=== PATIENT | female | born 1995 | race American Indian/Alaskan Native ===

== ENCOUNTER 2020-09-14 09:48 | Outpatient (REF) | payer OTHER, SELFPAY ==
[2020-09-15 08:59] LABS: BV Int Neg Control Negative (Negative); BV Int Pos Control Positive (Positive)
[2020-09-15 10:27] LABS: C. trachomatis RNA TMA NOT DETECTED (NOT DETECTED); N. gonorrhoeae RNA TMA NOT DETECTED (NOT DETECTED)
== END 2020-09-14 09:49 | disposition home or self-care (01) ==
LOC: HO.LAB 09:48
PROVIDERS: PCP Internal Medicine; Visit Provider Advanced Practice Midwife
DX: Z01.419 Encounter for gynecological examination (general) (routine) without abnormal findings (principal); N92.6 Irregular menstruation, unspecified; F41.8 Other specified anxiety disorders; Z11.3 Encounter for screening for infections with a predominantly sexual mode of transmission
CPT/HCPCS: 36415; 81003; 81025; 87480; 87491; 87510; 87591; 87660; 88142

== ENCOUNTER 2020-10-10 14:10 | Outpatient (REF) | payer OTHER, SELFPAY | END 2020-10-10 14:11 | disposition home or self-care (01) | LOC: HO.LNP 14:10 | PROVIDERS: Visit Provider Hospitalist | DX: Z20.822 Contact with and (suspected) exposure to COVID-19 (principal); B34.9 Viral infection, unspecified | CPT/HCPCS: U0003; U0005 ==

== ENCOUNTER 2020-10-20 07:10 | Emergency (ER) | payer OTHER, SELFPAY ==
[2020-10-20 07:17] VITALS: BP 104/56; BP 123/74; PULSE 80; PULSE 86; RESP 16; TEMP 36.8; O2SAT 98; BMI 31.8
--- NOTE | 2020-10-20 07:21 | ED.SEIZURE ---
HPI - Seizure General Chief Complaint: Seizure Stated Complaint: SEIZURE Time Seen by Provider: 10/20/20 07:16 Source: patient and EMS Mode of arrival: EMS Limitations: no limitations (patient cannot remember the events but called her boyfriend ) History of Present Illness HPI Narrative: 24 yo female with hx of epilepsy was on dilantin but was weaned off several years ago and is not on any AEDs - she has been having focal seizures at home this month called the Neurologist has appointment but at the end of the month, this AM prior to arrival she was in bed and her boyfriend noted 30 seconds of GTC activity, patient was postictal on waking up, no injuries noted MD complaint: seizure Onset (ago): minute(s) (just TPA) Description of Episode: loss of consciousness, tonic-clonic movement and post-event confusion Duration of episode: 30 -: second(s) Witnessed: Yes - by Bystander Trauma: No Seizure History: Yes Place: Home Possible Precipitating Event: none Associated symptoms: other (c/o some nausea and mild headache) Treatments prior to arrival: none Related Data Home Medications Medication Instructions Recorded Confirmed ferrous sulfate 325 mg (65 mg 325 mg PO DAILY 09/14/20 10/10/20 iron) tablet Previous Rx's Medication Instructions Recorded medroxyprogesterone 10 mg tablet 10 mg PO DAILY #10 tab 09/14/20 ondansetron HCl 8 mg tablet 8 mg PO Q8H PRN #14 tab 10/10/20 levetiracetam [Keppra] 500 mg PO BID #30 tab 10/20/20 Allergies Allergy/AdvReac Type Severity Reaction Status Date / Time phenytoin [From DILANTIN] Allergy Mild RASH Verified 10/10/20 13:18 Review of Systems Review of Systems: Constitutional : No Weight loss, No Fever, No Chills, No Fatigue, No Malaise ENT/Mouth : No sore throat, No Rhinorrhea Eyes: No Eye Pain, No Swelling, No Redness Cardiovascular : No Chest Pain, No SOB, No Dyspnea on Exertion, No Orthopnea, No Edema, No Palpitations Respiratory : No Cough, No Sputum, No Wheezing Gastrointestinal : po Nausea, No Vomiting, No Diarrhea, No Constipation, No abdominal Pain Genitourinary : No Dysuria, No Urinary Frequency, No Hematuria, Musculoskeletal : No joint pain, No Myalgias, No Joint Swelling Skin : No Skin Lesions, No rash Neuro : No Weakness, No Numbness, No Dizziness, pos Headache, pos seizure Psych : No Anxiety/Panic, No Depression Heme/Lymph: No Bruising, No Bleeding,No Lymphadenopathy Endocrine : No Polyuria, No Polydipsia All other systems reviewed and are negative [facility] Past Medical History Medical History (Updated 10/20/20 @ 08:49 by Shannan Marquez DO) Annual physical exam BCP ( control pills) initiation Depression Depression with anxiety Frequent UTI care and examination Seizure disorder Surgical History Hx of section No pertinent past surgical history Family History Family History Father No problems noted. Mother No problems noted. Social History Social History Alcohol intake: never Smoking Status: Never smoker Smoked in Last 30 Days: No Use of substances other than those prescribed or required for medical reasons: Yes Substance Use Type: Marijuana Substance Use Frequency: Weekly Advance Directives: No Advance Directives Information Provided: No Sexual orientation: Straight/Heterosexual Physical Exam Vital Signs: Vital Signs: Last Vital Signs Temp 98.2 F 10/20/20 07:17 Pulse 86 10/20/20 07:17 Resp 16 10/20/20 07:17 BP 104/56 L 10/20/20 07:17 Pulse Ox 98 10/20/20 07:17 Body Mass Index 31.8 Appearance: Alert. Oriented X3. No acute distress. Eyes: Pupils equal, round and reactive to light. ENT: Pharynx normal. no abrasions Neck: Normal inspection. Neck supple. CVS: Normal heart rate and rhythm. Pulses normal. Respiratory: No respiratory distress. Breath sounds normal. Abdomen: Soft and nontender. Skin: Skin warm and dry. Normal skin color. Normal skin turgor. Extremities: No lower extremity edema. No calf ttp Neuro: Oriented X 3. No motor deficit. No sensory deficit. Course Course Course Narrative: GCS 15 at baseline, stable for DC MDM - Seizure MDM Narrative Medical decision making narrative: 24 yo female with hx of epilepsy has not been on any medications for several years, has been having focal seizures at home but today had GTC seizure - she has appointment with Neurology at the end of the month, my concern is that she is going to progress with out any AEDs, discussed risks and benefits of starting keppra until her appointment the patient wants to proceed at this time will start on keppra 500mg BID, check UPT Lab Data Labs: Lab Results 10/20/20 Range/Units 08:27 Urine Test NEGATIVE (NEGATIVE) Discharge Plan Discharge Clinical Impression: Generalized seizure Patient Disposition: Home, Self-Care Instructions: Epilepsy (ED) Additional Instructions: return to ED for any worsening symptoms or concerns please follow up with your Neurologist Prescriptions: New levetiracetam [Keppra] 500 mg tablet 500 mg PO BID Qty: 30 RF: 1 No Action ondansetron HCl 8 mg tablet 8 mg PO Q8H PRN (Reason: nausea and vomiting) Qty: 14 RF: 0 ferrous sulfate 325 mg (65 mg iron) tablet 325 mg PO DAILY RF: 0 medroxyprogesterone [Provera] 10 mg tablet 10 mg PO DAILY Qty: 10 RF: 0 Stand Alone Forms: Work/School Release
[2020-10-20] MEDS: Acetaminophen 325 MG TABLET 650 MG PO (07:52)
--- NOTE | 2020-10-20 07:59 | PC.NURSE ---
pt was given the zofran sublingual vomitted up the med, pt stated that she did not like the taste of the med. requested/given some water swallowed water okay. pt given tylenol 650mg po and vomitted tylenol along with some undigested food particles. aware.
[2020-10-20] MEDS: ondansetron HCL 4 MG/2 ML VIAL IVPUSH (08:15)
[2020-10-20 08:38] LABS: UPreg QC Valid YES; Urine Pregnancy NEGATIVE (NEGATIVE)
--- NOTE | 2020-10-20 08:38 | PC.NURSE ---
pt alert and oriented x3, pt observed texting and talking on her phone, speaking in complete sentences, making appropriate eye contact with nurse. pt not having seizure activity at this time.
--- NOTE | 2020-10-20 08:39 | PC.NURSE ---
pt currently laying in bed with side rails up and padding applied to side rails. pt connected to heart monitor. after throwing up PO meds pt asked about IV meds, added Zofran 4mg IV push to orders. Pt given zofran IV push and stated after a few minutes the med seemed like it was working in reducing nausea and she wanted to try taking tylenol again. pt given 650mg tylenol PO again and was able to keep it down. pt able to speak in complete sentences, eye contact appropriate for setting. thought process is linear and pt does not appear confused at this time. pt given emesis bag in case she throws up again. call russell in reach.
[2020-10-20 09:11] VITALS: BP 103/51; PULSE 62; RESP 14; TEMP 36.7
[2020-10-20] MEDS: levETIRAcetam 500 MG TABLET PO (09:16)
--- NOTE | 2020-10-20 09:34 | PC.NURSE ---
pt alert and oriented x3, pt dressed herself, pt was offered wheelchair upon discharge to bring her out to waiting room, pt adamantly refused wheelchair. ambulates independently, gait steady. pt denies feeling lightheaded or dizzy when ambulating. no compaints of nausea or headache at this time, denies blurry vision or visual impairments. no tremors or seizure activity noted while patient was in ER.
== END 2020-10-20 09:38 | disposition home or self-care (01) ==
PROVIDERS: Emergency Provider Emergency Medicine; PCP Internal Medicine
DX: R56.9 Unspecified convulsions (principal); R51.9 Headache, unspecified; R11.0 Nausea; F12.90 Cannabis use, unspecified, uncomplicated; Z79.899 Other long term (current) drug therapy
CPT/HCPCS: 81025; 96374; 99284; J2405

== ENCOUNTER 2020-10-31 21:38 | Emergency (ER) | payer OTHER, SELFPAY ==
[2020-10-31 21:44] VITALS: BP 109/76; BP 119/66; PULSE 67; PULSE 76; RESP 18; TEMP 36.4; O2SAT 100; O2SAT 98; BMI 45.6
[2020-10-31 21:53] LABS: Glucose, Whole Blood 95 mg/dL (60-115)
--- NOTE | 2020-10-31 22:06 | PC.NURSE ---
Pt attempting to take cpsine collar off- explained why it was in place and risks of removing it, pt reluctant to keep it on. Pt reports abd burning its spreading , attempted to draw blood work and medicate w/ tylenol- pt declining you aren't helping me you aren't listening to me , when asked to explain further pt states I dont want fucking tylenol... I want this thing (cspine collar) off... get me a doctor now . Pt appears uncomfortable, guarding abd, but skin w/p/d, neuros intact, rr even and unlabored.
--- NOTE | 2020-10-31 22:10 | PC.NURSE ---
Approached pt asking for permission to speak to mother via phone, pt states why arent you helping me, I want pain medication , offered Tylenol, pt swearing at this rn, this rn asked pt to be respectful, pt states you need to be respectful, I'll fuck you up bitch . Another rn at bedside attempting to de-escalate pt.
--- NOTE | 2020-10-31 22:23 | PC.NURSE ---
linen tech at bedside w/ Dr. Michaels- attempting to de-escalate pt, cspine collar removed by pt.
--- NOTE | 2020-10-31 22:26 | ED.SEIZURE ---
HPI - Seizure General Chief Complaint: Seizure Stated Complaint: Seizure Time Seen by Provider: 10/31/20 22:26 Source: patient Mode of arrival: EMS History of Present Illness HPI Narrative: This is a 24-year-old female with history of epilepsy on Lamictal and states that she forgot her dose this morning because she was at work and was tired and as per EMS had an unwitnessed suspected seizure while in the bathroom. She is not noted to be postictal on arrival to the emergency department and denies any constitutional symptoms such as fevers, chills, urinary pain/burning/frequency. Seizure History: Yes (last seizure 13 years ago, does not take meds for seizures) Related Data Home Medications Medication Instructions Recorded Confirmed ferrous sulfate 325 mg (65 mg 325 mg PO DAILY 09/14/20 10/10/20 iron) tablet Previous Rx's Medication Instructions Recorded medroxyprogesterone 10 mg tablet 10 mg PO DAILY #10 tab 09/14/20 ondansetron HCl 8 mg tablet 8 mg PO Q8H PRN #14 tab 10/10/20 levetiracetam [Keppra] 500 mg PO BID #30 tab 10/20/20 Allergies Allergy/AdvReac Type Severity Reaction Status Date / Time phenytoin [From DILANTIN] Allergy Mild RASH Verified 10/10/20 13:18 Review of Systems Review of Systems: Pertinent positives and negatives as stated in HPI 10 point review of systems as otherwise negative PMFSH Past Medical History Source: nursing notes reviewed Medical History Annual physical exam BCP ( control pills) initiation Depression Depression with anxiety Frequent UTI care and examination Seizure disorder Surgical History Hx of section No pertinent past surgical history Family History Family History Father No problems noted. Mother No problems noted. Social History Social History Alcohol intake: never Smoking Status: Never smoker Substance Use Type: Marijuana Advance Directives: No Sexual orientation: Straight/Heterosexual Physical Exam Vital Signs: Vital Signs: Last Vital Signs Temp 97.6 F 10/31/20 21:44 Pulse 76 10/31/20 21:44 Resp 18 10/31/20 21:44 BP 119/66 10/31/20 21:44 Pulse Ox 100 10/31/20 21:44 Body Mass Index 45.6 VITAL SIGNS: Reviewed. GENERAL: Well developed, well nourished, in no acute distress. HEAD: Normocephalic/atraumatic EYES: PERRLA, EOMI intact without pain, no nystagmus OROPHARYNX: no oral lesions noted, posterior pharynx clear NECK: C-collar in place, no mid cervical spine tenderness on palpation LUNGS: Normal breath sounds. No adventitious sounds or accessory muscle use. SpO2<100> CARDIOVASCULAR: Regular rate and rhythm without noted murmurs ABDOMEN: Soft, non-tender, non-distended with bowel sounds. MUSCULOSKELETAL: No tenderness, deformities, or effusions noted on gross inspection. SKIN: Inspection of the skin reveals no rashes, abrasions, ecchymosis NEUROLOGIC: Alert and oriented x 4. Strength and sensation to light touch were grossly intact x 4. Course Course Course Narrative: This is a 24-year-old female with history and clinical presentation consistent with possible breakthrough seizure secondary to noncompliance with medication, and now is wishing to sign out against medical advice. The risks and benefits of signing out were discussed with her and she still endorsed wanting to go home stating that she is very sure that this is all due to her missed medications. Patient was otherwise discharged AMA in stable condition and the C-collar was cleared following NEXUS criteria. MDM - Seizure Lab Data Labs: Lab Results 10/31/20 Range/Units 21:44 POC Glucose 95 (60-115) mg/dL Discharge Plan Discharge Clinical Impression: Seizure Patient Disposition: Left Against Medical Advice Instructions: Epilepsy (ED) Additional Instructions: Please stay well hydrated and taking medication. Do not hesitate to return to the emergency department if you develop any fevers, chills, urinary symptoms as these may contribute to your breakthrough seizures. Prescriptions: No Action levetiracetam [Keppra] 500 mg tablet 500 mg PO BID Qty: 30 RF: 1 ondansetron HCl 8 mg tablet 8 mg PO Q8H PRN (Reason: nausea and vomiting) Qty: 14 RF: 0 ferrous sulfate 325 mg (65 mg iron) tablet 325 mg PO DAILY RF: 0 medroxyprogesterone [Provera] 10 mg tablet 10 mg PO DAILY Qty: 10 RF: 0 Referrals: Physician,Unknown [Primary Care Provider] - 2 days Stand Alone Forms: Against Medical Advice, Work/School Release Discharge Date/Time: 10/31/20 22:45
--- NOTE | 2020-10-31 22:32 | PC.NURSE ---
patient calling for the charge nurse to come talk to her. this staff member walking into the room, patient started swearing at this staff member no one is talking to you bitch go fuck yourself, get out of my conversation again identifying myself as charge nurse. Patient on the phone with family member continuing to swear at this staff member. security called bedside due to escalating patient. provider now at bedside. patient refusing care and refusing to stay at hospital. wanting to leave ama. boyfriend coming to bedside patient calming down when boyfriend arrived. still refusing care. ama signed trish rn and this rn witnessed.
--- NOTE | 2020-10-31 22:34 | PC.NURSE ---
THIS RN ENTERED PATIENTS ROOM SEEING CALL LIGHT ON, PATIENT BEGAN REPORTING TO THIS RN THAT SHE WAS VERY UNCOMFORTABLE IN THE POSITION SHE WAS IN LYING SUPINE W/ C-COLLAR IN PLACE, SZ PRECAUTIONS IN PLACE ON BED. PT REPORTED SHE WAS TOLD SHE COULD NOT MOVE UNTIL ASSESSED BY PHYSICIAN, THIS RN SECONDED POLICY TO STAY IN CURRENT POSITION UNTIL EVALUATED BY PROVIDER, PT THEN BEGAN ESCALATING AND SAYING THAT STAFF WERE MAKING FUN OF HER AND NOT TREATING HER, MAKING HER STAY IN PAIN. PT ON CELL PHONE WITH MOTHER DURING PROCESS, PT SAYING TO MOTHER, WHO HAD JUST SPOKEN CHARGE NURSE, THAT STAFF WERE LYING ABOUT HER AND TRYING TO MAKE HER LOOK CRAZY. PT DEMANDING TO SPEAK TO [employer], THIS RN ASKED WHAT REGARDING AT WHICH POINT PT BEGAN YELLING AND SWEARING, CHARGE NURSE TO BEDSIDE TO EVAL SITUATION, PT THEN SWORE AT CHARGE NURSE THEN REFUSED TO TALK TO HER. DR NAVARRO TO BEDSIDE, PT REFUSING TO SPEAK WITH PROVIDER, CONTINUING TO TALK ON CELL PHONE INSTEAD. PT COMPLAINING SHE HAD NOT RECEIVED PROMISED TYLENOL, THIS RN OFFERED PT THE TYLENOL IT WAS ALREADY AT BEDSIDE WITH WATER FROM PRIMARY RN. PT AGAIN REFUSED PAIN MEDICATION, STATING SHE WANTED TO BE TRANSFERRED TO [facility], THIS RN ADVISED UNABLE TO TRANSFER BETWEEN ED'S WITHOUT JUST CAUSE, PT THEN REQUESTED TO LEAVE. DR NAVARRO WENT OVER AMA WITH PT, PT THEN SIGNED PAPERWORK AND AMBULATED OUT OF ED WITH EVEN STEADY GAIT.
== END 2020-10-31 22:45 | disposition left against medical advice (07) ==
PROVIDERS: Emergency Provider Student in an Organized Health Care Education/Training Program
DX: R56.9 Unspecified convulsions (principal); Z91.14 Patient's other noncompliance with medication regimen; F12.90 Cannabis use, unspecified, uncomplicated
CPT/HCPCS: 82947; 99282; 99283

== ENCOUNTER 2020-11-15 08:47 | Outpatient (REF) | payer OTHER, SELFPAY ==
--- NOTE | ~2020-11-15 | MR_ITS ---
EXAMINATION: MR BRAIN WITHOUT CONTRAST CLINICAL INFORMATION: Epilepsy at with increased seizure activity in the last month. COMPARISON: None. TECHNIQUE: MRI of the brain was obtained using routine sequences without contrast. FINDINGS: The left hippocampus is diminutive with respect to the right. No areas of abnormally restricted diffusion within the brain parenchyma to suggest acute or subacute ischemia. . No pathological magnetic susceptibility artifact is demonstrated. There is no intracranial mass, mass effect, or shift of midline structures. No abnormal extra axial fluid collection. Ventricular system normal in size proportionate to the subarachnoid spaces, without evidence of hydrocephalus. Posterior fossa structures are normal. The craniocervical junction is normal. Midline structures including the posterior pituitary bright spot are normal. The intracranial vascular flow voids including the major dural venous sinuses are preserved. Mastoid air cells are clear. The visualized paranasal sinuses are well-aerated. Globes and orbits unremarkable. 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 Further assessment limited at 1.5T. Recommend repeat imaging on a 3 Huong magnet.
== END 2020-11-15 08:48 | disposition home or self-care (01) ==
LOC: HO.MRI 08:47
PROVIDERS: Visit Provider Psychiatry & Neurology Neurology
DX: G40.909 Epilepsy, unspecified, not intractable, without status epilepticus (principal)
CPT/HCPCS: 70551

== ENCOUNTER 2020-12-01 13:09 | Outpatient (REF) | payer OTHER, SELFPAY ==
--- NOTE | 2020-12-01 13:15 | EEG_ITS ---
The waking background activity consists of low voltage fast frequencies, seen diffusely, intermixed with low voltage posterior 9 to 10 hertz alpha frequency. Occasional runs of moderate voltage, 5 to 6 hertz theta is seen in the bifrontal distribution, lasting up to 7 seconds without any clinical symptoms. During drowsiness, there is diffuse background slowing. Symmetrical sleep spindles, vertex sharp transients, and K complexes developed over both hemispheres. Arousals are unremarkable. The patient verbally reported having had a seizure at 12:27 p.m. I have looked at the tracing for 7 minutes before and after that. The initial period is only muscle artifact with a normal background cerebral activity and after the event, there are only some chewing muscle artifacts and no epileptiform discharges. IMPRESSION: This 24-hour ambulatory EEG is considered unremarkable with no definite seizure activity. The patient's reported seizure at 12:27 p.m. is preceded by muscle artifacts and followed by chewing artifacts, but at no point in that 10-minute period around that event, there are any epileptiform discharges. There is some bifrontal 5 to 6 hertz theta seen rhythmically lasting up to 6 to 7 seconds multiple times during the tracing without any associated clinical significance of doubtful significance. Clinical correlation is suggested. MD FINN Myers/ELISABETH / [id number]
== END 2020-12-01 13:10 | disposition home or self-care (01) ==
LOC: HO.NEURO 13:09
PROVIDERS: Visit Provider Psychiatry & Neurology Neurology
DX: G40.909 Epilepsy, unspecified, not intractable, without status epilepticus (principal)
CPT/HCPCS: 95708; 95816

== ENCOUNTER 2021-05-08 11:17 | Outpatient (REF) | payer OTHER, SELFPAY ==
[2021-05-11 13:21] LABS: TS Negative Control Passed; TS Panel A 0; TS Panel B 0; TS Positive Control Passed; TSpotTB Negative (SeeBelow)
== END 2021-05-08 11:18 | disposition home or self-care (01) ==
LOC: HO.HMGCLDS 11:17
PROVIDERS: PCP Internal Medicine; Visit Provider Internal Medicine
DX: Z11.1 Encounter for screening for respiratory tuberculosis (principal)
CPT/HCPCS: 36415; 86481

== ENCOUNTER 2021-11-27 21:20 | Emergency (ER) | payer OTHER, SELFPAY | END 2021-11-27 23:16 | disposition left against medical advice (07) | PROVIDERS: Emergency Provider Emergency Medicine | DX: R10.9 Unspecified abdominal pain (principal) ==

== ENCOUNTER 2021-12-27 08:47 | Emergency (ER) | payer OTHER, SELFPAY ==
--- NOTE | 2021-12-27 | ECG_ITS ---
Test Reason : cp Blood Pressure : / mmHG Vent. Rate : 077 BPM Atrial Rate : 077 BPM P-R Int : 142 ms QRS Dur : 086 ms QT Int : 378 ms P-R-T Axes : 040 028 021 degrees QTc Int : 427 ms Normal sinus rhythm with sinus arrhythmia Normal ECG No previous ECGs available Referred By: Generic ED Physician Electronically Signed By:ALLY QUIROZ MD
--- NOTE | ~2021-12-27 | XR_ITS ---
EXAMINATION: XR CHEST CLINICAL INFORMATION: Chest pain. COMPARISON: None TECHNIQUE: Frontal view of the chest was obtained. FINDINGS: No significant abnormality is noted involving the heart, lungs, mediastinum, bony thorax or soft tissues. XR/XR chest 1V IMPRESSION: No acute cardiopulmonary process.
[2021-12-27 09:00] VITALS: BP 126/69; PULSE 79; RESP 16; TEMP 36.3; O2SAT 99; BMI 39.2
--- NOTE | 2021-12-27 09:17 | ED_ITS ---
HPI - General Adult General Chief complaint: General Medical Stated complaint: chest pain Time Seen by Provider: 12/27/21 09:13 Source: patient and family (Significant other) Mode of arrival: ambulatory Limitations: no limitations History of Present Illness HPI narrative: 26-year-old female came in for evaluation of chest pain. Chest pain started 7 days ago, described as pleuritic chest pain increase with taking a deep breath, pain is associated with dizziness, no fever or chills or coughing, no trauma. Patient had a history of anemia was taking iron pill that she stop taking, patient also been feeling dizzy especially when she changed position feels lightheadedness. Related Data Home Medications Medication Instructions Recorded Confirmed ferrous sulfate 325 mg (65 mg 325 mg PO DAILY 09/14/20 03/27/21 iron) tablet carbamazepine 200 mg tablet 200 mg PO BID 01/12/21 03/27/21 Previous Rx's Medication Instructions Recorded gabapentin 300 mg capsule 300 mg PO TID #90 cap 01/12/21 cetirizine 10 mg tablet (Zyrtec) 10 mg PO DAILY #30 tab 03/27/21 Allergies Allergy/AdvReac Type Severity Reaction Status Date / Time phenytoin [From DILANTIN] Allergy Mild RASH Verified 01/12/21 09:41 Review of Systems Review of Systems: All other systems are reviewed and are negative Constitutional: Reports as per HPI and Reports no additional constitutional complaints Eyes: Reports as per HPI and Reports no additional eye complaints Reports system reviewed and no additional complaints, except as documented Cardiovascular: Reports as per HPI and Reports no additional cardiovascular complaints Respiratory: Reports as per HPI and Reports no additional respiratory complaints Gastrointestinal: Reports as per HPI and Reports no additional gastrointestinal complaints Genitourinary: Reports no additional female genitourinary complaints Musculoskeletal: Reports no additional musculoskeletal complaints Skin/Breast: Reports system reviewed and no additional complaints, except as docu Psychiatric: Reports no additional psychiatric complaints Endocrine: Reports no additional endocrine complaints Hematologic/Lymphatic: Reports no additional hematologic/lymphatic complaints Allergic/Immunologic: Reports no additional allergic/immunologic complaints Reports system reviewed and no additional complaints, except as documented and Reports Abnormal speech present [facility] Past Medical History Medical History Annual physical exam BCP ( control pills) initiation Depression Depression with anxiety Frequent UTI care and examination Rash Seizure disorder Surgical History Hx of section No pertinent past surgical history Family History Family History (Reviewed 12/27/21 @ 09: by Zully Spencer MD) Father No problems noted. Mother No problems noted. Social History Social History Housing: House Alcohol intake: never Patient Tobacco Use Status: Never used Tobacco e-Cigarette/Vaping Use: Never Used Use of substances other than those prescribed or required for medical reasons: No Substance Use Type: Marijuana Advance Directives: No Advance Directives Information Provided: No Patient : No Current occupational status: employed Sexual orientation: Straight/Heterosexual Physical Exam ED Vital Signs: Vital Signs - 24 hr 12/27/21 09:00 12/27/21 10:43 Temperature 97.4 F 98.7 F Pulse Rate 79 68 Respiratory Rate 16 14 Blood Pressure 126/69 103/78 Pulse Oximetry 99 98 BMI result Body Mass Index 39.2 Vital signs have been reviewed as appeared to be correct. Blood pressure normal. Heart rate normal. Respiration rate normal. Temperature normal. Oxygen saturation normal. Appearance: Alert. Oriented X3. No acute distress. Head: Normal external exam. Normocephalic. Atraumatic. No Villegas signs noted. No raccoon eyes noted Eyes: PERRLA. EOMI. Conjunctiva and sclera normal. Eyelids normal. ENT: TM's Normal. Pharynx normal. Uvula midline. Moist mucous membranes. No trismus noted. No drooling noted. No muffled voice noted. Neck: Normal inspection. Neck supple. FROM. No adenopathy. Thyroid Normal. No meningeal signs. No neck mass noted. CVS: Normal heart rate and rhythm. Heart sound normal. No murmurs noted. Pulses normal throughout. Respiratory: No respiratory distress. Painless inspiration. Breath sounds normal. No wheezes/rales/rhonchi noted. Chest nontender. No accessory muscle usage noted or decreased air movement noted. Abdomen: Soft and nontender. Bowel sounds normal in all 4 quadrants. No distention noted. No organomegaly noted. No visible injury noted. Back: No CVA tenderness. Full range of motion noted. Skin: Skin warm and dry. Normal skin color. Normal skin turgor. No catarina hes/lesions/lacerations noted. Extremities: No lower extremity edema. Extremities exhibit normal range of motion. Extremities nontender. Neuro: Oriented X 3. Cranial nerve exam: II-XII are grossly intact No motor deficit. No sensory deficit. Reflexes normal. Course Course Course Narrative: Assessment and plan. 26-year-old female came in for evaluation of chest pain for 7 days, patient has unremarkable EKG/labs including D-dimer and troponin. HEART score is 0, patient has a history of anemia and was treated by her PCP with iron fell patient discontinued the iron pill. Will reassure and discharge to follow-up with PCP. Medical Decision Making Lab Data Lab results reviewed: Yes I reviewed the patient's lab results. Result diagrams: 12/27/21 09:34 12/27/21 09:34 Labs: Lab Results 12/27/21 12/27/21 12/27/21 Range/Units 09:34 09:34 09:34 WBC 7.1 (4.8-10.8) X10*3/uL RBC 5.12 (4.20-5.50) X10*6/uL Hgb 13.5 (12.0-16.0) g/dl Hct 41.4 (37.0-47.0) % MCV 80.9 (80.0-98.0) fL MCH 26.4 L (27.0-33.0) pg MCHC 32.6 (31.0-35.0) g/dl RDW 15.1 (11.0-16.0) % Plt Count 239 (160-400) X10*3/uL MPV 9.8 (9.4-12.3) fL Immature Gran % (Auto) 0.3 (0.0-0.4) % Neut % (Auto) 72.3 (45-73) % Lymph % (Auto) 19.7 L (20-40) % [place] % (Auto) 5.1 (2-11) % Eos % (Auto) 2.3 (0-4) % Baso % (Auto) 0.3 (0-2) % Lymph # (Auto) 1.4 (1.2-4.9) X10*3/uL [place] # (Auto) 0.4 (0.1-1.2) X10*3/uL Eos # (Auto) 0.2 (0.0-0.4) X10*3/uL Baso # (Auto) 0.0 (0.0-0.2) X10*3/uL Abs Immat Gran (auto) 0.02 (0.00-0.03) X10*3/uL Absolute Neuts (auto) 5.2 (2.0-8.3) x10*3/uL Absolute Nucleated RBC 0.000 (0.0-0.012) X10*3/uL Nucleated RBC % (auto) 0.0 (0.0-0.2) /100WBC D-Dimer High Sensitivty NG/ML Sodium 139 (135-145) mmol/L Potassium 3.8 (3.3-5.1) mmol/L Chloride 109 H (96-108) mmol/L Carbon Dioxide 23 (22-29) mmol/L Anion Gap 11 L (12-20) BUN 9 (9-16) mg/dL Creatinine 0.70 (0.5-1.4) mg/dL Estim Creat Clear Calc 123.5 Estimated GFR > 60 Random Glucose 91 (60-115) mg/dL Calcium 9.1 (8.4-10.2) mg/dL Total Bilirubin 0.2 (0.0-1.0) mg/dL Direct Bilirubin < 0.2 (0.0-0.5) mg/dL AST 13 (5-31) U/L ALT 18 (0-31) U/L Alkaline Phosphatase 89 (39-117) U/L Troponin I High Sens < 3.5 (<3.5-17.0) ng/L Total Protein 7.3 (6.5-8.0) g/dL Albumin 4.0 (3.5-5.0) g/dL Lipase 10 (8-78) U/L Urine Color Urine Appearance Urine pH (5.0-8.0) Ur Specific [place] (1.005-1.025) Urine Protein (NEG-TRACE) MG/DL Urine Glucose (UA) (NEG) MG/DL Urine Ketones (NEG) MG/DL Urine Blood (NEG) Urine Nitrite (NEG) Ur Leukocyte Esterase (NEG) Urine Test (NEGATIVE) Influenza Type A (PCR) (Negative) Influenza Type B (PCR) (Negative) RSV RNA Qual (PCR) (Negative) SARS-CoV-2 RNA (RT-PCR) (Negative) 12/27/21 12/27/21 12/27/21 Range/Units 09:34 09:39 10:47 WBC (4.8-10.8) X10*3/uL RBC (4.20-5.50) X10*6/uL Hgb (12.0-16.0) g/dl Hct (37.0-47.0) % MCV (80.0-98.0) fL MCH (27.0-33.0) pg MCHC (31.0-35.0) g/dl RDW (11.0-16.0) % Plt Count (160-400) X10*3/uL MPV (9.4-12.3) fL Immature Gran % (Auto) (0.0-0.4) % Neut % (Auto) (45-73) % Lymph % (Auto) (20-40) % [place] % (Auto) (2-11) % Eos % (Auto) (0-4) % Baso % (Auto) (0-2) % Lymph # (Auto) (1.2-4.9) X10*3/uL [place] # (Auto) (0.1-1.2) X10*3/uL Eos # (Auto) (0.0-0.4) X10*3/uL Baso # (Auto) (0.0-0.2) X10*3/uL Abs Immat Gran (auto) (0.00-0.03) X10*3/uL Absolute Neuts (auto) (2.0-8.3) x10*3/uL Absolute Nucleated RBC (0.0-0.012) X10*3/uL Nucleated RBC % (auto) (0.0-0.2) /100WBC D-Dimer High Sensitivty 162 NG/ML Sodium (135-145) mmol/L Potassium (3.3-5.1) mmol/L Chloride (96-108) mmol/L Carbon Dioxide (22-29) mmol/L Anion Gap (12-20) BUN (9-16) mg/dL Creatinine (0.5-1.4) mg/dL Estim Creat Clear Calc Estimated GFR Random Glucose (60-115) mg/dL Calcium (8.4-10.2) mg/dL Total Bilirubin (0.0-1.0) mg/dL Direct Bilirubin (0.0-0.5) mg/dL AST (5-31) U/L ALT (0-31) U/L Alkaline Phosphatase (39-117) U/L Troponin I High Sens (<3.5-17.0) ng/L Total Protein (6.5-8.0) g/dL Albumin (3.5-5.0) g/dL Lipase (8-78) U/L Urine Color YELLOW Urine Appearance HAZY Urine pH 6.0 (5.0-8.0) Ur Specific [place] 1.025 (1.005-1.025) Urine Protein NEG (NEG-TRACE) MG/DL Urine Glucose (UA) NEG (NEG) MG/DL Urine Ketones NEG (NEG) MG/DL Urine Blood NEG (NEG) Urine Nitrite NEG (NEG) Ur Leukocyte Esterase NEG (NEG) Urine Test (NEGATIVE) Influenza Type A (PCR) NEGATIVE (Negative) Influenza Type B (PCR) NEGATIVE (Negative) RSV RNA Qual (PCR) NEGATIVE (Negative) SARS-CoV-2 RNA (RT-PCR) NEGATIVE (Negative) 12/27/21 Range/Units 10:47 WBC (4.8-10.8) X10*3/uL RBC (4.20-5.50) X10*6/uL Hgb (12.0-16.0) g/dl Hct (37.0-47.0) % MCV (80.0-98.0) fL MCH (27.0-33.0) pg MCHC (31.0-35.0) g/dl RDW (11.0-16.0) % Plt Count (160-400) X10*3/uL MPV (9.4-12.3) fL Immature Gran % (Auto) (0.0-0.4) % Neut % (Auto) (45-73) % Lymph % (Auto) (20-40) % [place] % (Auto) (2-11) % Eos % (Auto) (0-4) % Baso % (Auto) (0-2) % Lymph # (Auto) (1.2-4.9) X10*3/uL [place] # (Auto) (0.1-1.2) X10*3/uL Eos # (Auto) (0.0-0.4) X10*3/uL Baso # (Auto) (0.0-0.2) X10*3/uL Abs Immat Gran (auto) (0.00-0.03) X10*3/uL Absolute Neuts (auto) (2.0-8.3) x10*3/uL Absolute Nucleated RBC (0.0-0.012) X10*3/uL Nucleated RBC % (auto) (0.0-0.2) /100WBC D-Dimer High Sensitivty NG/ML Sodium (135-145) mmol/L Potassium (3.3-5.1) mmol/L Chloride (96-108) mmol/L Carbon Dioxide (22-29) mmol/L Anion Gap (12-20) BUN (9-16) mg/dL Creatinine (0.5-1.4) mg/dL Estim Creat Clear Calc Estimated GFR Random Glucose (60-115) mg/dL Calcium (8.4-10.2) mg/dL Total Bilirubin (0.0-1.0) mg/dL Direct Bilirubin (0.0-0.5) mg/dL AST (5-31) U/L ALT (0-31) U/L Alkaline Phosphatase (39-117) U/L Troponin I High Sens (<3.5-17.0) ng/L Total Protein (6.5-8.0) g/dL Albumin (3.5-5.0) g/dL Lipase (8-78) U/L Urine Color Urine Appearance Urine pH (5.0-8.0) Ur Specific [place] (1.005-1.025) Urine Protein (NEG-TRACE) MG/DL Urine Glucose (UA) (NEG) MG/DL Urine Ketones (NEG) MG/DL Urine Blood (NEG) Urine Nitrite (NEG) Ur Leukocyte Esterase (NEG) Urine Test NEGATIVE (NEGATIVE) Influenza Type A (PCR) (Negative) Influenza Type B (PCR) (Negative) RSV RNA Qual (PCR) (Negative) SARS-CoV-2 RNA (RT-PCR) (Negative) Imaging Data Chest x-ray: Attestation: I personally reviewed and interpreted this imaging study as follows: Radiologist's impression: No acute pathology ECG Data Attestation: I personally reviewed and interpreted this ECG as follows: Interpretation: Normal sinus rhythm at 77 beats per minute, normal axis deviation, normal intervals, no ST-T changes. Discharge Plan Discharge Clinical Impression: Chest pain Patient Disposition: Home, Self-Care Instructions: Chest Pain (ED) Prescriptions: No Action carbamazepine 200 mg tablet 200 mg PO BID 0RF gabapentin 300 mg capsule 300 mg PO TID Qty: 90 3RF cetirizine [Zyrtec] 10 mg tablet 10 mg PO DAILY Qty: 30 5RF ferrous sulfate 325 mg (65 mg iron) tablet 325 mg PO DAILY 0RF Referrals: Meredith Cervantes MD [Primary Care Provider] - Stand Alone Forms: Work/School Release
[2021-12-27 09:45] LABS: MANUAL DIFF FLAG NO
[2021-12-27 09:48] LABS: Basophils Percent Auto 0.3 % (0-2); Eosinophils Absolute Auto 0.2 X10*3/uL (0.0-0.4); Eosinophils Percent Auto 2.3 % (0-4); Hematocrit 41.4 % (37.0-47.0); Hemoglobin 13.5 g/dl (12.0-16.0); Imm Gran Abs Auto 0.02 X10*3/uL (0.00-0.03); Imm Gran Pct Auto 0.3 % (0.0-0.4); Lymphocytes Absolute Auto 1.4 X10*3/uL (1.2-4.9); Lymphocytes Percent Auto 19.7 % (20-40); Mean Corpuscular HGB Conc 32.6 g/dl (31.0-35.0); Mean Corpuscular Hemoglobin 26.4 pg (27.0-33.0); Mean Corpuscular Volume 80.9 fL (80.0-98.0); Mean Platelet Volume 9.8 fL (9.4-12.3); Monocytes Absolute Auto 0.4 X10*3/uL (0.1-1.2); Monocytes Percent Auto 5.1 % (2-11); Neutrophils Absolute Auto 5.2 x10*3/uL (2.0-8.3); Neutrophils Percent Auto 72.3 % (45-73); Platelet Count 239 X10*3/uL (160-400); Red Blood Count 5.12 X10*6/uL (4.20-5.50); Red Cell Distribution Width 15.1 % (11.0-16.0); White Blood Count 7.1 X10*3/uL (4.8-10.8)
[2021-12-27 09:55] LABS: D Dimer High Sensitivity 162 NG/ML
[2021-12-27 10:07] LABS: Alanine Aminotransferase 18 U/L (0-31); Alkaline Phosphatase 89 U/L (39-117); Anion Gap 11 (12-20); Aspartate Amino Transferase 13 U/L (5-31); Bilirubin Direct < 0.2 mg/dL (0.0-0.5); Bilirubin Total 0.2 mg/dL (0.0-1.0); Blood Urea Nitrogen 9 mg/dL (9-16); Calcium 9.1 mg/dL (8.4-10.2); Carbon Dioxide 23 mmol/L (22-29); Chloride 109 mmol/L (96-108); Creatinine Clr Calc Pharmacy 123.5; Estimated Glomerular Filt Rate > 60; Glucose Random 91 mg/dL (60-115); Lipase 10 U/L (8-78); Potassium 3.8 mmol/L (3.3-5.1); Sodium 139 mmol/L (135-145); Total Protein 7.3 g/dL (6.5-8.0)
[2021-12-27 10:11] LABS: Troponin-I High Sensitivity < 3.5 ng/L (<3.5-17.0)
[2021-12-27 10:37] LABS: Influenza A PCR NEGATIVE (Negative); Influenza B PCR NEGATIVE (Negative); Resp Syncy Virus RNA Qual PCR NEGATIVE (Negative); SARS COV2 PCR INHOUSE NEGATIVE (Negative)
[2021-12-27 10:43] VITALS: BP 103/78; PULSE 68; RESP 14; TEMP 37.1; O2SAT 98
[2021-12-27 11:05] LABS: Appearance Urine HAZY; Color Urine YELLOW; Glucose Urine UA NEG (NEG); Leukocyte Esterase Urine NEG (NEG); Nitrite Urine NEG (NEG); Specific Gravity - Urine 1.025 (1.005-1.025); Urine Blood NEG (NEG); Urine Ketones NEG (NEG); Urine Protein NEG (NEG-TRACE)
[2021-12-27 11:06] LABS: UPreg QC Valid YES; Urine Pregnancy NEGATIVE (NEGATIVE)
== END 2021-12-27 11:53 | disposition home or self-care (01) ==
PROVIDERS: Emergency Provider Emergency Medicine; PCP Internal Medicine
DX: R07.89 Other chest pain (principal); R42 Dizziness and giddiness; Z20.822 Contact with and (suspected) exposure to COVID-19; Z79.899 Other long term (current) drug therapy
CPT/HCPCS: 0241U; 36415; 71045; 80048; 80076; 81003; 81025; 83690; 84484; 85025; 85379; 93005; 99283; 99284

== ENCOUNTER 2022-02-07 16:23 | Emergency (ER) | payer OTHER, SELFPAY ==
[2022-02-07 16:36] VITALS: BP 115/69; BP 98/60; PULSE 92; RESP 17; TEMP 36.8; O2SAT 100; O2SAT 99; BMI 38.1
--- NOTE | 2022-02-07 16:54 | ED.SEIZURE ---
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 She has been taking Tegeretol as prescribed by her previous Neurologist and continued by her PCP. Her boyfriend reports at 6:55am she had a seizure lasting 3-4 minutes with tonic clonic movements and post even confusion. She was nauseated for most of the day. She had another seizure about an hour ago, lasting 2 minutes. She bit her tongue but had no bowel incontinence. She has been seen by [facility] in the past, last was November 2020 where she stormed out of the office and refused a 48 hour ambulatory EEG. This was in the setting of a discussion of a negative EEG during an event at home with the proposal of pseudoseizures. She has been seen in multiple Emergency Departments, was previously on Dilantin and Keppra but was reportedly refusing to take other medications. MD complaint: seizure Onset (ago): hour(s) Description of Episode: loss of consciousness, tonic-clonic movement and post-event confusion Duration of episode: 3 -: minutes(s) Witnessed: Yes - by Bystander Trauma: Yes (tongue biting ) Seizure History: Yes (last seizure 13 years ago, does not take meds for seizures) Place: Home Possible Precipitating Event: none Associated symptoms: confusion and other (nausea) Treatments prior to arrival: none Related Data Previous Rx's Medication Instructions Recorded cetirizine 10 mg tablet (Zyrtec) 10 mg PO DAILY allergy symptoms 03/27/21 #30 tabs hydroxyzine HCl 10 mg tablet 10 mg PO BEDTIME #30 tabs 02/02/22 hydroxyzine HCl 25 mg tablet 25 mg PO TID PRN anxiety #20 tabs 02/07/22 Allergies Allergy/AdvReac Type Severity Reaction Status Date / Time phenytoin [From DILANTIN] Allergy Mild RASH Verified 02/07/22 16:36 Review of Systems Review of Systems: Constitutional: No Fever, No Chills ENT/Mouth: No sore throat, No Rhinorrhea, No Swallowing Difficulty Eyes: No Eye Pain, No Swelling, No Redness Cardiovascular: No Chest Pain, No SOB, No Orthopnea, No Edema Respiratory: No Cough, No Sputum, No Wheezing, No dyspnea Gastrointestinal: + Nausea, No Vomiting, No Diarrhea, No abdominal Pain Genitourinary: No Dysuria, No Urinary Frequency, No Hematuria Musculoskeletal: No joint pain, No Myalgias Skin: No Skin Lesions, No rash Neuro: No Weakness, No Numbness, No Dizziness, + Headache Psych: + Anxiety/Panic, + Depression, No SI Heme/Lymph: No Bruising, No Lymphadenopathy Endocrine: No Polyuria, No Polydipsia PMFSH Past Medical History Medical History Annual physical exam BCP ( control pills) initiation Depression Depression with anxiety Frequent UTI care and examination Rash Seizure disorder Surgical History Hx of section No pertinent past surgical history Family History Family History Father No problems noted. Mother No problems noted. Social History Social History Housing: House Alcohol intake: never Patient Tobacco Use Status: Never used Tobacco e-Cigarette/Vaping Use: Never Used Use of substances other than those prescribed or required for medical reasons: Yes Substance Use Type: Marijuana Advance Directives: No Advance Directives Information Provided: No Current occupational status: employed Sexual orientation: Straight/Heterosexual Cognitive needs: No Hearing needs: No Vision needs: No Physical Exam Vital Signs: Vital Signs: Last Vital Signs Temp 98.3 F 02/07/22 16:36 Pulse 80 02/07/22 17:10 Resp 16 02/07/22 17:10 BP 115/69 02/07/22 16:36 Pulse Ox 97 02/07/22 17:10 O2 Del Method 02/07/22 17:10 BMI result Body Mass Index 38.1 Appearance: Alert. Oriented X3. Anxious Eyes: Pupils equal, round and reactive to light. EOMI, no nystagmus ENT: Pharynx normal. Neck: Normal inspection. Neck supple. CVS: Normal heart rate and rhythm. Pulses normal. Respiratory: No respiratory distress. Breath sounds normal. Abdomen: Soft and nontender. +BS x4 Skin: Skin warm and dry. Normal skin color. Normal skin turgor. No rashes. Extremities: No lower extremity edema. Neuro/psych: Oriented X 3. No motor deficit. No sensory deficit. Normal speech and cognition, CN II-XII intact. Strength equal and symmetrical throughout. Anxious Course Course Course Narrative: 26-year-old female with history of epilepsy as a child with recurrent seizures this started about 2 years ago who presents to the ER for evaluation of 2 seizures today. There witnessed by her boyfriend. She bit her tongue during 1 of them. She is anxious and upset about the frequency of her seizures and is unsure what to do. She is taking Tegretol. She has an appointment with Neurology in April. Seen by Dr. Gilliam here last November and left upset because she felt he was not listening to her. Will give a dose of Ativan and Zofran here. Will reassess. Reevaluation(s) Reevaluation #1: WBC 16.8, likely reactive. Normal lactic acid and CPK. Labs otherwise unremarkable. Patient sleeping comfortably. No vomiting. Patient's mother at the bedside. We discussed her prior workup which included MRI any EEGs. She does have an abnormal MRI with a left side medial temporal lobes shrinkage, but with negative EEGs. She was offered longer EEGs as an outpatient but refused them. She also refused medications. Her mother would like her to go back on Neurontin. Explained to her that this is not a medication that we initiate in the emergency department in the she will follow-up with her primary care doctor and Neurology. If these seizures are nonepileptic in nature she will need to be seen by a therapist. List of local therapists and counselors have been provided to the patient and her mother. They are grateful. At this time she is stable for discharge home with outpatient follow-up. MDM - Seizure Lab Data Result diagrams: 02/07/22 17:03 02/07/22 17:03 Labs: Lab Results 02/07/22 02/07/22 02/07/22 Range/Units 17:03 17:03 17:03 WBC 16.8 H (4.8-10.8) X10*3/uL RBC 5.12 (4.20-5.50) X10*6/uL Hgb 13.5 (12.0-16.0) g/dl Hct 41.0 (37.0-47.0) % MCV 80.1 (80.0-98.0) fL MCH 26.4 L (27.0-33.0) pg MCHC 32.9 (31.0-35.0) g/dl RDW 14.8 (11.0-16.0) % Plt Count 316 D (160-400) X10*3/uL MPV 10.2 (9.4-12.3) fL Immature Gran % (Auto) 0.4 (0.0-0.4) % Neut % (Auto) 90.1 H (45-73) % Lymph % (Auto) 5.9 L (20-40) % [place] % (Auto) 3.5 (2-11) % Eos % (Auto) 0.0 (0-4) % Baso % (Auto) 0.1 (0-2) % Lymph # (Auto) 1.0 L (1.2-4.9) X10*3/uL [place] # (Auto) 0.6 (0.1-1.2) X10*3/uL Eos # (Auto) 0.0 (0.0-0.4) X10*3/uL Baso # (Auto) 0.0 (0.0-0.2) X10*3/uL Abs Immat Gran (auto) 0.07 H (0.00-0.03) X10*3/uL Absolute Neuts (auto) 15.1 H (2.0-8.3) x10*3/uL Absolute Nucleated RBC 0.000 (0.0-0.012) X10*3/uL Nucleated RBC % (auto) 0.0 (0.0-0.2) /100WBC Smear Tech's Comments VERIFIED Sodium 138 (135-145) mmol/L Potassium 3.9 (3.3-5.1) mmol/L Chloride 107 (96-108) mmol/L Carbon Dioxide 23 (22-29) mmol/L Anion Gap 12 (12-20) BUN 12 (9-16) mg/dL Creatinine 0.74 (0.5-1.4) mg/dL Estim Creat Clear Calc 119.8 Estimated GFR > 60 Random Glucose 112 (60-115) mg/dL Lactic Acid 1.5 (0.5-2.0) mmol/L Calcium 9.1 (8.4-10.2) mg/dL Magnesium 2.1 (1.6-2.6) mg/dL Total Bilirubin 0.3 (0.0-1.0) mg/dL Direct Bilirubin < 0.2 (0.0-0.5) mg/dL AST 14 (5-31) U/L ALT 18 (0-31) U/L Alkaline Phosphatase 94 (39-117) U/L Total Creatine Kinase 83 (26-140) U/L Total Protein 7.3 (6.5-8.0) g/dL Albumin 4.2 (3.5-5.0) g/dL Critical Care Time Critical Care Time Critical Care Time: No Discharge Plan Discharge Clinical Impression: Generalized seizure Patient Disposition: Home, Self-Care Instructions: Recurrent Seizures in Adults (ED) Additional Instructions: Your prior workup with Neurology here showed evidence of 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 Recommend following up with your other Neurologist as scheduled in April, call and see if you can be seen earlier or put on a call-out list. If your she is hers are nonepileptic, mainstay of treatment is intensive therapy. Follow up with any of the therapist on the list provided. Your best to minimize stress, get plenty of sleep and eat and drink well. Follow-up with your primary care doctor this week. If you develop new or worsening symptoms call 911 or come back to the ER for further evaluation. Prescriptions: New hydroxyzine HCl 25 mg tablet 25 mg PO TID PRN (Reason: anxiety) Qty: 20 0RF No Action cetirizine [Zyrtec] 10 mg tablet 10 mg PO DAILY Qty: 30 5RF hydroxyzine HCl 10 mg tablet 10 mg PO BEDTIME Qty: 30 5RF
[2022-02-07] MEDS: ondansetron HCL 4 MG/2 ML VIAL IVPUSH (17:07)
[2022-02-07] MEDS: LORazepam 2 MG/ML VIAL 1 MG IVPUSH (17:07)
[2022-02-07] MEDS: 0.9 % Sodium Chloride 1,000 ML 999 ML IVCONT (17:08)
[2022-02-07 17:10] VITALS: PULSE 80; RESP 16; O2SAT 97
[2022-02-07 17:13] LABS: Basophils Percent Auto 0.1 % (0-2); Hemoglobin 13.5 g/dl (12.0-16.0); Imm Gran Abs Auto 0.07 X10*3/uL (0.00-0.03); Imm Gran Pct Auto 0.4 % (0.0-0.4); Lymphocytes Percent Auto 5.9 % (20-40); MANUAL DIFF FLAG SCAN; Mean Corpuscular HGB Conc 32.9 g/dl (31.0-35.0); Mean Corpuscular Hemoglobin 26.4 pg (27.0-33.0); Mean Corpuscular Volume 80.1 fL (80.0-98.0); Mean Platelet Volume 10.2 fL (9.4-12.3); Monocytes Absolute Auto 0.6 X10*3/uL (0.1-1.2); Monocytes Percent Auto 3.5 % (2-11); Neutrophils Absolute Auto 15.1 x10*3/uL (2.0-8.3); Neutrophils Percent Auto 90.1 % (45-73); Platelet Count 316 X10*3/uL (160-400); Red Blood Count 5.12 X10*6/uL (4.20-5.50); Red Cell Distribution Width 14.8 % (11.0-16.0); SCAN SMEAR FLAG 1; White Blood Count 16.8 X10*3/uL (4.8-10.8)
[2022-02-07 17:31] LABS: Lactic Acid 1.5 mmol/L (0.5-2.0)
[2022-02-07 17:33] LABS: SLIDE REVIEW VERIFIED
[2022-02-07 17:36] LABS: Alanine Aminotransferase 18 U/L (0-31); Albumin Level 4.2 g/dL (3.5-5.0); Alkaline Phosphatase 94 U/L (39-117); Anion Gap 12 (12-20); Aspartate Amino Transferase 14 U/L (5-31); Bilirubin Direct < 0.2 mg/dL (0.0-0.5); Bilirubin Total 0.3 mg/dL (0.0-1.0); Blood Urea Nitrogen 12 mg/dL (9-16); Calcium 9.1 mg/dL (8.4-10.2); Carbon Dioxide 23 mmol/L (22-29); Chloride 107 mmol/L (96-108); Creatinine Clr Calc Pharmacy 119.8; Estimated Glomerular Filt Rate > 60; Glucose Random 112 mg/dL (60-115); Magnesium 2.1 mg/dL (1.6-2.6); Potassium 3.9 mmol/L (3.3-5.1); Sodium 138 mmol/L (135-145); Total Protein 7.3 g/dL (6.5-8.0)
== END 2022-02-07 19:15 | disposition home or self-care (01) ==
PROVIDERS: Physician Assistant; Emergency Provider Emergency Medicine; PCP Internal Medicine
DX: R56.9 Unspecified convulsions (principal); Z79.899 Other long term (current) drug therapy
CPT/HCPCS: 36415; 80048; 80076; 82550; 83605; 83735; 85025; 96361; 96374; 96375; 99284; J2060; J2405

== ENCOUNTER 2022-02-13 12:53 | Emergency (ER) | payer OTHER, SELFPAY ==
--- NOTE | 2022-02-13 13:02 | ED_ITS ---
HPI - Anxiety General Chief Complaint: General Medical Stated Complaint: anxiety, panic attacks Time Seen by Provider: 02/13/22 12:55 Source: patient and old records reviewed Mode of arrival: EMS Limitations: no limitations History of Present Illness HPI narrative: 26 yo female with hx of seizures, anxiety, non epileptic seizures was on tegretol by neurology came off 1 week ago at the direction of her PCP until her next neurology appointment in April, has not always been compliant wtih medications and has refused EEGs in the past. EMS notes shaking episodes today without LOC and patient anxious. She did not take atarax today which has been helping her symptoms. No acute events today. Just seen here 02/07 with similar episode MD complaint: anxiety Onset (ago): minute(s) (prior to arrival ) Symptoms: palpitations, sense of impending doom and other (body shaking no LOC) Severity: moderate Quality: improving Place: home History of similar episodes: Yes Provoking factors: none known Relieving factors: nothing Exacerbating factors: nothing Associated symptoms: palpitations and headaches Related Data Previous Rx's Medication Instructions Recorded cetirizine 10 mg tablet (Zyrtec) 10 mg PO DAILY allergy symptoms 03/27/21 #30 tabs hydroxyzine HCl 10 mg tablet 10 mg PO BEDTIME #30 tabs 02/02/22 hydroxyzine HCl 25 mg tablet 25 mg PO TID PRN anxiety #20 tabs 02/07/22 lorazepam 0.5 mg tablet (Ativan) 0.5 mg PO DAILY PRN anxiety #5 tabs 02/13/22 Allergies Allergy/AdvReac Type Severity Reaction Status Date / Time phenytoin [From DILANTIN] Allergy Mild RASH Verified 02/07/22 16:36 Review of Systems Review of Systems: Constitutional : No Fever, No Chills ENT/Mouth : No Ear Pain, No Nasal Congestion, No sore throat Eyes: No Eye Pain, No Swelling, No Redness Cardiovascular : No Chest Pain, No SOB, pos palpitations Respiratory : No Cough, No Sputum, No Dyspnea Gastrointestinal : No Nausea, No Vomiting, No Diarrhea, No Hematochezia, No Gabriela sj Genitourinary : No Dysuria, No Urinary Frequency, No Hematuria Musculoskeletal : No Myalgias Skin : No Skin Lesions, No rash Neuro : No Weakness, No Numbness, No Paresthesias, No Dizziness, No Headache, pos shaking episodes, no LOC Psych : positive Anxiety, positive Depression, no SI/HI Heme/Lymph: No Lymphadenopathy Endocrine : No Polyuria, No Polydipsia All other systems reviewed and are negative [facility] Past Medical History Attestation statement: The following information was validated with the patient. Medical History Depression Frequent UTI Surgical History Hx of section No pertinent past surgical history Family History Family History Father No problems noted. Mother No problems noted. Social History Social History Housing: House Alcohol intake: never Patient Tobacco Use Status: Never used Tobacco e-Cigarette/Vaping Use: Never Used Use of substances other than those prescribed or required for medical reasons: No Substance Use Type: Marijuana Advance Directives: No Advance Directives Information Provided: No Patient : No Current occupational status: employed Sexual orientation: Straight/Heterosexual Cognitive needs: No Hearing needs: No Vision needs: No Physical Exam Vital Signs: Appearance: Alert. Oriented X3. No acute distress. Anxious Eyes: Pupils equal, round and reactive to light. ENT: Pharynx normal. no tongue biting Neck: Normal inspection. Neck supple. CVS: Normal heart rate and rhythm. Pulses normal. Respiratory: No respiratory distress. Breath sounds normal. Abdomen: Soft and nontender. no urinary incontinence Skin: Skin warm and dry. Normal skin color. Normal skin turgor. Extremities: No lower extremity edema. No calf ttp Neuro: Oriented X 3. No motor deficit. No sensory deficit. MDM - Anxiety MDM Narrative Medical decision making narrative: 26 yo female with hx of anxiety, seizures, non-epileptic seizures at this time patient had shaking episodes at home but no LOC, she was taken off her seizure medications by PCP despite her neurologist her AEDs and follow up seem quite convoluted. At this time PO ativan for anxiety ordered. Suspect she will be able to go home with PCP follow up. Discharge Plan Discharge Clinical Impression: Acute anxiety Patient Disposition: Home, Self-Care Instructions: Anxiety (ED) Additional Instructions: return to ED for any worsening symptoms or concerns please follow up closely with your primary care doctor Prescriptions: New lorazepam [Ativan] 0.5 mg tablet 0.5 mg PO DAILY PRN (Reason: anxiety) Qty: 5 0RF No Action hydroxyzine HCl 25 mg tablet 25 mg PO TID PRN (Reason: anxiety) Qty: 20 0RF cetirizine [Zyrtec] 10 mg tablet 10 mg PO DAILY Qty: 30 5RF hydroxyzine HCl 10 mg tablet 10 mg PO BEDTIME Qty: 30 5RF Stand Alone Forms: Work/School Release
[2022-02-13 13:04] VITALS: BP 108/60; BP 117/69; PULSE 72; PULSE 76; RESP 18; TEMP 36.3; O2SAT 97; O2SAT 98; BMI 29.1
[2022-02-13] MEDS: LORazepam 1 MG TABLET PO (13:20)
[2022-02-13 13:26] LABS: Glucose, Whole Blood 93 mg/dL (60-115)
[2022-02-13 13:36] VITALS: BP 103/62; PULSE 85; RESP 14; TEMP 36.8; O2SAT 98
--- NOTE | 2022-02-13 13:37 | PC.NURSE ---
PT EVALUATED BY PROVIDER. PT AWAKE, ALERT AND ORIENTED X 3. SKIN WARM AND DRY. RESP UNLABORED. DENIES N/V NO C/O PAIN OR DISTRESS. MEDICATED BY PRIMARY RN. NEUROS INTACT. PLAN FOR DC HOME. PT AGREEABLE TO PLAN. FAMILY MEMBER TO BEDSIDE FOR RIDE HOME
== END 2022-02-13 13:40 | disposition home or self-care (01) ==
PROVIDERS: Emergency Provider Emergency Medicine; PCP Internal Medicine
DX: F41.9 Anxiety disorder, unspecified (principal)
CPT/HCPCS: 82947; 99283; 99284

== ENCOUNTER 2022-02-21 13:37 | Emergency (ER) | payer OTHER, SELFPAY ==
[2022-02-21 13:52] VITALS: BP 112/66; PULSE 97; RESP 16; TEMP 36.7; O2SAT 98
[2022-02-21 13:55] VITALS: BP 112/66; BP 121/76; PULSE 102; PULSE 107; RESP 12; TEMP 36.8; O2SAT 98; O2SAT 99; BMI 29.2
--- NOTE | 2022-02-21 14:07 | PC.NURSE ---
per family member pt was in the car and looked spaced out and was rushed home and placed on a bed and started having a myla thakkar aware.
--- NOTE | 2022-02-21 14:10 | ED_ITS ---
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 Patient reports that this afternoon she was in a car with her cousin and her father and she felt [id number] and then does not remember what happened next, but ultimately ended up in her bedroom laying on her bed when she woke up. Her cousin at the bedside reports that she was with her during this entire event. A cousin reports that she was in the vehicle and the patient spaced out and brought her to her room, laid her down, and patient' started to shake as well as foam at the mouth . She states that she did not have any urinary or bowel incontinence during the seizure. She did bite her tongue on physical exam. She currently has a headache, she rates this head pain as a 10/10. cousin reports that she did not hit her head during the seizure episode today. she denies any recent fevers, chills, abdominal pain, nausea, vomiting, diarrhea, cough, shortness of breath, or dysuria. Per medical records, patient was taking Tegretol as prescribed by her previous neurologist and was continued by her primary care physician however patient re ports today that her primary care physician has taken her off of all of her seizure medications and is only on hydroxyzine. She states that she has an appointment with a new neurologist on 03/26/2022, however does not want to wait until his appointment as she has 2 children at home, and having these episodes scares her. The patient has been seen by a [facility] in the past, last was November 2020 where she stormed out of the office and refused a 48 hour ambulatory EEG. This was in the setting of a discussion of a negative EEG during an event at home with the proposal of pseudoseizures. She has been seen in multiple emergency departments, was previously on Dilantin and Keppra but was reportedly refusing to take other medications. MD complaint: possible seizure Onset (ago): hour(s) Description of Episode: loss of consciousness and tonic-clonic movement Duration of episode: 2 -: minutes(s) Witnessed: Yes - by Other ( Family members) Trauma: No Seizure History: Yes Place: Home Possible Precipitating Event: none Related Data Previous Rx's Medication Instructions Recorded cetirizine 10 mg tablet (Zyrtec) 10 mg PO DAILY allergy symptoms 03/27/21 #30 tabs hydroxyzine HCl 10 mg tablet 10 mg PO BEDTIME #30 tabs 02/02/22 hydroxyzine HCl 25 mg tablet 25 mg PO TID PRN anxiety #20 tabs 02/07/22 lorazepam 0.5 mg tablet (Ativan) 0.5 mg PO DAILY PRN anxiety #5 tabs 02/13/22 Allergies Allergy/AdvReac Type Severity Reaction Status Date / Time phenytoin [From DILANTIN] Allergy Mild RASH Verified 02/07/22 16:36 Review of Systems Review of Systems: Constitutional : No Fever, No Chills, No Night Sweats, No Fatigue, No Malaise ENT/Mouth : No Ear Pain, No Nasal Congestion, No Sinus Pain, No sore throat, No Rhinorrhea Eyes: No Eye Pain, No Swelling, No Redness, No Foreign Body, No Discharge, No Vision Changes Cardiovascular : No Chest Pain, No SOB, No Dyspnea on Exertion, No Orthopnea, No Palpitations Respiratory : No Cough, No Sputum, No Wheezing, No Dyspnea Gastrointestinal : No Nausea, No Vomiting, No Diarrhea, No Constipation, No abdominal Pain, No Hematochezia, No Melena Genitourinary : No Dysuria, No Urinary Frequency, No Urinary Incontinence, No Urgency, No Flank Pain Musculoskeletal : No joint pain, No Myalgias Skin : No lacerations Neuro : +Headache, +Seizure with genera weakness, No Focal weakness, o Numbness, No Paresthesias, No Dizziness Yes all other systems are reviewed and are negative [facility] Past Medical History Attestation statement: The following information was validated with the patient. Source: old records reviewed, obtained from family and nursing notes reviewed Medical History Annual physical exam BCP ( control pills) initiation Depression Depression with anxiety Frequent UTI care and examination Rash Seizure disorder Surgical History Hx of section No pertinent past surgical history Family History Family History Father No problems noted. Mother No problems noted. Social History Social History Housing: House Alcohol intake: never Patient Tobacco Use Status: Never used Tobacco e-Cigarette/Vaping Use: Never Used Substance Use Type: Marijuana Advance Directives: No Advance Directives Information Provided: No Patient : No Current occupational status: employed Sexual orientation: Straight/Heterosexual Cognitive needs: No Hearing needs: No Vision needs: No Physical Exam Vital Signs: Vital Signs: Last Vital Signs Temp 98.1 F 02/21/22 14:12 Pulse 99 02/21/22 14:12 Resp 12 02/21/22 14:12 BP 107/64 02/21/22 14:12 Pulse Ox 98 02/21/22 14:12 O2 Del Method 02/21/22 14:12 BMI result Body Mass Index 29.2 Vital signs have been reviewed as normal and appeared to be correct. Blood pressure normal. Heart rate normal. Respiration rate normal. Temperature normal. Oxygen saturation normal. Appearance: Alert. Oriented X3. No acute distress. Head: Normal external exam. Normocephalic. Atraumatic. No Villegas signs noted. No raccoon eyes noted Eyes: PERRLA. EOMI. Conjunctiva and sclera normal. Eyelids normal. ENT: + 4 mm linear superficial laceration to the anterior surface of the right side of the tongue, no active bleeding or drainage. TM's Normal. No septal hematoma noted. No hemotympanum noted. Pharynx normal. Uvula midline. Moist mucous membranes. No lesions/ulcerations or masses noted on the tongue. Normal voice. No trismus noted. No drooling noted. No muffled voice noted. Neck: Normal inspection. Neck supple. FROM. No adenopathy. Thyroid Normal. No tracheal deviation noted. No crepitus is noted. No meningeal signs. No neck mass noted. No signs of trauma noted. CVS: Normal heart rate and rhythm. Heart sound normal. Pulses normal throughout. No murmurs/rales/gallops. Respiratory: No respiratory distress. Painless inspiration. Breath sounds normal. No wheezes/rales/rhonchi noted. Chest nontender. No crepitus is noted. No signs of trauma noted. No accessory muscle usage noted or decreased air movement noted. No signs of trauma. Abdomen: Soft and nontender. Bowel sounds normal in all 4 quadrants. No distention noted. No organomegaly noted. No visible injury noted. Back: No CVA tenderness. Full range of motion noted. Nontender. No signs of trauma. Patient neuro intact bilaterally and distally on all 4 extremities. Patient's reflexes intact bilaterally and distally on all 4 extremities. No rashes/lesion/induration/fluctuance or signs of infection noted. Skin: Skin warm and dry. Normal skin color. Normal skin turgor. No rashes/lesions/lacerations noted. Extremities: No lower extremity edema. No calf tenderness is noted. Extremities exhibit normal range of motion and nontender. Neuro: Oriented X 3. No motor deficit. No sensory deficit. Reflexes normal. Normal steady gait. No focal neuro deficits noted. CN's II-XII intact bilatera lly? Vascular: + radial pulses/+ 2 distal pedal pulses/+2 dorsalis pedis b/l. Normal cap refill. No cyanosis noted to upper extremity nails and lower extremity toes nails. 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 Patient had no head trauma tearing seizures today. Plan: Labs, urinalysis, urine toxicology, ethanol alcohol level, COVID 19, hCG quantitative, and TSH ordered. The patient was medicated with Tylenol 975 mg p.o. and Zofran 4 mg sublingually for headaches and nausea. Reevaluation(s) Reevaluation #1: Labs returned. - Patient has a mildly elevated white blood cell count at 12.9, likely reactive. Past visits have also reflected mild leukocytosis post seizure-like activity. - Urinalysis negative for any infectious processes. - Urine drug screen is positive for marijuana otherwise is unremarkable, ethyl alcohol less than 10. - COVID-19 panel is negative today. - EKG is normal sinus rhythm with no acute ischemic changes. - therefore at this time will DC home with instructions to follow-up with her neurologist as schedule on 03/26/2022. Patient understands agrees with this plan. Family at bedside she has a safe ride and safety plan. Time: 16:30 MDM - Seizure Differential Diagnosis Differential diagnosis: Likely febrile convulsion, generalized seizure, epileptic seizure and status epilepticus Medical Records Attestation: I reviewed the patient's medical records. Lab Data Attestation: I reviewed the patient's lab results. Result diagrams: 02/21/22 14:28 02/21/22 14:28 Labs: Lab Results 02/21/22 02/21/22 02/21/22 Range/Units 14:28 14:28 14:28 WBC 12.9 H (4.8-10.8) X10*3/uL RBC 5.02 (4.20-5.50) X10*6/uL Hgb 13.1 (12.0-16.0) g/dl Hct 40.2 (37.0-47.0) % MCV 80.1 (80.0-98.0) fL MCH 26.1 L (27.0-33.0) pg MCHC 32.6 (31.0-35.0) g/dl RDW 14.9 (11.0-16.0) % Plt Count 324 (160-400) X10*3/uL MPV 10.1 (9.4-12.3) fL Immature Gran % (Auto) 0.4 (0.0-0.4) % Neut % (Auto) 81.8 H (45-73) % Lymph % (Auto) 12.2 L (20-40) % Dundy % (Auto) 4.9 (2-11) % Eos % (Auto) 0.6 (0-4) % Baso % (Auto) 0.1 (0-2) % Lymph # (Auto) 1.6 (1.2-4.9) X10*3/uL Dundy # (Auto) 0.6 (0.1-1.2) X10*3/uL Eos # (Auto) 0.1 (0.0-0.4) X10*3/uL Baso # (Auto) 0.0 (0.0-0.2) X10*3/uL Abs Immat Gran (auto) 0.05 H (0.00-0.03) X10*3/uL Absolute Neuts (auto) 10.6 H (2.0-8.3) x10*3/uL Absolute Nucleated RBC 0.000 (0.0-0.012) X10*3/uL Nucleated RBC % (auto) 0.0 (0.0-0.2) /100WBC Sodium 136 (135-145) mmol/L Potassium 4.1 (3.3-5.1) mmol/L Chloride 108 (96-108) mmol/L Carbon Dioxide 23 (22-29) mmol/L Anion Gap 9 L (12-20) BUN 10 (9-16) mg/dL Creatinine 0.70 (0.5-1.4) mg/dL Estim Creat Clear Calc 110.2 Estimated GFR > 60 Random Glucose 92 (60-115) mg/dL Calcium 8.7 (8.4-10.2) mg/dL Magnesium 2.1 (1.6-2.6) mg/dL Total Bilirubin 0.3 (0.0-1.0) mg/dL AST 15 (5-31) U/L ALT 23 (0-31) U/L Alkaline Phosphatase 83 (39-117) U/L Total Protein 7.0 (6.5-8.0) g/dL Albumin 4.1 (3.5-5.0) g/dL TSH 1.14 (0.32-4.0) uIU/mL Beta HCG, Quant mIU/mL Urine Color Urine Appearance Urine pH (5.0-8.0) Ur Specific [place] (1.005-1.025) Urine Protein (NEG-TRACE) MG/DL Urine Glucose (UA) (NEG) MG/DL Urine Ketones (NEG) MG/DL Urine Blood (NEG) Urine Nitrite (NEG) Ur Leukocyte Esterase (NEG) Urine Opiates Screen (Not Detect) Urine Fentanyl Screen (Not Detect) Ur Barbiturates Screen (Not Detect) Ur Phencyclidine Scrn (Not Detect) Ur Amphetamines Screen (Not Detect) U Benzodiazepines Scrn (Not Detect) Urine Cocaine Screen (Not Detect) U Marijuana (THC) Screen (Not Detect) Ethyl Alcohol < 10 mg/dL COVID-19 (LAKSHMI) Negative (Negative) COVID-19 Clin Com See Note 02/21/22 02/21/22 02/21/22 Range/Units 14:28 14:32 15:40 WBC (4.8-10.8) X10*3/uL RBC (4.20-5.50) X10*6/uL Hgb (12.0-16.0) g/dl Hct (37.0-47.0) % MCV (80.0-98.0) fL MCH (27.0-33.0) pg MCHC (31.0-35.0) g/dl RDW (11.0-16.0) % Plt Count (160-400) X10*3/uL MPV (9.4-12.3) fL Immature Gran % (Auto) (0.0-0.4) % Neut % (Auto) (45-73) % Lymph % (Auto) (20-40) % Dundy % (Auto) (2-11) % Eos % (Auto) (0-4) % Baso % (Auto) (0-2) % Lymph # (Auto) (1.2-4.9) X10*3/uL Dundy # (Auto) (0.1-1.2) X10*3/uL Eos # (Auto) (0.0-0.4) X10*3/uL Baso # (Auto) (0.0-0.2) X10*3/uL Abs Immat Gran (auto) (0.00-0.03) X10*3/uL Absolute Neuts (auto) (2.0-8.3) x10*3/uL Absolute Nucleated RBC (0.0-0.012) X10*3/uL Nucleated RBC % (auto) (0.0-0.2) /100WBC Sodium (135-145) mmol/L Potassium (3.3-5.1) mmol/L Chloride (96-108) mmol/L Carbon Dioxide (22-29) mmol/L Anion Gap (12-20) BUN (9-16) mg/dL Creatinine (0.5-1.4) mg/dL Estim Creat Clear Calc Estimated GFR Random Glucose (60-115) mg/dL Calcium (8.4-10.2) mg/dL Magnesium (1.6-2.6) mg/dL Total Bilirubin (0.0-1.0) mg/dL AST (5-31) U/L ALT (0-31) U/L Alkaline Phosphatase (39-117) U/L Total Protein (6.5-8.0) g/dL Albumin (3.5-5.0) g/dL TSH (0.32-4.0) uIU/mL Beta HCG, Quant < 2 mIU/mL Urine Color YELLOW Urine Appearance CLEAR Urine pH 7.0 (5.0-8.0) Ur Specific [place] 1.025 (1.005-1.025) Urine Protein NEG (NEG-TRACE) MG/DL Urine Glucose (UA) NEG (NEG) MG/DL Urine Ketones NEG (NEG) MG/DL Urine Blood NEG (NEG) Urine Nitrite NEG (NEG) Ur Leukocyte Esterase NEG (NEG) Urine Opiates Screen (Not Detect) Urine Fentanyl Screen (Not Detect) Ur Barbiturates Screen (Not Detect) Ur Phencyclidine Scrn (Not Detect) Ur Amphetamines Screen (Not Detect) U Benzodiazepines Scrn (Not Detect) Urine Cocaine Screen (Not Detect) U Marijuana (THC) Screen (Not Detect) Ethyl Alcohol Cancelled mg/dL COVID-19 ([facility]) (Negative) COVID-19 Clin Com 02/21/22 Range/Units 15:40 WBC (4.8-10.8) X10*3/uL RBC (4.20-5.50) X10*6/uL Hgb (12.0-16.0) g/dl Hct (37.0-47.0) % MCV (80.0-98.0) fL MCH (27.0-33.0) pg MCHC (31.0-35.0) g/dl RDW (11.0-16.0) % Plt Count (160-400) X10*3/uL MPV (9.4-12.3) fL Immature Gran % (Auto) (0.0-0.4) % Neut % (Auto) (45-73) % Lymph % (Auto) (20-40) % Dundy % (Auto) (2-11) % Eos % (Auto) (0-4) % Baso % (Auto) (0-2) % Lymph # (Auto) (1.2-4.9) X10*3/uL [place]undy # (Auto) (0.1-1.2) X10*3/uL Eos # (Auto) (0.0-0.4) X10*3/uL Baso # (Auto) (0.0-0.2) X10*3/uL Abs Immat Gran (auto) (0.00-0.03) X10*3/uL Absolute Neuts (auto) (2.0-8.3) x10*3/uL Absolute Nucleated RBC (0.0-0.012) X10*3/uL Nucleated RBC % (auto) (0.0-0.2) /100WBC Sodium (135-145) mmol/L Potassium (3.3-5.1) mmol/L Chloride (96-108) mmol/L Carbon Dioxide (22-29) mmol/L Anion Gap (12-20) BUN (9-16) mg/dL Creatinine (0.5-1.4) mg/dL Estim Creat Clear Calc Estimated GFR Random Glucose (60-115) mg/dL Calcium (8.4-10.2) mg/dL Magnesium (1.6-2.6) mg/dL Total Bilirubin (0.0-1.0) mg/dL AST (5-31) U/L ALT (0-31) U/L Alkaline Phosphatase (39-117) U/L Total Protein (6.5-8.0) g/dL Albumin (3.5-5.0) g/dL TSH (0.32-4.0) uIU/mL Beta HCG, Quant mIU/mL Urine Color Urine Appearance Urine pH (5.0-8.0) Ur Specific [place] (1.005-1.025) Urine Protein (NEG-TRACE) MG/DL Urine Glucose (UA) (NEG) MG/DL Urine Ketones (NEG) MG/DL Urine Blood (NEG) Urine Nitrite (NEG) Ur Leukocyte Esterase (NEG) Urine Opiates Screen Not Detected (Not Detect) Urine Fentanyl Screen Not Detected (Not Detect) Ur Barbiturates Screen Not Detected (Not Detect) Ur Phencyclidine Scrn Not Detected (Not Detect) Ur Amphetamines Screen Not Detected (Not Detect) U Benzodiazepines Scrn Not Detected (Not Detect) Urine Cocaine Screen Not Detected (Not Detect) U Marijuana (THC) Screen POSITIVE H (Not Detect) Ethyl Alcohol mg/dL COVID-19 ([facility]) (Negative) COVID-19 Clin Com ECG Data Attestation: I personally reviewed and interpreted this ECG as follows: ECG interpretation date: 02/21/22 ECG interpretation time: 14:39 Prior ECG tracings: available for review Interpretation: Normal sinus rhythm at 87 beats per minute MN interval is 150 MS, QRS duration 86 MS, QT/QTC 362/435. No ST elevation. No acute ischemic changes noted. Discharge Plan Discharge Clinical Impression: Seizure, Superficial injury of tongue Patient Disposition: Home, Self-Care Instructions: Recurrent Seizures in Adults (ED) Prescriptions: No Action hydroxyzine HCl 25 mg tablet 25 mg PO TID PRN (Reason: anxiety) Qty: 20 0RF lorazepam [Ativan] 0.5 mg tablet 0.5 mg PO DAILY PRN (Reason: anxiety) Qty: 5 0RF cetirizine [Zyrtec] 10 mg tablet 10 mg PO DAILY Qty: 30 5RF hydroxyzine HCl 10 mg tablet 10 mg PO BEDTIME Qty: 30 5RF Referrals: Meredith Cervantes MD [Primary Care Provider] - 2 days Stand Alone Forms: Work/School Release
[2022-02-21 14:12] VITALS: BP 107/64; PULSE 99; RESP 12; TEMP 36.7; O2SAT 98
--- NOTE | 2022-02-21 14:17 | ECG_ITS ---
Test Reason : seizure Blood Pressure : / mmHG Vent. Rate : 087 BPM Atrial Rate : 087 BPM P-R Int : 150 ms QRS Dur : 086 ms QT Int : 362 ms P-R-T Axes : 035 033 017 degrees QTc Int : 435 ms Normal sinus rhythm Normal ECG When compared with ECG of 27-DEC-2021 08:54, No significant change was found Referred By: Luda Mckee Electronically Signed By:Matthias Torres
[2022-02-21 14:38] LABS: MANUAL DIFF FLAG NO
[2022-02-21 14:40] LABS: Basophils Percent Auto 0.1 % (0-2); Eosinophils Absolute Auto 0.1 X10*3/uL (0.0-0.4); Eosinophils Percent Auto 0.6 % (0-4); Hematocrit 40.2 % (37.0-47.0); Hemoglobin 13.1 g/dl (12.0-16.0); Imm Gran Abs Auto 0.05 X10*3/uL (0.00-0.03); Imm Gran Pct Auto 0.4 % (0.0-0.4); Lymphocytes Absolute Auto 1.6 X10*3/uL (1.2-4.9); Lymphocytes Percent Auto 12.2 % (20-40); Mean Corpuscular HGB Conc 32.6 g/dl (31.0-35.0); Mean Corpuscular Hemoglobin 26.1 pg (27.0-33.0); Mean Corpuscular Volume 80.1 fL (80.0-98.0); Mean Platelet Volume 10.1 fL (9.4-12.3); Monocytes Absolute Auto 0.6 X10*3/uL (0.1-1.2); Monocytes Percent Auto 4.9 % (2-11); Neutrophils Absolute Auto 10.6 x10*3/uL (2.0-8.3); Neutrophils Percent Auto 81.8 % (45-73); Platelet Count 324 X10*3/uL (160-400); Red Blood Count 5.02 X10*6/uL (4.20-5.50); Red Cell Distribution Width 14.9 % (11.0-16.0); White Blood Count 12.9 X10*3/uL (4.8-10.8)
[2022-02-21 14:59] LABS: Alanine Aminotransferase 23 U/L (0-31); Albumin Level 4.1 g/dL (3.5-5.0); Alkaline Phosphatase 83 U/L (39-117); Anion Gap 9 (12-20); Aspartate Amino Transferase 15 U/L (5-31); Bilirubin Total 0.3 mg/dL (0.0-1.0); Blood Urea Nitrogen 10 mg/dL (9-16); Calcium 8.7 mg/dL (8.4-10.2); Carbon Dioxide 23 mmol/L (22-29); Chloride 108 mmol/L (96-108); Creatinine Clr Calc Pharmacy 110.2; Estimated Glomerular Filt Rate > 60; Ethanol < 10 mg/dL; Glucose Random 92 mg/dL (60-115); HCG Quantitative < 2 mIU/mL; Magnesium 2.1 mg/dL (1.6-2.6); Potassium 4.1 mmol/L (3.3-5.1); Sodium 136 mmol/L (135-145)
[2022-02-21 15:01] LABS: COVID-19 Test Negative (Negative); IDNOW Serial# 16C4AD1C
[2022-02-21 15:18] LABS: TSH reflex Free T4 1.14 uIU/mL (0.32-4.0)
--- NOTE | 2022-02-21 15:28 | PC.NURSE ---
PATIENT A/OX4 . PEARRLA . LUNGS CLEAR . HEART RATE REGULAR AT 88 BEATS . SKIN PINK WARM AND DRY . ABDOMEN ROUND . NON -TENDER . POSITIVE BOWEL SOUNDS IN ALL FOUR QUADRANTS . PATIENT REPORTS WITNESSED SEIZURE BY FAMILY MEMBER WHO LOWERED HER TO HER BED . PATIENT DID NOT HIT HER HEAD . THE SEIZURE WAS REPORTED LASTING 2 MINUTES. SEIZURE PRECAUTIONS IMPLEMENTED. URINE WAS OBTAINED AND SENT TO LAB . PATIENT AWARE OF PLAN OF CARE
[2022-02-21] MEDS: Acetaminophen 325 MG TABLET 975 MG PO (15:34)
[2022-02-21] MEDS: Ondansetron ODT 4 MG TAB.RAPDIS TRANSLINGU (15:34)
[2022-02-21 15:48] LABS: Appearance Urine CLEAR; Color Urine YELLOW; Glucose Urine UA NEG (NEG); Leukocyte Esterase Urine NEG (NEG); Nitrite Urine NEG (NEG); Specific Gravity - Urine 1.025 (1.005-1.025); Urine Blood NEG (NEG); Urine Ketones NEG (NEG); Urine Protein NEG (NEG-TRACE)
[2022-02-21 16:10] LABS: Amphetamine Screen Urine Not Detected (Not Detect); Barbiturates, Urine Not Detected (Not Detect); Benzodiazepines Screen Urine Not Detected (Not Detect); Cannabinoid Screen Urine POSITIVE (Not Detect); Cocaine Screen Urine Not Detected (Not Detect); Fentanyl, urine Not Detected (Not Detect); Opiate Screen Urine Not Detected (Not Detect); Phencyclidine Screen Urine Not Detected (Not Detect)
== END 2022-02-21 17:15 | disposition home or self-care (01) ==
PROVIDERS: Physician Assistant Medical; Emergency Provider Internal Medicine; PCP Internal Medicine
DX: G40.909 Epilepsy, unspecified, not intractable, without status epilepticus (principal); S00.502A Unspecified superficial injury of oral cavity, initial encounter; X58.XXXA Exposure to other specified factors, initial encounter; Y93.9 Activity, unspecified; Y92.9 Unspecified place or not applicable; Y99.9 Unspecified external cause status; F12.90 Cannabis use, unspecified, uncomplicated; Z20.822 Contact with and (suspected) exposure to COVID-19; Z79.899 Other long term (current) drug therapy
CPT/HCPCS: 36415; 80053; 80307; 81003; 82077; 83735; 84443; 84702; 85025; 87635; 93005; 99284

== ENCOUNTER 2022-04-27 10:55 | Outpatient (REF) | payer OTHER, SELFPAY ==
[2022-04-27 14:06] LABS: Estimated Average Glucose 97 mg/dL
[2022-04-27 14:22] LABS: Cholesterol 164 mg/dL; HDL Cholesterol 30 mg/dL; LDL Cholesterol Calculated 110 mg/dl; Triglycerides 122 mg/dL
[2022-04-30 17:11] LABS: TS Negative Control Passed; TS Panel A 0; TS Panel B 0; TS Positive Control Passed; TSpotTB Negative (Negative)
== END 2022-04-27 10:56 | disposition home or self-care (01) ==
LOC: HO.HMGCLDS 10:55
PROVIDERS: PCP Internal Medicine; Visit Provider Internal Medicine
DX: Z00.00 Encounter for general adult medical examination without abnormal findings (principal); Z11.1 Encounter for screening for respiratory tuberculosis; R73.9 Hyperglycemia, unspecified
CPT/HCPCS: 36415; 80061; 83036; 86481

== ENCOUNTER → 2022-05-25 13:36 | Outpatient (BNVA) | payer OTHER, SELFPAY | PROVIDERS: PCP Internal Medicine; Visit Provider Psychiatry & Neurology Neurology | DX: G40.909 Epilepsy, unspecified, not intractable, without status epilepticus (principal); R51.9 Headache, unspecified; R06.83 Snoring; G47.10 Hypersomnia, unspecified | CPT/HCPCS: 99202 ==

== ENCOUNTER 2022-06-14 09:24 | Outpatient (REF) | payer OTHER, SELFPAY ==
--- NOTE | ~2022-06-14 | MR_ITS ---
EXAMINATION: MR BRAIN WITHOUT CONTRAST CLINICAL INFORMATION: Epilepsy COMPARISON: MRI brain without contrast 11/15/2020 TECHNIQUE: Multiplanar multisequence MR imaging of the brain was obtained without intravenous contrast. FINDINGS: There is no acute infarct on diffusion-weighted imaging. There is no intracranial hemorrhage on iron-sensitive imaging. No extra-axial collection or mass effect/herniation. Normal parenchymal signal characteristics. No hydrocephalus. The ventricles are normal in morphology and size. The major flow voids at the skull base are preserved. 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 The midline structures are normal. The cerebellar tonsils are normally positioned. The craniocervical junction is normal. Marrow signal is within normal limits. The visualized soft tissues are without significant abnormality. No signal abnormality within the paranasal sinuses or within the mastoid air cells. MR/MR head/brain wo con IMPRESSION: 1. 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 2. No new intracranial abnormality
== END 2022-06-14 09:25 | disposition home or self-care (01) ==
LOC: HO.MRI 09:24
PROVIDERS: Visit Provider Psychiatry & Neurology Neurology
DX: G40.909 Epilepsy, unspecified, not intractable, without status epilepticus (principal); R51.9 Headache, unspecified
CPT/HCPCS: 70551

== ENCOUNTER → 2022-06-19 10:42 | Outpatient (REF) | payer MEDICAID, SELFPAY | LOC: HO.SL 10:42 | PROVIDERS: PCP Internal Medicine; Visit Provider Psychiatry & Neurology Neurology | DX: G47.10 Hypersomnia, unspecified (principal); R06.83 Snoring; R51.9 Headache, unspecified | CPT/HCPCS: 95806 ==

== ENCOUNTER 2022-07-29 08:50 | Emergency (ER) | payer OTHER, SELFPAY ==
--- NOTE | ~2022-07-29 | XR_ITS ---
EXAMINATION: XR CHEST CLINICAL INFORMATION: Cough. COMPARISON: 12/27/2021 chest radiograph. TECHNIQUE: Frontal view of the chest was obtained. FINDINGS: No significant abnormality is noted involving the heart, lungs, mediastinum, bony thorax or soft tissues. XR/XR chest 1V IMPRESSION: No acute cardiopulmonary process.
[2022-07-29 09:07] VITALS: BP 125/84; PULSE 96; RESP 16; TEMP 36.8; O2SAT 99; BMI 36.8
[2022-07-29 09:09] VITALS: BP 98/60; PULSE 91; RESP 12; TEMP 36.7; O2SAT 99; BMI 35.9
--- NOTE | 2022-07-29 10:01 | ED_ITS ---
HPI - General Adult General Chief complaint: General Medical Stated complaint: cough, sore throat, cant eat, sick x5 days Time Seen by Provider: 07/29/22 09:17 Source: patient Mode of arrival: ambulatory Limitations: no limitations History of Present Illness HPI narrative: 26-year-old female came in for evaluation of sore throat, body ache, generalized joints ache, sneezing, coughing with chest tightness. Patient work as seen a with exposure to a sick contact, no recent travel. Patient is a former smoker no known history of asthma. Related Data Previous Rx's Medication Instructions Recorded hydroxyzine HCl 25 mg tablet 25 mg PO TID PRN anxiety #20 tabs 03/08/22 oxcarbazepine 300 mg tablet 300 mg PO BID #60 tabs 05/25/22 albuterol sulfate 90 mcg/actuation 1 inh inhalation QID PRN shortness 07/29/22 aerosol inhaler of breath or wheezing #6.7 grams azithromycin 250 mg tablet See Rx Instructions PO .COMPLEX #6 07/29/22 (Zithromax Z-Geovany) tabs prednisone 20 mg tablet 20 mg PO BID #10 tabs 07/29/22 Allergies Allergy/AdvReac Type Severity Reaction Status Date / Time phenytoin [From DILANTIN] Allergy Mild RASH Verified 05/25/22 14:04 strawberry AdvReac Hives Verified 05/25/22 14:04 Review of Systems Review of Systems: All other systems are reviewed and are negative Constitutional: Reports as per HPI and Reports no additional constitutional complaints Eyes: Reports as per HPI and Reports no additional eye complaints Reports system reviewed and no additional complaints, except as documented Cardiovascular: Reports as per HPI and Reports no additional cardiovascular complaints Respiratory: Reports as per HPI and Reports no additional respiratory complaints Gastrointestinal: Reports as per HPI and Reports no additional gastrointestinal complaints Genitourinary: Reports no additional female genitourinary complaints Musculoskeletal: Reports no additional musculoskeletal complaints Skin/Breast: Reports system reviewed and no additional complaints, except as docu Psychiatric: Reports no additional psychiatric complaints Endocrine: Reports no additional endocrine complaints Hematologic/Lymphatic: Reports no additional hematologic/lymphatic complaints Allergic/Immunologic: Reports no additional allergic/immunologic complaints Reports system reviewed and no additional complaints, except as documented and Reports Abnormal speech present [facility] Past Medical History Medical History Annual physical exam Anxiety BCP ( control pills) initiation Depression Depression Depression with anxiety Frequent UTI Headache care and examination Rash Seizure disorder Surgical History Hx of section No pertinent past surgical history Family History Family History Father No problems noted. Mother No problems noted. Social History Social History Housing: House Alcohol intake: never Patient Tobacco Use Status: Never used Tobacco e-Cigarette/Vaping Use: Never Used Substance Use Type: Marijuana Advance Directives: No Advance Directives Information Provided: Yes Current occupational status: employed Sexual orientation: Straight/Heterosexual Cognitive needs: No Hearing needs: No Vision needs: No Physical Exam ED Vital Signs: Vital Signs - 24 hr 07/29/22 09:07 07/29/22 09:09 Temperature 98.2 F 98.0 F Pulse Rate 96 91 Respiratory Rate 16 12 Blood Pressure 125/84 98/60 Pulse Oximetry 99 99 Oxygen Delivery Method Room Air Room Air BMI result Body Mass Index 35.9 Vital signs have been reviewed as appeared to be correct. Blood pressure normal. Heart rate normal. Respiration rate normal. Temperature normal. Oxygen saturation normal. Appearance: Alert. Oriented X3. No acute distress. Head: Normal external exam. Normocephalic. Atraumatic. No Villegas signs noted. No raccoon eyes noted Eyes: PERRLA. EOMI. Conjunctiva and sclera normal. Eyelids normal. ENT: TM's Normal. Pharynx normal. Uvula midline. Moist mucous membranes. No trismus noted. No drooling noted. No muffled voice noted. Neck: Normal inspection. Neck supple. FROM. No adenopathy. Thyroid Normal. No meningeal signs. No neck mass noted. CVS: Normal heart rate and rhythm. Heart sound normal. No murmurs noted. Pulses normal throughout. Respiratory: No respiratory distress. Painless inspiration. Breath sounds normal. Diffuse mild expiratory wheezing with mild prolonged expiration. Chest nontender. No accessory muscle usage noted or decreased air movement noted. Abdomen: Soft and nontender. Bowel sounds normal in all 4 quadrants. No distention noted. No organomegaly noted. No visible injury noted. Back: No CVA tenderness. Full range of motion noted. Skin: Skin warm and dry. Normal skin color. Normal skin turgor. No rashes/lesions/lacerations noted. Extremities: No lower extremity edema. Extremities exhibit normal range of motion. Extremities nontender. Neuro: Oriented X 3. Cranial nerve exam: II-XII are grossly intact No motor deficit. No sensory deficit. Reflexes normal. Course Course Course Narrative: 26-year-old female presented with flu-like symptoms patient is negative for respiratory panel viruses, also negative for strep pharyngitis, patient recently quit smoking physical exam is consistent with mild bronchitis will start the patient on Z-Geovany/prednisone/albuterol and follow-up with PCP patient was encouraged to continue effort of smoking cessation. Medical Decision Making Medical Decision Making Differential Diagnoses: Differential diagnosis (Influenza, RSV, COVID-19 infection, strep pharyngitis, pneumonia, bronchitis.) Lab Attestation: I reviewed the patient's lab results. Independent interpretation of EKG, rhythm strip, radiology study: Independent interp EKG,rhythm strip, radiology study I performed an independent interpretation of the: Plain X-Ray (Chest) My interpretation is no acute intrathoracic pathology. Discharge Plan Discharge Clinical Impression: Bronchitis Patient Disposition: Home, Self-Care Instructions: Acute Bronchitis (ED) Prescriptions: New azithromycin [Zithromax Z-Geovany] 250 mg tablet See Rx Instructions .ROUTE .COMPLEX Qty: 6 0RF Rx Instructions: For 250 mg dose pack: take 500 mg today (day 1), then 250 mg for 4 days (days 2-5) prednisone 20 mg tablet 20 mg PO BID Qty: 10 0RF albuterol sulfate 90 mcg/actuation HFA aerosol inhaler 1 inh inhalation QID PRN (Reason: shortness of breath or wheezing) Qty: 6.7 0RF No Action hydroxyzine HCl 25 mg tablet 25 mg PO TID PRN (Reason: anxiety) Qty: 20 0RF oxcarbazepine 300 mg tablet 300 mg PO BID Qty: 60 6RF Rx Instructions: 1 tab qd for 1 week then 1tab bid Referrals: Meredith Cervantes MD [Primary Care Provider] - Stand Alone Forms: Work/School Release
[2022-07-29 10:04] LABS: Influenza A PCR NEGATIVE (Negative); Influenza B PCR NEGATIVE (Negative); Resp Syncy Virus RNA Qual PCR NEGATIVE (Negative); SARS COV2 PCR INHOUSE NEGATIVE (Negative)
[2022-07-29 11:00] LABS: Strep A Nucleic Acid Negative (Negative)
== END 2022-07-29 11:13 | disposition home or self-care (01) ==
PROVIDERS: Emergency Provider Emergency Medicine; PCP Internal Medicine
DX: J40 Bronchitis, not specified as acute or chronic (principal); R05.9 Cough, unspecified; M79.10 Myalgia, unspecified site; R07.89 Other chest pain; Z20.822 Contact with and (suspected) exposure to COVID-19; Z79.899 Other long term (current) drug therapy
CPT/HCPCS: 0241U; 36415; 71045; 87651; 99282; 99283; 99284

== ENCOUNTER → 2022-08-23 09:14 | Outpatient (BNVA) | payer OTHER, SELFPAY | PROVIDERS: PCP Internal Medicine; Visit Provider Nurse Practitioner Family | DX: G40.909 Epilepsy, unspecified, not intractable, without status epilepticus (principal); R09.02 Hypoxemia; F41.9 Anxiety disorder, unspecified; R51.9 Headache, unspecified; G47.10 Hypersomnia, unspecified; Z79.899 Other long term (current) drug therapy | CPT/HCPCS: 99212 ==

== ENCOUNTER 2022-09-07 11:29 | Emergency (ER) | payer OTHER, SELFPAY ==
--- NOTE | ~2022-09-07 | CT_ITS ---
EXAMINATION: CT HEAD WITHOUT CONTRAST CLINICAL INFORMATION: Seizure. Head injury. COMPARISON: Head MRI from 06/14/2022 TECHNIQUE: Contiguous axial imaging was performed from the skull base to vertex without intravenous administration of contrast. This CT examination was performed using dose optimization techniques as appropriate, variously including the following: *Automated exposure control *Adjustment of mA and/or kV according to patient size (this includes techniques or standardized protocols for targeted exams where dose is matched to indication/reason for exam; i.e. extremities or head) *Use of iterative reconstruction technique DLP: 1117 mGy-cm FINDINGS: The brain parenchyma has normal attenuation. The logan-white matter differentiation is well preserved. No evidence of an acute major vascular territory infarction. No intracranial hemorrhage, extra-axial fluid collection, focal mass effect or midline shift. The ventricles have normal size and configuration; no hydrocephalus. The brainstem and cerebellum have a normal appearance. The cerebellar tonsils are in normal position. The calvarium is intact. The visualized paranasal sinuses, mastoid air cells and middle ear cavities are well aerated. The orbits and globes are normal. The temporomandibular joints are normal. CT/CT head/brain wo IV con IMPRESSION: No intracranial mass or hemorrhage. No acute intracranial pathology.
[2022-09-07 11:43] VITALS: BP 102/63; PULSE 82; RESP 14; TEMP 36.6; O2SAT 96; BMI 33.2
--- NOTE | 2022-09-07 12:02 | ECG_ITS ---
Test Reason : SEIZURE Blood Pressure : / mmHG Vent. Rate : 081 BPM Atrial Rate : 081 BPM P-R Int : 156 ms QRS Dur : 096 ms QT Int : 378 ms P-R-T Axes : 032 033 009 degrees QTc Int : 439 ms Normal sinus rhythm Normal ECG When compared with ECG of 21-FEB-2022 14:39, No significant change was found Referred By: Emiliano Garrido Electronically Signed By:ALLY QUIROZ MD
[2022-09-07] MEDS: ondansetron HCL 4 MG/2 ML VIAL IVPUSH ×2 (12:04→16:38)
[2022-09-07] MEDS: LORazepam 2 MG/ML VIAL IVPUSH (12:04)
--- NOTE | 2022-09-07 12:05 | PC.NURSE ---
had episode of vomitting and then sz like activity per md, medicated as ordered, sr on monitor, family at bedside, pt confused but talking w family
--- NOTE | 2022-09-07 12:20 | ED.SEIZURE ---
HPI - Seizure General Chief Complaint: Seizure Stated Complaint: SEIZURES Time Seen by Provider: 09/07/22 12:02 Source: family Limitations: altered mental status History of Present Illness HPI Narrative: 26-year-old female with reported history of seizure disorder on some form of medication according to significant other presents with 4-5 seizures prior to arrival. Reportedly patient is compliant with her medications. Occasionally uses marijuana but denies any alcohol use. Upon my initial evaluation, patient was actively seizing in verbally unresponsive. Patient was given Ativan 2 mg IV and further workup was ordered. According to family and significant other, patient may have hit the front of her head during 1 of her seizure activities this. Patient is not apparently on anticoagulation. History is limited secondary to seizure and postictal state. Seizure History: Yes Place: Home Related Data Previous Rx's Medication Instructions Recorded hydroxyzine HCl 25 mg tablet 25 mg PO TID PRN anxiety #20 tabs 03/08/22 oxcarbazepine 300 mg tablet 300 mg PO BID #60 tabs 05/25/22 albuterol sulfate 90 mcg/actuation 1 inh inhalation QID PRN shortness 07/29/22 aerosol inhaler of breath or wheezing #6.7 grams ondansetron 4 mg disintegrating 4 mg PO Q8H PRN nausea and 09/07/22 tablet vomiting #10 tabs Allergies Allergy/AdvReac Type Severity Reaction Status Date / Time phenytoin [From DILANTIN] Allergy Mild RASH Verified 08/23/22 09:54 strawberry AdvReac Hives Verified 08/23/22 09:54 Review of Systems Review of Systems: Yes Unobtainable due to mental status PMFSH Past Medical History Medical History Annual physical exam Anxiety BCP ( control pills) initiation Depression Depression Depression with anxiety Frequent UTI Headache care and examination Rash Seizure disorder Surgical History Hx of section No pertinent past surgical history Family History Family History Father Seizure Mother No problems noted. Social History Social History Housing: House Alcohol intake: never Patient Tobacco Use Status: Never used Tobacco Smoked in Last 30 Days: No e-Cigarette/Vaping Use: Never Used Use of substances other than those prescribed or required for medical reasons: Yes Substance Use Type: Marijuana Advance Directives: No Advance Directives Information Provided: Yes Current occupational status: employed Sexual orientation: Straight/Heterosexual Cognitive needs: No Hearing needs: No Vision needs: No Physical Exam Vital Signs: Vital Signs: Last Vital Signs Temp 98.9 F 09/07/22 15:52 Pulse 77 09/07/22 15:52 Resp 16 09/07/22 15:52 BP 105/42 L 09/07/22 15:52 Pulse Ox 98 09/07/22 15:52 O2 Del Method 09/07/22 15:52 BMI result Body Mass Index 33.2 Const: General: acute distress (Active seizure) HEENT: Head: Yes normal to inspection Eyes: General: appearance normal, both eyes and all related structures Neck: Neck: Yes normal visual inspection Resp: Auscultation: clear to auscultation bilaterally Cardio: Rate: regular rate Rhythm: regular rhythm Heart sounds: no murmurs GI: Palpation (GI): Soft to palpation and nontender Skin: General skin exam: no rashes or lesions noted Neuro: General: other (Active tonic-clonic movements) Extrem: General: Yes normal to inspection Course Course Course Narrative: Shortly upon arrival, patient was witnessed to have seizure-like activity. She was given 2 mg of IV Ativan. Lab work has been ordered. Patient will also have a CT scan of the head given possible head injury. Will obtain laboratory analysis to rule out electrolyte abnormality. Patient is apparently on ox carbamazepine. Will order a Tegretol level. Will also order urine toxicology, alcohol level to see if there are any other risks associated her seizure activity today. Reevaluation(s) Reevaluation #1: Have evaluated the patient multiple times. She is somnolent. She is now alert and awake. However, she is having nausea vomiting. Initially she would want to be discharged. At this time will give Zofran and re-evaluate patient for discharge. Time: 16:30 Reevaluation #2: With at this time, I will sign patient out to Dr. Alba. Patient is feeling loved enough to go home, she may be discharged at that time. Time: 16:47 Medications Administered Discontinued Medications Generic Name Dose Route Start Last Admin Trade Name Freq PRN Reason Stop Dose Admin Lorazepam 2 mg 09/07/22 12:02 09/07/22 12:04 Lorazepam 2 Mg/Ml Vial IVPUSH 09/07/22 12:03 2 mg ONCE ONE Administration Ondansetron HCl 4 mg 09/07/22 11:58 09/07/22 12:04 Ondansetron Hcl 4 Mg/2 Ml Vial IVPUSH 09/07/22 11:59 4 mg ONCE ONE Administration Ondansetron HCl 4 mg 09/07/22 16:23 09/07/22 16:38 Ondansetron Hcl 4 Mg/2 Ml Vial IVPUSH 09/07/22 16:24 4 mg ONCE ONE Administration Medical Decision Making Medical Decision Making MDM Narrative: 26-year-old female with history of seizures disorder presents with seizure-like activity upon my arrival. Patient was given Ativan 2 mg IV. I reviewed her medical records medications. Per family, patient may have hit her head during 1 of her seizures earlier today. Will order CT scan of the head to rule out intracranial injury. However, I doubt based on mechanism injury that she is likely to have such findings. Will observe the patient to determine appropriate disposition. Differential Diagnosis Differential Diagnoses: The differential diagnosis associated with the presentation includes (Seizure, pseudo-seizure, hyponatremia, medication noncompliance, intoxication, head injury) Seizure Admission/Observation Consideration of admission/observation: Escalation of care including admission/observation considered (Disposition pending, however, if seizure recurs, patient will likely need to be admitted for observation versus inpatient stay for risk of status epilepticus.) Lab Data MDM Lab Attestation statement: I reviewed the patient's lab results. 09/07/22 12:16 09/07/22 12:16 Labs: Lab Results 09/07/22 09/07/22 09/07/22 Range/Units 12:16 12:16 12:16 WBC 12.8 H (4.8-10.8) X10*3/uL RBC 5.28 (4.20-5.50) X10*6/uL Hgb 13.7 (12.0-16.0) g/dl Hct 41.8 (37.0-47.0) % MCV 79.2 L (80.0-98.0) fL MCH 25.9 L (27.0-33.0) pg MCHC 32.8 (31.0-35.0) g/dl RDW 14.8 (11.0-16.0) % Plt Count 274 (160-400) X10*3/uL MPV 10.2 (9.4-12.3) fL Immature Gran % (Auto) 0.5 H (0.0-0.4) % Neut % (Auto) 90.4 H (45-73) % Lymph % (Auto) 6.8 L (20-40) % Miner % (Auto) 2.0 (2-11) % Eos % (Auto) 0.1 (0-4) % Baso % (Auto) 0.2 (0-2) % Lymph # (Auto) 0.9 L (1.2-4.9) X10*3/uL Miner # (Auto) 0.3 (0.1-1.2) X10*3/uL Eos # (Auto) 0.0 (0.0-0.4) X10*3/uL Baso # (Auto) 0.0 (0.0-0.2) X10*3/uL Abs Immat Gran (auto) 0.06 H (0.00-0.03) X10*3/uL Absolute Neuts (auto) 11.5 H (2.0-8.3) x10*3/uL Absolute Nucleated RBC 0.000 (0.0-0.012) X10*3/uL Nucleated RBC % (auto) 0.0 (0.0-0.2) /100WBC Smear Tech's Comments VERIFIED Sodium 137 (135-145) mmol/L Potassium 4.3 (3.3-5.1) mmol/L Chloride 104 (96-108) mmol/L Carbon Dioxide 25 (22-29) mmol/L Anion Gap 12 (12-20) BUN 13 (9-16) mg/dL Creatinine 0.69 (0.5-1.4) mg/dL Estim Creat Clear Calc 114.3 Estimated GFR > 60 Random Glucose 109 (60-115) mg/dL Calcium 8.8 (8.4-10.2) mg/dL Carbamazepine < 2.0 L* (5.0-12.0) mcg/mL Ethyl Alcohol mg/dL 09/07/22 Range/Units 12:16 WBC (4.8-10.8) X10*3/uL RBC (4.20-5.50) X10*6/uL Hgb (12.0-16.0) g/dl Hct (37.0-47.0) % MCV (80.0-98.0) fL MCH (27.0-33.0) pg MCHC (31.0-35.0) g/dl RDW (11.0-16.0) % Plt Count (160-400) X10*3/uL MPV (9.4-12.3) fL Immature Gran % (Auto) (0.0-0.4) % Neut % (Auto) (45-73) % Lymph % (Auto) (20-40) % Miner % (Auto) (2-11) % Eos % (Auto) (0-4) % Baso % (Auto) (0-2) % Lymph # (Auto) (1.2-4.9) X10*3/uL Miner # (Auto) (0.1-1.2) X10*3/uL Eos # (Auto) (0.0-0.4) X10*3/uL Baso # (Auto) (0.0-0.2) X10*3/uL Abs Immat Gran (auto) (0.00-0.03) X10*3/uL Absolute Neuts (auto) (2.0-8.3) x10*3/uL Absolute Nucleated RBC (0.0-0.012) X10*3/uL Nucleated RBC % (auto) (0.0-0.2) /100WBC Smear Tech's Comments Sodium (135-145) mmol/L Potassium (3.3-5.1) mmol/L Chloride (96-108) mmol/L Carbon Dioxide (22-29) mmol/L Anion Gap (12-20) BUN (9-16) mg/dL Creatinine (0.5-1.4) mg/dL Estim Creat Clear Calc Estimated GFR Random Glucose (60-115) mg/dL Calcium (8.4-10.2) mg/dL Carbamazepine (5.0-12.0) mcg/mL Ethyl Alcohol < 10 mg/dL Independent Interpretation I performed an independent interpretation of an: EKG (Normal sinus rhythm heart rate 81, no acute ST elevations depressions, normal intervals, otherwise unremarkable EKG) External Record Review External record reviewed: Office record (Neurology consultation from August 23, 2022) Prescription Management I considered prescription management with: Other (Ativan 2 mg IV for seizure activity) Chronic Conditions Patient?s care impacted by: Other (Seizure disorder, anxiety) Critical Care Time Critical Care Time Critical Care Time: Yes Total Critical Care Time: 35 Attestation: Critical care time in the amount of approximately 35 minutes for bedside assessment, medication intervention including Ativan 2 mg IV, reassessment, documentation, chart review, consultation with family Discharge Plan Discharge Clinical Impression: Seizure disorder, Nausea & vomiting Instructions: Epilepsy (ED), Acute Nausea and Vomiting (ED) Prescriptions: New ondansetron 4 mg tablet,disintegrating 4 mg PO Q8H PRN (Reason: nausea and vomiting) Qty: 10 0RF No Action albuterol sulfate 90 mcg/actuation HFA aerosol inhaler 1 inh inhalation QID PRN (Reason: shortness of breath or wheezing) Qty: 6.7 0RF hydroxyzine HCl 25 mg tablet 25 mg PO TID PRN (Reason: anxiety) Qty: 20 0RF oxcarbazepine 300 mg tablet 300 mg PO BID Qty: 60 6RF Rx Instructions: 1 tab qd for 1 week then 1tab bid Referrals: Meredith Cervantes MD [Primary Care Provider] - 3 days
[2022-09-07 12:23] LABS: Basophils Percent Auto 0.2 % (0-2); Eosinophils Percent Auto 0.1 % (0-4); Hematocrit 41.8 % (37.0-47.0); Hemoglobin 13.7 g/dl (12.0-16.0); Imm Gran Abs Auto 0.06 X10*3/uL (0.00-0.03); Imm Gran Pct Auto 0.5 % (0.0-0.4); Lymphocytes Absolute Auto 0.9 X10*3/uL (1.2-4.9); Lymphocytes Percent Auto 6.8 % (20-40); MANUAL DIFF FLAG SCAN; Mean Corpuscular HGB Conc 32.8 g/dl (31.0-35.0); Mean Corpuscular Hemoglobin 25.9 pg (27.0-33.0); Mean Corpuscular Volume 79.2 fL (80.0-98.0); Mean Platelet Volume 10.2 fL (9.4-12.3); Monocytes Absolute Auto 0.3 X10*3/uL (0.1-1.2); Neutrophils Absolute Auto 11.5 x10*3/uL (2.0-8.3); Neutrophils Percent Auto 90.4 % (45-73); Platelet Count 274 X10*3/uL (160-400); Red Blood Count 5.28 X10*6/uL (4.20-5.50); Red Cell Distribution Width 14.8 % (11.0-16.0); SCAN SMEAR FLAG 1; White Blood Count 12.8 X10*3/uL (4.8-10.8)
[2022-09-07 12:24] VITALS: BP 110/61; PULSE 85; RESP 19; O2SAT 98
[2022-09-07 12:44] LABS: Anion Gap 12 (12-20); Blood Urea Nitrogen 13 mg/dL (9-16); Calcium 8.8 mg/dL (8.4-10.2); Carbon Dioxide 25 mmol/L (22-29); Chloride 104 mmol/L (96-108); Creatinine Clr Calc Pharmacy 114.3; Estimated Glomerular Filt Rate > 60; Glucose Random 109 mg/dL (60-115); Potassium 4.3 mmol/L (3.3-5.1); Sodium 137 mmol/L (135-145)
[2022-09-07 12:46] LABS: Ethanol < 10 mg/dL
[2022-09-07 12:47] LABS: SLIDE REVIEW VERIFIED
[2022-09-07 13:08] LABS: Carbamazepine Tegretol < 2.0 mcg/mL (5.0-12.0)
[2022-09-07 13:43] VITALS: BP 100/49; PULSE 76; RESP 14; O2SAT 96
[2022-09-07 14:10] VITALS: BP 114/94; PULSE 82; RESP 15; O2SAT 97
[2022-09-07 15:52] VITALS: BP 105/42; PULSE 77; RESP 16; TEMP 37.2; O2SAT 98
--- NOTE | 2022-09-07 15:53 | MHC.EDTECH ---
THIS PCT ASSUMED CARE OF PT AT 1500 ,PATIENT IS AWAKE ,VITALS SIGN TAKEN ,I ASKED PATIENT IF SHE IS ABLE TO GIVE URINE SAMPLE ,PATIENT SAID SHE DOES NOT FEEL LIKE SHE CAN VOID AT THIS TIME , PATIENT BOYFRIEND AT BED SIDE ,CALL GROVES WITHIN REACH .
--- NOTE | 2022-09-07 17:00 | PC.NURSE ---
DRY HEAVING, SPITTING CLEAR MUCOUS. REQUESTING CRACKERS.
--- NOTE | 2022-09-07 17:11 | PC.NURSE ---
keeping sips of gingerale down. slightly pale. alert.
[2022-09-07 17:55] VITALS: BP 108/65; PULSE 84; RESP 16; TEMP 36.2; O2SAT 98
== END 2022-09-07 18:47 | disposition home or self-care (01) ==
PROVIDERS: Emergency Provider Emergency Medicine; PCP Internal Medicine
DX: G40.909 Epilepsy, unspecified, not intractable, without status epilepticus (principal); R11.2 Nausea with vomiting, unspecified; R40.0 Somnolence; Z79.899 Other long term (current) drug therapy
CPT/HCPCS: 36415; 70450; 80048; 80156; 82077; 85025; 93005; 96374; 96375; 96376; 99284; J2060; J2405

== ENCOUNTER 2022-10-15 08:54 | Emergency (ER) | payer OTHER, SELFPAY ==
--- NOTE | ~2022-10-15 | XR_ITS ---
EXAMINATION: XR CHEST CLINICAL INFORMATION: Seizure. COMPARISON: None TECHNIQUE: Frontal view of the chest was obtained. FINDINGS: Lungs are somewhat expanded but clear. The heart size and pulmonary vascularity is there is normal. No gross bony abnormality seen. XR/XR chest 1V IMPRESSION: Unremarkable chest exam. Unremarkable chest exam.
[2022-10-15 09:01] VITALS: BP 102/58; BP 120/87; PULSE 85; RESP 20; TEMP 36.7; O2SAT 98; O2SAT 99; BMI 31.8
--- NOTE | 2022-10-15 09:32 | PC.NURSE ---
PT WAS MEDICATED WITH EMS AND IS SEDATED AT THIS TIME. SHE IS NOT ACTIVELY SEIZING AT THIS TIME. SHE HAS POSITIONED HERSELF PRONE. HER RESP ARE EQUAL AND UNLABORED.
--- NOTE | 2022-10-15 10:09 | PC.NURSE ---
PT RESTING QUIETLY, SHE DOES RESPOND TO VERBAL STIMULATION. AWAITING MD ASSESSMENT
--- NOTE | 2022-10-15 10:36 | PC.NURSE ---
pt awake and assisted to bedside commode to void, she vomited stomach bile, was medicated as charted
[2022-10-15] MEDS: Ondansetron ODT 4 MG TAB.RAPDIS TRANSLINGU (10:38)
--- NOTE | 2022-10-15 11:23 | ECG_ITS ---
Test Reason : seizure Blood Pressure : / mmHG Vent. Rate : 068 BPM Atrial Rate : 068 BPM P-R Int : 140 ms QRS Dur : 088 ms QT Int : 382 ms P-R-T Axes : 039 043 028 degrees QTc Int : 406 ms Normal sinus rhythm with sinus arrhythmia Normal ECG When compared with ECG of 07-SEP-2022 12:22, No significant change was found Referred By: Michelle Campos Electronically Signed By:ALLY QUIROZ MD
[2022-10-15 12:01] LABS: MANUAL DIFF FLAG NO
[2022-10-15 12:02] LABS: Basophils Absolute Auto 0.1 X10*3/uL (0.0-0.2); Basophils Percent Auto 0.3 % (0-2); Hematocrit 40.4 % (37.0-47.0); Imm Gran Abs Auto 0.08 X10*3/uL (0.00-0.03); Imm Gran Pct Auto 0.5 % (0.0-0.4); Lymphocytes Absolute Auto 1.2 X10*3/uL (1.2-4.9); Lymphocytes Percent Auto 7.2 % (20-40); Mean Corpuscular HGB Conc 32.2 g/dl (31.0-35.0); Mean Corpuscular Hemoglobin 25.7 pg (27.0-33.0); Mean Corpuscular Volume 79.8 fL (80.0-98.0); Mean Platelet Volume 9.8 fL (9.4-12.3); Monocytes Absolute Auto 0.5 X10*3/uL (0.1-1.2); Monocytes Percent Auto 3.1 % (2-11); Neutrophils Absolute Auto 15.3 x10*3/uL (2.0-8.3); Neutrophils Percent Auto 88.9 % (45-73); Platelet Count 320 X10*3/uL (160-400); Red Blood Count 5.06 X10*6/uL (4.20-5.50); Red Cell Distribution Width 14.8 % (11.0-16.0); White Blood Count 17.2 X10*3/uL (4.8-10.8)
[2022-10-15 12:20] LABS: Alanine Aminotransferase 22 U/L (0-31); Alkaline Phosphatase 67 U/L (39-117); Anion Gap 12 (12-20); Aspartate Amino Transferase 17 U/L (5-31); Bilirubin Direct < 0.2 mg/dL (0.0-0.5); Bilirubin Total 0.3 mg/dL (0.0-1.0); Blood Urea Nitrogen 11 mg/dL (9-16); Calcium 8.7 mg/dL (8.4-10.2); Carbon Dioxide 23 mmol/L (22-29); Chloride 108 mmol/L (96-108); Creatinine Clr Calc Pharmacy 146.4; Estimated Glomerular Filt Rate > 60; Ethanol < 10 mg/dL; Glucose Random 100 mg/dL (60-115); Potassium 3.8 mmol/L (3.3-5.1); Sodium 139 mmol/L (135-145); Total Protein 6.9 g/dL (6.5-8.0)
[2022-10-15 12:21] LABS: COVID-19 Test Negative (Negative); IDNOW Serial# 9DB6401D; IDNOW Serial# BCCEAD1C; Influenza A Negative (Negative); Influenza B2 Negative (Negative)
--- NOTE | 2022-10-15 12:21 | PC.NURSE ---
no further seizure activity in ED.
[2022-10-15 12:26] VITALS: BP 101/56; PULSE 68; RESP 14; TEMP 36.6; O2SAT 97
--- NOTE | 2022-10-15 12:50 | ED.SEIZURE ---
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 Per mother patient was lying on couch during incidents, no fall/head injury, described patient as being stiff/frozen, states lips started to turn blue. Per mother patient noncompliant with medications. Per EMS no witnessed seizure on their part, patient combative on scene requiring multiple medical staff to get her into ambulance, restrained with 4 mg of IM Versed and 15 mg of IM Haldol. History limited from patient due to acute mental status/lethargy MD complaint: seizure Seizure History: Yes Place: Home Related Data Previous Rx's Medication Instructions Recorded hydroxyzine HCl 25 mg tablet 25 mg PO TID PRN anxiety #20 tabs 03/08/22 oxcarbazepine 300 mg tablet 300 mg PO BID #60 tabs 05/25/22 albuterol sulfate 90 mcg/actuation 1 inh inhalation QID PRN shortness 07/29/22 aerosol inhaler of breath or wheezing #6.7 grams ondansetron 4 mg disintegrating 4 mg PO Q8H PRN nausea and 09/07/22 tablet vomiting #10 tabs Allergies Allergy/AdvReac Type Severity Reaction Status Date / Time phenytoin [From DILANTIN] Allergy Mild RASH Verified 08/23/22 09:54 strawberry AdvReac Hives Verified 08/23/22 09:54 Review of Systems Review of Systems: ROS limited as patient lethargic from previously given medications Yes all other systems are reviewed and are negative Constitutional: Constitutional: Reports as per HPI [facility] Past Medical History Attestation statement: The following information was validated with the patient. Medical History Annual physical exam Anxiety BCP ( control pills) initiation Depression Depression Depression with anxiety Frequent UTI Headache care and examination Rash Seizure disorder Surgical History Hx of section No pertinent past surgical history Family History Family History Father Seizure Mother No problems noted. Social History Social History Housing: House Alcohol intake: never Patient Tobacco Use Status: Never used Tobacco e-Cigarette/Vaping Use: Never Used Substance Use Type: Marijuana Advance Directives: No Advance Directives Information Provided: No Current occupational status: employed Sexual orientation: Straight/Heterosexual Cognitive needs: No Hearing needs: No Vision needs: No Physical Exam Vital Signs: Vital Signs: Last Vital Signs Temp 99.3 F 10/15/22 14:31 Pulse 65 10/15/22 14:31 Resp 14 10/15/22 14:31 BP 119/57 L 10/15/22 14:31 Pulse Ox 96 10/15/22 14:31 O2 Del Method 10/15/22 14:31 BMI result Body Mass Index 31.8 Const: General: cooperative, healthy appearing and lethargic Orientation/consciousness: lethargic HEENT: Head: Yes normal to inspection and Yes atraumatic Ears: hearing grossly normal bilaterally General nose exam: Normal external nose present Face and sinus: Yes normal facial exam Eyes: General: appearance normal, both eyes and all related structures Pupils: Equal, round and reactive pupils present EOM: EOMs intact bilaterally Neck: Neck: Yes normal visual inspection and Yes no meningeal signs Resp: Effort & Inspection: normal respiratory effort and no respiratory distress Auscultation: clear to auscultation bilaterally, no rales, no rhonchi and no wheezes Cardio: Rate: regular rate Heart sounds: S1 normal heart sound present and S2 normal heart sound present GI: Inspection: Yes normal to inspection Palpation (GI): Soft to palpation, nontender, no guarding and not rigid : General: Yes no CVA tenderness Back/Spine/Pelvis: Back: no CVA tenderness Skin: Rashes: no rashes Wounds: no wounds Neuro: General: tone normal, moves all extremities, no meningeal signs and CN's II-XI intact bilaterally Cranial nerves: Yes Equal, round and reactive pupils present Extrem: General: Yes normal to inspection Course Course Course Narrative: -1426--leukocytosis of 17.2 likely reactive from seizure activity. Labs otherwise reassuring. Ethanol negative. -COVID-19 negative. CXR unremarkable >1440--on re-evaluation patient awake and alert, admits misses her antiepileptics periodically, did not take this morning. Will give morning dose now. Pending UA and anticipated discharge -1600--UA with ketones, not infected. Tox screen positive for benzos and THC Patient requesting to be discharged. Discussed needed close follow-up with PCP/neurology Results discussed with patient including worrisome signs and symptoms and strict return precautions, and when to return to the emergency department. They verbalized understanding and feel safe for discharge at this time. Medications Administered Discontinued Medications Generic Name Dose Route Start Last Admin Trade Name Freq PRN Reason Stop Dose Admin Acetaminophen/Butalbital/Caffeine 1 tab 10/15/22 14:25 10/15/22 15:04 Butalb/Acetamin/Caff 50/325/40 Tablet PO 10/15/22 14:26 1 tab ONCE ONE Administration Al Hydroxide/Mg Hydroxide 30 ml 10/15/22 14:25 10/15/22 15:04 Magnesium Hydrox/Alum Hydrox 30 Ml Oral.Susp PO 10/15/22 14:26 30 ml ONCE ONE Administration Famotidine 20 mg 10/15/22 14:25 10/15/22 15:05 Famotidine 20 Mg Tablet PO 10/15/22 14:26 20 mg ONCE ONE Administration Ondansetron HCl 4 mg 10/15/22 10:37 10/15/22 10:38 Ondansetron Odt 4 Mg Tab.Rapdis TRANSLINGU 10/15/22 10:38 4 mg ONCE ONE Administration Oxcarbazepine 300 mg 10/15/22 14:40 10/15/22 15:04 Oxcarbazepine 300 Mg Tablet PO 10/15/22 14:41 300 mg ONCE ONE Administration Medical Decision Making Medical Decision Making MDM Narrative: 26-year-old female with a past medical history of anxiety, depression, seizure disorder on Oxcarbazepine, presenting to the ED via EMS for 4 witnessed 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 On exam vital signs stable, NAD, lethargic, but awake and alert, answering questions, no evidence of trauma, moving all extremities. Concern breakthrough seizure secondary to medication noncompliance vs pseudoseizures. Rule out metabolic infectious etiologies. Low suspicion for ICH Plan: EKG, labs, UA, CXR, observe and reassess Differential Diagnosis Differential Diagnoses: The differential diagnosis associated with the presentation includes as above Admission/Observation Consideration of admission/observation: Escalation of care including admission/observation considered Lab Data MDM Lab Attestation statement: I reviewed the patient's lab results. 10/15/22 11:53 10/15/22 11:53 Labs: Lab Results 10/15/22 10/15/22 10/15/22 Range/Units 11:53 11:53 11:53 WBC 17.2 H (4.8-10.8) X10*3/uL RBC 5.06 (4.20-5.50) X10*6/uL Hgb 13.0 (12.0-16.0) g/dl Hct 40.4 (37.0-47.0) % MCV 79.8 L (80.0-98.0) fL MCH 25.7 L (27.0-33.0) pg MCHC 32.2 (31.0-35.0) g/dl RDW 14.8 (11.0-16.0) % Plt Count 320 (160-400) X10*3/uL MPV 9.8 (9.4-12.3) fL Immature Gran % (Auto) 0.5 H (0.0-0.4) % Neut % (Auto) 88.9 H (45-73) % Lymph % (Auto) 7.2 L (20-40) % Walker % (Auto) 3.1 (2-11) % Eos % (Auto) 0.0 (0-4) % Baso % (Auto) 0.3 (0-2) % Lymph # (Auto) 1.2 (1.2-4.9) X10*3/uL Walker # (Auto) 0.5 (0.1-1.2) X10*3/uL Eos # (Auto) 0.0 (0.0-0.4) X10*3/uL Baso # (Auto) 0.1 (0.0-0.2) X10*3/uL Abs Immat Gran (auto) 0.08 H (0.00-0.03) X10*3/uL Absolute Neuts (auto) 15.3 H (2.0-8.3) x10*3/uL Absolute Nucleated RBC 0.000 (0.0-0.012) X10*3/uL Nucleated RBC % (auto) 0.0 (0.0-0.2) /100WBC Sodium 139 (135-145) mmol/L Potassium 3.8 (3.3-5.1) mmol/L Chloride 108 (96-108) mmol/L Carbon Dioxide 23 (22-29) mmol/L Anion Gap 12 (12-20) BUN 11 (9-16) mg/dL Creatinine 0.64 (0.5-1.4) mg/dL Estim Creat Clear Calc 146.4 Estimated GFR > 60 Random Glucose 100 (60-115) mg/dL Calcium 8.7 (8.4-10.2) mg/dL Magnesium 2.0 (1.6-2.6) mg/dL Total Bilirubin 0.3 (0.0-1.0) mg/dL Direct Bilirubin < 0.2 (0.0-0.5) mg/dL AST 17 (5-31) U/L ALT 22 (0-31) U/L Alkaline Phosphatase 67 (39-117) U/L Total Protein 6.9 (6.5-8.0) g/dL Albumin 4.0 (3.5-5.0) g/dL Urine Color Urine Appearance Urine pH (5.0-9.0) Ur Specific [place] (1.005-1.025) Urine Protein (Neg-Trace) mg/dL Urine Glucose (UA) (Negative) mg/dL Urine Ketones (Negative) mg/dL Urine Blood (Negative) Urine Nitrite (Negative) Ur Leukocyte Esterase (Negative) Urine Opiates Screen (Not Detect) Urine Fentanyl Screen (Not Detect) Ur Barbiturates Screen (Not Detect) Ur Phencyclidine Scrn (Not Detect) Ur Amphetamines Screen (Not Detect) U Benzodiazepines Scrn (Not Detect) Urine Cocaine Screen (Not Detect) U Marijuana (THC) Screen (Not Detect) Ethyl Alcohol < 10 mg/dL COVID-19 (LAKSHMI) Negative (Negative) COVID-19 Clin Com See Note Influenza Type A (YOGI) (Negative) Influenza Type B (YOGI) (Negative) Influenza A & B Note 10/15/22 10/15/22 10/15/22 Range/Units 11:53 15:36 15:36 WBC (4.8-10.8) X10*3/uL RBC (4.20-5.50) X10*6/uL Hgb (12.0-16.0) g/dl Hct (37.0-47.0) % MCV (80.0-98.0) fL MCH (27.0-33.0) pg MCHC (31.0-35.0) g/dl RDW (11.0-16.0) % Plt Count (160-400) X10*3/uL MPV (9.4-12.3) fL Immature Gran % (Auto) (0.0-0.4) % Neut % (Auto) (45-73) % Lymph % (Auto) (20-40) % Walker % (Auto) (2-11) % Eos % (Auto) (0-4) % Baso % (Auto) (0-2) % Lymph # (Auto) (1.2-4.9) X10*3/uL Walker # (Auto) (0.1-1.2) X10*3/uL Eos # (Auto) (0.0-0.4) X10*3/uL Baso # (Auto) (0.0-0.2) X10*3/uL Abs Immat Gran (auto) (0.00-0.03) X10*3/uL Absolute Neuts (auto) (2.0-8.3) x10*3/uL Absolute Nucleated RBC (0.0-0.012) X10*3/uL Nucleated RBC % (auto) (0.0-0.2) /100WBC Sodium (135-145) mmol/L Potassium (3.3-5.1) mmol/L Chloride (96-108) mmol/L Carbon Dioxide (22-29) mmol/L Anion Gap (12-20) BUN (9-16) mg/dL Creatinine (0.5-1.4) mg/dL Estim Creat Clear Calc Estimated GFR Random Glucose (60-115) mg/dL Calcium (8.4-10.2) mg/dL Magnesium (1.6-2.6) mg/dL Total Bilirubin (0.0-1.0) mg/dL Direct Bilirubin (0.0-0.5) mg/dL AST (5-31) U/L ALT (0-31) U/L Alkaline Phosphatase (39-117) U/L Total Protein (6.5-8.0) g/dL Albumin (3.5-5.0) g/dL Urine Color Yellow Urine Appearance Cloudy Urine pH 7.0 (5.0-9.0) Ur Specific [place] 1.020 (1.005-1.025) Urine Protein Trace (Neg-Trace) mg/dL Urine Glucose (UA) Negative (Negative) mg/dL Urine Ketones 40 (Negative) mg/dL Urine Blood Negative (Negative) Urine Nitrite Negative (Negative) Ur Leukocyte Esterase Negative (Negative) Urine Opiates Screen Not Detected (Not Detect) Urine Fentanyl Screen Not Detected (Not Detect) Ur Barbiturates Screen Not Detected (Not Detect) Ur Phencyclidine Scrn Not Detected (Not Detect) Ur Amphetamines Screen Not Detected (Not Detect) U Benzodiazepines Scrn POSITIVE H (Not Detect) Urine Cocaine Screen Not Detected (Not Detect) U Marijuana (THC) Screen POSITIVE H (Not Detect) Ethyl Alcohol mg/dL COVID-19 (LAKSHMI) (Negative) COVID-19 Clin Com Influenza Type A (YOGI) Negative (Negative) Influenza Type B (YOGI) Negative (Negative) Influenza A & B Note See Note Independent Interpretation I performed an independent interpretation of an: EKG Radiology Impression Discussion of test interpretation with radiology: I have reviewed the radiologist's reading. Independent Historian Clinical information obtained from an independent historian. History obtained from or confirmed by: Parent and EMS External Record Review External record reviewed: Outpatient record, Prior outpatient labs, Prior outpatient radiology and Primary care record Discharge Plan Discharge Clinical Impression: Seizure disorder Patient Disposition: Home, Self-Care Instructions: Epilepsy (ED) Prescriptions: No Action albuterol sulfate 90 mcg/actuation HFA aerosol inhaler 1 inh inhalation QID PRN (Reason: shortness of breath or wheezing) Qty: 6.7 0RF ondansetron 4 mg tablet,disintegrating 4 mg PO Q8H PRN (Reason: nausea and vomiting) Qty: 10 0RF hydroxyzine HCl 25 mg tablet 25 mg PO TID PRN (Reason: anxiety) Qty: 20 0RF oxcarbazepine 300 mg tablet 300 mg PO BID Qty: 60 6RF Rx Instructions: 1 tab qd for 1 week then 1tab bid Referrals: Meredith Cervantes MD [Primary Care Provider] - 3 days
[2022-10-15 14:31] VITALS: BP 119/57; PULSE 65; RESP 14; TEMP 37.4; O2SAT 96
[2022-10-15] MEDS: Butalb/Acetamin/Caff 50/325/40 TABLET 1 TAB PO (15:04)
[2022-10-15] MEDS: OXcarbazepine 300 MG TABLET PO (15:04)
[2022-10-15] MEDS: Magnesium Hydrox/Alum Hydrox 30 ML ORAL.SUSP PO (15:04)
[2022-10-15] MEDS: Famotidine 20 MG TABLET PO (15:05)
[2022-10-15 15:45] LABS: Appearance Urine Cloudy; Color Urine Yellow; Glucose Urine UA Negative (Negative); Leukocyte Esterase Urine Negative (Negative); Nitrite Urine Negative (Negative); Urine Blood Negative (Negative); Urine Ketones 40 mg/dL (Negative); Urine Protein Trace mg/dL (Neg-Trace)
[2022-10-15 15:55] LABS: Amphetamine Screen Urine Not Detected (Not Detect); Barbiturates, Urine Not Detected (Not Detect); Benzodiazepines Screen Urine POSITIVE (Not Detect); Cannabinoid Screen Urine POSITIVE (Not Detect); Cocaine Screen Urine Not Detected (Not Detect); Fentanyl, urine Not Detected (Not Detect); Opiate Screen Urine Not Detected (Not Detect); Phencyclidine Screen Urine Not Detected (Not Detect)
== END 2022-10-15 16:04 | disposition home or self-care (01) ==
PROVIDERS: Physician Assistant; Emergency Provider Emergency Medicine; PCP Internal Medicine
DX: G40.909 Epilepsy, unspecified, not intractable, without status epilepticus (principal); Z20.822 Contact with and (suspected) exposure to COVID-19; F41.9 Anxiety disorder, unspecified; F32.A Depression, unspecified; Z91.14 Patient's other noncompliance with medication regimen; Z79.899 Other long term (current) drug therapy
CPT/HCPCS: 71045; 80048; 80076; 80307; 81003; 82077; 83735; 85025; 87502; 87635; 93005; 99285

== ENCOUNTER → 2022-12-21 14:30 | Outpatient (BNVA) | payer OTHER, SELFPAY | PROVIDERS: PCP Internal Medicine; Visit Provider Nurse Practitioner Family | DX: G40.909 Epilepsy, unspecified, not intractable, without status epilepticus (principal); F41.9 Anxiety disorder, unspecified | CPT/HCPCS: 99212 ==

== ENCOUNTER 2022-12-26 10:25 | Observation (INO) | payer OTHER, SELFPAY ==
--- NOTE | 2022-12-26 | EEG_ITS ---
This is a 16 channel EEG with an EKG lead. The patient is reported awake and drowsy during the tracing. Background EEG rhythm is low amplitude fast with no obvious asymmetry or paroxysmal tendency. Photic stimulation does not produce any significant abnormality. Hyperventilation is not performed. Cardiac lead does not reveal any significant abnormality. No sharp wave spikes or paroxysmal tendency noted. IMPRESSION: Unremarkable EEG. MD TREY Ferguson/ELISABETH / [id number]
[2022-12-26 10:47] VITALS: BP 104/74; BP 97/75; PULSE 54; PULSE 61; RESP 16; TEMP 36.5; O2SAT 100; O2SAT 99; BMI 39.4
--- NOTE | 2022-12-26 10:55 | PC.NURSE ---
patient a&ox3, ekg monitor intact pt sinus marino on monitor, pt hypotensive, pt states she has some rt arm/chest pain which she feels after having a seizure, seizure precautions intact, pt speaking to family on her phone, call rusesll within reach, will continue to monitor.
[2022-12-26] MEDS: 0.9 % Sodium Chloride 1,000 ML 999 ML IVCONT (11:41)
--- NOTE | 2022-12-26 11:42 | PC.NURSE ---
patient continues to be a&Ox3, hall monitor nsr, vss, ivf started per order, labs drawn per order, call russell within reach, pt talking to mother on cell phone, will continue to monitor
[2022-12-26 11:45] LABS: Basophils Percent Auto 0.4 % (0-2); Eosinophils Percent Auto 0.4 % (0-4); Hematocrit 41.1 % (37.0-47.0); Hemoglobin 13.2 g/dl (12.0-16.0); Imm Gran Abs Auto 0.03 X10*3/uL (0.00-0.03); Imm Gran Pct Auto 0.3 % (0.0-0.4); Lymphocytes Absolute Auto 1.7 X10*3/uL (1.2-4.9); Lymphocytes Percent Auto 16.9 % (20-40); MANUAL DIFF FLAG NO; Mean Corpuscular HGB Conc 32.1 g/dl (31.0-35.0); Mean Corpuscular Hemoglobin 26.5 pg (27.0-33.0); Mean Corpuscular Volume 82.4 fL (80.0-98.0); Mean Platelet Volume 10.4 fL (9.4-12.3); Monocytes Absolute Auto 0.4 X10*3/uL (0.1-1.2); Monocytes Percent Auto 3.9 % (2-11); Neutrophils Absolute Auto 8.1 x10*3/uL (2.0-8.3); Neutrophils Percent Auto 78.1 % (45-73); Platelet Count 307 X10*3/uL (160-400); Red Blood Count 4.99 X10*6/uL (4.20-5.50); Red Cell Distribution Width 14.6 % (11.0-16.0); White Blood Count 10.3 X10*3/uL (4.8-10.8)
[2022-12-26 12:10] LABS: Alanine Aminotransferase 19 U/L (0-31); Alkaline Phosphatase 73 U/L (39-117); Anion Gap 8 (12-20); Aspartate Amino Transferase 13 U/L (5-31); Bilirubin Direct 0.1 mg/dL (0.0-0.5); Bilirubin Total 0.3 mg/dL (0.0-1.0); Blood Urea Nitrogen 8 mg/dL (9-16); Calcium 8.9 mg/dL (8.4-10.2); Carbon Dioxide 29 mmol/L (22-29); Chloride 109 mmol/L (96-108); Estimated Glomerular Filt Rate > 60; Ethanol < 10 mg/dL; Glucose Random 81 mg/dL (60-115); Magnesium 2.1 mg/dL (1.6-2.6); Potassium 4.4 mmol/L (3.3-5.1); Sodium 142 mmol/L (135-145); Total Protein 6.9 g/dL (6.5-8.0)
--- NOTE | 2022-12-26 12:18 | PC.NURSE ---
labs and urine obtained, seizure precautions intact, no seizure activity noted, ivf continue
[2022-12-26 12:20] LABS: Appearance Urine Clear; Color Urine Yellow; Glucose Urine UA Negative (Negative); Leukocyte Esterase Urine Negative (Negative); Nitrite Urine Negative (Negative); PH 7.5 (5.0-9.0); Urine Blood Negative (Negative); Urine Ketones Negative (Negative); Urine Protein Negative (Neg-Trace)
[2022-12-26 12:27] LABS: Amphetamine Screen Urine Not Detected (Not Detect); Barbiturates, Urine Not Detected (Not Detect); Benzodiazepines Screen Urine POSITIVE (Not Detect); Cannabinoid Screen Urine POSITIVE (Not Detect); Cocaine Screen Urine Not Detected (Not Detect); Fentanyl, urine Not Detected (Not Detect); Opiate Screen Urine Not Detected (Not Detect); Phencyclidine Screen Urine Not Detected (Not Detect)
[2022-12-26 12:32] VITALS: BP 122/95; PULSE 55; RESP 16; TEMP 36.8; O2SAT 99
--- NOTE | 2022-12-26 13:17 | ED.SEIZURE ---
HPI - Seizure General Chief Complaint: Seizure Stated Complaint: Seizures per EMS Time Seen by Provider: 12/26/22 13:06 Source: patient Mode of arrival: EMS Limitations: no limitations History of Present Illness HPI Narrative: Patient comes to the emergency room from home via ambulance. Patient states that patient had a seizure at home. According to EMS, patient had a 2nd seizure when they were in the ambulance and given 2 mg of Versed. Patient states that since her ox carbamazepine medication was increased, she has had 4 seizures in total. When the Patient arrived to emergency room, nurse reports the patient was awake, alert and oriented x3. Patient denies any urinary/fecal incontinence or tongue biting. Of note, patient was seen by her neurologist 5 days ago, her oxcarbamazepine was increased from 300 mg b.i.d. to 450 mg b.i.d. Seizure History: Yes Place: Home Related Data Previous Rx's Medication Instructions Recorded hydroxyzine HCl 25 mg tablet 25 mg PO TID PRN anxiety #20 tabs 03/08/22 oxcarbazepine 300 mg tablet 600 mg PO BID 30 days #120 tabs 12/26/22 Allergies Allergy/AdvReac Type Severity Reaction Status Date / Time phenytoin [From DILANTIN] Allergy Mild RASH Verified 12/26/22 10:47 strawberry AdvReac Hives Verified 12/26/22 10:47 Review of Systems Review of Systems: Constitutional : No Weight loss, No Fever, No Chills, No Night Sweats, No Fatigue, No Malaise ENT/Mouth : No Hearing loss, No Ear Pain, No Nasal Congestion, No Sinus Pain, No Hoarseness, No sore throat, No Rhinorrhea, No Swallowing Difficulty Eyes: No Eye Pain, No Swelling, No Redness, No Foreign Body, No Discharge, No Vision Changes Cardiovascular : No Chest Pain, No SOB, No Dyspnea on Exertion, No Orthopnea, No Edema, No Palpitations Respiratory : No Cough, No Sputum, No Wheezing, No Smoke Exposure, No Dyspnea Gastrointestinal : No Nausea, No Vomiting, No Diarrhea, No Constipation, No abdominal Pain, No Hematochezia, No Melena Genitourinary : no irregular bleeding, No Dysuria, No Urinary Frequency, No Hematuria, No Urinary Incontinence, No Urgency, No Flank Pain, No Urinary Flow Changes, No Hesitancy Musculoskeletal : No joint pain, No Myalgias, No Joint Swelling Skin : No Skin Lesions, No rash Neuro : No Weakness, No Numbness, No Paresthesias, No Loss of Consciousness, No Dizziness, No Headache, complaining of seizures Psych : No Anxiety/Panic, No Depression, No SI/HI/AH/VH, No Social Issues, Heme/Lymph: No Bruising, No Bleeding,No Lymphadenopathy Endocrine : No Polyuria, No Polydipsia, No Temperature Intolerance [facility] Past Medical History Medical History Annual physical exam Anxiety BCP ( control pills) initiation Depression Depression Depression with anxiety Frequent UTI Headache care and examination Rash Seizure disorder Surgical History Hx of section No pertinent past surgical history Family History Family History Father Seizure Mother No problems noted. Social History Social History (Updated 12/21/22 @ 14:41 by SHARON Winslow) Housing: House Alcohol intake: never Patient Tobacco Use Status: Never used Tobacco Smoked in Last 30 Days: No e-Cigarette/Vaping Use: Never Used Use of substances other than those prescribed or required for medical reasons: Yes Substance Use Type: Marijuana Substance Use Frequency: Daily Advance Directives: No Advance Directives Information Provided: Yes Patient : No Current occupational status: employed Sexual orientation: Straight/Heterosexual Cognitive needs: No Hearing needs: No Vision needs: No Physical Exam Vital Signs: Vital Signs: Last Vital Signs Temp 98.2 F 12/26/22 12:32 Pulse 55 12/26/22 12:32 Resp 16 12/26/22 12:32 BP 122/95 H 12/26/22 12:32 Pulse Ox 99 12/26/22 12:32 O2 Del Method Room Air 12/26/22 12:32 BMI result Body Mass Index 39.4 Const: Other: Appearance: Alert. Oriented X3. No acute distress. Eyes: Pupils equal, round and reactive to light. ENT: Pharynx normal. Neck: Normal inspection. Neck supple. No lymph nodes noted. No crepitus CVS: Normal heart rate and rhythm. Pulses normal. Normal S1 and S2 Respiratory: No respiratory distress. Breath sounds normal. No Wheezing. No rales Abdomen: Soft and nontender. No rigidity. No distention. Skin: Skin warm and dry. Normal skin color. Normal skin turgor. Extremities: No lower extremity edema. No Lacerations. No Rash Neuro: Oriented X 3. No motor deficit. No sensory deficit. Moving all extremities. No slurred speech. CN 2 through 12 grossly intact Psych: calm, cooperative, teary Medications Administered Discontinued Medications Generic Name Dose Route Start Last Admin Trade Name Freq PRN Reason Stop Dose Admin Sodium Chloride 1,000 mls @ 999 mls/hr 12/26/22 11:30 12/26/22 12:42 Ns IVCONT 12/26/22 12:30 Infused .Q1H1M NAHEED Infusion Medical Decision Making Medical Decision Making MDM Narrative: -I discussed the patient with her neurologist Isabel Granger CNP from [facility] neurology and sleep. Recommendations: Increase oxcarbamazepine to 600 mg b.i.d. and obtain an EEG, observation -discussed the above-mentioned with Dr. Perry, patient being admitted Differential Diagnosis Differential Diagnoses: The differential diagnosis associated with the presentation includes (Seizures versus pseudoseizures) Admission/Observation Consideration of admission/observation: Escalation of care including admission/observation considered Consult Healthcare Provider Management of the patient was discussed with: Hospitalist and [employer] Lab Data [facility] Lab Attestation statement: I reviewed the patient's lab results. 12/26/22 11:39 12/26/22 11:39 Labs: Lab Results 12/26/22 12/26/22 12/26/22 Range/Units 11:39 11:39 12:08 WBC 10.3 (4.8-10.8) X10*3/uL RBC 4.99 (4.20-5.50) X10*6/uL Hgb 13.2 (12.0-16.0) g/dl Hct 41.1 (37.0-47.0) % MCV 82.4 (80.0-98.0) fL MCH 26.5 L (27.0-33.0) pg MCHC 32.1 (31.0-35.0) g/dl RDW 14.6 (11.0-16.0) % Plt Count 307 (160-400) X10*3/uL MPV 10.4 (9.4-12.3) fL Immature Gran % (Auto) 0.3 (0.0-0.4) % Neut % (Auto) 78.1 H (45-73) % Lymph % (Auto) 16.9 L (20-40) % [place] % (Auto) 3.9 (2-11) % Eos % (Auto) 0.4 (0-4) % Baso % (Auto) 0.4 (0-2) % Lymph # (Auto) 1.7 (1.2-4.9) X10*3/uL [place] # (Auto) 0.4 (0.1-1.2) X10*3/uL Eos # (Auto) 0.0 (0.0-0.4) X10*3/uL Baso # (Auto) 0.0 (0.0-0.2) X10*3/uL Abs Immat Gran (auto) 0.03 (0.00-0.03) X10*3/uL Absolute Neuts (auto) 8.1 (2.0-8.3) x10*3/uL Absolute Nucleated RBC 0.000 (0.0-0.012) X10*3/uL Nucleated RBC % (auto) 0.0 (0.0-0.2) /100WBC Sodium 142 (135-145) mmol/L Potassium 4.4 (3.3-5.1) mmol/L Chloride 109 H (96-108) mmol/L Carbon Dioxide 29 (22-29) mmol/L Anion Gap 8 L (12-20) BUN 8 L (9-16) mg/dL Creatinine 0.66 (0.5-1.4) mg/dL Estim Creat Clear Calc 125.0 Estimated GFR > 60 Random Glucose 81 (60-115) mg/dL Calcium 8.9 (8.4-10.2) mg/dL Magnesium 2.1 (1.6-2.6) mg/dL Total Bilirubin 0.3 (0.0-1.0) mg/dL Direct Bilirubin 0.1 (0.0-0.5) mg/dL AST 13 (5-31) U/L ALT 19 (0-31) U/L Alkaline Phosphatase 73 (39-117) U/L Total Creatine Kinase 76 (26-140) U/L Total Protein 6.9 (6.5-8.0) g/dL Albumin 4.0 (3.5-5.0) g/dL Urine Color Yellow Urine Appearance Clear Urine pH 7.5 (5.0-9.0) Ur Specific [place] 1.010 (1.005-1.025) Urine Protein Negative (Neg-Trace) mg/dL Urine Glucose (UA) Negative (Negative) mg/dL Urine Ketones Negative (Negative) mg/dL Urine Blood Negative (Negative) Urine Nitrite Negative (Negative) Ur Leukocyte Esterase Negative (Negative) Urine Opiates Screen (Not Detect) Urine Fentanyl Screen (Not Detect) Ur Barbiturates Screen (Not Detect) Ur Phencyclidine Scrn (Not Detect) Ur Amphetamines Screen (Not Detect) U Benzodiazepines Scrn (Not Detect) Urine Cocaine Screen (Not Detect) U Marijuana (THC) Screen (Not Detect) Ethyl Alcohol < 10 mg/dL 12/26/22 Range/Units 12:08 WBC (4.8-10.8) X10*3/uL RBC (4.20-5.50) X10*6/uL Hgb (12.0-16.0) g/dl Hct (37.0-47.0) % MCV (80.0-98.0) fL MCH (27.0-33.0) pg MCHC (31.0-35.0) g/dl RDW (11.0-16.0) % Plt Count (160-400) X10*3/uL MPV (9.4-12.3) fL Immature Gran % (Auto) (0.0-0.4) % Neut % (Auto) (45-73) % Lymph % (Auto) (20-40) % [place] % (Auto) (2-11) % Eos % (Auto) (0-4) % Baso % (Auto) (0-2) % Lymph # (Auto) (1.2-4.9) X10*3/uL [place] # (Auto) (0.1-1.2) X10*3/uL Eos # (Auto) (0.0-0.4) X10*3/uL Baso # (Auto) (0.0-0.2) X10*3/uL Abs Immat Gran (auto) (0.00-0.03) X10*3/uL Absolute Neuts (auto) (2.0-8.3) x10*3/uL Absolute Nucleated RBC (0.0-0.012) X10*3/uL Nucleated RBC % (auto) (0.0-0.2) /100WBC Sodium (135-145) mmol/L Potassium (3.3-5.1) mmol/L Chloride (96-108) mmol/L Carbon Dioxide (22-29) mmol/L Anion Gap (12-20) BUN (9-16) mg/dL Creatinine (0.5-1.4) mg/dL Estim Creat Clear Calc Estimated GFR Random Glucose (60-115) mg/dL Calcium (8.4-10.2) mg/dL Magnesium (1.6-2.6) mg/dL Total Bilirubin (0.0-1.0) mg/dL Direct Bilirubin (0.0-0.5) mg/dL AST (5-31) U/L ALT (0-31) U/L Alkaline Phosphatase (39-117) U/L Total Creatine Kinase (26-140) U/L Total Protein (6.5-8.0) g/dL Albumin (3.5-5.0) g/dL Urine Color Urine Appearance Urine pH (5.0-9.0) Ur Specific [place] (1.005-1.025) Urine Protein (Neg-Trace) mg/dL Urine Glucose (UA) (Negative) mg/dL Urine Ketones (Negative) mg/dL Urine Blood (Negative) Urine Nitrite (Negative) Ur Leukocyte Esterase (Negative) Urine Opiates Screen Not Detected (Not Detect) Urine Fentanyl Screen Not Detected (Not Detect) Ur Barbiturates Screen Not Detected (Not Detect) Ur Phencyclidine Scrn Not Detected (Not Detect) Ur Amphetamines Screen Not Detected (Not Detect) U Benzodiazepines Scrn POSITIVE H (Not Detect) Urine Cocaine Screen Not Detected (Not Detect) U Marijuana (THC) Screen POSITIVE H (Not Detect) Ethyl Alcohol mg/dL Critical Care Time Critical Care Time Critical Care Time: Yes Total Critical Care Time: 30 Attestation: I have personally provided critical care time. Time includes review of lab data, radiology results, discussion with consultants, and monitoring for potential decompensation. Intervention performed as documented. Discharge Plan Discharge Clinical Impression: Seizures Patient Disposition: Admitted As Inpatient
--- NOTE | 2022-12-26 13:26 | MHC.EDTECH ---
[place] text Dr. Isabel Granger Neuro @ 1:[address] Granger c/b @ 1:27
[2022-12-26 14:03] LABS: Lactic Acid 0.9 mmol/L (0.5-2.0)
--- NOTE | 2022-12-26 14:16 | PHA.MEDREC ---
Pharmacy Consult ? Medication Reconciliation Pharmacy has completed the medication reconciliation.
[2022-12-26 15:11] VITALS: BP 128/85; PULSE 72; RESP 12; TEMP 36.7; O2SAT 100
--- NOTE | 2022-12-26 15:13 | P.HPHOSP_ITS ---
History of Present Illness Date of Service: 12/26/22 Attending physician on admission: Amrit Razo Chief Complaint: seziures 27-year-old female with history of seizure disorder and anxiety disorder who presented to the ED via EMS for evaluation of seizures. 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 However at age 12, her neurologist discontinued her seizure medications and patient has not had any recurrence of her seizures until about 4 years ago. Since then, seizures have been increasing in frequency and duration with prolonged postictal state. She states prior to onset of seizure she experiences tremors of the hands, lightheadedness, blurred vision. Her mother has witnessed the seizures and states they last for about 1-2 minutes with tonic-clonic movements, drooling, tongue and cheek biting. She states she has been following with Neurology and her Trileptal dose was recently increased to 450 mg twice daily which has helped with the frequency of seizures and she is now only sleepy and somewhat confused for about 10 minutes following the seizure when the postictal state use to last all day. She states used also used to have nocturnal seizures but these are no longer occurring. She has been following with [place] [facility] [place]. 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 In the ED, received 1L IV NS. Review of Systems Review of Systems: General: No fevers, malaise, unintentional weight loss HEENT: No blurred vision, diplopia. No sore throat, nasal congestion, rhinorrhea, sinus pain, ear pain Cardiovascular: No chest pain, palpitations, or leg edema Respiratory: No shortness of breath, wheezing, cough GI: No abdominal pain, nausea, vomiting, diarrhea, constipation, melena, hematochezia : No dysuria, hematuria, increased urinary frequency, decreased urinary output MSK: No myalgia, back pain Neuro: No headaches, weakness, paresthesias. +lightheaded, +seizures Skin: No rashes or lesions [facility] Medical History Annual physical exam Anxiety BCP ( control pills) initiation Depression Depression Depression with anxiety Frequent UTI Headache care and examination Rash Seizure disorder Family History Father Seizure Mother No problems noted. Surgical History Hx of section No pertinent past surgical history Social History Housing: House Alcohol intake: never Patient Tobacco Use Status: Never used Tobacco Smoked in Last 30 Days: No e-Cigarette/Vaping Use: Never Used Use of substances other than those prescribed or required for medical reasons: Yes Substance Use Type: Marijuana Substance Use Frequency: Daily Advance Directives: No Advance Directives Information Provided: Yes Patient : No Current occupational status: employed Sexual orientation: Straight/Heterosexual Cognitive needs: No Hearing needs: No Vision needs: No Meds Allergies Allergy/AdvReac Type Severity Reaction Status Date / Time phenytoin [From DILANTIN] Allergy Mild RASH Verified 12/26/22 10:47 strawberry AdvReac Hives Verified 12/26/22 10:47 Active Medications: Current Medications Hydroxyzine HCl (Hydroxyzine Hcl 25 Mg Tablet) 25 mg PO TID PRN PRN Reason: anxiety Levetiracetam (Keppra) 1,000 mg in 100 mls @ 400 mls/hr IV ONCE ONE Stop: 12/26/22 15:21 Levetiracetam (Keppra) 500 mg in 100 mls @ 400 mls/hr IV Q12H [facility] Oxcarbazepine (Oxcarbazepine 150 Mg Tablet) 450 mg PO BID [facility] Pharmacy Consult (Consult Rx Perform Med Rec) 1 each MISCELLANE ONCE PRN PRN Reason: Consult order Home Medications Medication Instructions Recorded Confirmed Last Taken Type oxcarbazepine 300 mg tablet 450 mg PO BID 12/26/22 12/26/22 12/26/22 History Physical Exam Vital Signs and Narrative: Vital Signs: Last Vital Signs Temp 98.1 F 12/26/22 15:11 Pulse 72 12/26/22 15:11 Resp 12 12/26/22 15:11 BP 128/85 12/26/22 15:11 Pulse Ox 100 12/26/22 15:11 O2 Del Method Room Air 12/26/22 15:11 BMI result Body Mass Index 39.4 Constitutional - Awake and Alert, No apparent distress Eyes - PERRLA, EOMI Cardiovascular - S1S2, RRR, No edema Respiratory - Normal lung expansion, Normal respiratory effort, No respiratory distress, CTA bilaterally Gastrointestinal - NT / ND; +BS; No rebound or guarding Extremities - no calf tenderness bilaterally, no swelling Skin - Warm/Dry Neurological - Alert & oriented x3, CN II-XII in tact, 5/5 strength BUE and BLE Psychological - Appropriate affect Results Labs 12/26/22 11:39 12/26/22 11:39 Labs: Laboratory Results - last 24 hr 12/26/22 12/26/22 12/26/22 11:39 11:39 12:08 MCV 82.4 MCH 26.5 L MCHC 32.1 RDW 14.6 Plt Count 307 MPV 10.4 Immature Gran % (Auto) 0.3 Neut % (Auto) 78.1 H Lymph % (Auto) 16.9 L [place] % (Auto) 3.9 Eos % (Auto) 0.4 Baso % (Auto) 0.4 Lymph # (Auto) 1.7 [place] # (Auto) 0.4 Eos # (Auto) 0.0 Baso # (Auto) 0.0 Abs Immat Gran (auto) 0.03 Absolute Neuts (auto) 8.1 Absolute Nucleated RBC 0.000 Nucleated RBC % (auto) 0.0 Anion Gap 8 L Estim Creat Clear Calc 125.0 Estimated GFR > 60 Random Glucose 81 Lactic Acid Calcium 8.9 Magnesium 2.1 Total Bilirubin 0.3 Direct Bilirubin 0.1 AST 13 ALT 19 Alkaline Phosphatase 73 Total Creatine Kinase 76 Total Protein 6.9 Albumin 4.0 Urine Color Yellow Urine Appearance Clear Urine pH 7.5 Ur Specific [place] 1.010 Urine Protein Negative Urine Glucose (UA) Negative Urine Ketones Negative Urine Blood Negative Urine Nitrite Negative Ur Leukocyte Esterase Negative Urine Opiates Screen Urine Fentanyl Screen Ur Barbiturates Screen Ur Phencyclidine Scrn Ur Amphetamines Screen U Benzodiazepines Scrn Urine Cocaine Screen U Marijuana (THC) Screen Ethyl Alcohol < 10 12/26/22 12/26/22 12:08 13:39 MCV MCH MCHC RDW Plt Count MPV Immature Gran % (Auto) Neut % (Auto) Lymph % (Auto) [place] % (Auto) Eos % (Auto) Baso % (Auto) Lymph # (Auto) [place] # (Auto) Eos # (Auto) Baso # (Auto) Abs Immat Gran (auto) Absolute Neuts (auto) Absolute Nucleated RBC Nucleated RBC % (auto) Anion Gap Estim Creat Clear Calc Estimated GFR Random Glucose Lactic Acid 0.9 Calcium Magnesium Total Bilirubin Direct Bilirubin AST ALT Alkaline Phosphatase Total Creatine Kinase Total Protein Albumin Urine Color Urine Appearance Urine pH Ur Specific [place] Urine Protein Urine Glucose (UA) Urine Ketones Urine Blood Urine Nitrite Ur Leukocyte Esterase Urine Opiates Screen Not Detected Urine Fentanyl Screen Not Detected Ur Barbiturates Screen Not Detected Ur Phencyclidine Scrn Not Detected Ur Amphetamines Screen Not Detected U Benzodiazepines Scrn POSITIVE H Urine Cocaine Screen Not Detected U Marijuana (THC) Screen POSITIVE H Ethyl Alcohol Assessment and Plan (1) Seizures: Status: Acute Plan 27-year-old female with history of seizure disorder and anxiety disorder to be observed for seizure disorder #Epileptic seizures -Continue trileptal 450mg BID -Loaded with 1g IV keppra. Continue 500mg BID -Appreciate neurology input -Likely related to left hippocampus lesion, stable on last MRI -EEG ordered #Anxiety -continue hydroxyzine DVT prophylaxis- SCPs, early ambulation Full code Time Spent With Patient Time: Total time managing care of this patient today ____ minutes. Quality Stroke Does the patient have a stroke diagnosis?: No VTE Prior VTE?: No VTE Risk Level:: Medical - moderate - high VTE Device Contraindication: N/A - Device Ordered VTE Drug Contraindication: Treatment Not Indicated
[2022-12-26] MEDS: levETIRAcetam in NaCl (iso-os) 1,000 MG/100 ML PIGGYBACK 400 MG IV (15:48)
[2022-12-26] MEDS: 0.9 % Sodium Chloride Flush 3 ML SYRINGE IVFLUSH ×2 (15:49→19:28)
--- NOTE | 2022-12-26 15:54 | PC.NURSE ---
patient a&ox3, vss, television reporter sinus marino, pt medicated per order, seizure precautions remain intact, no seizure activity noted since arrival to the ed, pt speaking on phone, will continue to monitor
--- NOTE | 2022-12-26 17:38 | PC.NURSE ---
floor called to give report, they will call us back
[2022-12-26 17:49] VITALS: BP 102/62; PULSE 91; RESP 18; O2SAT 100
[2022-12-26] MEDS: hydrOXYzine HCL 25 MG TABLET PO (17:52)
--- NOTE | 2022-12-26 17:52 | PC.NURSE ---
patient requested medication for anxiety- pt given atarax per order, vss, report called to floor, pt requesting to eat tray brought to her prior to going to floor, will continue to monitor
--- NOTE | 2022-12-26 18:07 | MHC.CM.PN ---
PATI 12/26. Lives with mother. A&Ox4. No DME/services. Employed. HCP reviewed, completed and signed. Copies given Uploaded into [facility] and [facility]. HCP/mother Olivia Spears ([phone]). Pt does not drive secondary to seizures. Per patient, needs to be seizure free for 6 months.. D/C plan: home without services. Mother to transport home. CM following for any discharge needs.
--- NOTE | 2022-12-26 18:38 | PC.NURSE ---
transport notified to bring pt to floor
[2022-12-26 19:23] VITALS: BP 126/77; PULSE 84; RESP 18; TEMP 36.6; O2SAT 98
[2022-12-26] MEDS: OXcarbazepine 150 MG TABLET 450 MG PO (19:27)
[2022-12-26] MEDS: LORazepam 1 MG TABLET PO (22:59)
--- NOTE | 2022-12-27 00:25 | PC.NURSE ---
Patient admitted from ED, arrived on the unit at 1920 . Her boyfriend was given permission by nursing public relations supervisor Martita to stay overnight to keep patient more comfortable due to severe anxiety and recent seizures. In ED patient was medicated with Hydroxyzine 25 mg at 1752 but as soon as they arrived to room 367 she was crying, anxious stating she worries about her health status because she wants to be better to be able to take care of her children. Dr Simon was notified and 1 mg of Ativan PO was ordered and given to patient at 2259. Per boyfriend patient fell asleep and while sleeping at 2353 started having slight tremors which were witnessed by this RN shortly after. It lasted few seconds, after patient responded that she was okay and fell back asleep. Seizure precautions in place, Dr Simon updated, no new orders, patient asleep, comfortable. Telesitter placed for extra precautions.
[2022-12-27 03:36] VITALS: BP 136/64; PULSE 63; RESP 18; TEMP 36.6; O2SAT 95
[2022-12-27] MEDS: levETIRAcetam in NaCl (iso-os) 500 MG/100 ML PIGGYBACK 400 MG IV (06:24)
[2022-12-27 06:34] LABS: MANUAL DIFF FLAG NO
[2022-12-27 06:41] LABS: Basophils Percent Auto 0.3 % (0-2); Eosinophils Absolute Auto 0.2 X10*3/uL (0.0-0.4); Eosinophils Percent Auto 1.7 % (0-4); Hematocrit 40.2 % (37.0-47.0); Hemoglobin 12.9 g/dl (12.0-16.0); Imm Gran Abs Auto 0.04 X10*3/uL (0.00-0.03); Imm Gran Pct Auto 0.4 % (0.0-0.4); Lymphocytes Percent Auto 22.3 % (20-40); Mean Corpuscular HGB Conc 32.1 g/dl (31.0-35.0); Mean Corpuscular Hemoglobin 26.1 pg (27.0-33.0); Mean Corpuscular Volume 81.2 fL (80.0-98.0); Mean Platelet Volume 10.3 fL (9.4-12.3); Monocytes Absolute Auto 0.5 X10*3/uL (0.1-1.2); Monocytes Percent Auto 5.7 % (2-11); Neutrophils Absolute Auto 6.3 x10*3/uL (2.0-8.3); Neutrophils Percent Auto 69.6 % (45-73); Platelet Count 315 X10*3/uL (160-400); Red Blood Count 4.95 X10*6/uL (4.20-5.50); Red Cell Distribution Width 14.6 % (11.0-16.0); White Blood Count 9.1 X10*3/uL (4.8-10.8)
[2022-12-27 06:59] LABS: Anion Gap 10 (12-20); Blood Urea Nitrogen 10 mg/dL (9-16); Calcium 8.9 mg/dL (8.4-10.2); Carbon Dioxide 26 mmol/L (22-29); Chloride 110 mmol/L (96-108); Creatinine Clr Calc Pharmacy 128.9; Estimated Glomerular Filt Rate > 60; Glucose Random 77 mg/dL (60-115); Potassium 4.1 mmol/L (3.3-5.1); Sodium 142 mmol/L (135-145)
[2022-12-27 07:31] VITALS: BP 94/63; PULSE 84; RESP 18; TEMP 36.8; O2SAT 97
[2022-12-27] MEDS: OXcarbazepine 150 MG TABLET 450 MG PO (07:54)
[2022-12-27] MEDS: levETIRAcetam 500 MG TABLET PO (07:54)
[2022-12-27] MEDS: 0.9 % Sodium Chloride Flush 3 ML SYRINGE IVFLUSH ×2 (07:54→16:02)
[2022-12-27 08:00] VITALS: BP 116/93; PULSE 96; RESP 18; TEMP 36.1; O2SAT 96
--- NOTE | 2022-12-27 15:16 | PC.NURSE ---
Patient was informed of intention to place camera in her room due to safety concerns regarding seizure precautions. she declined camera due to her boyfriend being in her room with her, she has agrred that camera can be placed in the event he leaves.
--- NOTE | 2022-12-27 15:20 | PM.NEUROCN ---
History of Present Illness Data of Consult Service Date: 12/27/22 Primary Care Provider: Meredith Cervantes MD [facility] Reason for consult: Epilepsy 27 years old woman who provided her own history stating that she was born in this area and she was about 4 or 5 years old when she started having seizures. She said that initially her mother did not believe it when she was waking up with blood in her mouth. Ultimately she was diagnosed with seizures and apparently was treated with gabapentin but she did not really recall what medicine she was taking. She is seizures ultimately either stopped or her medicine was stopped when she was about 12 years old. She did well for few years but seizure started to happen again in few years ago. She was seeing a neurologist in [place]. She saw her neurologist couple of days ago and her dose of oxcarbazepine was increased from 300 twice a day to 450 twice a day because she continued to have seizures. She said that sometime she had of warning of right hand shaking and feeling dizzy. After that she did not know what happened. The person in her room stated that she shook all over and became unresponsive. Rarely she urinated. She had an MRI of brain done last year and another [address] scan during this hospitalization. Review of Systems Review of Systems: No recent history of head trauma or fever chills. [facility] Past Medical History Medical History Annual physical exam Anxiety BCP ( control pills) initiation Depression Depression Depression with anxiety Frequent UTI Headache care and examination Rash Seizure disorder Family History Family History Father Seizure Mother No problems noted. Surgical History Surgical History Hx of section No pertinent past surgical history Social History Social History Household Members: Significant Other and Children Housing: House Do you presently have visiting nurse or other home services: No Alcohol intake: never Patient Tobacco Use Status: Never used Tobacco Smoked in Last 30 Days: No e-Cigarette/Vaping Use: Never Used Use of substances other than those prescribed or required for medical reasons: Yes Substance Use Type: Marijuana Substance Use Frequency: Occasionally Currently Displaying Signs/Symptoms of Drug Intoxication Withdrawal: No Have you been hit, kicked, punched, or otherwise hurt by someone within the past year? If so, by whom?: No Do you feel safe in your current relationship?: Yes Is there a partner from a previous relationship who is making you feel unsafe now?: No Are you made to feel afraid or neglected: No Advance Directives: No Advance Directives Information Provided: Yes Do you have thoughts of harming others: None Do you have a plan to hurt others: No Plan Recently lost weight without trying: No Nutrition Risks: No Nutritional Risk Patient : No : No Poor oral hygiene: No Current occupational status: employed Sexual orientation: Straight/Heterosexual Cognitive needs: No Hearing needs: No Vision needs: No Meds Allergies Allergy/AdvReac Type Severity Reaction Status Date / Time phenytoin [From DILANTIN] Allergy Mild RASH Verified 12/26/22 10:47 strawberry AdvReac Hives Verified 12/26/22 10:47 Active Medications: Current Medications Acetaminophen (Acetaminophen 325 Mg Tablet) 650 mg PO Q6H PRN PRN Reason: Pain, Mild (Pain Scale 1-3) Docusate Sodium (Docusate Sodium 100 Mg Capsule) 100 mg PO DAILY PRN PRN Reason: Constipation Hydroxyzine HCl (Hydroxyzine Hcl 25 Mg Tablet) 25 mg PO TID PRN PRN Reason: anxiety Last Admin: 12/26/22 17:52 Dose: 25 mg Levetiracetam (Levetiracetam 500 Mg Tablet) 500 mg PO BID [facility] Last Admin: 12/27/22 07:54 Dose: 500 mg Ondansetron HCl (Ondansetron Hcl 4 Mg/2 Ml Vial) 4 mg IVPUSH Q8H PRN PRN Reason: Nausea and Vomiting Oxcarbazepine (Oxcarbazepine 150 Mg Tablet) 450 mg PO BID [facility] Last Admin: 12/27/22 07:54 Dose: 450 mg Pharmacy Consult (Consult Rx Perform Med Rec) 1 each MISCELLANE ONCE PRN PRN Reason: Consult order Sodium Chloride (0.9 % Sodium Chloride Flush 3 Ml Syringe) 3 ml IVFLUSH QSHIFT [facility] Last Admin: 12/27/22 07:54 Dose: 3 ml Home Medications Medication Instructions Recorded Confirmed Last Taken Type oxcarbazepine 300 mg tablet 450 mg PO BID 12/26/22 12/26/22 12/26/22 History Physical Exam Vital Signs: Vital Signs: Last Vital Signs Temp 97 F 12/27/22 08:00 Pulse 96 12/27/22 08:00 Resp 18 12/27/22 08:00 BP 116/93 H 12/27/22 08:00 Pulse Ox 96 12/27/22 08:00 O2 Del Method Room Air 12/27/22 08:00 BMI result Body Mass Index 39.4 Neuro: Other: She was alert and awake with normal spontaneity of speech fluency comprehension and affect. Face was symmetrical. Visual guevara are full. Deep tendon reflexes were trace to 1+ with flexor plantars. There was no focal weakness. Results Labs 12/27/22 06:28 12/27/22 06:28 Labs: Short CBC 12/27/22 Range/Units 06:28 WBC 9.1 (4.8-10.8) X10*3/uL Hgb 12.9 (12.0-16.0) g/dl Hct 40.2 (37.0-47.0) % Plt Count 315 (160-400) X10*3/uL BMP 12/27/22 06:28 Sodium 142 Potassium 4.1 Chloride 110 H Carbon Dioxide 26 BUN 10 Creatinine 0.64 Calcium [address] did not reveal any significant abnormality. MRI of brain of last year and this year reviewed. There was slight asymmetry of hippocampus with left 1 somewhat seem smaller than right. Otherwise there was no significant abnormality. Her EEG did not reveal any significant abnormality. Assessment and Plan (1) Seizures: Status: Acute 27 years old woman who provided her own history stating that she has been having seizures since she was about 4 to 5 years old. According to the notes she was treated with gabapentin that seemed atypical as gabapentin is not the typical medicine for epilepsy. It usually is an adjunct medicine. In any case, her seizure. When she was about 11 or 12 and then few years ago she started having them. She has been seeing a neurologist in [place] and was treated with oxcarbazepine. She reported that seizures are still happening. Her dose of oxcarbazepine was relatively small. Her examination was nonfocal. Imaging revealed possible left hippocampal asymmetry though typical features of mesial sclerosis were absent. It is important to 1st definitively diagnose epilepsy, classified it properly, enter document if left temporal area could be the culprit. In that regard, my suggest outpatient long-term EEG monitoring with 48 hour ambulatory EEG. In the meantime, dose of oxcarbazepine can be increased to 600 mg twice a day. He should not drive and avoid activities that could put her life in danger. If epilepsy is confirmed with EEG, and if the focus is left temporal, I would also recommend referral to epilepsy Center for possible permanent treatment. All that can be achieved through her outpatient neurologist. Time Spent With Patient Time: Total time managing care of this patient today ____ minutes. Procedures Date of Service Date of Service: 12/27/22
--- NOTE | 2022-12-27 16:43 | P.DS_ITS ---
DS: Providers Provider Date of Service: 12/27/22 Date of admission: 12/26/22 15:09 Primary care physician: Meredith Cervantes MD Consults: 12/26/22 15:04 Consult to Neurology Routine Consulting Provider: [facility] Reason for consultation: seizures DS: Diagnosis Discharge Diagnosis (1) Seizures: Status: Acute DS: Summary Hospital Course Hospital Course: history of presenting illness: Date of Service: 12/26/22 Attending physician on admission: Amrit Razo Chief Complaint: seziures 27-year-old female with history of seizure disorder and anxiety disorder who presented to the ED via EMS for evaluation of seizures.? 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 However at age 12, her neurologist discontinued her seizure medications and patient has not had any recurrence of her seizures until about 4 years ago.? Since then, seizures have been increasing in frequency and duration with prolonged postictal state.? She states prior to onset of seizure she experiences tremors of the hands, lightheadedness, blurred vision.? Her mother has witnessed the seizures and states they last for about 1-2 minutes with tonic-clonic movements, drooling, tongue and cheek biting.? She states she has been following with Neurology and her Trileptal dose was recently increased to 450 mg twice daily which has helped with the frequency of seizures and she is now only sleepy and somewhat confused for about 10 minutes following the seizure when the postictal state use to last all day. She states used also used to have nocturnal seizures but these are no longer occurring. She [place] [facility].? 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 In the ED, received 1L IV NS. hospital course: 27-year-old female with history of seizure disorder and anxiety disorder to be observed for seizure disorder #Epileptic seizures, patient admitted for recurrent episodes of seizure while on Trileptal 450 mg b.i.d., seen by neurologist Dr. Torre he recommend to increase dose of Trileptal to 600 mg b.i.d. and to obtain a 48 hour ambulatory EEG to be arranged by patient's primary neurologist and if epilepsy is documented that he recommend patient to be seen by epilepsy Center patient has been instructed to avoid using heavy machinery, no tub baths and no driving, a new prescription of Trileptal has been sent to patient's pharmacy. EEG done report pending. #Anxiety -continue hydroxyzine Time Spent with Patient Time attestation: Total time managing care of this patient today ____ minutes. Discharge coordination time: Greater than 30 minutes Quality: Safe Use of Opioids Does Pt have an Active Cancer Diagnosis on the Problem List?: No Quality: Stroke Does the patient have a stroke diagnosis?: No Physical Exam Vital Signs: Vital Signs: Last Vital Signs Temp 97 F 12/27/22 08:00 Pulse 96 12/27/22 08:00 Resp 18 12/27/22 08:00 BP 116/93 H 12/27/22 08:00 Pulse Ox 96 12/27/22 08:00 O2 Del Method Room Air 12/27/22 08:00 BMI result Body Mass Index 39.4 Const: Other: General awake alert x3, in no acute distress. Neck supple no JVD. CVS regular rate rhythm, Respiratory lungs clear to auscultation, no respiratory distress, no wheeze, no rhonchi. Gastrointestinal abdomen soft, nontender, bowel sounds audible, no guarding , no rigidity. Extremities no edema. Neuro nonfocal Skin no rash psych appropriate affect DS: Data Data Completed and Pending Labs on day of discharge: Laboratory Results - last 24 hr 12/27/22 12/27/22 06:28 06:28 WBC 9.1 RBC 4.95 Hgb 12.9 Hct 40.2 MCV 81.2 MCH 26.1 L MCHC 32.1 RDW 14.6 Plt Count 315 MPV 10.3 Immature Gran % (Auto) 0.4 Neut % (Auto) 69.6 Lymph % (Auto) 22.3 [place] % (Auto) 5.7 Eos % (Auto) 1.7 Baso % (Auto) 0.3 Lymph # (Auto) 2.0 [place] # (Auto) 0.5 Eos # (Auto) 0.2 Baso # (Auto) 0.0 Abs Immat Gran (auto) 0.04 H Absolute Neuts (auto) 6.3 Absolute Nucleated RBC 0.000 Nucleated RBC % (auto) 0.0 Sodium 142 Potassium 4.1 Chloride 110 H Carbon Dioxide 26 Anion Gap 10 L BUN 10 Creatinine 0.64 Estim Creat Clear Calc 128.9 Estimated GFR > 60 Random Glucose 77 Calcium 8.9 Discharge Plan Discharge Patient Disposition: Home, Self-Care Discharge Diagnosis: breakthrough seizures Referrals: Meredith Cervantes MD [Primary Care Provider] - 1 Week Discharge Medications: New oxcarbazepine [Trileptal] 600 mg tablet 600 mg PO BID Qty: 60 0RF Continued hydroxyzine HCl 25 mg tablet 25 mg PO TID PRN (Reason: anxiety) Qty: 20 0RF Discontinued oxcarbazepine 300 mg tablet 450 mg PO BID Rx Instructions: 1 tab qd for 1 week then 1tab bid Discharge Orders: Discharge Order (Routine); Ordered 12/27/22 Ordered By: Amrit Razo Diet: Advance to usual diet Activity on Discharge: no driving car Stand Alone Forms: Patient Portal Discharge page Care Plan Goals: epilepsy with seizures, recommend to take oxcarbazepine 600 mg twice daily, no driving, no operation of machinery or tub baths. Recommend outpatient 48 hour ambulatory EEG Health Concerns: breakthrough seizures Plan of Treatment: outpatient follow-up with primary neurologist for 48 hour ambulatory EEG Assessment: as above
[2023-01-02 09:08] LABS: Oxcarbazepine 36.4 mcg/mL (8.0-35.0)
== END 2022-12-27 18:51 | disposition home or self-care (01) ==
LOC: HO.ED 14:01 → HO.EDOVER 15:14 → HO.S3 17:27
PROVIDERS: Physician Assistant; Admitting Provider Physician Assistant; Emergency Provider Emergency Medicine; PCP Internal Medicine; Visit Provider Hospitalist
DX: G40.909 Epilepsy, unspecified, not intractable, without status epilepticus (principal); F41.9 Anxiety disorder, unspecified
CPT/HCPCS: 36415; 80048; 80076; 80307; 80339; 81003; 82550; 83605; 83735; 85025; 95816; 96361; 96374; 96376; 99221; 99285; J1953

== ENCOUNTER 2023-02-19 08:28 | Emergency (ER) | payer OTHER, SELFPAY ==
[2023-02-19 08:34] VITALS: BP 196/58; PULSE 50; O2SAT 100
[2023-02-19 08:42] VITALS: BP 108/60; PULSE 61; RESP 20; TEMP 36.7; O2SAT 99; BMI 35.4
--- NOTE | 2023-02-19 09:07 | ED.SEIZURE ---
HPI - Seizure General Chief Complaint: Seizure Stated Complaint: UNWITNESSED SZ W/AMS PER EMS Time Seen by Provider: 02/19/23 09:06 Source: patient and other (Boyfriend) Mode of arrival: ambulatory Limitations: no limitations History of Present Illness HPI Narrative: 27-year-old female who was brought to emergency department by ambulance for evaluation of possible seizure. The patient has no memory of what occurred. According to her boyfriend, he woke up when he heard the patient fall out of bed. The patient was shaking for approximately 5-10 minutes. When the patient woke up she was confused. According to the boyfriend, the patient has had multiple shaking episodes over the past several days. Patient was hospitalized at [facility] and had a 48 hour video EEG monitor which was negative for acute seizure activity. The patient's seizure medications were stop and the patient was advised to continue taking hydroxyzine 20 mg b.i.d. for anxiety. According to the boyfriend, the patient has been under increased stress secondary to work issues and home issues. The patient also is having difficulty with memory. She knows that she is a [employer] but cannot remember where she works which is very unusual. I did review the [facility] discharge summary from 01/13/2023-the patient had a 48 hour video EEG monitor which was negative for any seizure activity and the patient's neurologist. Her anti seizure medications and advised her to take hydroxyzine 20 mg b.i.d. as needed for anxiety. Patient's review of systems was negative. Seizure History: Yes Related Data Previous Rx's Medication Instructions Recorded hydroxyzine HCl 25 mg tablet 25 mg PO TID PRN anxiety #20 tabs 03/08/22 oxcarbazepine 600 mg tablet 600 mg PO BID #60 tabs 12/27/22 (Trileptal) hydroxyzine HCl 25 mg tablet 25 mg PO TID PRN anxiety #20 tabs 02/19/23 Allergies Allergy/AdvReac Type Severity Reaction Status Date / Time phenytoin [From DILANTIN] Allergy Mild RASH Verified 12/26/22 10:47 strawberry AdvReac Hives Verified 12/26/22 10:47 Review of Systems Review of Systems: Yes all other systems are reviewed and are negative [facility] Past Medical History [facility] Narrative: Past medical history: Reviewed below, from [facility] record following was obtained ?question developmental delay, anxiety. Social history: She denies tobacco, alcohol and drug use. Medical History Annual physical exam Anxiety BCP ( control pills) initiation Depression Depression Depression with anxiety Frequent UTI Headache care and examination Rash Seizure disorder Surgical History Hx of section No pertinent past surgical history Family History Family History Father Seizure Mother No problems noted. Social History Social History Household Members: Significant Other and Children Housing: House Do you presently have visiting nurse or other home services: No Alcohol intake: unknown Patient Tobacco Use Status: Never used Tobacco Smoked in Last 30 Days: No e-Cigarette/Vaping Use: Never Used Use of substances other than those prescribed or required for medical reasons: Unknown Substance Use Type: Marijuana Advance Directives: No Advance Directives Information Provided: Yes Patient : No Current occupational status: employed Sexual orientation: Straight/Heterosexual Cognitive needs: No Hearing needs: No Vision needs: No Physical Exam Vital Signs: Vital Signs: Last Vital Signs Temp 98.1 F 02/19/23 08:42 Pulse 61 02/19/23 08:42 Resp 20 02/19/23 08:42 BP 108/60 02/19/23 08:42 Pulse Ox 99 02/19/23 08:42 O2 Del Method Room Air 02/19/23 08:42 BMI result Body Mass Index 35.4 Const: Other: Patient is awake and alert, she has no memory of her shaking event, she does not seem to be aware of what medications she takes or what she was told at [facility] about stopping her medications for seizures. HEENT: Other: Patient does have a hematoma to her left forehead which is tender to palpation otherwise no other head trauma Ears: external ears normal General nose exam: Normal external nose present Face and sinus: Yes normal facial exam Mouth: Normal oral and palatal mucosa present Teeth and gingiva: other (Patient does have bite wounds to both sides of her tongue) Throat: Yes posterior oropharynx normal Eyes: General: appearance normal, both eyes and all related structures Pupils: Equal, round and reactive pupils present Neck: Neck: Yes normal visual inspection, Yes no lymphadenopathy, Yes trachea midline and Yes supple Chest: Chest palpation & inspection: normal inspection of the chest and normal palpation of entire chest wall Resp: Effort & Inspection: normal respiratory effort and able to speak in complete sentences Auscultation: clear to auscultation bilaterally Cardio: Rate: regular rate Rhythm: regular rhythm Heart sounds: S1 normal heart sound present, S2 normal heart sound present and no murmurs GI: Inspection: Yes normal to inspection Palpation (GI): Soft to palpation, nontender and no guarding Auscultation: normal bowel sounds : General: Yes no CVA tenderness Back/Spine/Pelvis: Back: no CVA tenderness Skin: General skin exam: no rashes or lesions noted Neuro: Cranial nerves: Yes CN's II-XII intact bilaterally and Yes Equal, round and reactive pupils present Cognition (Neuro): normal cognition Motor exam (neuro): 5/5 motor strength present throughout Extrem: General: Yes normal to inspection Psych: Appearance: grossly normal Speech and movement: Normal speech and movement present Affect: normal affect Attitude: cooperative Medical Decision Making Medical Decision Making MDM Narrative: 27-year-old female who presents emergency department for evaluation of fall out of bed and possible seizure. Patient's vital signs were normal. Patient's physical examination did reveal a hematoma to her left forehead otherwise no other significant injury. Patient's neurologic exam was nonfocal. In reviewing the patient's [facility] medical record from 01/13/2023, the patient had a 48 hour video EEG monitor and according to the boyfriend patient did have seizure-like activity while she was on the monitor however the note states that there was no electrical seizure activity noted on the EEG. The patient's oxcarbazipine was discontinued by the neurologist, Dr. Whipple. I did order laboratory evaluation to include CBC, CMP, lactic acid, drug screen, PT/INR, PTT, quantitative beta-hCG, urinalysis, urine drug screen. 1238: Patient's laboratory evaluation was unremarkable, her lactic acid was normal pain-often this should be elevated with a tonic clonic seizure, so it is reassuring that was not elevated at this time. Given the fact that the patient had a recent, normal, 48 hour video EEG monitor by her neurologist at [facility], and her neurologist recommended stopping her anti seizure medications, I suspect that her symptoms are more consistent with anxiety and a non electrical seizure. 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 I did talk to the patient's mother is well. Patient will need to see her PCP to get started on antianxiety and depression medications as well as following up with her neurologist Dr. Whipple Differential Diagnosis Differential diagnosis includes was not limited to electrical seizure, non electrical seizure, anxiety, electrolyte abnormality, anemia, Admission/Observation Consideration of admission/observation: Escalation of care including admission/observation considered Lab Data MDM Lab Attestation statement: I reviewed the patient's lab results. My interpretation patient's laboratory evaluation is as follows: White blood counts elevated 13,100, H&H was normal. Coags were normal. CMP was normal. Lactic acid was not elevated. Quantitative beta-hCG was negative. 02/19/23 10:16 02/19/23 10:16 Labs: Lab Results 02/19/23 02/19/23 02/19/23 Range/Units 10:15 10:16 10:16 WBC 13.1 H (4.8-10.8) X10*3/uL RBC 5.11 (4.20-5.50) X10*6/uL Hgb 13.3 (12.0-16.0) g/dl Hct 41.4 (37.0-47.0) % MCV 81.0 (80.0-98.0) fL MCH 26.0 L (27.0-33.0) pg MCHC 32.1 (31.0-35.0) g/dl RDW 15.2 (11.0-16.0) % Plt Count 329 (160-400) X10*3/uL MPV 10.6 (9.4-12.3) fL Immature Gran % (Auto) 0.5 H (0.0-0.4) % Neut % (Auto) 88.2 H (45-73) % Lymph % (Auto) 7.7 L (20-40) % Todd % (Auto) 3.4 (2-11) % Eos % (Auto) 0.0 (0-4) % Baso % (Auto) 0.2 (0-2) % Lymph # (Auto) 1.0 L (1.2-4.9) X10*3/uL Todd # (Auto) 0.4 (0.1-1.2) X10*3/uL Eos # (Auto) 0.0 (0.0-0.4) X10*3/uL Baso # (Auto) 0.0 (0.0-0.2) X10*3/uL Abs Immat Gran (auto) 0.06 H (0.00-0.03) X10*3/uL Absolute Neuts (auto) 11.5 H (2.0-8.3) x10*3/uL Absolute Nucleated RBC 0.000 (0.0-0.012) X10*3/uL Nucleated RBC % (auto) 0.0 (0.0-0.2) /100WBC PT 13.4 H (10.0-13.1) SEC INR 1.2 H (0.9-1.1) APTT 25.0 L (26.0-36.4) SEC Sodium (135-145) mmol/L Potassium (3.3-5.1) mmol/L Chloride (96-108) mmol/L Carbon Dioxide (22-29) mmol/L Anion Gap (12-20) BUN (9-16) mg/dL Creatinine (0.5-1.4) mg/dL Estim Creat Clear Calc Estimated GFR Random Glucose (60-115) mg/dL Lactic Acid 0.9 (0.5-2.0) mmol/L Calcium (8.4-10.2) mg/dL Total Bilirubin (0.0-1.0) mg/dL AST (5-31) U/L ALT (0-31) U/L Alkaline Phosphatase (39-117) U/L Total Protein (6.5-8.0) g/dL Albumin (3.5-5.0) g/dL Beta HCG, Quant mIU/mL 02/19/23 02/19/23 Range/Units 10:16 10:16 WBC (4.8-10.8) X10*3/uL RBC (4.20-5.50) X10*6/uL Hgb (12.0-16.0) g/dl Hct (37.0-47.0) % MCV (80.0-98.0) fL MCH (27.0-33.0) pg MCHC (31.0-35.0) g/dl RDW (11.0-16.0) % Plt Count (160-400) X10*3/uL MPV (9.4-12.3) fL Immature Gran % (Auto) (0.0-0.4) % Neut % (Auto) (45-73) % Lymph % (Auto) (20-40) % Todd % (Auto) (2-11) % Eos % (Auto) (0-4) % Baso % (Auto) (0-2) % Lymph # (Auto) (1.2-4.9) X10*3/uL Todd # (Auto) (0.1-1.2) X10*3/uL Eos # (Auto) (0.0-0.4) X10*3/uL Baso # (Auto) (0.0-0.2) X10*3/uL Abs Immat Gran (auto) (0.00-0.03) X10*3/uL Absolute Neuts (auto) (2.0-8.3) x10*3/uL Absolute Nucleated RBC (0.0-0.012) X10*3/uL Nucleated RBC % (auto) (0.0-0.2) /100WBC PT (10.0-13.1) SEC INR (0.9-1.1) APTT (26.0-36.4) SEC Sodium 140 (135-145) mmol/L Potassium 3.6 (3.3-5.1) mmol/L Chloride 105 (96-108) mmol/L Carbon Dioxide 26 (22-29) mmol/L Anion Gap 13 (12-20) BUN 14 (9-16) mg/dL Creatinine 0.69 (0.5-1.4) mg/dL Estim Creat Clear Calc 112.5 Estimated GFR > 60 Random Glucose 110 (60-115) mg/dL Lactic Acid (0.5-2.0) mmol/L Calcium 9.6 D (8.4-10.2) mg/dL Total Bilirubin 0.6 (0.0-1.0) mg/dL AST 12 (5-31) U/L ALT 15 (0-31) U/L Alkaline Phosphatase 64 (39-117) U/L Total Protein 7.6 (6.5-8.0) g/dL Albumin 4.2 (3.5-5.0) g/dL Beta HCG, Quant < 2 mIU/mL Independent Interpretation I performed an independent interpretation of an: EKG Interpretation: My independent review of the patient's 12 EKG done at 09:55 hours is as follows: Normal sinus rhythm with a rate of 58, normal ID interval, QRS duration QTC interval, no ST segment elevation, no ST segment depression, no T-wave abnormalities, this is a normal EKG Independent Historian Clinical information obtained from an independent historian. History obtained from or confirmed by: Other ( boyfriend) External Record Review External record reviewed: Inpatient record ([facility], discharge summary 01/13/2023) Chronic Conditions Patient?s care impacted by: Other (Anxiety disorder) Discharge Plan Discharge Clinical Impression: Anxiety, Psychogenic amnesia, Convulsion, non-epileptic Patient Disposition: Home, Self-Care Instructions: Anxiety (ED), Conversion Disorder (ED) Additional Instructions: Your shaking episodes and your amnesia are consistent with nonepileptic/non electrical seizures. These symptoms are usually caused by stress and anxiety and not by electrical/epileptic seizures. You had a normal 48 hour video EEG done at [facility] during your 01/13/2023 admission and your neurologist stopped you anti seizure medications. They prescribed hydroxyzine 20 mg every 12 hours as needed for anxiety, you were given a dose here You need to follow-up with your primary care doctor and get treatment for anxiety and depression to help reduce the number of nonepileptic seizures that your having. You also need to follow-up with your neurologist, Dr. Whipple for re-evaluation. Follow-up with your doctor in 2 days. Please return to the emergency department if your symptoms get worse or if you develop any symptoms that are concerning to you. You also need to write down the medications that you taking so that your providers can better know how to treat you. Prescriptions: New hydroxyzine HCl 25 mg tablet 25 mg PO TID PRN (Reason: anxiety) Qty: 20 0RF No Action oxcarbazepine [Trileptal] 600 mg tablet 600 mg PO BID Qty: 60 0RF hydroxyzine HCl 25 mg tablet 25 mg PO TID PRN (Reason: anxiety) Qty: 20 0RF
[2023-02-19 14:07] VITALS: BP 114/69; PULSE 56; RESP 16; O2SAT 97
== END 2023-02-19 14:11 | disposition home or self-care (01) ==
PROVIDERS: Emergency Provider Emergency Medicine Emergency Medical Services; PCP Internal Medicine
DX: R56.9 Unspecified convulsions (principal); F44.0 Dissociative amnesia; F41.9 Anxiety disorder, unspecified
CPT/HCPCS: 36415; 80053; 83605; 84702; 85025; 85610; 85730; 93005; 99284

== ENCOUNTER → 2023-02-21 10:51 | Outpatient (BNVA) | payer OTHER, SELFPAY | PROVIDERS: PCP Internal Medicine; Visit Provider Nurse Practitioner Family ==

== ENCOUNTER 2023-03-11 11:50 | Outpatient (AMB) | payer OTHER, SELFPAY ==
[2023-03-11 11:54] VITALS: BP 120/72; PULSE 85; O2SAT 98; BMI 35.3
--- NOTE | 2023-03-11 11:54 | A.OFFPC_ITS ---
Vital Signs 03/11/23 11:54 Height 4 ft 11 in Weight 175 lb BMI 35.3 BP 120/72 Blood Pressure Location Lt brachial Position Sitting Pulse 85 Pulse Source Pulse Oximeter Pulse Oximetry (%) 98 Oxygen Delivery Method Room Air Intake Visit Reasons: PE Allergies phenytoin [From DILANTIN] Allergy (Mild, Verified 03/11/23 12:13) RASH strawberry Adverse Reaction (Verified 03/11/23 12:13) Hives Medication List - Last Reconciled 03/11/23 by Meredith Cervantes MD hydroxyzine HCl 25 mg PO TID PRN Tobacco use date assessed: 03/11/23 Dental Screening Dental Screen Date: 03/11/23 Did you have a dental visit in the last 12 months?: No Did you have a dental problem in the last 6 months where you did not have access to dental care?: No Was dental information given to patient?: No HPI PE HPI Details Pt presents for PE. Pt follows up with neurology for seizure like activity. [facility] Medical History Annual physical exam Anxiety BCP ( control pills) initiation Depression Depression Depression with anxiety Frequent UTI Headache care and examination Rash Seizure disorder Surgical History Hx of section No pertinent past surgical history Family History Father Seizure Mother No problems noted. Social History (Updated 02/21/23 @ 11:00 by Dominga Young CMA) Household Members: Significant Other and Children Housing: House Do you presently have visiting nurse or other home services: No Alcohol intake: current Alcohol intake frequency: holidays/special occasions only Patient Tobacco Use Status: Never used Tobacco e-Cigarette/Vaping Use: Never Used Substance Use Type: Marijuana Current occupational status: employed Sexual orientation: Straight/Heterosexual Cognitive needs: No Hearing needs: No Vision needs: No Female Reproductive History Menstrual Age of Menarche: 18 Questionnaire AUDIT C Alcohol Use Questionnaire (AUDIT-C) 1. How often do you have a drink containing alcohol?: Never 3. How often do you have six or more drinks on one occasion?: Never Total Score: 0 Score Reviewed/Action Taken: Yes Review of Systems Const All systems reviewed & are unremarkable except as noted in HPI and below Reports no additional complaints Eyes Reports no additional complaints ENT Reports no additional complaints Card Reports no additional complaints Resp Reports no additional complaints GI Reports no additional complaints Reports no additional complaints Physical exam (Primary Care) Vital Signs: Last Vital Signs Pulse 85 03/11/23 11:54 BP 120/72 03/11/23 11:54 Pulse Ox 98 03/11/23 11:54 Oxygen Delivery Method Room Air 03/11/23 11:54 BMI result Body Mass Index 35.3 Tobacco/Smoking Status: Tobacco use Status Tobacco use date assessed 03/11/23 03/11/23 11:55 Patient Tobacco Use Status Never used Tobacco 03/11/23 11:55 e-Cigarette/Vaping Use Never Used 03/11/23 11:55 Const General: no acute distress HENMT Head: Yes normal to inspection Ears: hearing grossly normal bilaterally General nose exam: Normal external nose present Mouth: Normal oral and palatal mucosa present Throat: Yes posterior oropharynx normal Eyes General: appearance normal, both eyes and all related structures Neck Neck: Yes no lymphadenopathy and Yes supple Resp Effort & Inspection: normal respiratory effort Auscultation: clear to auscultation bilaterally Cardio Rhythm: regular rhythm Heart sounds: S1 normal heart sound present and S2 normal heart sound present GI Inspection: Yes normal to inspection Palpation (GI): Soft to palpation Percussion: Yes normal to percussion Auscultation: normal bowel sounds Assessment and Plan Assessment & Plan (1) Seizure-like activity: Code(s): R56.9 - Unspecified convulsions Plan: Patient will continue hydroxyzine and will follow-up with Neurology. She had a 72 hour EEG done but results are still pending (2) Anxiety: Code(s): F41.9 - Anxiety disorder, unspecified Plan: Patient is trying to get a counselor appointment (3) Annual physical exam: Code(s): Z00.00 - Encounter for general adult medical examination without abnormal findings Plan: Well-balanced diet regular exercise discussed with the patient. She has an appointment with the strategic marketing specialist scheduled in April Medications: Refilled hydroxyzine HCl 25 mg PO TID PRN 90 tabs 2RF anxiety Discontinued oxcarbazepine 1 tab qd for 1 week then 1tab bid 600 mg (2 x 300 mg) PO BID 30 days 120 tabs 6RF Coding Level of Care Code Est Pt Prev Care 18-39y(39251) Diagnoses Seizure-like activity R56.9 Anxiety F41.9 Annual physical exam Z00.00
== END 2023-03-11 13:16 | disposition home or self-care (01) ==
PROVIDERS: PCP Internal Medicine; Visit Provider Internal Medicine
DX: R56.9 Unspecified convulsions (principal); F41.9 Anxiety disorder, unspecified; Z00.00 Encounter for general adult medical examination without abnormal findings
CPT/HCPCS: 99395

== ENCOUNTER 2023-03-21 07:57 | Emergency (ER) | payer OTHER, SELFPAY ==
--- NOTE | 2023-03-21 08:00 | ED_ITS ---
HPI - General Adult General Chief complaint: General Medical Stated complaint: FAM WITNESSED SZ, POST ICTAL Time Seen by Provider: 03/21/23 07:59 Source: patient and EMS Mode of arrival: EMS Limitations: no limitations History of Present Illness HPI narrative: Patient is a 27 year old assigned female at with a history of anxiety, depression, and known seizure like activity [facility] another seizure-like event. Patient's family states that the patient began having seizure like activity so they called 911. Patient states that she is no longer on Keppra, it was stopped by Neurology and she is now only on hydroxyzine TID. Patient denies any dizziness, lightheadedness, abdominal pain, nausea, vomiting, fever, chills, blurry vision, double vision, loss of vision, chest pain, difficulty breathing, shortness of breath, back pain, night sweats, pain with urination, increased urinary frequency, increased urinary urgency, blood in her urine or stool, recent trauma or falls, bowel incontinence, bladder incontinence, bowel retention, bladder retention, or any other complaints at this time. Relieving factors: none Exacerbating factors: none Associated symptoms: denies other symptoms Treatments prior to arrival: none Related Data Previous Rx's Medication Instructions Recorded hydroxyzine HCl 25 mg tablet 25 mg PO TID PRN anxiety #90 tabs 03/11/23 Allergies Allergy/AdvReac Type Severity Reaction Status Date / Time phenytoin [From DILANTIN] Allergy Mild RASH Verified 03/11/23 12:13 strawberry AdvReac Hives Verified 03/11/23 12:13 Review of Systems Constitutional: Constitutional: Reports no additional constitutional complaints, Denies chills, Denies fever(s) and Denies night sweats Eyes: Eyes: Reports no additional eye complaints, Denies blurry vision, Denies change in vision, Denies diplopia, Denies eye discharge, Denies loss of vision and Denies eye pain ENT: Denies dizziness Cardiovascular: Cardiovascular: Reports no additional cardiovascular complaints, Denies chest pain, Denies lightheadedness, Denies Loss of Co nsciousness and Denies dyspnea Respiratory: Respiratory: Reports no additional respiratory complaints and Denies dyspnea Gastrointestinal: Gastrointestinal: Reports no additional gastrointestinal complaints, Denies abdominal pain, Denies melena, Denies hematochezia, Denies change in bowel habits and Denies change in stool character Genitourinary: Genitourinary: Denies hematuria, Denies urinary frequency, Denies dysuria, Denies urinary incontinence, Denies urinary hesitancy and Denies urinary urgency Musculoskeletal: Musculoskeletal: Reports no additional musculoskeletal complaints, Denies numbness and Denies tingling Neurologic: Denies dizziness, Denies loss of vision, Denies numbness, Reports seizure-like activity (prior to arrival, witnessed by family.) and Denies tingling Psychiatric: Psychiatric: Reports no additional psychiatric complaints Endocrine: Endocrine: Reports no additional endocrine complaints Hematologic/Lymphatic: Hematologic/Lymphatic: Reports no additional he matologic/lymphatic complaints Allergic/Immunologic: Allergic/Immunologic: Reports no additional allergic/immunologic complaints PMFSH Past Medical History Attestation statement: The following information was validated with the patient. Source: old records reviewed and nursing notes reviewed Medical History Anemia Annual physical exam Anxiety BCP ( control pills) initiation Contraception management Depression Depression Depression with anxiety Frequent UTI Headache Hyperglycemia Hypoxia care and examination Rash Seizure disorder Seizure disorder Seizures Snoring Viral syndrome Surgical History Hx of section No pertinent past surgical history Family History Family History Father Seizure Mother No problems noted. Social History Social History Household Members: Significant Other and Children Housing: House Do you presently have visiting nurse or other home services: No Alcohol intake: current Alcohol intake frequency: holidays/special occasions only Patient Tobacco Use Status: Never used Tobacco e-Cigarette/Vaping Use: Never Used Substance Use Type: Marijuana Advance Directives: No Advance Directives Information Provided: No Current occupational status: employed Sexual orientation: Straight/Heterosexual Cognitive needs: No Hearing needs: No Vision needs: No Physical Exam ED Vital Signs: Vital Signs - 24 hr 03/21/23 08:23 Temperature 98.3 F Pulse Rate 83 Respiratory Rate 19 Blood Pressure 106/58 L Pulse Oximetry 94 Oxygen Delivery Method Room Air BMI result Body Mass Index 34.9 Const General: cooperative, no acute distress, alert and awake Nutritional Appearance: well nourished Orientation/consciousness: patient oriented x3 Limitations: no limitations HENMT Head: Yes normal to inspection and Yes atraumatic Ears: hearing grossly normal bilaterally and external ears normal General nose exam: Normal external nose present, no nasal discharge noted and no epistaxis Face and sinus: Yes normal facial exam, No abrasion and No laceration Mouth: Normal oral and palatal mucosa present, no drooling and no muffled voice Eyes General: appearance normal, both eyes and all related structures Periorbital: periorbital findings normal Eyelids: Yes eyelids normal Conjunctivae: conjunctivae normal Pupils: Equal, round and reactive pupils present EOM: EOMs intact bilaterally Neck Neck: Yes normal visual inspection, Yes full ROM and Yes no lymphadenopathy Chest Chest palpation & inspection: normal inspection of the chest Resp Effort & Inspection: normal respiratory effort and able to speak in complete sentences Auscultation: clear to auscultation bilaterally Cardio Rate: regular rate Rhythm: regular rhythm GI Inspection: Yes normal to inspection Palpation (GI): Soft to palpation, not firm, nontender and no guarding Neuro General: patient oriented x3 and moves all extremities Cranial nerves: Yes Equal, round and reactive pupils present Cognition (Neuro): normal cognition Motor exam (neuro): 5/5 motor strength present throughout Sensory Exam: Normal double simultaneous stimulation for sensation Coordination: [id number] test normal Extrem General: Yes normal to inspection, Yes full ROM and Yes capillary refill normal Psych Appearance: grossly normal Mental Status: mental status grossly normal Affect: normal affect Attitude: cooperative Thought process: Normal thought process present Thought content: Normal thought content present Insight: Good insight present (Psych) Medical Decision Making Medical Decision Making MDM Narrative: Patient is a 27 year old assigned female at with a history of non- epileptic seizures, depression, and anxiety presenting to the emergency department today after a seizure. Patient's physical exam was unremarkable. Patient's blood work was unremarkable. I explained my physical exam findings as well as all test results to the patient and the patient's brother at the bed side. I answered all questions asked by the patient and the patient's brother. I stressed the importance of the patient taking his medication as prescribed. I stressed the importance of the patient following up with his primary care provider and neurologist. I stressed the importance of the patient returning to the emergency department immediately if his symptoms were to worsen or if he were to develop any dizziness, shortness of breath, difficulty breathing, chest pain, blurry vision, loss of vision, nausea, vomiting, abdominal pain, fever, chills, back pain, or any other complaints. Patient verbalized agreement and understanding with this treatment plan and discharge. Differential Diagnosis Differential Diagnoses: The differential diagnosis associated with the presentation includes Depression Anxiety Non-epileptic seizures Admission/Observation Consideration of admission/observation: Escalation of care including admission/observation considered Patient would have been admitted to the hospital had her work up had any f indings where hospital admission was appropriate and her clinical presentation warranted hospital admission. Lab Data MDM Lab Attestation statement: I reviewed the patient's lab results. My interpretation of these studies and their corresponding values is that they are grossly normal. 03/21/23 08:40 03/21/23 08:40 Labs: Lab Results 03/21/23 03/21/23 Range/Units 08:40 08:40 WBC 7.9 (4.8-10.8) X10*3/uL RBC 4.73 (4.20-5.50) X10*6/uL Hgb 12.1 (12.0-16.0) g/dl Hct 38.3 (37.0-47.0) % MCV 81.0 (80.0-98.0) fL MCH 25.6 L (27.0-33.0) pg MCHC 31.6 (31.0-35.0) g/dl RDW 14.6 (11.0-16.0) % Plt Count 245 D (160-400) X10*3/uL MPV 10.2 (9.4-12.3) fL Immature Gran % (Auto) 0.4 (0.0-0.4) % Neut % (Auto) 79.6 H (45-73) % Lymph % (Auto) 14.6 L (20-40) % [place] % (Auto) 4.3 (2-11) % Eos % (Auto) 0.8 (0-4) % Baso % (Auto) 0.3 (0-2) % Lymph # (Auto) 1.2 (1.2-4.9) X10*3/uL [place] # (Auto) 0.3 (0.1-1.2) X10*3/uL Eos # (Auto) 0.1 (0.0-0.4) X10*3/uL Baso # (Auto) 0.0 (0.0-0.2) X10*3/uL Abs Immat Gran (auto) 0.03 (0.00-0.03) X10*3/uL Absolute Neuts (auto) 6.3 (2.0-8.3) x10*3/uL Absolute Nucleated RBC 0.000 (0.0-0.012) X10*3/uL Nucleated RBC % (auto) 0.0 (0.0-0.2) /100WBC Sodium 141 (135-145) mmol/L Potassium 3.7 (3.3-5.1) mmol/L Chloride 110 H (96-108) mmol/L Carbon Dioxide 22 (22-29) mmol/L Anion Gap 13 (12-20) BUN 8 L (9-16) mg/dL Creatinine 0.66 (0.5-1.4) mg/dL Estim Creat Clear Calc 116.8 Estimated GFR > 60 Random Glucose 90 (60-115) mg/dL Calcium 8.7 D (8.4-10.2) mg/dL Magnesium 2.1 (1.6-2.6) mg/dL Total Bilirubin 0.3 (0.0-1.0) mg/dL AST 10 (5-31) U/L ALT 10 (0-31) U/L Alkaline Phosphatase 66 (39-117) U/L Total Protein 6.8 (6.5-8.0) g/dL Albumin 3.7 (3.5-5.0) g/dL Independent Historian Clinical information obtained from an independent historian. History obtained from or confirmed by: EMS (EMS provided additional history and confirmed the history provided by the patient.) and Other (Patient's brother provided additional history and confirmed the history provided by the patient.) Discharge Plan Discharge Clinical Impression: Seizure-like activity Patient Disposition: Home, Self-Care Instructions: Nonepileptic Seizures (DC) Additional Instructions: Follow up with your primary care provider and your neurologist. Return to the emergency department immediately if your symptoms worsen or if you develop any dizziness, shortness of breath, difficulty breathing, chest pain, blurry vision, loss of vision, nausea, vomiting, abdominal pain, fever, chills, back pain, or any other complaints. Prescriptions: No Action hydroxyzine HCl 25 mg tablet 25 mg PO TID PRN (Reason: anxiety) Qty: 90 2RF Referrals: Meredith Cervantes MD [Primary Care Provider] - Print Language: [place]
[2023-03-21 08:21] VITALS: BP 93/61; PULSE 80; O2SAT 97
[2023-03-21 08:23] VITALS: BP 106/58; PULSE 83; RESP 19; TEMP 36.8; O2SAT 94; BMI 34.9
[2023-03-21 08:46] LABS: MANUAL DIFF FLAG NO
[2023-03-21 08:49] LABS: Basophils Percent Auto 0.3 % (0-2); Eosinophils Absolute Auto 0.1 X10*3/uL (0.0-0.4); Eosinophils Percent Auto 0.8 % (0-4); Hematocrit 38.3 % (37.0-47.0); Hemoglobin 12.1 g/dl (12.0-16.0); Imm Gran Abs Auto 0.03 X10*3/uL (0.00-0.03); Imm Gran Pct Auto 0.4 % (0.0-0.4); Lymphocytes Absolute Auto 1.2 X10*3/uL (1.2-4.9); Lymphocytes Percent Auto 14.6 % (20-40); Mean Corpuscular HGB Conc 31.6 g/dl (31.0-35.0); Mean Corpuscular Hemoglobin 25.6 pg (27.0-33.0); Mean Platelet Volume 10.2 fL (9.4-12.3); Monocytes Absolute Auto 0.3 X10*3/uL (0.1-1.2); Monocytes Percent Auto 4.3 % (2-11); Neutrophils Absolute Auto 6.3 x10*3/uL (2.0-8.3); Neutrophils Percent Auto 79.6 % (45-73); Platelet Count 245 X10*3/uL (160-400); Red Blood Count 4.73 X10*6/uL (4.20-5.50); Red Cell Distribution Width 14.6 % (11.0-16.0); White Blood Count 7.9 X10*3/uL (4.8-10.8)
[2023-03-21 09:05] LABS: Alanine Aminotransferase 10 U/L (0-31); Albumin Level 3.7 g/dL (3.5-5.0); Alkaline Phosphatase 66 U/L (39-117); Anion Gap 13 (12-20); Aspartate Amino Transferase 10 U/L (5-31); Bilirubin Total 0.3 mg/dL (0.0-1.0); Blood Urea Nitrogen 8 mg/dL (9-16); Calcium 8.7 mg/dL (8.4-10.2); Carbon Dioxide 22 mmol/L (22-29); Chloride 110 mmol/L (96-108); Creatinine Clr Calc Pharmacy 116.8; Estimated Glomerular Filt Rate > 60; Glucose Random 90 mg/dL (60-115); Magnesium 2.1 mg/dL (1.6-2.6); Potassium 3.7 mmol/L (3.3-5.1); Sodium 141 mmol/L (135-145); Total Protein 6.8 g/dL (6.5-8.0)
[2023-03-21 09:52] VITALS: BP 106/59; PULSE 78; RESP 16; O2SAT 100
== END 2023-03-21 09:55 | disposition home or self-care (01) ==
PROVIDERS: Physician Assistant Medical; Emergency Provider Emergency Medicine; PCP Internal Medicine
DX: R56.9 Unspecified convulsions (principal); F41.1 Generalized anxiety disorder; F43.0 Acute stress reaction; Z79.899 Other long term (current) drug therapy
CPT/HCPCS: 36415; 80053; 83735; 85025; 99283; 99284

== ENCOUNTER 2023-04-26 15:10 | Observation (INO) | payer OTHER, SELFPAY ==
[2023-04-26] VITALS (10 sets, daily range): BP systolic 67–115; BP diastolic 32–78; PULSE 61–86; RESP 10–21; TEMP 36.9; O2SAT 97–100; BMI 34.5
--- NOTE | ~2023-04-26 | XR_ITS ---
EXAMINATION: XR CHEST CLINICAL INFORMATION: Status post seizure. Chest pain. COMPARISON: 10/15/2022 TECHNIQUE: 2 views of the chest were obtained. FINDINGS: The lungs are moderately expanded. No focal consolidation. No pleural effusion. Cardiac silhouette is unchanged. XR/XR chest 2V IMPRESSION: No acute abnormality.
--- NOTE | 2023-04-26 16:18 | ECG_ITS ---
Test Reason : SEIZURE Blood Pressure : / mmHG Vent. Rate : 068 BPM Atrial Rate : 068 BPM P-R Int : 154 ms QRS Dur : 092 ms QT Int : 406 ms P-R-T Axes : 048 036 022 degrees QTc Int : 431 ms Sinus rhythm with marked sinus arrhythmia Otherwise normal ECG When compared with ECG of 19-FEB-2023 09:55, No significant change was found Referred By: Ryanne Villalobos Electronically Signed By:DAVID ELLIS
[2023-04-26] MEDS: 0.9 % Sodium Chloride 1,000 ML 999 ML IV (17:08)
[2023-04-26 17:24] LABS: Basophils Percent Auto 0.2 % (0-2); Hematocrit 39.3 % (37.0-47.0); Imm Gran Abs Auto 0.05 X10*3/uL (0.00-0.03); Imm Gran Pct Auto 0.4 % (0.0-0.4); Lymphocytes Absolute Auto 0.9 X10*3/uL (1.2-4.9); Lymphocytes Percent Auto 6.7 % (20-40); MANUAL DIFF FLAG SCAN; Mean Corpuscular HGB Conc 33.1 g/dl (31.0-35.0); Mean Corpuscular Hemoglobin 26.1 pg (27.0-33.0); Mean Corpuscular Volume 78.9 fL (80.0-98.0); Mean Platelet Volume 10.6 fL (9.4-12.3); Monocytes Absolute Auto 0.3 X10*3/uL (0.1-1.2); Monocytes Percent Auto 2.6 % (2-11); Neutrophils Absolute Auto 11.6 x10*3/uL (2.0-8.3); Neutrophils Percent Auto 90.1 % (45-73); Platelet Count 301 X10*3/uL (160-400); Red Blood Count 4.98 X10*6/uL (4.20-5.50); Red Cell Distribution Width 14.6 % (11.0-16.0); SCAN SMEAR FLAG 1; White Blood Count 12.9 X10*3/uL (4.8-10.8)
[2023-04-26 17:30] LABS: Lactic Acid 0.9 mmol/L (0.5-2.0)
[2023-04-26 17:42] LABS: Alanine Aminotransferase 11 U/L (0-31); Alkaline Phosphatase 74 U/L (39-117); Anion Gap 9 (12-20); Aspartate Amino Transferase 12 U/L (5-31); Bilirubin Direct 0.1 mg/dL (0.0-0.5); Bilirubin Total 0.3 mg/dL (0.0-1.0); Blood Urea Nitrogen 9 mg/dL (9-16); Calcium 8.9 mg/dL (8.4-10.2); Carbon Dioxide 25 mmol/L (22-29); Chloride 107 mmol/L (96-108); Creatinine Clr Calc Pharmacy 126.8; Estimated Glomerular Filt Rate > 60; Glucose Random 97 mg/dL (60-115); Lipase 11 U/L (8-78); Magnesium 2.2 mg/dL (1.6-2.6); Potassium 3.8 mmol/L (3.3-5.1); Sodium 137 mmol/L (135-145); Total Protein 7.5 g/dL (6.5-8.0)
[2023-04-26 17:43] LABS: SLIDE REVIEW VERIFIED
[2023-04-26 17:44] LABS: HCG Quantitative < 2 mIU/mL; Troponin-I High Sensitivity < 2.7 ng/L (<3.5-17.0)
[2023-04-26 17:53] LABS: Influenza A PCR NEGATIVE (Negative); Influenza B PCR NEGATIVE (Negative); Resp Syncy Virus RNA Qual PCR NEGATIVE (Negative); SARS COV2 PCR INHOUSE NEGATIVE (Negative)
[2023-04-26] MEDS: ondansetron HCL 4 MG/2 ML VIAL IVPUSH ×2 (18:36→21:35)
[2023-04-26] MEDS: Acetaminophen 325 MG TABLET 975 MG PO (18:36)
--- NOTE | 2023-04-26 18:52 | ED_ITS ---
HPI - Seizure General Chief Complaint: Seizure Stated Complaint: pseudo seizures, per ems Time Seen by Provider: 04/26/23 16:02 Source: patient, EMS and RN notes reviewed Mode of arrival: ambulatory Limitations: no limitations History of Present Illness HPI Narrative: This is a 27-year-old female, with a past medical history of recurrent convulsive episodes, presented to the emergency department following 2 witnessed seizures at home. Patient reports that this morning she was feeling ?off?, and took a nap, boyfriend states that during her nap she had what he thought was a seizure. He describes this episode as her eyes were widely open and staring off into space. This episode lasted for about 2-3 minutes. Boyfriend states that several hours after patient had a similar episode. Patient reports that she did have urinary incontinence during these episodes. She reports that she is feeling tired at this time as well as some nausea. Patient is no longer on Keppra as it was stopped by Neurology as they were not convinced that this was a and now is only on oxcarbazepine. Patient denies any fevers, chills, abdominal pain, or diarrhea. She endorses some chest pain. No other complaints or concerns at this time. complaint: possible seizure Onset (ago): hour(s) Description of Episode: bladder incontinence Witnessed: Yes - by Bystander Trauma: No Seizure History: Yes Place: Home Possible Precipitating Event: none Associated symptoms: chest pain Treatments prior to arrival: none Related Data Previous Rx's Medication Instructions Recorded hydroxyzine HCl 25 mg tablet 25 mg PO TID PRN anxiety #90 tabs 03/11/23 oxcarbazepine 600 mg tablet 900 mg (1.5 x 600 mg) PO BID #90 04/28/23 tabs Allergies Allergy/AdvReac Type Severity Reaction Status Date / Time phenytoin [From DILANTIN] Allergy Mild RASH Verified 03/11/23 12:13 strawberry AdvReac Hives Verified 03/11/23 12:13 Review of Systems 2 Review of Systems: Yes all other systems are reviewed and are negative Constitutional: Constitutional: Reports as per HPI [facility] Past Medical History Medical History Seizures Seizure disorder Hypoxia Depression Anxiety Snoring Headache Contraception management Hyperglycemia Rash Seizure disorder Anemia Viral syndrome Depression with anxiety care and examination BCP ( control pills) initiation Annual physical exam Depression Frequent UTI Surgical History Hx of section No pertinent past surgical history Family History Family History Father Seizure Mother No problems noted. Social History Social History Household Members: Family Housing: House Do you presently have visiting nurse or other home services: No Alcohol intake: never Patient Tobacco Use Status: Never used Tobacco Smoked in Last 30 Days: No e-Cigarette/Vaping Use: Never Used Use of substances other than those prescribed or required for medical reasons: Yes Substance Use Type: Marijuana Substance Use Frequency: Occasionally Last Used Substance: Weeks (ago) Currently Displaying Signs/Symptoms of Drug Intoxication Withdrawal: No Have you been hit, kicked, punched, or otherwise hurt by someone within the past year? If so, by whom?: No Do you feel safe in your current relationship?: Yes Is there a partner from a previous relationship who is making you feel unsafe now?: No Are you made to feel afraid or neglected: No Advance Directives: Yes Advance Directives on File: Yes Advance Directives Date on File: 12/26/22 Do you have thoughts of harming others: None Do you have a plan to hurt others: No Plan Recently lost weight without trying: No Nutrition Risks: No Nutritional Risk Patient : No : No Poor oral hygiene: No service: No Current occupational status: employed Sexual orientation: Straight/Heterosexual Cognitive needs: No Hearing needs: No Vision needs: No Physical Exam 2 Vital Signs: Vital Signs: Last Vital Signs Temp 98.2 F 04/28/23 07:56 Pulse 61 04/28/23 07:56 Resp 18 04/28/23 07:56 BP 100/56 L 04/28/23 07:56 Pulse Ox 99 04/28/23 07:56 O2 Del Method Room Air 04/28/23 07:56 BMI result Body Mass Index 34.5 Const: General: cooperative, comfortable and no acute distress O rientation/consciousness: patient oriented x3 Limitations: no limitations HEENT: Head: Yes normal to inspection, Yes normocephalic and Yes atraumatic Ears: hearing grossly normal bilaterally General nose exam: Normal external nose present Face and sinus: Yes normal facial exam Mouth: Normal oral and palatal mucosa present, oropharynx normal and moist mucous membranes Throat: Yes posterior oropharynx normal Eyes: General: appearance normal, both eyes and all related structures E yelids: Yes eyelids normal Conjunctivae: conjunctivae normal Sclerae: s clerae normal Pupils: Equal, round and reactive pupils present EOM: EOMs intact bilaterally Neck: Neck: Yes normal visual inspection, Yes full ROM and Yes no lymphadenopathy Lymphatic: no lymphadenopathy noted Chest: Chest palpation & inspection: normal inspection of the chest Resp: Effort & Inspection: normal respiratory effort and able to speak in complete sentences Auscultation: clear to auscultation bilaterally, no crackles, no rales, no rhonchi and no wheezes Cardio: Rate: regular rate Rhythm: regular rhythm Heart sounds: S1 normal heart sound present and S2 normal heart sound present GI: Inspection: Yes normal to inspection Skin: General skin exam: no rashes or lesions noted Trauma: no lacerations or abrasions Wounds: no wounds Neuro: General: patient oriented x3 and moves all extremities Cranial nerves: Yes CN's II-XII intact bilaterally and Yes Equal, round and reactive pupils present Gait exam (Neuro): Normal gait present Motor exam (neuro): 5/5 motor strength present throughout and Pronator motor function not present Extrem: General: Yes normal to inspection Right upper extremity: normal to inspection Left upper extremity: normal to inspection Right lower extremity: normal to inspection Left lower extremity: normal to inspection Course Reevaluation(s) Reevaluation #1: Patient actively had a seizure, biting tongue, foaming at mouth, patient medicated with Ativan 2 mg IV. Episode lasted approximately 2.5 minutes. Blood pressure found to be 60s over 40s, started IV fluids stat. Patient placed in Trendelenburg and 3 L of fluids pressured ordered. Pt was seen by attending physician, Dr. Alba at bedside. It is unclear what had caused pt to become hypotensive. Time: 19:22 Reevaluation #2: Patient re-evaluated, still receiving IV fluids, patient sleeping with maintaining her airway. Time: 20:00 Reevaluation #3: 20:16 - Repeat blood pressure 77/56. Patient more awake. Will continue to closely monitor. Given seizure-like activity in the ER, will contact medical services for further assessment and possible hospital admission. Discussed case with attending physician regarding hypotension, phylephrine 0.1mg IV push ordered given hypotension. 2137 - Phylephrine administered, bp improved to 99/68. Patient remains comfortable, resting. Will continue to closely monitor. Still receiving IV fluids 04/27/2023 - 01:26AM - BP 99/61, no longer in Trendelenburg. Given BP has remained stable over the last 3 hours since receiving phylephrine, will consult hospitalist for admission. Time: 20:16 Medications Administered Discontinued Medications Generic Name Dose Route Start Last Admin Trade Name Freq PRN Reason Stop Dose Admin Acetaminophen 975 mg 04/26/23 18:17 04/26/23 18:36 Acetaminophen 325 Mg Tablet PO 04/26/23 18:18 975 mg ONCE ONE Administration Sodium Chloride 1,000 mls @ 999 mls/hr 04/26/23 16:19 04/26/23 18:09 Ns IV 04/26/23 17:19 Infused .Q1H1M ONE Infusion Sodium Chloride 1,000 mls @ 3,000 mls/hr 04/26/23 19:26 04/26/23 21:31 Ns IVCONT 04/26/23 19:45 Infused .Q20M ONE Infusion Sodium Chloride 1,000 mls @ 100 mls/hr 04/27/23 19:00 04/28/23 08:03 Ns IVCONT Infused .Q10H NAHEED Infusion Levetiracetam 500 mg 04/27/23 02:45 04/27/23 02:55 Levetiracetam 500 Mg Tablet PO 500 mg BID NAHEED Administration Lorazepam 2 mg 04/26/23 19:26 04/26/23 19:33 Lorazepam 2 Mg/Ml Vial IVPUSH 04/26/23 19:27 2 mg ONCE ONE Administration Ondansetron HCl 4 mg 04/26/23 18:17 04/26/23 18:36 Ondansetron Hcl 4 Mg/2 Ml Vial IVPUSH 04/26/23 18:18 4 mg ONCE ONE Administration Ondansetron HCl 4 mg 04/26/23 21:07 04/26/23 21:35 Ondansetron Hcl 4 Mg/2 Ml Vial IVPUSH 04/26/23 21:08 4 mg ONCE ONE Administration Oxcarbazepine 600 mg 04/27/23 09:00 04/27/23 08:25 Oxcarbazepine 300 Mg Tablet PO 600 mg BID NAHEED Administration Oxcarbazepine 900 mg 04/27/23 21:00 04/28/23 08:00 Oxcarbazepine 300 Mg Tablet PO 900 mg BID NAHEED Administration Phenylephrine HCl 0.1 mg 04/26/23 20:24 04/26/23 20:58 Phenylephrine Hcl 10 Mg/Ml Vial IVPUSH 04/26/23 20:25 0.1 mg ONCE ONE Administration Potassium Chloride 20 meq 04/27/23 18:20 04/27/23 18:52 Potassium Chloride Packet 20 Meq Packet PO 04/27/23 18:21 20 meq ONCE ONE Administration Sodium Chloride 3 ml 04/27/23 08:00 04/28/23 08:00 0.9 % Sodium Chloride Flush 3 Ml Syringe IVFLUSH 3 ml QSHIFT NAHEED Administration Medical Decision Making Medical Decision Making [facility] Narrative: 27-year-old female, with a history of recurrent convulsive episodes, presenting to the emergency department with complaints of to seizure-like episodes which occurred at home today. On arrival, labs are within normal limits. Patient is nontoxic appearing. Patient is fully neurologically intact. Patient's physical examination was unremarkable. Patient blood work was unremarkable. Explained all these physical exam findings as well as test results with the patient and boyfriend at bedside. Plan: Labs, lactic, CPK, troponin, hCG, chest x-ray, EKG Differential Diagnosis Differential Diagnoses: The differential diagnosis associated with the presentation includes epilepsy, tonic clonic seizure, electrolyte abnormality Admission/Observation Consideration of admission/observation: Escalation of care including admission/observation considered Patient will be admitted for further evaluation. Consult Healthcare Provider Management of the patient was discussed with: Hospitalist Lab Data [facility] Lab Attestation statement: I reviewed the patient's lab results. Mild leukocytosis, likely reactive, normal lactic acid, on movement, troponin negative CPK within normal limits. Urine without signs of infection. Chest x- ray unremarkable 04/27/23 03:33 04/27/23 03:33 Labs: Lab Results 04/26/23 04/26/23 Range/Units 17:01 22:19 WBC 12.9 H (4.8-10.8) X10*3/uL RBC 4.98 (4.20-5.50) X10*6/uL Hgb 13.0 (12.0-16.0) g/dl Hct 39.3 (37.0-47.0) % MCV 78.9 L (80.0-98.0) fL MCH 26.1 L (27.0-33.0) pg MCHC 33.1 (31.0-35.0) g/dl RDW 14.6 (11.0-16.0) % Plt Count 301 (160-400) X10*3/uL MPV 10.6 (9.4-12.3) fL Immature Gran % (Auto) 0.4 (0.0-0.4) % Neut % (Auto) 90.1 H (45-73) % Lymph % (Auto) 6.7 L (20-40) % [place] % (Auto) 2.6 (2-11) % Eos % (Auto) 0.0 (0-4) % Baso % (Auto) 0.2 (0-2) % Lymph # (Auto) 0.9 L (1.2-4.9) X10*3/uL [place] # (Auto) 0.3 (0.1-1.2) X10*3/uL Eos # (Auto) 0.0 (0.0-0.4) X10*3/uL Baso # (Auto) 0.0 (0.0-0.2) X10*3/uL Abs Immat Gran (auto) 0.05 H (0.00-0.03) X10*3/uL Absolute Neuts (auto) 11.6 H (2.0-8.3) x10*3/uL Absolute Nucleated RBC 0.000 (0.0-0.012) X10*3/uL Nucleated RBC % (auto) 0.0 (0.0-0.2) /100WBC Smear Tech's Comments VERIFIED Sodium 137 (135-145) mmol/L Potassium 3.8 (3.3-5.1) mmol/L Chloride 107 (96-108) mmol/L Carbon Dioxide 25 (22-29) mmol/L Anion Gap 9 L (12-20) BUN 9 (9-16) mg/dL Creatinine 0.63 (0.5-1.4) mg/dL Estim Creat Clear Calc 126.8 Estimated GFR > 60 Random Glucose 97 (60-115) mg/dL Lactic Acid 0.9 (0.5-2.0) mmol/L Calcium 8.9 (8.4-10.2) mg/dL Magnesium 2.2 (1.6-2.6) mg/dL Total Bilirubin 0.3 (0.0-1.0) mg/dL Direct Bilirubin 0.1 (0.0-0.5) mg/dL AST 12 (5-31) U/L ALT 11 (0-31) U/L Alkaline Phosphatase 74 (39-117) U/L Total Creatine Kinase 68 (26-140) U/L Troponin I High Sens < 2.7 (<3.5-17.0) ng/L Total Protein 7.5 (6.5-8.0) g/dL Albumin 4.0 (3.5-5.0) g/dL Lipase 11 (8-78) U/L Beta HCG, Quant < 2 mIU/mL Urine Color Yellow Urine Appearance Clear Urine pH 7.0 (5.0-9.0) Ur Specific [place] 1.010 (1.005-1.025) Urine Protein Negative (Neg-Trace) mg/dL Urine Glucose (UA) Negative (Negative) mg/dL Urine Ketones Negative (Negative) mg/dL Urine Blood Negative (Negative) Urine Nitrite Negative (Negative) Ur Leukocyte Esterase Negative (Negative) Influenza Type A (PCR) NEGATIVE (Negative) Influenza Type B (PCR) NEGATIVE (Negative) RSV RNA Qual (PCR) NEGATIVE (Negative) SARS-CoV-2 RNA (RT-PCR) NEGATIVE (Negative) Independent Interpretation I performed an independent interpretation of an: EKG and Plain X-Ray Interpretation: Normal sinus rhythm at a ventricular rate of 68 beats per minute, CT interval 154, QTC 431. No ST elevation or depression. EXAMINATION: XR CHEST CLINICAL INFORMATION: Status post seizure. Chest pain. COMPARISON: 10/15/2022 TECHNIQUE: 2 views of the chest were obtained. FINDINGS: The lungs are moderately expanded. No focal consolidation. No pleural effusion. Cardiac silhouette is unchanged. XR/XR chest 2V IMPRESSION: No acute abnormality. Dictated By: Sammie Castillo MD External Record Review External record reviewed: Inpatient record, Office record, Outpatient record, Prior outpatient labs, Prior outpatient radiology, Primary care record and Outside ED record Received [facility] records from recent hospital admission. Patient was admitted on March 21 through March 23 due to convulsive episodes. Per [facility] nodes, patient was seen at [facility] on January 13, 2023 and had a 48 hour video EEG and a negative ambulatory 24 hour EEG performed on February 27, 2023. Neurology was consulted and was told that she does not have seizures and was to be discharged without any follow-up recommendations. Critical Care Time Critical Care Time Critical Care Time: Yes Total Critical Care Time: 60 Attestation: I have personally provided critical care time exclusive of time spent on separately billable procedures. Time includes review of lab data, radiology results, discussion with consultants, and monitoring for potential decompensation. Intervention performed as documented. Discharge Plan Discharge Clinical Impression: Seizure disorder Patient Disposition: Admitted As Inpatient Interventions: Admission Worksheet (ED) Last Done: 04/27/23 14:53 Discharge Date/Time: 04/27/23 14:54
--- NOTE | 2023-04-26 19:23 | PC.NURSE ---
late entry jsut after 1900 pts boyfriend rang call russell reporting he thinks pt is going to have a seizure again. pt then began seizing. placed on her side, O2 attached to pt, pt well oxygenating, pt requiring suctioning. Ryanne BOWERS made aware and Verbal order for Ativan 2mg IV push given at 1905 vitals taken, HR 80,, O2 97%, RR 21, BP 68/32 2l NS ordered and hung pt p remains low, 67/40, 80/37 - a 3rd liter NS hung, pt placed in trendelenburg.
[2023-04-26] MEDS: LORazepam 2 MG/ML VIAL IVPUSH (19:33)
[2023-04-26] MEDS: 0.9 % Sodium Chloride 1,000 ML 3000 ML IVCONT (19:33)
--- NOTE | 2023-04-26 20:53 | PC.NURSE ---
b/p checked @ 3948 85/50 Pts bf left room plan of care ongoing
[2023-04-26] MEDS: Phenylephrine HCL 10 MG/ML VIAL IVPUSH (20:58)
--- NOTE | 2023-04-26 21:04 | PC.NURSE ---
Pt medicated per oct pt nnamdi care performed. bedding changed pt changed into hospital attire. plan of care ongoing.
--- NOTE | 2023-04-26 21:38 | PC.NURSE ---
Pt medicated per oct. provider in with pt Bf at bedside plan of care ongoing.
[2023-04-26 22:24] LABS: Appearance Urine Clear; Color Urine Yellow; Glucose Urine UA Negative (Negative); Leukocyte Esterase Urine Negative (Negative); Nitrite Urine Negative (Negative); Urine Blood Negative (Negative); Urine Ketones Negative (Negative); Urine Protein Negative (Neg-Trace)
--- NOTE | 2023-04-26 22:28 | PC.NURSE ---
Pt requested and placed on bedside commode. Pts bf at bedside. Pt assisted back into bed. UA collected and sent Provider notified of b/p /. Plan of care ongoing.
[2023-04-27] VITALS (8 sets, daily range): BP systolic 90–111; BP diastolic 54–77; PULSE 59–94; RESP 12–18; TEMP 36.6–37.2; O2SAT 97–100
--- NOTE | 2023-04-27 00:54 | PC.NURSE ---
Pt resting. Pts bf at bedside. plan of care ongoing.
--- NOTE | 2023-04-27 01:02 | PC.NURSE ---
Provider terrell aware of pt b/p 99/61 and heart rate 63. plan of care ongoing.
--- NOTE | 2023-04-27 02:01 | PC.NURSE ---
Provider terrell notified about b/p .
--- NOTE | 2023-04-27 02:46 | PM.IMHP ---
History of Present Illness Date of Service: 04/27/23 Chief Complaint: Seizures 27-year-old female past medical history of seizures, depression anxiety comes into the hospital after 2 witnessed seizures. One was witnessed at home by her partner, the other was in the ED the lasted approximately 2 minutes in the ED, during this episode patient became significantly hypotensive with her blood pressure dropping 60s over 30s requiring significant IV fluids as well as phenylephrine injection with improvement her blood pressure. Of note patient was admitted to to [facility] in March, with similar episode. and at that time had an EEG done which was normal. Patient is currently taking oxcarbazepine and reports compliance. Patient otherwise denies any acute illness, no chest pain, no shortness of breath, no abdominal pain nausea or vomiting, no diarrhea constipation, no urinary symptoms and no lower extremity edema. On arrival to the ED patient hemodynamically stable Labs are significant for WBC count of 12.9, lactic acid is normal, labs otherwise unremarkable, Chest x-ray negative Patient started on Keppra and will be admitted for further management Review of Systems Review of Systems: Yes all other systems are reviewed and are negative [facility] Medical History Seizures Seizure disorder Hypoxia Depression Anxiety Snoring Headache Contraception management Hyperglycemia Rash Seizure disorder Anemia Viral syndrome Depression with anxiety care and examination BCP ( control pills) initiation Annual physical exam Depression Frequent UTI Family History Father Seizure Mother No problems noted. Surgical History Hx of section No pertinent past surgical history Social History Household Members: Significant Other and Children Housing: House Do you presently have visiting nurse or other home services: No Alcohol intake: never Patient Tobacco Use Status: Never used Tobacco Smoked in Last 30 Days: No e-Cigarette/Vaping Use: Never Used Use of substances other than those prescribed or required for medical reasons: Yes Substance Use Type: Marijuana Last Used Substance: Weeks (ago) Advance Directives: Yes Advance Directives on File: Yes Advance Directives Date on File: 12/26/22 Patient : No Current occupational status: employed Sexual orientation: Straight/Heterosexual Cognitive needs: No Hearing needs: No Vision needs: No Meds Allergies Allergy/AdvReac Type Severity Reaction Status Date / Time phenytoin [From DILANTIN] Allergy Mild RASH Verified 03/11/23 12:13 strawberry AdvReac Hives Verified 03/11/23 12:13 Physical Exam Vital Signs and Narrative: Vital Signs: Last Vital Signs Temp 98.5 F 04/26/23 15:24 Pulse 63 04/27/23 00:53 Resp 17 04/27/23 00:53 BP 99/61 04/27/23 00:53 Pulse Ox 100 04/27/23 00:53 O2 Del Method Room Air 04/27/23 00:53 BMI result Body Mass Index 34.5 Const: General: cooperative and no acute distress Orientation/consciousness: patient oriented x3 Eyes: General: appearance normal, both eyes and all related structures Resp: Effort & Inspection: normal respiratory effort Auscultation: clear to auscultation bilaterally Cardio: Rate: regular rate Rhythm: regular rhythm GI: Palpation (GI): Soft to palpation Auscultation: normal bowel sounds Skin: General skin exam: no rashes or lesions noted Neuro: General: patient oriented x3 Cognition (Neuro): normal cognition Extrem: General: Yes normal to inspection and Yes no pedal edema Results Labs 04/27/23 03:33 04/27/23 03:33 Labs: Laboratory Results - last 24 hr 04/26/23 04/26/23 17:01 22:19 MCV 78.9 L MCH 26.1 L MCHC 33.1 RDW 14.6 Plt Count 301 MPV 10.6 Immature Gran % (Auto) 0.4 Neut % (Auto) 90.1 H Lymph % (Auto) 6.7 L [place] % (Auto) 2.6 Eos % (Auto) 0.0 Baso % (Auto) 0.2 Lymph # (Auto) 0.9 L [place] # (Auto) 0.3 Eos # (Auto) 0.0 Baso # (Auto) 0.0 Abs Immat Gran (auto) 0.05 H Absolute Neuts (auto) 11.6 H Absolute Nucleated RBC 0.000 Nucleated RBC % (auto) 0.0 Smear Tech's Comments VERIFIED Anion Gap 9 L Estim Creat Clear Calc 126.8 Estimated GFR > 60 Random Glucose 97 Lactic Acid 0.9 Calcium 8.9 Magnesium 2.2 Total Bilirubin 0.3 Direct Bilirubin 0.1 AST 12 ALT 11 Alkaline Phosphatase 74 Total Creatine Kinase 68 Total Protein 7.5 Albumin 4.0 Lipase 11 Beta HCG, Quant < 2 Urine Color Yellow Urine Appearance Clear Urine pH 7.0 Ur Specific [place] 1.010 Urine Protein Negative Urine Glucose (UA) Negative Urine Ketones Negative Urine Blood Negative Urine Nitrite Negative Ur Leukocyte Esterase Negative Influenza Type A (PCR) NEGATIVE Influenza Type B (PCR) NEGATIVE RSV RNA Qual (PCR) NEGATIVE SARS-CoV-2 RNA (RT-PCR) NEGATIVE Imaging Radiologist's Impressions: Impressions Chest X-Ray 04/26/23 18:20 IMPRESSION: No acute abnormality. Assessment and Plan (1) Breakthrough seizure: Status: Acute Plan 27-year-old female past medical history of seizure disorder comes into the hospital with breaks or seizures # breakthrough seizure - currently on oxcarbazepine - according to EMR patient has not tolerated Keppra with Dilantin in the past - will consult Neurology for further evaluation and recommendation - seizure precaution DVT prophylaxis: Early ambulation Time Spent With Patient Time: Total time managing care of this patient today ____ minutes. Quality Stroke Does the patient have a stroke diagnosis?: No VTE Prior VTE?: No VTE Risk Level:: Medical - low VTE Device Contraindication: Treatment Not Indicated VTE Drug Contraindication: Treatment Not Indicated
[2023-04-27] MEDS: levETIRAcetam 500 MG TABLET PO (02:55)
--- NOTE | 2023-04-27 02:57 | PC.NURSE ---
Pt medicated per oct. Pt ca&ox4, no signs of distress. Pt denies pain and n/v. Pts bf at bedside. Pt advised of admission. plan of care ongoing.
--- NOTE | 2023-04-27 03:47 | PC.NURSE ---
Pt vomited. Pt denies nausea. Pt attire and blankets changed. Plan of care ongoing.
[2023-04-27 03:50] LABS: MANUAL DIFF FLAG NO
[2023-04-27 03:51] LABS: Basophils Percent Auto 0.2 % (0-2); Eosinophils Percent Auto 0.2 % (0-4); Hematocrit 37.4 % (37.0-47.0); Imm Gran Abs Auto 0.03 X10*3/uL (0.00-0.03); Imm Gran Pct Auto 0.3 % (0.0-0.4); Lymphocytes Absolute Auto 2.4 X10*3/uL (1.2-4.9); Lymphocytes Percent Auto 21.9 % (20-40); Mean Corpuscular HGB Conc 32.1 g/dl (31.0-35.0); Mean Corpuscular Hemoglobin 25.8 pg (27.0-33.0); Mean Corpuscular Volume 80.4 fL (80.0-98.0); Mean Platelet Volume 10.6 fL (9.4-12.3); Monocytes Absolute Auto 0.6 X10*3/uL (0.1-1.2); Monocytes Percent Auto 5.6 % (2-11); Neutrophils Absolute Auto 7.8 x10*3/uL (2.0-8.3); Neutrophils Percent Auto 71.8 % (45-73); Platelet Count 275 X10*3/uL (160-400); Red Blood Count 4.65 X10*6/uL (4.20-5.50); Red Cell Distribution Width 14.7 % (11.0-16.0); White Blood Count 10.9 X10*3/uL (4.8-10.8)
[2023-04-27 04:05] LABS: Anion Gap 10 (12-20); Blood Urea Nitrogen 5 mg/dL (9-16); Calcium 8.2 mg/dL (8.4-10.2); Carbon Dioxide 20 mmol/L (22-29); Chloride 113 mmol/L (96-108); Creatinine Clr Calc Pharmacy 128.9; Estimated Glomerular Filt Rate > 60; Glucose Random 96 mg/dL (60-115); Potassium 3.3 mmol/L (3.3-5.1); Sodium 140 mmol/L (135-145)
[2023-04-27 05:21] LABS: Amphetamine Screen Urine Not Detected (Not Detect); Barbiturates, Urine Not Detected (Not Detect); Benzodiazepines Screen Urine Not Detected (Not Detect); Cannabinoid Screen Urine POSITIVE (Not Detect); Cocaine Screen Urine Not Detected (Not Detect); Fentanyl, urine Not Detected (Not Detect); Opiate Screen Urine Not Detected (Not Detect); Phencyclidine Screen Urine Not Detected (Not Detect)
--- NOTE | 2023-04-27 06:49 | PC.NURSE ---
pt ca&ox4, no signs of distress. Pt denies pain. Vitals stable plan of care ongoing.
--- NOTE | 2023-04-27 07:00 | PC.NURSE ---
report given to oncoming nurse.
--- NOTE | 2023-04-27 07:35 | PC.NURSE ---
assumed care of pt at this time. vss. pt sleeping in stretcher; seizure precautions in place. respirations even and unlabored. call russell within reach.
--- NOTE | 2023-04-27 08:15 | PHA.MEDREC ---
Pharmacy Consult ? Medication Reconciliation Pharmacy has completed the medication reconciliation.
[2023-04-27] MEDS: OXcarbazepine 300 MG TABLET 600 MG PO (08:25)
[2023-04-27] MEDS: 0.9 % Sodium Chloride Flush 3 ML SYRINGE IVFLUSH ×2 (08:26→18:04)
--- NOTE | 2023-04-27 08:31 | PC.NURSE ---
pt axox4; neuro check done. pt medicated per mar. vss. partner at bedside; both aware of plan of care, deny questions/concerns at this time; call russell within reach.
--- NOTE | 2023-04-27 12:12 | PC.NURSE ---
neuro check done; Lex coma scale 15; no changes to previous assessment by this RN. partner at bedside. call russell within reach.
--- NOTE | 2023-04-27 14:48 | P.PNIM_ITS ---
Subjective Subjective Date of Service: 04/27/23 Interval History: breakthrough seizure , Physical Exam 2 Vital Signs: Vital Signs: Last Vital Signs Temp 97.9 F 04/27/23 14:27 Pulse 59 04/27/23 14:27 Resp 18 04/27/23 14:27 BP 105/77 04/27/23 14:27 Pulse Ox 98 04/27/23 14:27 O2 Del Method Room Air 04/27/23 14:27 BMI result Body Mass Index 34.5 Objective Data Active Medications Acetaminophen (Acetaminophen 325 Mg Tablet) 650 mg PO Q6H PRN PRN Reason: Pain, Mild (Pain Scale 1-3) Docusate Sodium (Docusate Sodium 100 Mg Capsule) 100 mg PO DAILY PRN PRN Reason: Constipation Ondansetron HCl (Ondansetron Hcl 4 Mg/2 Ml Vial) 4 mg IVPUSH Q8H PRN PRN Reason: Nausea and Vomiting Oxcarbazepine (Oxcarbazepine 300 Mg Tablet) 900 mg PO BID [facility] Sodium Chloride (0.9 % Sodium Chloride Flush 3 Ml Syringe) 3 ml IVFLUSH QSHIFT [facility] Last Admin: 04/27/23 08:26 Dose: 3 ml Documented By: DUSTY Labs 04/27/23 03:33 04/27/23 03:33 Labs: Laboratory Results - last 24 hr 04/26/23 04/26/23 04/27/23 17:01 22:19 03:33 MCV 78.9 L 80.4 MCH 26.1 L 25.8 L MCHC 33.1 32.1 RDW 14.6 14.7 Plt Count 301 275 MPV 10.6 10.6 Immature Gran % (Auto) 0.4 0.3 Neut % (Auto) 90.1 H 71.8 Lymph % (Auto) 6.7 L 21.9 [place] % (Auto) 2.6 5.6 Eos % (Auto) 0.0 0.2 Baso % (Auto) 0.2 0.2 Lymph # (Auto) 0.9 L 2.4 [place] # (Auto) 0.3 0.6 Eos # (Auto) 0.0 0.0 Baso # (Auto) 0.0 0.0 Abs Immat Gran (auto) 0.05 H 0.03 Absolute Neuts (auto) 11.6 H 7.8 Absolute Nucleated RBC 0.000 0.000 Nucleated RBC % (auto) 0.0 0.0 Smear Tech's Comments VERIFIED Anion Gap 9 L 10 L Estim Creat Clear Calc 126.8 128.9 Estimated GFR > 60 > 60 Random Glucose 97 96 Lactic Acid 0.9 Calcium 8.9 8.2 L D Magnesium 2.2 Total Bilirubin 0.3 Direct Bilirubin 0.1 AST 12 ALT 11 Alkaline Phosphatase 74 Total Creatine Kinase 68 Total Protein 7.5 Albumin 4.0 Lipase 11 Beta HCG, Quant < 2 Urine Color Yellow Urine Appearance Clear Urine pH 7.0 Ur Specific [place] 1.010 Urine Protein Negative Urine Glucose (UA) Negative Urine Ketones Negative Urine Blood Negative Urine Nitrite Negative Ur Leukocyte Esterase Negative Urine Opiates Screen Urine Fentanyl Screen Ur Barbiturates Screen Ur Phencyclidine Scrn Ur Amphetamines Screen U Benzodiazepines Scrn Urine Cocaine Screen U Marijuana (THC) Screen Influenza Type A (PCR) NEGATIVE Influenza Type B (PCR) NEGATIVE RSV RNA Qual (PCR) NEGATIVE SARS-CoV-2 RNA (RT-PCR) NEGATIVE 04/27/23 05:06 MCV MCH MCHC RDW Plt Count MPV Immature Gran % (Auto) Neut % (Auto) Lymph % (Auto) [place] % (Auto) Eos % (Auto) Baso % (Auto) Lymph # (Auto) [place] # (Auto) Eos # (Auto) Baso # (Auto) Abs Immat Gran (auto) Absolute Neuts (auto) Absolute Nucleated RBC Nucleated RBC % (auto) Smear Tech's Comments Anion Gap Estim Creat Clear Calc Estimated GFR Random Glucose Lactic Acid Calcium Magnesium Total Bilirubin Direct Bilirubin AST ALT Alkaline Phosphatase Total Creatine Kinase Total Protein Albumin Lipase Beta HCG, Quant Urine Color Urine Appearance Urine pH Ur Specific [place] Urine Protein Urine Glucose (UA) Urine Ketones Urine Blood Urine Nitrite Ur Leukocyte Esterase Urine Opiates Screen Not Detected Urine Fentanyl Screen Not Detected Ur Barbiturates Screen Not Detected Ur Phencyclidine Scrn Not Detected Ur Amphetamines Screen Not Detected U Benzodiazepines Scrn Not Detected Urine Cocaine Screen Not Detected U Marijuana (THC) Screen POSITIVE H Influenza Type A (PCR) Influenza Type B (PCR) RSV RNA Qual (PCR) SARS-CoV-2 RNA (RT-PCR) Assessment and Plan Time Spent With Patient Time: Total time managing care of this patient today ____ minutes. Quality Stroke Does the patient have a stroke diagnosis?: No VTE Prior VTE?: No VTE Risk Level:: Medical - low VTE Device Contraindication: Treatment Not Indicated VTE Drug Contraindication: Treatment Not Indicated
--- NOTE | 2023-04-27 15:41 | PM.EVENT ---
Event Note Date of Service: 04/28/23 Event Note: Patient seen and examined, came for breakthrough seizure. In addition patient low blood pressure-received IV fluids as well as phenylephrine injection with improvement her blood pressure. Physical exam: Unchanged from H&P Assessment plan coordinated in H&P note. Breakthrough seizure: Neurology consult-d/w neuro-adjusted trileptal bp is improving-possible hypovolemia sec to decreased po intake.continue gentle hydration Time Spent With Patient Time: Total time managing care of this patient today ____ minutes.
--- NOTE | 2023-04-27 15:51 | MHC.CM.PN ---
Pt lives w/mother. Previously independent, no prior services or equipment, still drives. D/C plan is home w/family via family at time of D/C readiness. CM to follow.
--- NOTE | 2023-04-27 16:26 | PC.NURSE ---
Patient alert and oriented x4, forgetful.Pt stated that she doesn't remember the meds she takes at home and she doesn't remember the name of the neurologist she goes to . Per her statement, her mother is the person that helps with her meds and the doctors appointments .
[2023-04-27] MEDS: Potassium Chloride Packet 20 MEQ PACKET PO (18:52)
[2023-04-27] MEDS: 0.9 % Sodium Chloride 1,000 ML 100 ML IVCONT (18:58)
[2023-04-27] MEDS: OXcarbazepine 300 MG TABLET 900 MG PO (20:24)
[2023-04-28 03:36] VITALS: BP 104/58; PULSE 68; RESP 18; TEMP 36.6; O2SAT 98
[2023-04-28] MEDS: 0.9 % Sodium Chloride 1,000 ML 100 ML IVCONT (05:01)
[2023-04-28 07:56] VITALS: BP 100/56; PULSE 61; RESP 18; TEMP 36.8; O2SAT 99
[2023-04-28] MEDS: OXcarbazepine 300 MG TABLET 900 MG PO (08:00)
[2023-04-28] MEDS: 0.9 % Sodium Chloride Flush 3 ML SYRINGE IVFLUSH (08:00)
--- NOTE | 2023-04-28 11:08 | PM.DS ---
DS: Providers Provider Date of Service: 04/28/23 Date of admission: 04/27/23 02:44 Date of discharge: 04/28/23 Primary care physician: Meredith Cervantes MD Consults: 04/27/23 07:54 Consult to Neurology Routine Consulting Provider: [facility] Reason for consultation: breakthrough seizures Attending physician on discharge: Luis Fowler Discharging clinician: Luis Fowler DS: Diagnosis Discharge Diagnosis (1) Breakthrough seizure: Status: Acute (2) Hypotension: Status: Acute DS: Summary Hospital Course Hospital Course: 27-year-old female past medical history of seizures, depression anxiety comes into the hospital after 2 witnessed seizures. One was witnessed at home by her partner, the other was in the ED the lasted approximately 2 minutes in the ED, during this episode patient became significantly hypotensive with her blood pressure dropping 60s over 30s requiring significant IV fluids as well as phenylephrine injection with improvement her blood pressure. Of note patient was admitted to to [facility] in March, with similar episode. and at that time had an EEG done which was normal. Patient is currently taking oxcarbazepine and reports compliance. Patient otherwise denies any acute illness, no chest pain, no shortness of breath, no abdominal pain nausea or vomiting, no diarrhea constipation, no urinary symptoms and no lower extremity edema. On arrival to the ED patient hemodynamically stable Labs are significant for WBC count of 12.9, lactic acid is normal, labs otherwise unremarkable, Chest x-ray negative Patient started on Keppra and will be admitted for further management. Hospital course: patient came for breakthrough seizure and addition patient low blood pressure-received IV fluids as well as phenylephrine injection with improvement her blood pressure and her trileptal increased to 900 mg bid (as per neuro). (Patient was in [facility] for similar symptoms) .Patient was advised to follow up outpatient with neuro,encouraged for po hydration/intake. patient need to follow up outpatient. plan: take trileptal adjusted to 900 mg bid Above management discussed with the patient and her in detail length she understand and in agreement with the above plan, time spent 50 minutes and 50% time spent on counseling. Time Spent with Patient Time attestation: Total time managing care of this patient today ____ minutes. Discharge coordination time: Greater than 30 minutes Quality: Safe Use of Opioids Does Pt have an Active Cancer Diagnosis on the Problem List?: No Quality: Stroke Does the patient have a stroke diagnosis?: No Physical Exam Vital Signs: Vital Signs: Last Vital Signs Temp 98.2 F 04/28/23 07:56 Pulse 61 04/28/23 07:56 Resp 18 04/28/23 07:56 BP 100/56 L 04/28/23 07:56 Pulse Ox 99 04/28/23 07:56 O2 Del Method Room Air 04/28/23 07:56 BMI result Body Mass Index 34.5 Appearance: Alert.? Oriented X3.? not in distress.? cvs: rrr, [id number] , no murmur res: clear to auscultation ,no rhonchii or wheezing abd: no rebound or guarding ,nt, bs present. ext pulses present , no cyanosis . neuro: axo3 , nonfocal. DS: Data Imaging Chest x-ray: Radiologist's impression: ITS Impressions Chest X-Ray 04/26/23 18:20 IMPRESSION: No acute abnormality. Discharge Plan Discharge Anticipated Discharge Date/Time: 04/27/23 14:42 Patient Disposition: Home, Self-Care Discharge Diagnosis: breakthrough seizure Referrals: Meredith Cervantes MD [Primary Care Provider] - 1 Week Discharge Medications: Continued hydroxyzine HCl 25 mg tablet 25 mg PO TID PRN (Reason: anxiety) Qty: 90 2RF Changed oxcarbazepine 600 mg tablet 900 mg PO BID Qty: 90 0RF Discharge Orders: Discharge Order (Routine); Ordered 04/28/23 Ordered By: Luis Fowler Diet: Advance to usual diet Activity on Discharge: As tolerated Stand Alone Forms: Patient Portal Discharge page Care Plan Goals: patient came for breakthrough seizure and addition patient low blood pressure- recieved ivf and her trileptal increased to 900 mg bid (as per neuro). Patient was advised to follow up outpatient with neuro,encouraged for po hydration/intake. patient need to follow up outpatient. Health Concerns: as above. Plan of Treatment: as above. Assessment: as above.
--- NOTE | 2023-04-28 11:29 | MHC.CM.PN ---
order for home, self care. CM acknowledge.
== END 2023-04-28 11:44 | disposition home or self-care (01) ==
LOC: HO.ED 04-27 02:16 → HO.EDOVER 04-27 02:49 → HO.IMC 04-27 13:01
PROVIDERS: Physician Assistant Medical; Admitting Provider Internal Medicine; Emergency Provider Emergency Medicine; PCP Internal Medicine; Visit Provider Internal Medicine
DX: G40.919 Epilepsy, unspecified, intractable, without status epilepticus (principal); I95.9 Hypotension, unspecified; R07.9 Chest pain, unspecified; F41.9 Anxiety disorder, unspecified; F12.90 Cannabis use, unspecified, uncomplicated; Z79.899 Other long term (current) drug therapy
CPT/HCPCS: 0241U; 36415; 71046; 80048; 80076; 80307; 80339; 81003; 82550; 83605; 83690; 83735; 84484; 84702; 85025; 93005; 96361; 96374; 96375; 96376; 99222; 99285; J2060; J2371; J2405

== ENCOUNTER → 2023-04-27 02:44 | Outpatient (BNV) | payer OTHER, SELFPAY | PROVIDERS: Admitting Provider Internal Medicine; Emergency Provider Emergency Medicine; PCP Internal Medicine; Visit Provider Internal Medicine | DX: G40.919 Epilepsy, unspecified, intractable, without status epilepticus (principal); I95.9 Hypotension, unspecified | CPT/HCPCS: 99222; 99239; 99499 ==

== ENCOUNTER 2023-06-29 04:49 | Emergency (ER) | payer OTHER, SELFPAY ==
--- NOTE | 2023-06-29 | ECG_ITS ---
Test Reason : SEIZURE Blood Pressure : / mmHG Vent. Rate : 080 BPM Atrial Rate : 080 BPM P-R Int : 170 ms QRS Dur : 090 ms QT Int : 392 ms P-R-T Axes : 029 025 010 degrees QTc Int : 452 ms Normal sinus rhythm Normal ECG When compared with ECG of 26-APR-2023 17:33, No significant change was found Referred By: Generic ED Physician Electronically Signed By:TIMOTEO BROWN MD
[2023-06-29 05:18] VITALS: BP 94/52; BP 94/63; PULSE 90; PULSE 98; RESP 68; TEMP 36.3; O2SAT 97; O2SAT 98; BMI 38.3
--- NOTE | 2023-06-29 05:18 | ED.SEIZURE ---
HPI - Seizure General Chief Complaint: Seizure Stated Complaint: Seizure Time Seen by Provider: 06/29/23 05:16 Source: patient Mode of arrival: EMS Limitations: no limitations History of Present Illness HPI Narrative: Patient's history of epilepsy since childhood having seizures 3 to 4 times a week on Trileptal for last 4 years dose increased from 600 twice daily to 900 twice daily last week and patient had 2nd seizure this week while she is asleep woke up noticed tongue bite on the right side with nausea and vomiting which usually happens when she gets seizure lethargic and sleepy no injuries no anxiety no abdominal pain Seizure History: Yes Related Data Previous Rx's Medication Instructions Recorded hydroxyzine HCl 25 mg tablet 25 mg PO TID PRN anxiety #90 tabs 03/11/23 oxcarbazepine 600 mg tablet 900 mg (1.5 x 600 mg) PO BID #90 06/28/23 tabs lorazepam 1 mg tablet (Ativan) 1 mg PO BID PRN seizure activity 06/29/23 #20 tabs ondansetron 4 mg disintegrating 4 mg PO Q6-8H PRN nausea and 06/29/23 tablet vomiting #14 tabs Allergies Allergy/AdvReac Type Severity Reaction Status Date / Time phenytoin [From DILANTIN] Allergy Mild RASH Verified 06/29/23 05:10 strawberry AdvReac Hives Verified 06/29/23 05:10 Review of Systems Review of Systems: Yes all other systems are reviewed and are negative PMFSH Past Medical History Medical History Seizures Seizure disorder Hypoxia Depression Anxiety Snoring Headache Contraception management Hyperglycemia Rash Seizure disorder Anemia Viral syndrome Depression with anxiety care and examination BCP ( control pills) initiation Annual physical exam Depression Frequent UTI Surgical History Hx of section No pertinent past surgical history Family History Family History Father Seizure Mother No problems noted. Social History Social History Household Members: Family Housing: House Do you presently have visiting nurse or other home services: No Alcohol intake: never Patient Tobacco Use Status: Never used Tobacco Smoked in Last 30 Days: No e-Cigarette/Vaping Use: Never Used Use of substances other than those prescribed or required for medical reasons: No Substance Use Type: Marijuana Any prior treatment program specific to substance use: No Advance Directives: Yes Advance Directives on File: Yes Advance Directives Date on File: 12/26/22 Patient : No service: No Current occupational status: employed Sexual orientation: Straight/Heterosexual Cognitive needs: No Hearing needs: No Vision needs: No Physical Exam Vital Signs: Vital Signs: Last Vital Signs Temp 97.4 F 06/29/23 05:18 Pulse 98 06/29/23 05:18 Resp 68 H 06/29/23 05:18 BP 94/52 L 06/29/23 05:18 Pulse Ox 98 06/29/23 05:18 BMI result Body Mass Index 38.3 Appearance: Alert. Oriented X3. No acute distress. Eyes: PERRLA, No Nystagmus ENT: Pharynx normal. Oral Mucosa moist superficial tongue bite right lateral part of town Neck: Normal inspection. Neck supple. CVS: Normal heart rate and rhythm. Pulses normal. Respiratory: No respiratory distress. Equal air entry bilateral, no wheezing/rales/rhonchi Abdomen: Soft and nontender. Bowel sounds are present, no mass palpable, no CVA tenderness Skin: Skin warm and dry. Normal skin color. Normal skin turgor. Extremities: No lower extremity edema. No calf tenderness Neuro: Oriented X 3. No motor deficit. No sensory deficit.No cerebellar signs , cranial nerves II-XII intact Medications Administered Discontinued Medications Generic Name Dose Route Start Last Admin Trade Name Cristianq PRN Reason Stop Dose Admin Lorazepam 2 mg 06/29/23 05:17 06/29/23 05:31 Lorazepam 1 Mg Tablet PO 06/29/23 05:18 2 mg ONCE ONE Administration Ondansetron HCl 4 mg 06/29/23 05:18 06/29/23 05:31 Ondansetron Odt 4 Mg Tab.Rapdis TRANSLINGU 06/29/23 05:19 4 mg ONCE ONE Administration Medical Decision Making Medical Decision Making [facility] Narrative: Patient with seizures since childhood distant is seen neurologist Trileptal dose has been increased to 100 mg twice daily and patient has less frequency of seizures as before will Rx with Ativan and Zofran follow with Neurology Differential Diagnosis Differential Diagnoses: The differential diagnosis associated with the presentation includes Seizure disorder Independent Interpretation I performed an independent interpretation of an: EKG Interpretation: Normal sinus rhythm heart rate 80 beats per minute normal interval normal axis no acute ST-T change and no acute ischemia Discharge Plan Discharge Clinical Impression: Seizure disorder Patient Disposition: Home, Self-Care Instructions: Epilepsy (ED) Additional Instructions: Continue your medication for seizures as prescribed by your neurologist Medication for nausea as prescribed Ativan to prevent seizures as needed See/call your neurologist Prescriptions: New lorazepam [Ativan] 1 mg tablet 1 mg PO BID PRN (Reason: seizure activity) Qty: 20 0RF ondansetron 4 mg tablet,disintegrating 4 mg PO Q6-8H PRN (Reason: nausea and vomiting) Qty: 14 0RF No Action oxcarbazepine 600 mg tablet 900 mg PO BID Qty: 90 0RF hydroxyzine HCl 25 mg tablet 25 mg PO TID PRN (Reason: anxiety) Qty: 90 2RF
[2023-06-29] MEDS: LORazepam 1 MG TABLET 2 MG PO (05:31)
[2023-06-29] MEDS: Ondansetron ODT 4 MG TAB.RAPDIS TRANSLINGU (05:31)
== END 2023-06-29 05:40 | disposition home or self-care (01) ==
PROVIDERS: Emergency Provider Internal Medicine
DX: G40.909 Epilepsy, unspecified, not intractable, without status epilepticus (principal)
CPT/HCPCS: 93005; 99283; 99284

== ENCOUNTER 2023-08-20 04:43 | Emergency (ER) | payer OTHER, SELFPAY ==
--- NOTE | 2023-08-20 | ECG_ITS ---
Test Reason : SEIZURE Blood Pressure : / mmHG Vent. Rate : 071 BPM Atrial Rate : 071 BPM P-R Int : 150 ms QRS Dur : 092 ms QT Int : 394 ms P-R-T Axes : 039 024 011 degrees QTc Int : 428 ms Normal sinus rhythm with sinus arrhythmia Normal ECG When compared with ECG of 29-JUN-2023 05:03, No significant change was found Referred By: Generic ED Physician Electronically Signed By:Matthias Torres
[2023-08-20 04:55] VITALS: BP 100/70; PULSE 90; O2SAT 98; BMI 32.3
[2023-08-20 05:12] LABS: Basophils Percent Auto 0.2 % (0-2); Eosinophils Absolute Auto 0.1 X10*3/uL (0.0-0.4); Hematocrit 40.7 % (37.0-47.0); Hemoglobin 13.1 g/dl (12.0-16.0); Imm Gran Abs Auto 0.03 X10*3/uL (0.00-0.03); Imm Gran Pct Auto 0.3 % (0.0-0.4); Lymphocytes Absolute Auto 1.5 X10*3/uL (1.2-4.9); Lymphocytes Percent Auto 16.1 % (20-40); MANUAL DIFF FLAG NO; Mean Corpuscular HGB Conc 32.2 g/dl (31.0-35.0); Mean Corpuscular Hemoglobin 25.5 pg (27.0-33.0); Mean Corpuscular Volume 79.3 fL (80.0-98.0); Monocytes Absolute Auto 0.4 X10*3/uL (0.1-1.2); Monocytes Percent Auto 3.9 % (2-11); Neutrophils Absolute Auto 7.2 x10*3/uL (2.0-8.3); Neutrophils Percent Auto 78.5 % (45-73); Platelet Count 300 X10*3/uL (160-400); Red Blood Count 5.13 X10*6/uL (4.20-5.50); Red Cell Distribution Width 14.6 % (11.0-16.0); White Blood Count 9.2 X10*3/uL (4.8-10.8)
[2023-08-20 05:16] VITALS: BP 100/64; PULSE 72; RESP 16; O2SAT 99
[2023-08-20] MEDS: LORazepam 2 MG/ML VIAL 1 MG IVPUSH (05:17)
[2023-08-20 05:30] LABS: Alanine Aminotransferase 18 U/L (0-31); Albumin Level 3.8 g/dL (3.5-5.0); Alkaline Phosphatase 69 U/L (39-117); Anion Gap 10 (12-20); Aspartate Amino Transferase 17 U/L (5-31); Bilirubin Total 0.2 mg/dL (0.0-1.0); Blood Urea Nitrogen 13 mg/dL (9-16); Calcium 8.6 mg/dL (8.4-10.2); Carbon Dioxide 25 mmol/L (22-29); Chloride 109 mmol/L (96-108); Creatinine Clr Calc Pharmacy 117.4; Estimated Glomerular Filt Rate > 60; Glucose Random 119 mg/dL (60-115); Magnesium 2.2 mg/dL (1.6-2.6); Potassium 3.8 mmol/L (3.3-5.1); Sodium 140 mmol/L (135-145); Total Protein 7.1 g/dL (6.5-8.0)
[2023-08-20 05:42] VITALS: PULSE 73
--- NOTE | 2023-08-20 06:04 | ED.SEIZURE ---
HPI - Seizure General Chief Complaint: Seizure Stated Complaint: SEIZURES Time Seen by Provider: 08/20/23 06:03 Source: patient Mode of arrival: EMS Limitations: no limitations History of Present Illness HPI Narrative: 27-year-old female who was brought to emergency department by ambulance for evaluation of possible seizure. patient states that she had 2 seizures this morning she states that 1 seizure occurred while she was asleep in the 2nd seizure woke her up. She states she has been sick for the past 3 days with nausea. She has been able to take her medications. At the time my evaluation she has no complaints. The patient has been seen here multiple times for seizures by different ED providers with diagnosis of epileptic verses nonepileptic seizures. I saw her on 02/19/2023 At that visit I was able to obtain the records from [facility]. The patient had a 48 hour video EEG monitor done on 01/13/2023 which was negative for any seizure activity and the patient's neurologist stopped her anti seizure medications and advised to continue taking hydralazine 20 mg b.i.d. as needed for anxiety. Seizure History: Yes Place: Home Related Data Previous Rx's Medication Instructions Recorded hydroxyzine HCl 25 mg tablet 25 mg PO TID PRN anxiety #90 tabs 03/11/23 oxcarbazepine 600 mg tablet 900 mg (1.5 x 600 mg) PO BID #90 06/28/23 tabs lorazepam 1 mg tablet (Ativan) 1 mg PO BID PRN seizure activity 06/29/23 #20 tabs ondansetron 4 mg disintegrating 4 mg PO Q6-8H PRN nausea and 06/29/23 tablet vomiting #14 tabs Allergies Allergy/AdvReac Type Severity Reaction Status Date / Time phenytoin [From DILANTIN] Allergy Mild RASH Verified 08/20/23 05:19 strawberry AdvReac Hives Verified 08/20/23 05:19 Review of Systems Review of Systems: Yes all other systems are reviewed and are negative PMFSH Past Medical History Onset Date is defined in the Problem List Problems that require an onset date and time if occurred within 24 hrs of arrival to the ED Aortic Dissection and Rupture; Neurologic impairment; Cardiopulmonary Arrest; Endotracheal Intubation; Insertion or Replacement of Mechanical Circulatory Assist Device Medical History Seizures Seizure disorder Hypoxia Depression Anxiety Snoring Headache Contraception management Hyperglycemia Rash Seizure disorder Anemia Viral syndrome Depression with anxiety care and examination BCP ( control pills) initiation Annual physical exam Depression Frequent UTI Surgical History Hx of section No pertinent past surgical history Family History Family History Father Seizure Mother No problems noted. Social History Social History Household Members: Family Housing: House Do you presently have visiting nurse or other home services: No Alcohol intake: never Patient Tobacco Use Status: Never used Tobacco Smoked in Last 30 Days: No e-Cigarette/Vaping Use: Never Used Use of substances other than those prescribed or required for medical reasons: No Substance Use Type: Marijuana Advance Directives: Yes Advance Directives on File: Yes Advance Directives Date on File: 12/26/22 service: No Current occupational status: employed Sexual orientation: Straight/Heterosexual Cognitive needs: No Hearing needs: No Vision needs: No Physical Exam Vital Signs: Vital Signs: Last Vital Signs Pulse 73 08/20/23 05:42 Resp 16 08/20/23 05:16 BP 100/64 08/20/23 05:16 Pulse Ox 99 08/20/23 05:16 O2 Del Method Room Air 08/20/23 05:16 BMI result Body Mass Index 32.3 vital signs were normal exam: General: Awake, alert in no distress Head: Normocephalic, atraumatic EENT: PERRL, Lids normal, sclera normal, conjunctiva normal, nose normal , ears normal, throat without erythema or exudates Neck: Supple, no adenopathy, no trachea midline or C-spine tenderness Lung: breath sounds symmetric, no wheezing, rales or rhonchi Chest: symmetric movement, nontender Heart: regular rate and rhythm, normal S1, S2 no murmurs or rubs Abdomen: soft, non-tender, nondistended, normal bowel sounds Back: no vertebral tenderness, no CVAT Extremities: no deformities, moves all extremities symmetrically Neuro: Awake, alert, oriented, normal speech, cranial nerves intact, moves all extremities symmetrically Psych: Pleasant, cooperative Medications Administered Discontinued Medications Generic Name Dose Route Start Last Admin Trade Name Blayne PRN Reason Stop Dose Admin Lorazepam 1 mg 08/20/23 05:10 08/20/23 05:17 Lorazepam 2 Mg/Ml Vial IVPUSH 08/20/23 05:11 1 mg STAT STA Administration Medical Decision Making Medical Decision Making [facility] Narrative: 27-year-old female who was brought to emergency department by ambulance for evaluation of possible seizure. patient states that she had 2 seizures this morning . She states that 1 seizure occurred while she was asleep and the 2nd seizure woke her up. She states she has been sick for the past 3 days with nausea. She has been able to take her medications. At the time my evaluation she has no complaints. I have seen this patient in the past and I did obtain records from [facility], her neurologist there felt that the patient was having non electrical seizures at its thigh after anti seizure medications. She was advised to take her anti anxiety medications for her nonepileptic seizures. Patient's examination was unremarkable. my independent interpretation patient's laboratory evaluation is as follows: CBC was normal. CMP was normal. Anion gap was normal. the patient was given Ativan 1 mg IV for a anxiety. At this time, I do not think that the patient Needs any further treatment or study from the emergency department she will be discharged home. Differential Diagnosis Differential Diagnoses: The differential diagnosis associated with the presentation includes Differential diagnosis includes was not limited to epileptic seizure, nonepileptic seizure, anxiety, electrolyte abnormality, anemia Admission/Observation Consideration of admission/observation: Escalation of care including admission/observation considered Lab Data [facility] Lab Attestation statement: I reviewed the patient's lab results. 08/20/23 05:06 08/20/23 05:06 Labs: Lab Results 08/20/23 Range/Units 05:06 WBC 9.2 (4.8-10.8) X10*3/uL RBC 5.13 (4.20-5.50) X10*6/uL Hgb 13.1 (12.0-16.0) g/dl Hct 40.7 (37.0-47.0) % MCV 79.3 L (80.0-98.0) fL MCH 25.5 L (27.0-33.0) pg MCHC 32.2 (31.0-35.0) g/dl RDW 14.6 (11.0-16.0) % Plt Count 300 (160-400) X10*3/uL MPV 10.0 (9.4-12.3) fL Immature Gran % (Auto) 0.3 (0.0-0.4) % Neut % (Auto) 78.5 H (45-73) % Lymph % (Auto) 16.1 L (20-40) % [place] % (Auto) 3.9 (2-11) % Eos % (Auto) 1.0 (0-4) % Baso % (Auto) 0.2 (0-2) % Lymph # (Auto) 1.5 (1.2-4.9) X10*3/uL [place] # (Auto) 0.4 (0.1-1.2) X10*3/uL Eos # (Auto) 0.1 (0.0-0.4) X10*3/uL Baso # (Auto) 0.0 (0.0-0.2) X10*3/uL Abs Immat Gran (auto) 0.03 (0.00-0.03) X10*3/uL Absolute Neuts (auto) 7.2 (2.0-8.3) x10*3/uL Absolute Nucleated RBC 0.000 (0.0-0.012) X10*3/uL Nucleated RBC % (auto) 0.0 (0.0-0.2) /100WBC Sodium 140 (135-145) mmol/L Potassium 3.8 (3.3-5.1) mmol/L Chloride 109 H (96-108) mmol/L Carbon Dioxide 25 (22-29) mmol/L Anion Gap 10 L (12-20) BUN 13 (9-16) mg/dL Creatinine 0.63 (0.5-1.4) mg/dL Estim Creat Clear Calc 117.4 Estimated GFR > 60 Random Glucose 119 H (60-115) mg/dL Calcium 8.6 (8.4-10.2) mg/dL Magnesium 2.2 (1.6-2.6) mg/dL Total Bilirubin 0.2 (0.0-1.0) mg/dL AST 17 (5-31) U/L ALT 18 (0-31) U/L Alkaline Phosphatase 69 (39-117) U/L Total Protein 7.1 (6.5-8.0) g/dL Albumin 3.8 (3.5-5.0) g/dL Hold Yellow Top See Note Chronic Conditions Patient?s care impacted by: Other ( anxiety, depression) Discharge Plan Discharge Clinical Impression: Psychogenic nonepileptic seizure Patient Disposition: Home, Self-Care Additional Instructions: your laboratory evaluation was unremarkable. Continue taking your medications as prescribed by your providers. Follow-up with your doctor in 2 days. Please return to the emergency department if your symptoms get worse or if you develop any symptoms that are concerning to you. Prescriptions: No Action oxcarbazepine 600 mg tablet 900 mg PO BID Qty: 90 0RF lorazepam [Ativan] 1 mg tablet 1 mg PO BID PRN (Reason: seizure activity) Qty: 20 0RF ondansetron 4 mg tablet,disintegrating 4 mg PO Q6-8H PRN (Reason: nausea and vomiting) Qty: 14 0RF hydroxyzine HCl 25 mg tablet 25 mg PO TID PRN (Reason: anxiety) Qty: 90 2RF
--- NOTE | 2023-08-20 07:13 | PC.NURSE ---
work note approved by dr yeager. vss. axox4 ambulatory w steady gait d/c with sig other.
[2023-08-20 07:14] VITALS: BP 97/60; PULSE 86; RESP 16; O2SAT 99
== END 2023-08-20 07:57 | disposition home or self-care (01) ==
PROVIDERS: Emergency Provider Emergency Medicine Emergency Medical Services
DX: R56.9 Unspecified convulsions (principal); F41.9 Anxiety disorder, unspecified; F32.A Depression, unspecified; Z79.899 Other long term (current) drug therapy
CPT/HCPCS: 36415; 80053; 83735; 85025; 93005; 96372; 99284; J2060

== ENCOUNTER → 2023-08-20 04:58 | Outpatient (BNV) | payer OTHER, SELFPAY | PROVIDERS: Emergency Provider Emergency Medicine Emergency Medical Services; Visit Provider Internal Medicine Cardiovascular Disease | DX: I49.9 Cardiac arrhythmia, unspecified (principal) | CPT/HCPCS: 93010 ==

== ENCOUNTER 2023-08-21 12:18 | Observation (INO) | payer OTHER, SELFPAY ==
[2023-08-21 12:24] VITALS: BP 105/64; PULSE 79; O2SAT 99; BMI 28.4
--- NOTE | 2023-08-21 12:25 | PC.NURSE ---
pt currently in post-ictal/confused state at this time upon ems arrival to ED. vss and up to date. pt biba d/t seizure at home. had 1st seizure this am at 0800. 2nd seizure prior to ems arrival - lasted 4 min. pt in post-ictal state upon ems arrival. 3rd seizure upon transport to ED. EMS states tonic-clonic movement/trauma to lip/tongue. bleeding stopped/controlled upon ED arrival. EMS administered 2mg of versed via IV. 20gIV placed in the right AC by EMS. ems states all 3 seizures were witnessed by family at home. seizure precautions in place for safety. family bedside. call russell placed within reach.
[2023-08-21 12:30] VITALS: BP 104/43; PULSE 107; RESP 20; TEMP 36.4; O2SAT 96
--- NOTE | 2023-08-21 13:12 | PC.NURSE ---
this RN and tech attempted to perform ekg/obtain labs - pt still in post-ictal state/confused at this time. unable to follow commands/participate in care. family bedside. will reattempt shortly.
--- NOTE | 2023-08-21 13:20 | ED.SEIZURE ---
HPI - Seizure General Chief Complaint: Seizure Stated Complaint: Seizure Time Seen by Provider: 08/21/23 12:45 Source: patient Mode of arrival: EMS Limitations: other (seizure - postictal or post versed) History of Present Illness HPI Narrative: 27 yo female with PMH of anxiety induced episodes, seizures, depression, here with partner who states she thinks she might have missed her oxcarbamazepine over the holidays but took it this AM. Reportedly was stiff and shaking in her sleep this AM. Took meds had another seizure lasting 4 min GTC prior to EMS then EMS witnessed 3 min GTC - bit tongue, given 2mg versed MD complaint: seizure and possible seizure Onset (ago): hour(s) (8am) Description of Episode: loss of consciousness and tonic-clonic movement Duration of episode: 4 -: minutes(s) Witnessed: Yes - by EMS Trauma: No Seizure History: Yes Place: Home Possible Precipitating Event: medication Associated symptoms: denies other symptoms Treatments prior to arrival: benzodiazepines Related Data Previous Rx's Medication Instructions Recorded hydroxyzine HCl 25 mg tablet 25 mg PO TID PRN anxiety #90 tabs 03/11/23 oxcarbazepine 600 mg tablet 900 mg (1.5 x 600 mg) PO BID #90 06/28/23 tabs lorazepam 1 mg tablet (Ativan) 1 mg PO BID PRN seizure activity 06/29/23 #20 tabs ondansetron 4 mg disintegrating 4 mg PO Q6-8H PRN nausea and 06/29/23 tablet vomiting #14 tabs Allergies Allergy/AdvReac Type Severity Reaction Status Date / Time phenytoin [From DILANTIN] Allergy Mild RASH Verified 08/21/23 12:24 strawberry AdvReac Hives Verified 08/21/23 12:24 Review of Systems Review of Systems: ROS unable to be obtained due to sleeping PMFSH Past Medical History Attestation statement: The following information was validated with the patient. Source: old records reviewed and obtained from family Onset Date is defined in the Problem List Problems that require an onset date and time if occurred within 24 hrs of arrival to the ED Aortic Dissection and Rupture; Neurologic impairment; Cardiopulmonary Arrest; Endotracheal Intubation; Insertion or Replacement of Mechanical Circulatory Assist Device Medical History Seizures Seizure disorder Hypoxia Depression Anxiety Snoring Headache Contraception management Hyperglycemia Rash Seizure disorder Anemia Viral syndrome Depression with anxiety care and examination BCP ( control pills) initiation Annual physical exam Depression Frequent UTI Surgical History Hx of section No pertinent past surgical history Family History Family History Father Seizure Mother No problems noted. Social History Social History Household Members: Family Housing: House Do you presently have visiting nurse or other home services: No Unable to assess alcohol history related to: Unknown Alcohol intake: never Patient Tobacco Use Status: Never used Tobacco e-Cigarette/Vaping Use: Never Used Use of substances other than those prescribed or required for medical reasons: Unknown Substance Use Type: Marijuana Advance Directives: Yes Advance Directives on File: Yes Advance Directives Date on File: 12/26/22 service: No Current occupational status: employed Sexual orientation: Straight/Heterosexual Cognitive needs: No Hearing needs: No Vision needs: No Physical Exam Vital Signs: Vital Signs: Last Vital Signs Temp 97.5 F 08/21/23 12:30 Pulse 84 08/21/23 15:34 Resp 18 08/21/23 15:34 BP 117/77 08/21/23 15:34 Pulse Ox 96 08/21/23 12:30 O2 Del Method Room Air 08/21/23 15:34 BMI result Body Mass Index 28.4 Appearance: Alert. Oriented X3. No acute distress. Eyes: Pupils equal, round and reactive to light. no nystagmus ENT: Pharynx normal. atraumatic head, bilateral mild tongue abrasions Neck: Normal inspection. Neck supple. CVS: Normal heart rate and rhythm. Pulses normal. Respiratory: No respiratory distress. Breath sounds normal. Abdomen: Soft and nontender. Skin: Skin warm and dry. Normal skin color. Normal skin turgor. Extremities: No lower extremity edema. No calf ttp Neuro: Oriented X 3. No motor deficit. No sensory deficit. Course Course Course Narrative: slightly more awake following commands last seizure 1 month ago Medications Administered Generic Name Dose Route Start Last Admin Trade Name Freq PRN Reason Stop Dose Admin Sodium Chloride 1,000 mls @ 999 mls/hr 08/21/23 15:30 08/21/23 15:35 Ns IV 08/21/23 16:30 999 mls/hr .Q1H1M NAHEED Administration Discontinued Medications Generic Name Dose Route Start Last Admin Trade Name Blayne PRN Reason Stop Dose Admin Lorazepam 1 mg 08/21/23 15:29 08/21/23 15:40 Lorazepam 2 Mg/Ml Vial IVPUSH 08/21/23 15:30 1 mg STAT STA Administration Medical Decision Making Medical Decision Making MDM Narrative: 27 yo female with PMH of anxiety induced episodes, seizures, depression here with c/o seizures at home likely in setting of missed medications at this time will obtain basic labs, no head trauma reported, observe and partner notes she already took her AM dose today. Differential Diagnosis Differential Diagnoses: The differential diagnosis associated with the presentation includes seizures, anxiety Admission/Observation Consideration of admission/observation: Escalation of care including admission/observation considered signed out to Dr. Spencer pending improvement given her night dose of oxcarbazepine Lab Data [facility] Lab Attestation statement: I reviewed the patient's lab results. 08/21/23 15:28 08/21/23 15:28 Labs: Lab Results 08/21/23 Range/Units 15:28 RBC 5.18 (4.20-5.50) X10*6/uL Hgb 13.2 (12.0-16.0) g/dl Hct 40.8 (37.0-47.0) % MCV 78.8 L (80.0-98.0) fL MCH 25.5 L (27.0-33.0) pg MCHC 32.4 (31.0-35.0) g/dl RDW 14.6 (11.0-16.0) % Plt Count 390 D (160-400) X10*3/uL MPV 10.3 (9.4-12.3) fL Immature Gran % (Auto) Cancelled Neut % (Auto) Cancelled Lymph % (Auto) Cancelled [place] % (Auto) Cancelled Eos % (Auto) Cancelled Baso % (Auto) Cancelled Lymph # (Auto) Cancelled [place] # (Auto) Cancelled Eos # (Auto) Cancelled Baso # (Auto) Cancelled Abs Immat Gran (auto) Cancelled Absolute Neuts (auto) Cancelled Absolute Nucleated RBC 0.000 (0.0-0.012) X10*3/uL Nucleated RBC % (auto) 0.0 (0.0-0.2) /100WBC Sodium 141 (135-145) mmol/L Potassium 3.5 (3.3-5.1) mmol/L Chloride 110 H (96-108) mmol/L Carbon Dioxide 23 (22-29) mmol/L Anion Gap 12 (12-20) BUN 11 (9-16) mg/dL Creatinine 0.73 (0.5-1.4) mg/dL Estim Creat Clear Calc 133.2 Estimated GFR > 60 Random Glucose 105 (60-115) mg/dL Calcium 8.9 (8.4-10.2) mg/dL Magnesium 2.2 (1.6-2.6) mg/dL Total Bilirubin 0.2 (0.0-1.0) mg/dL Direct Bilirubin < 0.2 (0.0-0.5) mg/dL AST 14 (5-31) U/L ALT 18 (0-31) U/L Alkaline Phosphatase 78 (39-117) U/L Total Protein 7.7 (6.5-8.0) g/dL Albumin 4.1 (3.5-5.0) g/dL Urine Color Yellow Urine Appearance Clear Urine pH 6.0 (5.0-9.0) Ur Specific [place] 1.020 (1.005-1.025) Urine Protein 30 (1+) H (Neg-Trace) mg/dL Urine Glucose (UA) 250 H (Negative) mg/dL Urine Ketones Trace (Negative) mg/dL Urine Blood Negative (Negative) Urine Nitrite Negative (Negative) Ur Leukocyte Esterase Negative (Negative) Urine Opiates Screen Not Detected (Not Detect) Urine Fentanyl Screen Not Detected (Not Detect) Ur Barbiturates Screen Not Detected (Not Detect) Ur Phencyclidine Scrn Not Detected (Not Detect) Ur Amphetamines Screen Not Detected (Not Detect) U Benzodiazepines Scrn POSITIVE H (Not Detect) Urine Cocaine Screen Not Detected (Not Detect) U Marijuana (THC) Screen POSITIVE H (Not Detect) Ethyl Alcohol < 10 mg/dL Independent Interpretation I performed an independent interpretation of an: EKG Interpretation: Rate: 89 Rhythm: NSR [place]: normal Normal P waves. Normal MINESH. Normal QRS complex. ST T wave : normal no KAREN qTC: 413 prior studies: no acute ischemia The study has been interpreted contemporaneously by me. . Independent Historian Clinical information obtained from an independent historian. History obtained from or confirmed by: Spouse and EMS External Record Review External record reviewed: Inpatient record Discharge Plan Discharge Clinical Impression: Seizure disorder Patient Disposition: Still a Patient Instructions: Epilepsy (ED) Additional Instructions: follow up with your neurologist. you were given your night time dose of oxcarbazepine do not take anymore tonight. return for worsening symptoms or concerns. follow up with your doctor. stay with responsible adult. no driving, operating heavy machinery. Prescriptions: No Action oxcarbazepine 600 mg tablet 900 mg PO BID Qty: 90 0RF lorazepam [Ativan] 1 mg tablet 1 mg PO BID PRN (Reason: seizure activity) Qty: 20 0RF ondansetron 4 mg tablet,disintegrating 4 mg PO Q6-8H PRN (Reason: nausea and vomiting) Qty: 14 0RF hydroxyzine HCl 25 mg tablet 25 mg PO TID PRN (Reason: anxiety) Qty: 90 2RF
--- NOTE | 2023-08-21 14:25 | PC.NURSE ---
pt remains in post-ictal state at this time. pt still confused/weeping/crying. pt still not allowing this RN or tech to obtain ekg/labs. seizure pads remain in place. will reattempt tasks shortly. partner bedside. call russell placed within reach.
[2023-08-21 15:34] VITALS: BP 117/77; PULSE 84; RESP 18
--- NOTE | 2023-08-21 15:43 | PC.NURSE ---
pt now awake/alert and oriented to self only. pt still confused/intermittently crying at this time. pt used bedside commode for urine sample to be obtained. ambulated w/ steady gait. urine/labs obtained and sent to lab. ekg performed by tech. pt verbalizing generalized body aches at this time. no sob/wob noted. respirations even and unlabored. seizure precautions in place. call russell placed within reach.
[2023-08-21 15:56] LABS: Alanine Aminotransferase 18 U/L (0-31); Albumin Level 4.1 g/dL (3.5-5.0); Alkaline Phosphatase 78 U/L (39-117); Anion Gap 12 (12-20); Aspartate Amino Transferase 14 U/L (5-31); Bilirubin Direct < 0.2 mg/dL (0.0-0.5); Bilirubin Total 0.2 mg/dL (0.0-1.0); Blood Urea Nitrogen 11 mg/dL (9-16); Calcium 8.9 mg/dL (8.4-10.2); Carbon Dioxide 23 mmol/L (22-29); Chloride 110 mmol/L (96-108); Creatinine Clr Calc Pharmacy 133.2; Estimated Glomerular Filt Rate > 60; Ethanol < 10 mg/dL; Glucose Random 105 mg/dL (60-115); Magnesium 2.2 mg/dL (1.6-2.6); Potassium 3.5 mmol/L (3.3-5.1); Sodium 141 mmol/L (135-145); Total Protein 7.7 g/dL (6.5-8.0)
--- NOTE | 2023-08-21 16:24 | PC.NURSE ---
medication administered per provider order.
--- NOTE | 2023-08-21 17:34 | PC.NURSE ---
pt seen by ED provider - pt and pt's partner aware of plan of care at this time. IVF administered per provider order. pt resting comfortably w/ eyes closed/lights dimmed at this time. respirations remain even and unlabored. seizure pads in place. call russell placed within reach.
--- NOTE | 2023-08-21 17:52 | PHA.MEDREC ---
Pharmacy Consult ? Medication Reconciliation Pharmacy has completed the medication reconciliation.
--- NOTE | 2023-08-21 17:53 | PC.NURSE ---
pt to CT at this time.
--- NOTE | 2023-08-21 17:59 | PM.IMHP ---
History of Present Illness Date of Service: 08/21/23 Chief Complaint: Seizure 27-year-old female with known seizure disorder presents after 3 reported seizures this a.m.. Significant other states she missed several doses over the holidays but restarted this a.m.. Last seizure lasted approximately 4 minutes and partner called EMS. EN route she received 2 mg of Versed and 1 mg Ativan here. She had a prolonged postictal state and admission was requested Review of Systems Review of Systems: Denies chest pain Denies shortness of breath Denies nausea vomiting diarrhea Denies fever chills [facility] Medical History (Updated 08/21/23 @ 18:04 by Miguel Crews DO) Seizure disorder Seizures Hypoxia Depression Anxiety Snoring Headache Contraception management Hyperglycemia Rash Seizure disorder Anemia Viral syndrome Depression with anxiety care and examination BCP ( control pills) initiation Annual physical exam Depression Frequent UTI Family History Father Seizure Mother No problems noted. Surgical History Hx of section No pertinent past surgical history Social History Household Members: Family Housing: House Do you presently have visiting nurse or other home services: No Unable to assess alcohol history related to: Unknown Alcohol intake: never Patient Tobacco Use Status: Never used Tobacco e-Cigarette/Vaping Use: Never Used Use of substances other than those prescribed or required for medical reasons: Unknown Substance Use Type: Marijuana Advance Directives: Yes Advance Directives on File: Yes Advance Directives Date on File: 12/26/22 service: No Current occupational status: employed Sexual orientation: Straight/Heterosexual Cognitive needs: No Hearing needs: No Vision needs: No Meds Allergies Allergy/AdvReac Type Severity Reaction Status Date / Time phenytoin [From DILANTIN] Allergy Mild RASH Verified 08/21/23 12:24 strawberry AdvReac Hives Verified 08/21/23 12:24 Active Medications: Current Medications Acetaminophen (Acetaminophen 325 Mg Tablet) 650 mg PO Q6H PRN PRN Reason: Pain, Mild (Pain Scale 1-3) Hydroxyzine HCl (Hydroxyzine Hcl 25 Mg Tablet) 25 mg PO TID PRN PRN Reason: anxiety Sodium Chloride (Ns) 1,000 mls @ 999 mls/hr IV .Q1H1M ONE Stop: 08/21/23 18:27 Last Admin: 08/21/23 17:33 Dose: 999 mls/hr Ibuprofen (Ibuprofen 400 Mg Tablet) 400 mg PO Q6H PRN PRN Reason: Fever or Pain, Mild (Pain Scale 1-3) Lorazepam (Lorazepam 1 Mg Tablet) 1 mg PO BID PRN PRN Reason: seizure activity Oxcarbazepine (Oxcarbazepine 300 Mg Tablet) 900 mg PO BID NAHEED Sodium Chloride (0.9 % Sodium Chloride Flush 3 Ml Syringe) 3 ml IVFLUSH QSHIFT NAHEED Physical Exam Vital Signs and Narrative: Vital Signs: Last Vital Signs Temp 97.5 F 08/21/23 12:30 Pulse 84 08/21/23 15:34 Resp 18 08/21/23 15:34 BP 117/77 08/21/23 15:34 Pulse Ox 96 08/21/23 12:30 O2 Del Method Room Air 08/21/23 15:34 BMI result Body Mass Index 28.4 Const: Other: Somnolent but arousable. No acute distress HEENT: Other: Multiple id teeth bites lower lip Resp: Other: Clear to auscultation bilaterally no rales rhonchi or wheezes Cardio: Other: No S4; positive S1-S2; no S3 murmurs rubs or gallops GI: Other: Soft nontender nondistended normoactive bowel sounds Neuro: Other: Cranial nerves 2-12 grossly intact as tested. Motor is 5/5 all extremities. Sensation is intact. Extrem: Other: No edema bilaterally Results Labs 08/21/23 15:28 08/21/23 15:28 Labs: Laboratory Results - last 24 hr 08/21/23 15:28 MCV 78.8 L MCH 25.5 L MCHC 32.4 RDW 14.6 Plt Count 390 D MPV 10.3 Immature Gran % (Auto) Cancelled Neut % (Auto) Cancelled Lymph % (Auto) Cancelled [place] % (Auto) Cancelled Eos % (Auto) Cancelled Baso % (Auto) Cancelled Lymph # (Auto) Cancelled [place] # (Auto) Cancelled Eos # (Auto) Cancelled Baso # (Auto) Cancelled Abs Immat Gran (auto) Cancelled Absolute Neuts (auto) Cancelled Absolute Nucleated RBC 0.000 Nucleated RBC % (auto) 0.0 Neutrophils % (Manual) 95 H Band Neutrophils % 0 L Lymphocytes % (Manual) 3 L Monocytes % (Manual) 2 Abs Neuts (Manual) 21.9 H Lymphocytes # (Manual) 0.7 L Monocytes # (Manual) 0.5 Toxic Vacuolation PRESENT Platelet Estimate NORMAL Plt Morphology Comment NORMAL RBC Morphology NORMAL Anion Gap 12 Estim Creat Clear Calc 133.2 Estimated GFR > 60 Random Glucose 105 Calcium 8.9 Magnesium 2.2 Total Bilirubin 0.2 Direct Bilirubin < 0.2 AST 14 ALT 18 Alkaline Phosphatase 78 Total Protein 7.7 Albumin 4.1 Beta HCG, Quant < 2 Urine Color Yellow Urine Appearance Clear Urine pH 6.0 Ur Specific [place] 1.020 Urine Protein 30 (1+) H Urine Glucose (UA) 250 H Urine Ketones Trace Urine Blood Negative Urine Nitrite Negative Ur Leukocyte Esterase Negative Urine RBC 0-2 Urine WBC 0-5 Ur Squamous Epith Cells 3-5 Urine Bacteria 1+ Hyaline Casts 0-2 Urine Opiates Screen Not Detected Urine Fentanyl Screen Not Detected Ur Barbiturates Screen Not Detected Ur Phencyclidine Scrn Not Detected Ur Amphetamines Screen Not Detected U Benzodiazepines Scrn POSITIVE H Urine Cocaine Screen Not Detected U Marijuana (THC) Screen POSITIVE H Ethyl Alcohol < 10 Assessment and Plan (1) Seizure disorder: Status: Acute (2) Leukocytosis: Qualifiers: Leukocytosis type: unspecified Qualified Code(s): D72.829 - Elevated white blood cell count, unspecified Status: Acute Plan 27-year-old female with known seizure disorder who missed several doses of Trileptal over the holidays resume taking this a.m. however had 3 seizures at home the last lasting 4 minutes which prompted EMS call. Received 2 Versed and 1 of lorazepam in the ER which is likely cause for prolonged postictal state 1. Seizure disorder Known seizure disorder and no meds over holidays; Versed and lorazepam exacerbated postictal state. Slowly returning to baseline -admit to med surge overnight and monitor -avoid benzos 2. Leukocytosis Likely reactive with current presentation -follow CBC in a.m. 3. Anxiety Given prolonged postictal state in response of Versed and lorazepam; will hold benzodiazepines in favor of hydroxyzine if needed -hydroxyzine 25 mg p.o. q.6 hours p.r.n. Full code Ambulation Quality Stroke Does the patient have a stroke diagnosis?: No VTE Prior VTE?: No VTE Risk Level:: Medical - low VTE Device Contraindication: Treatment Not Indicated VTE Drug Contraindication: Treatment Not Indicated
[2023-08-21 18:18] VITALS: BP 101/54; PULSE 96; RESP 11; TEMP 36.6; O2SAT 99
--- NOTE | 2023-08-21 18:37 | PC.NURSE ---
vss and up to date at this time. nsr on the monitoring manager. pt still confused/alert and oriented to self only. pt confused to why she is here/how she got here. pt states she doesn't feel good and that she's nauseous ED provider notified and aware at this time.
[2023-08-21 21:47] VITALS: BP 108/63; PULSE 96; RESP 18; TEMP 37.3; O2SAT 97
[2023-08-22 03:38] VITALS: BP 96/56; PULSE 83; RESP 18; TEMP 36.4; O2SAT 99
[2023-08-22 06:46] LABS: Anion Gap 10 (12-20); Blood Urea Nitrogen 7 mg/dL (9-16); Calcium 8.3 mg/dL (8.4-10.2); Carbon Dioxide 24 mmol/L (22-29); Chloride 112 mmol/L (96-108); Estimated Glomerular Filt Rate > 60; Glucose Random 87 mg/dL (60-115); Potassium 3.1 mmol/L (3.3-5.1); Sodium 143 mmol/L (135-145)
[2023-08-22 07:19] VITALS: BP 101/66; PULSE 78; RESP 16; TEMP 36.1; O2SAT 97
--- NOTE | 2023-08-22 09:17 | PM.DS ---
DS: Providers Provider Date of Service: 08/22/23 Date of admission: 08/21/23 17:53 Date of discharge: 08/22/23 Primary care physician: Unknown Physician DS: Diagnosis Discharge Diagnosis (1) Seizure disorder: Status: Acute (2) Leukocytosis: Status: Acute DS: Summary Hospital Course Hospital Course: 27-year-old female with known seizure disorder admitted for multiple seizures the last of which lasting 4 minutes. When significant on the was questioned, states has missed dosing over the holidays. Did start dosing the day of seizures however this did not prevent the breakthroughs. She was admitted overnight without seizure activity. CT scan of the head failed to demonstrate any acute abnormalities. At this point in time she is awake alert acute back to baseline; she is medically acceptable for discharge Time Attestation Discharge coordination time: Greater than 30 minutes Quality: Safe Use of Opioids Does Pt have an Active Cancer Diagnosis on the Problem List?: No Quality: Stroke Does the patient have a stroke diagnosis?: No Physical Exam Vital Signs: Vital Signs: Last Vital Signs Temp 97.0 F 08/22/23 07:19 Pulse 78 08/22/23 07:19 Resp 16 08/22/23 07:19 BP 101/66 08/22/23 07:19 Pulse Ox 97 08/22/23 07:19 O2 Del Method Room Air 08/22/23 07:19 BMI result Body Mass Index 28.4 Const: Other: Somnolent but arousable. No acute distress HEENT: Other: Multiple id teeth bites lower lip Resp: Other: Clear to auscultation bilaterally no rales rhonchi or wheezes Cardio: Other: No S4; positive S1-S2; no S3 murmurs rubs or gallops GI: Other: Soft nontender nondistended normoactive bowel sounds Neuro: Other: Cranial nerves 2-12 grossly intact as tested. Motor is 5/5 all extremities. Sensation is intact. Extrem: Other: No edema bilaterally DS: Data Data Completed and Pending Labs on day of discharge: Laboratory Results - last 24 hr 08/21/23 08/22/23 15:28 06:10 WBC 23.0 H 9.0 RBC 5.18 4.56 Hgb 13.2 11.9 L Hct 40.8 36.4 L MCV 78.8 L 79.8 L MCH 25.5 L 26.1 L MCHC 32.4 32.7 RDW 14.6 14.8 Plt Count 390 D 242 D MPV 10.3 10.1 Immature Gran % (Auto) Cancelled Neut % (Auto) Cancelled Lymph % (Auto) Cancelled [place] % (Auto) Cancelled Eos % (Auto) Cancelled Baso % (Auto) Cancelled Lymph # (Auto) Cancelled [place] # (Auto) Cancelled Eos # (Auto) Cancelled Baso # (Auto) Cancelled Abs Immat Gran (auto) Cancelled Absolute Neuts (auto) Cancelled Absolute Nucleated RBC 0.000 0.000 Nucleated RBC % (auto) 0.0 0.0 Neutrophils % (Manual) 95 H Band Neutrophils % 0 L Lymphocytes % (Manual) 3 L Monocytes % (Manual) 2 Abs Neuts (Manual) 21.9 H Lymphocytes # (Manual) 0.7 L Monocytes # (Manual) 0.5 Toxic Vacuolation PRESENT Platelet Estimate NORMAL Plt Morphology Comment NORMAL RBC Morphology NORMAL Sodium 141 143 Potassium 3.5 3.1 L Chloride 110 H 112 H Carbon Dioxide 23 24 Anion Gap 12 10 L BUN 11 7 L Creatinine 0.73 0.68 Estim Creat Clear Calc 133.2 143.0 Estimated GFR > 60 > 60 Random Glucose 105 87 Calcium 8.9 8.3 L D Magnesium 2.2 Total Bilirubin 0.2 Direct Bilirubin < 0.2 AST 14 ALT 18 Alkaline Phosphatase 78 Total Protein 7.7 Albumin 4.1 Beta HCG, Quant < 2 Urine Color Yellow Urine Appearance Clear Urine pH 6.0 Ur Specific [place] 1.020 Urine Protein 30 (1+) H Urine Glucose (UA) 250 H Urine Ketones Trace Urine Blood Negative Urine Nitrite Negative Ur Leukocyte Esterase Negative Urine RBC 0-2 Urine WBC 0-5 Ur Squamous Epith Cells 3-5 Urine Bacteria 1+ Hyaline Casts 0-2 Urine Opiates Screen Not Detected Urine Fentanyl Screen Not Detected Ur Barbiturates Screen Not Detected Ur Phencyclidine Scrn Not Detected Ur Amphetamines Screen Not Detected U Benzodiazepines Scrn POSITIVE H Urine Cocaine Screen Not Detected U Marijuana (THC) Screen POSITIVE H Ethyl Alcohol < 10 Discharge Plan Discharge Anticipated Discharge Date/Time: 08/22/23 09:15 Patient Disposition: Home, Self-Care Discharge Diagnosis: Breakthrough seizures Referrals: Physician,Unknown J [Primary Care Provider] - 1 Week Discharge Medications: Continued oxcarbazepine 600 mg tablet 900 mg PO BID Qty: 90 0RF lorazepam [Ativan] 1 mg tablet 1 mg PO BID PRN (Reason: seizure activity) Qty: 20 0RF ondansetron 4 mg tablet,disintegrating 4 mg PO Q6-8H PRN (Reason: nausea and vomiting) Qty: 14 0RF hydroxyzine HCl 25 mg tablet 25 mg PO TID PRN (Reason: anxiety) Qty: 90 2RF Discharge Orders: Discharge Order (Routine); Ordered 08/22/23 Ordered By: Miguel Crews Diet: Advance to usual diet Activity on Discharge: As tolerated Stand Alone Forms: Patient Portal Discharge page Activity Restrictions/Additional Instructions: follow up with your neurologist. you were given your night time dose of oxcarbazepine do not take anymore tonight. return for worsening symptoms or concerns. follow up with your doctor. stay with responsible adult. no driving, operating heavy machinery. Care Plan Goals: Resume all meds as taken before hospital. Do your best to take your medicine every day to prevent further seizures Health Concerns: No driving into the [facility] neurologist. Follow-up the next available appointment Plan of Treatment: As above Assessment: See discharge summary Patient Instructions: Epilepsy (ED)
--- NOTE | 2023-08-22 09:25 | MHC.CM.PN ---
PATI DELIVERED PT LIVES WITH FAMILY. INDEPENDENT AND EMPLOYED. +HCP ON FILE PCP DR. ALBERTS AT [facility] – [place]: PT HAS BEEN MEDICALLY CLEARED FOR DC HOME, NO SERVICES. FRIEND WILL TRANSPORT HOME
== END 2023-08-22 11:04 | disposition home or self-care (01) ==
LOC: HO.ED 17:36 → HO.EDOVER 18:19 → HO.S3 19:35
PROVIDERS: Admitting Provider Hospitalist; Emergency Provider Emergency Medicine; PCP Internal Medicine; Visit Provider Hospitalist
DX: G40.909 Epilepsy, unspecified, not intractable, without status epilepticus (principal); D72.89 Other specified disorders of white blood cells; F41.9 Anxiety disorder, unspecified; Z79.899 Other long term (current) drug therapy
CPT/HCPCS: 36415; 70450; 80048; 80076; 80307; 81001; 83735; 84702; 85007; 85027; 93005; 96361; 96374; 99221; 99285; J2060

== ENCOUNTER → 2023-08-21 12:58 | Outpatient (BNV) | payer OTHER, SELFPAY | PROVIDERS: Emergency Provider Emergency Medicine; Visit Provider Hospitalist | DX: G40.909 Epilepsy, unspecified, not intractable, without status epilepticus (principal); D72.829 Elevated white blood cell count, unspecified | CPT/HCPCS: 99223; 99239 ==

== ENCOUNTER → 2023-08-21 13:00 | Outpatient (BNV) | payer OTHER, SELFPAY | PROVIDERS: Admitting Provider Hospitalist; Emergency Provider Emergency Medicine; Visit Provider Internal Medicine Cardiovascular Disease | DX: G40.89 Other seizures (principal) | CPT/HCPCS: 93010 ==

== ENCOUNTER 2023-08-26 10:24 | Outpatient (AMB) | payer OTHER, SELFPAY ==
[2023-08-26 10:50] VITALS: BP 106/70; PULSE 47; O2SAT 99; BMI 36.1
--- NOTE | 2023-08-26 10:50 | MHC.PC.OV ---
Vital Signs 08/26/23 10:50 Height 4 ft 11 in Weight 179 lb BMI 36.1 BP 106/70 Blood Pressure Location Lt brachial Position Sitting Pulse 47 L Pulse Source Pulse Oximeter Pulse Oximetry (%) 99 Oxygen Delivery Method Room Air Intake Visit Reasons: Hospital follow up Intake Note: Pt is here today for a Hospital follow up visit. Pt states that she has appt with Neurologist in [place] this month. Allergies phenytoin [From DILANTIN] Allergy (Mild, Verified 08/26/23 10:54) RASH strawberry Adverse Reaction (Verified 08/26/23 10:54) Hives Tobacco use date assessed: 08/26/23 Dental Screening Dental Screen Date: 08/26/23 Did you have a dental visit in the last 12 months?: Yes Did you have a dental problem in the last 6 months where you did not have access to dental care?: No Was dental information given to patient?: Patient has dentist HPI Hospital follow up HPI Details Pt presents for f/u [facility] hospitalization for seizure episode due no compliance. Patient has been taking her medication regularly and has a follow-up appointment with neurologist in the end of the mouth. Pt follows up with counselor for anxiety. Patient denies depression but has been having episodes of panic attacks. [facility] Medical History (Updated 08/26/23 @ 12:15 by Meredith Cervantes MD) Seizure disorder Seizures Hypoxia Depression Anxiety Snoring Headache Contraception management Hyperglycemia Rash Seizure disorder Anemia Viral syndrome Depression with anxiety care and examination BCP ( control pills) initiation Annual physical exam Depression Frequent UTI Surgical History Hx of section No pertinent past surgical history Family History Father Seizure Mother No problems noted. Social History Household Members: Family Housing: House Do you presently have visiting nurse or other home services: No Unable to assess alcohol history related to: Unknown Alcohol intake: never Patient Tobacco Use Status: Never used Tobacco e-Cigarette/Vaping Use: Never Used Substance Use Type: Marijuana Advance Directives Date on File: 12/26/22 service: No Current occupational status: employed Sexual orientation: Straight/Heterosexual Cognitive needs: No Hearing needs: No Vision needs: No Female Reproductive History Menstrual Age of Menarche: 18 Questionnaire Thrive Questionnaire Date Thrive assessed: 08/22/23 AUDIT C Alcohol Use Questionnaire (AUDIT-C) 1. How often do you have a drink containing alcohol?: Never 3. How often do you have six or more drinks on one occasion?: Never Total Score: 0 KARLO-7 AMB Questionnaire KARLO-7 Feeling nervous, anxious, or on edge: 2 = More than half the days Not being able to stop or control worryin = Several days Worrying too much about different things: 1 = Several days Trouble relaxin = Several days Being so restless that it is hard to sit still: 1 = Several days Becoming easily annoyed or irritable: 0 = Not at all Feeling afraid as if something awful might happen: 1 = Several days Total KARLO-7 score (0-4 normal; 5-9 mild; 10-14 moderate; 15-21 severe): 7 Source: Developed by Drs. Celestine Ward, Diane Fiore, Danial Braden and colleagues, with an educational blue from [employer]. Review of Systems Const All systems reviewed & are unremarkable except as noted in HPI and below Reports no additional complaints Eyes Reports no additional complaints ENT Reports no additional complaints Card Reports no additional complaints Resp Reports no additional complaints GI Reports no additional complaints Reports no additional complaints Physical exam (Primary Care) Vital Signs: Last Vital Signs Pulse 47 L 08/26/23 10:50 BP 106/70 08/26/23 10:50 Pulse Ox 99 08/26/23 10:50 Oxygen Delivery Method Room Air 08/26/23 10:50 BMI result Body Mass Index 36.1 Tobacco/Smoking Status: Tobacco use Status Tobacco use date assessed 08/26/23 08/26/23 10:54 Patient Tobacco Use Status Never used Tobacco 08/26/23 10:54 e-Cigarette/Vaping Use Never Used 08/26/23 10:50 Thrive Assessment: Date of Thrive Assessment Date Thrive assessed 08/22/23 08/26/23 10:50 Const General: no acute distress HENMT Head: Yes normal to inspection Eyes General: appearance normal, both eyes and all related structures Neck Neck: Yes no lymphadenopathy and Yes supple Resp Effort & Inspection: normal respiratory effort Auscultation: clear to auscultation bilaterally Cardio Rhythm: regular rhythm Heart sounds: S1 normal heart sound present and S2 normal heart sound present GI Inspection: Yes normal to inspection Palpation (GI): Soft to palpation Percussion: Yes normal to percussion Auscultation: normal bowel sounds Assessment and Plan Assessment & Plan (1) Seizure disorder: Comment: f/u with [facility] Neurology Code(s): G40.909 - Epilepsy, unspecified, not intractable, without status epilepticus Plan: Continue current medication and follow-up with Neurology (2) Anxiety: Code(s): F41.9 - Anxiety disorder, unspecified Plan: Stress management discussed with the patient she will continue to follow up with a counselor Coding Level of Care Code Est Pt Level 3 (69898) Diagnoses Seizure disorder G40.909 Anxiety F41.9
== END 2023-08-26 12:16 | disposition home or self-care (01) ==
LOC: HO.HMGC 10:24
PROVIDERS: PCP Internal Medicine; Visit Provider Internal Medicine
DX: G40.909 Epilepsy, unspecified, not intractable, without status epilepticus (principal); F41.9 Anxiety disorder, unspecified
CPT/HCPCS: 99213

== ENCOUNTER 2023-10-08 19:05 | Inpatient (IN) | payer OTHER, SELFPAY ==
[2023-10-08] VITALS (7 sets, daily range): BP systolic 92–105; BP diastolic 58–73; PULSE 66–98; RESP 16–20; TEMP 36.4–36.6; O2SAT 96–100; BMI 30.2
--- NOTE | 2023-10-08 19:40 | PC.NURSE ---
pt arrived to ED post ictal, hx 4 sz today prior to ED arrival lasting ~ 2 minutes each per boyfriend. 1 episode of nausea/vomiting, pt changed over, monitoring specialist applied, vs. pt is in the process of trying to get emergency medication approved through insurance. boyfriend reports worsening sz before pt starts her menses. followed by neuro in [place]. pt pending ED provider, jerad precautions in place.
--- NOTE | 2023-10-08 19:48 | MHC.EDTECH ---
Patient came in by EMS,changed into hospital attire,vitals taken and monitoring tech placed,seizure pads placed on side rails.call russell in reach
--- NOTE | 2023-10-08 20:28 | ED_ITS ---
HPI - Seizure General Chief Complaint: Seizure Stated Complaint: 4 Seizures today, post ictal currently Time Seen by Provider: 10/08/23 19:44 Source: other (Significant other, [employer]) Mode of arrival: EMS Limitations: altered mental status History of Present Illness HPI Narrative: 27-year-old female with a history of seizures, pseudoseizures, depression, anxiety, anemia, who presents emergency department for evaluation of seizures. Patient's boyfriend, [employer] who was here in the emergency department with the patient states that the patient gets multiple seizures around her menstrual cycle. He states she has had at least 3-4 seizures at home. I did see the patient on 08/20/2023 and this was after the patient was taken off for seizure medications after negative workup at [facility]. Her boyfriend states that they did follow-up with [facility] and it was felt that the patient did have abnormal electric activity in her left brain and does have a seizure disorder. Patient was started on Trileptal (oxcarbazepine) and apparently has been compliant with his medication. She was also prescribed intranasal Valium however the boyfriend states that this was not covered by her insurance. Here in the emergency department the patient did have a tonic clonic seizure which lasted approximately 90 seconds, after the seizure she had a postictal. Which lasted approximately 1 hour. When the patient recovered from the postictal. She was very agitated which the boyfriend states his usual for her postictal period. Seizure History: Yes Related Data Previous Rx's Medication Instructions Recorded hydroxyzine HCl 25 mg tablet 25 mg PO TID PRN anxiety #90 tabs 03/11/23 oxcarbazepine 600 mg tablet 900 mg (1.5 x 600 mg) PO BID #90 06/28/23 tabs lorazepam 1 mg tablet (Ativan) 1 mg PO BID PRN seizure activity 06/29/23 #20 tabs ondansetron 4 mg disintegrating 4 mg PO Q6-8H PRN nausea and 06/29/23 tablet vomiting #14 tabs Allergies Allergy/AdvReac Type Severity Reaction Status Date / Time phenytoin [From DILANTIN] Allergy Mild RASH Verified 10/08/23 19:23 strawberry AdvReac Hives Verified 10/08/23 19:23 [facility] Past Medical History Medical History (Updated 10/08/23 @ 23:38 by Alfie Bruner MD) Seizure disorder Seizures Hypoxia Depression Anxiety Snoring Headache Contraception management Hyperglycemia Rash Anemia Viral syndrome Depression with anxiety care and examination BCP ( control pills) initiation Annual physical exam Depression Frequent UTI Surgical History Hx of section No pertinent past surgical history Family History Family History Father Seizure Mother No problems noted. Social History Social History Household Members: Family Housing: House Do you presently have visiting nurse or other home services: No Unable to assess alcohol history related to: Unknown Alcohol intake: never Patient Tobacco Use Status: Never used Tobacco e-Cigarette/Vaping Use: Never Used Substance Use Type: Marijuana Advance Directives: Yes Advance Directives on File: Yes Advance Directives Date on File: 12/26/22 service: No Current occupational status: employed Sexual orientation: Straight/Heterosexual Cognitive needs: No Hearing needs: No Vision needs: No Physical Exam 2 Vital Signs: Vital Signs: Last Vital Signs Temp 97.8 F 10/08/23 22:14 Pulse 90 10/08/23 22:33 Resp 16 10/08/23 22:33 BP 105/67 10/08/23 22:33 Pulse Ox 98 10/08/23 22:33 O2 Del Method Room Air 10/08/23 22:33 BMI result Body Mass Index 30.2 Vital signs were normal Exam: General: Patient's postictal and agitated Head: Normocephalic, atraumatic EENT: PERRL, Lids normal, sclera normal, conjunctiva normal, nose normal , ears normal Neck: Supple, no adenopathy Lung: breath sounds symmetric, no wheezing, rales or rhonchi Chest: symmetric movement, nontender Heart: regular rate and rhythm, normal S1, S2 no murmurs or rubs Abdomen: soft, non-tender, nondistended, normal bowel sounds Neuro: Patient is postictal and agitated, moves all extremities symmetrically Medications Administered Discontinued Medications Generic Name Dose Route Start Last Admin Trade Name Freq PRN Reason Stop Dose Admin Sodium Chloride 1,000 mls @ 999 mls/hr 10/08/23 20:28 10/08/23 23:42 Ns IV 10/08/23 21:28 Not Given .Q1H1M STA Midazolam HCl 4 mg 10/08/23 20:30 10/08/23 20:52 Midazolam Hcl/Pf 2 Mg/2 Ml Vial IM 10/08/23 20:31 4 mg ONCE ONE Administration Midazolam HCl 4 mg 10/08/23 20:48 10/08/23 20:54 Midazolam Hcl/Pf 2 Mg/2 Ml Vial IM 10/08/23 20:49 4 mg ONCE ONE Administration Ondansetron HCl 4 mg 10/08/23 22:32 10/08/23 22:37 Ondansetron Odt 4 Mg Tab.Rapdis TRANSLINGU 10/08/23 22:33 4 mg ONCE STA Administration Medical Decision Making Medical Decision Making MDM Narrative: 27-year-old female with a history of seizures, pseudoseizures, depression, anxiety, anemia, who presents emergency department for evaluation of multiple seizures. When I went into examine the patient she had a tonic clonic seizure which lasted approximately 90 seconds and she had a postictal period of approximately 1 hour. According to her boyfriend, when she wakes up from her seizure she is very agitated and angry. This occurred and the patient needed to be placed in soft restraints to stop her from getting out of the bed. The patient did receive Versed 4 mg IM x2 during her seizure and during her postictal. When she became agitated. Following evaluation was ordered: CBC, CMP, CK, PTT, COVID-19, influenza, RSV Patient was treated with the following: Versed 4 mg IM x2, Zofran 4 mg ODT 23:31 My independent interpretation patient's laboratory evaluation is as follows: Elevated WBC 17947. PTT was normal. Bicarb was low 20. CK was normal at 93 despite her tonic clonic seizure. Oxcarbazepine level is pending. COVID-19, influenza and RSV were pending. 00:02 Start physician observation I did discuss the patient's presentation with the covering hospitalist, Dr. Shant Wilkerson. I did clarify that the patient received Versed 4 mg IM while she was having her seizure and a 2nd dose of Versed 4 mg IM when she was agitated coming out of her postictal phase. At this time the patient is sleeping and Dr. Shant Wilkerson requested that we observe the patient in the emergency depart and until she is awake and is at her baseline Therefore the patient was placed in physician observation. I did order a dose of oxcarbazepine 900 mg oral to be given when the patient is more awake. At the end of my shift, I did discuss the patient's presentation with my colleague, Dr. Spencer and the patient's care was turned over to him. Also at this time we do not have an IV and the patient's boyfriend is requesting that we wait until the patient is back to her baseline before attempting another IV. He was concerned that if we try an IV now, this will trigger her agitation again. Differential Diagnosis Differential Diagnoses: The differential diagnosis associated with the presentation includes Differential diagnosis includes was not limited to seizures, electrolyte abnormalities, anemia, noncompliance with medications Admission/Observation Consideration of admission/observation: Escalation of care including admission/observation considered Consult Healthcare Provider Management of the patient was discussed with: Hospitalist Lab Data MDM Lab Attestation statement: I reviewed the patient's lab results. 10/08/23 21:52 10/08/23 21:52 Labs: Lab Results 10/08/23 Range/Units 21:52 WBC 16.0 H (4.8-10.8) X10*3/uL RBC 5.39 (4.20-5.50) X10*6/uL Hgb 14.0 (12.0-16.0) g/dl Hct 43.3 (37.0-47.0) % MCV 80.3 (80.0-98.0) fL MCH 26.0 L (27.0-33.0) pg MCHC 32.3 (31.0-35.0) g/dl RDW 15.0 (11.0-16.0) % Plt Count 332 D (160-400) X10*3/uL MPV 10.3 (9.4-12.3) fL Immature Gran % (Auto) 0.4 (0.0-0.4) % Neut % (Auto) 93.3 H (45-73) % Lymph % (Auto) 4.2 L (20-40) % Dougherty % (Auto) 1.9 L (2-11) % Eos % (Auto) 0.0 (0-4) % Baso % (Auto) 0.2 (0-2) % Lymph # (Auto) 0.7 L (1.2-4.9) X10*3/uL Dougherty # (Auto) 0.3 (0.1-1.2) X10*3/uL Eos # (Auto) 0.0 (0.0-0.4) X10*3/uL Baso # (Auto) 0.0 (0.0-0.2) X10*3/uL Abs Immat Gran (auto) 0.06 H (0.00-0.03) X10*3/uL Absolute Neuts (auto) 14.9 H (2.0-8.3) x10*3/uL Absolute Nucleated RBC 0.000 (0.0-0.012) X10*3/uL Nucleated RBC % (auto) 0.0 (0.0-0.2) /100WBC Smear Tech's Comments VERIFIED APTT 27.7 (26.0-36.8) SEC Sodium 140 (135-145) mmol/L Potassium 3.9 (3.3-5.1) mmol/L Chloride 108 (96-108) mmol/L Carbon Dioxide 20 L (22-29) mmol/L Anion Gap 16 (12-20) BUN 16 (9-16) mg/dL Creatinine 0.73 (0.5-1.4) mg/dL Estim Creat Clear Calc 110.6 Estimated GFR > 60 Random Glucose 106 (60-115) mg/dL Calcium 9.5 D (8.4-10.2) mg/dL Total Bilirubin 0.3 (0.0-1.0) mg/dL AST 13 (5-31) U/L ALT 14 (0-31) U/L Alkaline Phosphatase 90 (39-117) U/L Total Creatine Kinase 93 (26-140) U/L Total Protein 8.3 H (6.5-8.0) g/dL Albumin 4.5 (3.5-5.0) g/dL Independent Historian Clinical information obtained from an independent historian. History obtained from or confirmed by: Other (Boyfriend) External Record Review External record reviewed: Inpatient record Chronic Conditions Patient?s care impacted by: Other (Seizure disorder) Critical Care Time Critical Care Time Critical Care Time: Yes Total Critical Care Time: 75 Attestation: Critical Care: The patient was critically ill with a high probability of imminent or life threatening deterioration. I spent greater than 30 minutes of discontinuous time evaluating the patient,delivering critical care at the bedside, discussing and evaluating pertinent data with consultants. Critical care time does not include time spent performing separately billable procedures or teaching. Total time spent performing critical care was 75 minutes. Discharge Plan Discharge Clinical Impression: Seizures Patient Disposition: Admitted As Inpatient
[2023-10-08] MEDS: Midazolam HCl/PF 2 MG/2 ML VIAL 4 MG IM ×2 (20:52→20:54)
--- NOTE | 2023-10-08 21:02 | MHC.EDTECH ---
Unable to obtain labs at this time, patient is postical,RN is aware
--- NOTE | 2023-10-08 21:02 | PC.NURSE ---
partner alerted ED staff to another seizure, medicated per MAR, pt postical, unable to place IV/collect labs at this time d/t increased pt agitation. provider aware.
--- NOTE | 2023-10-08 21:31 | PC.NURSE ---
pt continues to pull at monitor lines, unable to tolerate blood draws d/t increased confusion, postictal, soft restraints applied to RA and LA per provider order, vss, boyfriend educated on procedure and remains at bedside.
[2023-10-08 22:00] LABS: Basophils Percent Auto 0.2 % (0-2); Hematocrit 43.3 % (37.0-47.0); Imm Gran Abs Auto 0.06 X10*3/uL (0.00-0.03); Imm Gran Pct Auto 0.4 % (0.0-0.4); Lymphocytes Absolute Auto 0.7 X10*3/uL (1.2-4.9); Lymphocytes Percent Auto 4.2 % (20-40); MANUAL DIFF FLAG SCAN; Mean Corpuscular HGB Conc 32.3 g/dl (31.0-35.0); Mean Corpuscular Volume 80.3 fL (80.0-98.0); Mean Platelet Volume 10.3 fL (9.4-12.3); Monocytes Absolute Auto 0.3 X10*3/uL (0.1-1.2); Monocytes Percent Auto 1.9 % (2-11); Neutrophils Absolute Auto 14.9 x10*3/uL (2.0-8.3); Neutrophils Percent Auto 93.3 % (45-73); Platelet Count 332 X10*3/uL (160-400); Red Blood Count 5.39 X10*6/uL (4.20-5.50); SCAN SMEAR FLAG 1
[2023-10-08 22:08] LABS: Partial Thromboplastin Time 27.7 SEC (26.0-36.8)
[2023-10-08 22:17] LABS: Alanine Aminotransferase 14 U/L (0-31); Albumin Level 4.5 g/dL (3.5-5.0); Alkaline Phosphatase 90 U/L (39-117); Anion Gap 16 (12-20); Aspartate Amino Transferase 13 U/L (5-31); Bilirubin Total 0.3 mg/dL (0.0-1.0); Blood Urea Nitrogen 16 mg/dL (9-16); Calcium 9.5 mg/dL (8.4-10.2); Carbon Dioxide 20 mmol/L (22-29); Chloride 108 mmol/L (96-108); Creatinine Clr Calc Pharmacy 110.6; Estimated Glomerular Filt Rate > 60; Glucose Random 106 mg/dL (60-115); Potassium 3.9 mmol/L (3.3-5.1); Sodium 140 mmol/L (135-145); Total Protein 8.3 g/dL (6.5-8.0)
[2023-10-08 22:20] LABS: SLIDE REVIEW VERIFIED
--- NOTE | 2023-10-08 22:34 | MHC.EDTECH ---
Patient was incot. of a very large amount of urine,nnamdi-care giving and bed was changed. Hourly rounds and vitals completed.
[2023-10-08] MEDS: Ondansetron ODT 4 MG TAB.RAPDIS TRANSLINGU (22:37)
--- NOTE | 2023-10-08 22:52 | MHC.EDTECH ---
patient placed on the bedpan and urinated a large amount,nnamdi-care giving and pt repositioned to comfort
--- NOTE | 2023-10-08 22:55 | PC.NURSE ---
pt had multiple episodes of vomiting, requesting water, pt agreeable to take antiemetic if given with water, pt given small sips of water but became increasingly agitated when water was removed d/t increased risk for vomiting. pt given another small amount of water and assisted onto a bedpan. provider aware, pt remains in RA and LA restraints d/t increased confusion and unable to maintain monitoring analyst/pulse ox lines. boyfriend remains at bedside to reorient pt.
--- NOTE | 2023-10-08 23:00 | PC.NURSE ---
This fha underwriter assumed care of this Pt at 2300. Pt appears to be moving around in stretcher, not keeping monitor cables on. Soft restraints to hands remain in place.
--- NOTE | 2023-10-09 00:01 | MHC.EDTECH ---
Hourly rounds and vitals completed,patient is resting comfortably at this time. Belonging list completed and copy placed on chart.Boyfriend at bedside
--- NOTE | 2023-10-09 00:10 | PC.NURSE ---
Pt appears to be sleeping, equal, non-labored respirations, no apparent distress. Restraints released. Provider Ale Bruner made aware.
[2023-10-09 00:13] LABS: Influenza A PCR NEGATIVE (Negative); Influenza B PCR NEGATIVE (Negative); Resp Syncy Virus RNA Qual PCR NEGATIVE (Negative); SARS COV2 PCR INHOUSE NEGATIVE (Negative)
[2023-10-09] MEDS: OXcarbazepine 300 MG TABLET 900 MG PO ×2 (01:12→08:58)
--- NOTE | 2023-10-09 01:42 | PC.NURSE ---
Pt awake, calm and cooperative, requesting water. Pt tolerating water, PO meds given per MAR. IV line placed. Provider Johanna made aware.
--- NOTE | 2023-10-09 01:57 | PC.NURSE ---
Med rec done, Pt and boyfriend at bedside able to provide home meds.
[2023-10-09 02:21] VITALS: BP 97/67; PULSE 75; RESP 16; TEMP 37.2; O2SAT 98
--- NOTE | 2023-10-09 02:32 | MHC.EDTECH ---
Hourly rounds and vitals completed,BP is 97/67,RN was made aware, patient is resting comfortably at this time and boyfriend at bedside and call russell in reach.
--- NOTE | 2023-10-09 03:12 | MHC.EDTECH ---
Recliner given to patietns for comfort,patient is resting comfortably at this time.
[2023-10-09 03:21] VITALS: BP 97/58; PULSE 87; RESP 16; TEMP 37.1; O2SAT 100
--- NOTE | 2023-10-09 05:15 | P.HPHOSP_ITS ---
History of Present Illness Date of Service: 10/09/23 Attending physician on admission: Adriane Wilkerson Chief Complaint: Seizures Keely Peace is a 27 years old woman with past medical history significant for multiple hospitalization due to episode of seizures (on oxcarbazepine) was brought to the emergency department after she had 3 events of seizures at home. SPI was mostly provided by patient's boyfriend who was at bedside as the patient was too tired however, she was able to tell me that she has no headache or nausea. Her boyfriend commented that usually around her menstrual cycle she does have episodes of seizures. It seems like she has not missed any dose of her oxcarbazepine. In the emergency department the patient had another event of tonic-clonic seizures witnessed by ED staff. The patient received a total of 8 mg of Versed IM (according to the emergency physician patient received an 2nd dose (4mg) of Versed because the patient's was very agitated during her postictal state). Patient denies smoke or abuse alcohol. She smoked marijuana in occasions. Chart review: Patient recently evaluated (August) at [facility] Emergency Department for seizures. In the ED, she was found to have stable vital signs. Blood workup showed leukocytosis 16.0. There are no significant electrolyte imbalances and renal function is normal. Viral testing for COVID-19 and influenza are negative. ED tx: NS 1 L IV, a total of 8 mg of midazolam IM, Zofran 4 mg SL, Trileptal 900 mg PO. Review of Systems 2 Review of Systems: Yes Unobtainable due to mental status PMFSH Medical History (Updated 10/09/23 @ 05:35 by Adriane Wilkerson MD) Seizure disorder Seizures Hypoxia Depression Anxiety Snoring Headache Contraception management Hyperglycemia Rash Anemia Viral syndrome Depression with anxiety care and examination BCP ( control pills) initiation Annual physical exam Depression Frequent UTI Family History Father Seizure Mother No problems noted. Surgical History Hx of section No pertinent past surgical history Social History Household Members: Family Housing: House Do you presently have visiting nurse or other home services: No Unable to assess alcohol history related to: Unknown Alcohol intake: never Patient Tobacco Use Status: Never used Tobacco e-Cigarette/Vaping Use: Never Used Substance Use Type: Marijuana Advance Directives: Yes Advance Directives on File: Yes Advance Directives Date on File: 12/26/22 service: No Current occupational status: employed Sexual orientation: Straight/Heterosexual Cognitive needs: No Hearing needs: No Vision needs: No Meds Allergies Allergy/AdvReac Type Severity Reaction Status Date / Time phenytoin [From DILANTIN] Allergy Mild RASH Verified 10/08/23 19:23 strawberry AdvReac Hives Verified 10/08/23 19:23 Active Medications: Current Medications Acetaminophen (Acetaminophen 325 Mg Tablet) 975 mg PO Q6H PRN PRN Reason: Pain, Mild (Pain Scale 1-3) Lorazepam (Lorazepam 2 Mg/Ml Vial) 2 mg IVPUSH ONCE PRN PRN Reason: seizure Oxcarbazepine (Oxcarbazepine 300 Mg Tablet) 900 mg PO BID [facility] Sodium Chloride (0.9 % Sodium Chloride Flush 3 Ml Syringe) 3 ml IVFLUSH QSHIFT [facility] Home Medications Medication Instructions Recorded Confirmed Last Taken Type oxcarbazepine 600 mg tablet 900 mg PO BID 10/09/23 10/09/23 Unknown History (Trileptal) Physical Exam 2 Vital Signs and Narrative: Vital Signs: Last Vital Signs Temp 98.7 F 10/09/23 03:21 Pulse 87 10/09/23 03:21 Resp 16 10/09/23 03:21 BP 97/58 L 10/09/23 03:21 Pulse Ox 100 10/09/23 03:21 O2 Del Method Room Air 10/09/23 03:21 BMI result Body Mass Index 30.2 Constitutional - Looks tired. Falling asleep but awakes easily. Afebrile. No acute distress HEENT - PERRLA, EOMI Heart - RRR. No murmur Lungs - Normal lung expansion, Normal respiratory effort, No respiratory distress, CTA bilaterally Abdomen - NT / ND; +BS; No rebound or guarding - No CVA tenderness Extremities - no calf tenderness bilaterally, no swelling Musculoskeletal - Normal inspection, normal ROM Skin - Warm/Dry Neurological - Oriented x3. No focal deficit grossly noted. Normal speech. Psychological -Depressed affect Results Labs 10/08/23 21:52 10/08/23 21:52 Labs: Laboratory Results - last 24 hr 10/08/23 10/08/23 21:52 22:03 MCV 80.3 MCH 26.0 L MCHC 32.3 RDW 15.0 Plt Count 332 D MPV 10.3 Immature Gran % (Auto) 0.4 Neut % (Auto) 93.3 H Lymph % (Auto) 4.2 L [place] % (Auto) 1.9 L Eos % (Auto) 0.0 Baso % (Auto) 0.2 Lymph # (Auto) 0.7 L [place] # (Auto) 0.3 Eos # (Auto) 0.0 Baso # (Auto) 0.0 Abs Immat Gran (auto) 0.06 H Absolute Neuts (auto) 14.9 H Absolute Nucleated RBC 0.000 Nucleated RBC % (auto) 0.0 Smear Tech's Comments VERIFIED APTT 27.7 Anion Gap 16 Estim Creat Clear Calc 110.6 Estimated GFR > 60 Random Glucose 106 Calcium 9.5 D Total Bilirubin 0.3 AST 13 ALT 14 Alkaline Phosphatase 90 Total Creatine Kinase 93 Total Protein 8.3 H Albumin 4.5 Influenza Type A (PCR) NEGATIVE Influenza Type B (PCR) NEGATIVE RSV RNA Qual (PCR) NEGATIVE SARS-CoV-2 RNA (RT-PCR) NEGATIVE Assessment and Plan (1) Seizures: Status: Acute (2) Leukocytosis: Qualifiers: Leukocytosis type: unspecified Qualified Code(s): D72.829 - Elevated white blood cell count, unspecified Status: Acute Plan Keely Peace is a 27 years old woman presents with: * Multiple events of seizures; patient neurologically back to baseline. Keeping observation. Trileptal level obtained -will follow results. EEG December 2022 - unremarkable. Continue treatment with Trileptal 900 mg b.i.d. Ativan 2 mg IV as needed for seizures. Neurology consult for further recommendations. * Leukocytosis likely secondary to above. Doubt acute infection. Repeat WBC count in the morning. DVT prophylaxis: Low risk. Code status: Full. Quality Stroke Does the patient have a stroke diagnosis?: No VTE Prior VTE?: No VTE Risk Level:: Medical - low VTE Device Contraindication: Treatment Not Indicated VTE Drug Contraindication: Treatment Not Indicated
[2023-10-09 05:16] LABS: MANUAL DIFF FLAG NO
[2023-10-09 05:20] LABS: Basophils Percent Auto 0.2 % (0-2); Eosinophils Percent Auto 0.1 % (0-4); Hematocrit 39.7 % (37.0-47.0); Hemoglobin 12.8 g/dl (12.0-16.0); Imm Gran Abs Auto 0.04 X10*3/uL (0.00-0.03); Imm Gran Pct Auto 0.3 % (0.0-0.4); Lymphocytes Absolute Auto 2.4 X10*3/uL (1.2-4.9); Lymphocytes Percent Auto 17.3 % (20-40); Mean Corpuscular HGB Conc 32.2 g/dl (31.0-35.0); Mean Corpuscular Hemoglobin 25.5 pg (27.0-33.0); Mean Corpuscular Volume 79.1 fL (80.0-98.0); Mean Platelet Volume 10.3 fL (9.4-12.3); Monocytes Absolute Auto 0.7 X10*3/uL (0.1-1.2); Monocytes Percent Auto 4.9 % (2-11); Neutrophils Absolute Auto 10.8 x10*3/uL (2.0-8.3); Neutrophils Percent Auto 77.2 % (45-73); Platelet Count 320 X10*3/uL (160-400); Red Blood Count 5.02 X10*6/uL (4.20-5.50)
[2023-10-09 05:35] LABS: Alanine Aminotransferase 12 U/L (0-31); Alkaline Phosphatase 75 U/L (39-117); Anion Gap 15 (12-20); Aspartate Amino Transferase 13 U/L (5-31); Bilirubin Total 0.4 mg/dL (0.0-1.0); Blood Urea Nitrogen 14 mg/dL (9-16); Carbon Dioxide 20 mmol/L (22-29); Chloride 108 mmol/L (96-108); Creatinine Clr Calc Pharmacy 126.1; Estimated Glomerular Filt Rate > 60; Glucose Random 84 mg/dL (60-115); Potassium 3.5 mmol/L (3.3-5.1); Sodium 139 mmol/L (135-145); Total Protein 7.5 g/dL (6.5-8.0)
[2023-10-09 06:10] VITALS: BP 99/54; PULSE 84; RESP 16; TEMP 37.1; O2SAT 98
--- NOTE | 2023-10-09 06:21 | MHC.EDTECH ---
Hourly rounds and vitals completed,patient is resting comfortably at this time.call urssell within reach
--- NOTE | 2023-10-09 07:21 | PHA.MEDREC ---
Pharmacy Consult ? Medication Reconciliation Pharmacy has reviewed medication reconciliation done by nurse.
[2023-10-09] MEDS: 0.9 % Sodium Chloride Flush 3 ML SYRINGE IVFLUSH ×2 (08:59→17:32)
--- NOTE | 2023-10-09 09:13 | MHC.CM.PN ---
CM met with Patient and her Boyfriend in the ED, at bedside and addressed KRUEGER with them(original was given to Patient and a copy will be placed on the chart). 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 Home/self care us the goal and CM has initiated and will follow for dc planning. PCP is Dr. Meredith Cervantes.
--- NOTE | 2023-10-09 10:00 | PC.NURSE ---
pt requests to leave the ER, does not want to be admitted. pt agrees to talk with admitting doctor. pt denies any complaints, resting in bed, vss.
--- NOTE | 2023-10-09 13:00 | PC.NURSE ---
pt requesting to leave ER, does not want to be admitted. pt agrees to talk to Dr. Corona, doctor contacted and is at bedside.
[2023-10-09 13:09] VITALS: BP 122/55; PULSE 86; RESP 16; TEMP 36.7; O2SAT 98
--- NOTE | 2023-10-09 13:50 | PM.EVENT ---
Event Note Date of Service: 10/09/23 Event Note: Seen and evaluated this morning and afternoon No seizure activity while inpatient Pending Neurology consult continue seizure precautions Continue Trileptal bid will monitor for at least 24 hrs Time Spent With Patient Time: Total time managing care of this patient today ____ minutes.
--- NOTE | 2023-10-09 17:16 | PM.NEUROCN ---
History of Present Illness Data of Consult Service Date: 10/09/23 Primary Care Provider: Meredith Cervantes MD [facility] Reason for consult: Seizures This is a 27 years old woman with past medical history significant for multiple hospitalization due to episode of seizures (on oxcarbazepine) was brought to the emergency department after she had 3 events of seizures at home. Her boyfriend commented that usually around her menstrual cycle she does have episodes of seizures. It seems like she has not missed any dose of her oxcarbazepine. In the emergency department the patient had another event of tonic-clonic seizures witnessed by ED staff. The patient received a total of 8 mg of Versed IM (according to the emergency physician patient received an 2nd dose (4mg) of Versed because the patient's was very agitated during her postictal state). Patient denies smoke or abuse alcohol. She smoked marijuana in occasions. She pedro sbeen followed by me here until 2020 with negative EEG and 24 hr EEG. The question remains whether she has complex partial seziures or pseudoseizures. She had declined a 48 hr EEG in the past. She is already ofn an adequate dos eof Oxcarb and still having her seizures . Patient was also recently evaluated (August 23, 2023) at [facility] Emergency Department for seizures. Review of Systems Review of Systems: Yes Unobtainable due to mental status PMFSH Past Medical History Medical History (Updated 10/09/23 @ 05:35 by Adriane Wilkerson MD) Seizure disorder Seizures Hypoxia Depression Anxiety Snoring Headache Contraception management Hyperglycemia Rash Anemia Viral syndrome Depression with anxiety care and examination BCP ( control pills) initiation Annual physical exam Depression Frequent UTI Family History Family History Father Seizure Mother No problems noted. Surgical History Surgical History Hx of section No pertinent past surgical history Social History Social History Household Members: Family Housing: House Do you presently have visiting nurse or other home services: No Unable to assess alcohol history related to: Unknown Alcohol intake: never Patient Tobacco Use Status: Never used Tobacco e-Cigarette/Vaping Use: Never Used Substance Use Type: Marijuana Advance Directives: Yes Advance Directives on File: Yes Advance Directives Date on File: 12/26/22 service: No Current occupational status: employed Sexual orientation: Straight/Heterosexual Cognitive needs: No Hearing needs: No Vision needs: No Meds Allergies Allergy/AdvReac Type Severity Reaction Status Date / Time phenytoin [From DILANTIN] Allergy Mild RASH Verified 10/08/23 19:23 strawberry AdvReac Hives Verified 10/08/23 19:23 Active Medications: Current Medications Acetaminophen (Acetaminophen 325 Mg Tablet) 975 mg PO Q6H PRN PRN Reason: Pain, Mild (Pain Scale 1-3) Lorazepam (Lorazepam 2 Mg/Ml Vial) 2 mg IVPUSH ONCE PRN PRN Reason: seizure Oxcarbazepine (Oxcarbazepine 300 Mg Tablet) 900 mg PO BID [facility] Last Admin: 10/09/23 08:58 Dose: 900 mg Sodium Chloride (0.9 % Sodium Chloride Flush 3 Ml Syringe) 3 ml IVFLUSH QSHIFT [facility] Last Admin: 10/09/23 08:59 Dose: 3 ml Home Medications Medication Instructions Recorded Confirmed Last Taken Type oxcarbazepine 600 mg tablet 900 mg PO BID 10/09/23 10/09/23 Unknown History (Trileptal) Physical Exam Vital Signs: Vital Signs: Last Vital Signs Temp 98.1 F 10/09/23 13:09 Pulse 86 10/09/23 13:09 Resp 16 10/09/23 13:09 BP 122/55 L 10/09/23 13:09 Pulse Ox 98 10/09/23 13:09 O2 Del Method Room Air 10/09/23 13:09 BMI result Body Mass Index 30.2 Neuro: Other: She is alert and oriented slow in her responses hesitant in his speech with a nonfocal examination. There is no tongue biting. Results Labs 10/09/23 05:09 10/09/23 05:09 Labs: Short CBC 10/08/23 10/09/23 Range/Units 21:52 05:09 WBC 16.0 H 14.0 H (4.8-10.8) X10*3/uL Hgb 14.0 12.8 (12.0-16.0) g/dl Hct 43.3 39.7 (37.0-47.0) % Plt Count 332 D 320 (160-400) X10*3/uL BMP 10/08/23 10/09/23 21:52 05:09 Sodium 140 139 Potassium 3.9 3.5 Chloride 108 108 Carbon Dioxide 20 L 20 L BUN 16 14 Creatinine 0.73 0.64 Calcium 9.5 D 9.0 Cardiac Enzymes 10/08/23 Range/Units 21:52 Total Creatine Kinase 93 (26-140) U/L Liver Function 10/08/23 10/09/23 Range/Units 21:52 05:09 Total Bilirubin 0.3 0.4 (0.0-1.0) mg/dL AST 13 13 (5-31) U/L ALT 14 12 (0-31) U/L Alkaline Phosphatase 90 75 (39-117) U/L Albumin 4.5 4.0 (3.5-5.0) g/dL Assessment and Plan (1) Seizures: Status: Acute The question remains whether she has pseudoseizures versus epilepsy.Check oxcarbazepine levels I would recommend continuing her current medications. If she is admitted. She can have a routine EEG, but it is more important for her to have an outpatient 48 hour EEG. She should followup with her neurologist as an outpatient. (2) Leukocytosis: Qualifiers: Leukocytosis type: unspecified Qualified Code(s): D72.829 - Elevated white blood cell count, unspecified Status: Acute Plan Keely Peace is a 27 years old woman presents with: Multiple events of seizures; patient neurologically back to baseline. Keeping observation. Trileptal level obtained -will follow results. EEG December 2022 - unremarkable. Continue treatment with Trileptal 900 mg b.i.d. Ativan 2 mg IV as needed for seizures. Neurology consult for further recommendations. Leukocytosis likely secondary to above. Doubt acute infection. Repeat WBC count in the morning. DVT prophylaxis: Low risk. Code status: Full. Procedures Date of Service Date of Service: 10/09/23
[2023-10-09 17:32] VITALS: BP 102/57; PULSE 74; RESP 16; TEMP 36.9; O2SAT 98
--- NOTE | 2023-10-09 17:59 | P.DS_ITS ---
DS: Providers Provider Date of Service: 10/09/23 Date of admission: 10/09/23 11:00 Primary care physician: Meredith Cervantes MD Consults: 10/09/23 03:12 Consult to Neurology Routine Consulting Provider: [facility] Reason for consultation: Seizures Has provider been notified: No DS: Diagnosis Discharge Diagnosis (1) Seizures: Status: Acute (2) Leukocytosis: Status: Acute DS: Summary Hospital Course Hospital Course: Admission note HPI Keely Peace is a 27 years old woman with past medical history significant for multiple hospitalization due to episode of seizures (on oxcarbazepine) was brought to the emergency department after she had 3 events of seizures at home. SPI was mostly provided by patient's boyfriend who was at bedside as the patient was too tired however, she was able to tell me that she has no headache or nausea. Her boyfriend commented that usually around her menstrual cycle she does have episodes of seizures. It seems like she has not missed any dose of her oxcarbazepine. In the emergency department the patient had another event of tonic-clonic seizures witnessed by ED staff. The patient received a total of 8 mg of Versed IM (according to the emergency physician patient received an 2nd dose (4mg) of Versed because the patient's was very agitated during her postictal state). Patient denies smoke or abuse alcohol. She smoked marijuana in occasions. Chart review: Patient recently evaluated (August) at [facility] Emergency Department for seizures. In the ED, she was found to have stable vital signs. Blood workup showed leukocytosis 16.0. There are no significant electrolyte imbalances and renal function is normal. Viral testing for COVID-19 and influenza are negative. Hospital course The patient was admitted and treated with IV Midazolam and he home medication Trileptal with no recurrence of the seizure. blood work were negative for any acute findings. She was seen by neurologist who recommend to check medication level and do an EEG. he suggested outpatient 48hrs EEG and to follow with her neurologist. The patient decided to leave AMA and refused to stay longer. I went twice and explained to her the need to stay and the risks associated with her leaving the hospital. She insisted on 3rd occasion and Signed and left AMA. Time Attestation Discharge coordination time: Greater than 30 minutes Quality: Safe Use of Opioids Does Pt have an Active Cancer Diagnosis on the Problem List?: No Quality: Stroke Does the patient have a stroke diagnosis?: No Physical Exam Vital Signs: Vital Signs: Last Vital Signs Temp 98.4 F 10/09/23 17:32 Pulse 74 10/09/23 17:32 Resp 16 10/09/23 17:32 BP 102/57 L 10/09/23 17:32 Pulse Ox 98 10/09/23 17:32 O2 Del Method Room Air 10/09/23 17:32 BMI result Body Mass Index 30.2 Const: Other: AMA DS: Data Data Completed and Pending Labs on day of discharge: Laboratory Results - last 24 hr 10/08/23 10/08/23 10/09/23 21:52 22:03 05:09 WBC 16.0 H 14.0 H RBC 5.39 5.02 Hgb 14.0 12.8 Hct 43.3 39.7 MCV 80.3 79.1 L MCH 26.0 L 25.5 L MCHC 32.3 32.2 RDW 15.0 15.0 Plt Count 332 D 320 MPV 10.3 10.3 Immature Gran % (Auto) 0.4 0.3 Neut % (Auto) 93.3 H 77.2 H Lymph % (Auto) 4.2 L 17.3 L [place] % (Auto) 1.9 L 4.9 Eos % (Auto) 0.0 0.1 Baso % (Auto) 0.2 0.2 Lymph # (Auto) 0.7 L 2.4 [place] # (Auto) 0.3 0.7 Eos # (Auto) 0.0 0.0 Baso # (Auto) 0.0 0.0 Abs Immat Gran (auto) 0.06 H 0.04 H Absolute Neuts (auto) 14.9 H 10.8 H Absolute Nucleated RBC 0.000 0.000 Nucleated RBC % (auto) 0.0 0.0 Smear Tech's Comments VERIFIED APTT 27.7 Sodium 140 139 Potassium 3.9 3.5 Chloride 108 108 Carbon Dioxide 20 L 20 L Anion Gap 16 15 BUN 16 14 Creatinine 0.73 0.64 Estim Creat Clear Calc 110.6 126.1 Estimated GFR > 60 > 60 Random Glucose 106 84 Calcium 9.5 D 9.0 Total Bilirubin 0.3 0.4 AST 13 13 ALT 14 12 Alkaline Phosphatase 90 75 Total Creatine Kinase 93 Total Protein 8.3 H 7.5 Albumin 4.5 4.0 Influenza Type A (PCR) NEGATIVE Influenza Type B (PCR) NEGATIVE RSV RNA Qual (PCR) NEGATIVE SARS-CoV-2 RNA (RT-PCR) NEGATIVE Discharge Plan Discharge Patient Disposition: Left Against Medical Advice Discharge Diagnosis: Seizure Referrals: Meredith Cervantes MD [Primary Care Provider] - 1 Week Discharge Medications: No Action oxcarbazepine [Trileptal] 600 mg tablet 900 mg PO BID hydroxyzine HCl 25 mg tablet 25 mg PO TID PRN (Reason: anxiety) Qty: 90 2RF Discharge Orders: Discharge Order (Routine); Ordered 10/09/23 Ordered By: Juan Carlos Choudhary Stand Alone Forms: Against Medical Advice Care Plan Goals: . Health Concerns: . Plan of Treatment: . Assessment: . Discharge Date/Time: 10/09/23 19:22
--- NOTE | 2023-10-09 18:13 | PC.NURSE ---
pt requested to leave, adamant in request. pt reports to RN that she does not want to stay any longer and does not want to be admitted. admitting doctor, Dr. Choudhary contacted and reports to let her sign AMA and leave. Dr. Choudhary talked to pt throughout the day about staying for admit, pt had verbalized feelings of wanting to leave throughout the day. pt is alert and oriented, breathing even and unlabored, skin WNL. ambulatory w/ steady gait. pt has no complaints at this time, denies any pain. pt adamant that she wants to leave. pt understands risks of leaving AMA, verbalizes understanding. pt reports she will seek out medical attention if she needs it. pt signed AMA paperwork.
== END 2023-10-09 19:22 | disposition left against medical advice (07) | DRG 53 ==
LOC: HO.ED 23:38 → HO.EDOVER 10-09 03:12
PROVIDERS: Admitting Provider Internal Medicine; Emergency Provider Emergency Medicine Emergency Medical Services; PCP Internal Medicine; Visit Provider Student in an Organized Health Care Education/Training Program
DX: R56.9 Unspecified convulsions (principal); Z20.822 Contact with and (suspected) exposure to COVID-19; Z79.899 Other long term (current) drug therapy
CPT/HCPCS: 0241U; 36415; 80053; 80339; 82550; 85025; 85730; 99284; J2250

== ENCOUNTER → 2023-10-09 03:10 | Outpatient (BNV) | payer OTHER, SELFPAY | PROVIDERS: Admitting Provider Internal Medicine; Emergency Provider Emergency Medicine Emergency Medical Services; PCP Internal Medicine; Visit Provider Internal Medicine | DX: R56.9 Unspecified convulsions (principal); D72.829 Elevated white blood cell count, unspecified; Z53.29 Procedure and treatment not carried out because of patient's decision for other reasons | CPT/HCPCS: 99235; 99499 ==

== ENCOUNTER → 2023-10-09 11:00 | Outpatient (BNV) | payer OTHER, SELFPAY | PROVIDERS: Admitting Provider Internal Medicine; Emergency Provider Emergency Medicine Emergency Medical Services; PCP Internal Medicine; Visit Provider Psychiatry & Neurology Neurology | DX: R56.9 Unspecified convulsions (principal); D72.829 Elevated white blood cell count, unspecified | CPT/HCPCS: 99222 ==

== ENCOUNTER 2023-10-31 09:54 | Outpatient (AMB) | payer OTHER, SELFPAY ==
[2023-10-31 10:08] VITALS: BP 100/60; BMI 36.3
--- NOTE | 2023-10-31 10:08 | A.OFFVIS_ITS ---
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 It has been a while since she has had 1. She has had 2 children both delivered by at [facility]. She was on Depo-Provera for a long time after the of her 2nd child and also before that. She says she does have a medical problem in that she has been getting seizures. She was seeing a neurologist here but has been referred to neurology it [place] and has her next appointment there on Saturday she says her partner drives her to those appointments. She sees her primary care provider as well as the neurologist and her primary care provider was providing her the prescription for the Depo-Provera, but she said that she could not be doing that anymore so she has not had Depo-Provera or any kind of control in the last year. She says her doctors are wondering if her hormones are influencing her getting her seizures because it always seems like she gets worse seizures a week or 2 before her period, severe enough that she ends up in the hospital. She is now on medication and says they are still trying to control things. She was recommended to get back on a hormonal method of control like the Depo- Provera that she had been on in order to control her periods so she would have fewer seizures. Discussed that all of the hormonal methods interact with anti seizure medications and careful consideration needs to be made but in the situation she is describing it it would be understandable to try and avoid the triggers since she is going Saturday to her Neurology appointment I request that she signed to have the records and recommendations from that provider sent to her primary care provider who is Dr. Alex Rodríguez and then they will be in our records so that we can refer to them for future discussions about the different hormonal methods of control discussed that Depo-Provera is probably not great to use for more than a couple of years at a time so it has not necessarily a good long-term use discussed also the Nexplanon but that they all interact with the anti seizure medications so things need to be considered carefully discussed that there is a nonhormonal method but it would not suppress her periods at all. For now she wants to get back on the Depo . Prescribing the Depo-Provera for her but it needs to be given with her next. And in the meantime she will be speaking with her neurologist it is possible she could go to a nonhormonal method once her seizures are well controlled. [facility] Medical History Seizure disorder Seizures Hypoxia Depression Anxiety Snoring Headache Contraception management Hyperglycemia Rash Anemia Viral syndrome Depression with anxiety care and examination BCP ( control pills) initiation Annual physical exam Depression Frequent UTI Surgical History Hx of section No pertinent past surgical history Family History Father Seizure Mother No problems noted. Social History Household Members: Family Housing: House Do you presently have visiting nurse or other home services: No Unable to assess alcohol history related to: Unknown Alcohol intake: never Patient Tobacco Use Status: Never used Tobacco e-Cigarette/Vaping Use: Never Used Substance Use Type: Marijuana Advance Directives Date on File: 12/26/22 service: No Current occupational status: employed Sexual orientation: Straight/Heterosexual Cognitive needs: No Hearing needs: No Vision needs: No Female Reproductive History Menstrual Age of Menarche: 18 Duration of menses: 3-5 days Date of last menstrual period: 10/10/23 control method: none Total pregnancies: 2 Full term: 2 Date of last pap smear: 09/14/20 (negative) History of abnormal pap smear: No Physical Exam Vital Signs: Last Vital Signs BP 100/60 10/31/23 10:08 BMI result Body Mass Index 36.3 Const General: healthy appearing, comfortable, no acute distress, well developed and alert Nutritional Appearance: average body habitus Orientation/consciousness: patient oriented x3 Limitations: no limitations HEENT Head: Yes normocephalic Neck Neck: Yes normal visual inspection Chest Chest palpation & inspection: normal inspection of the chest Breast/axilla inspection: normal inspection of the breasts and normal inspection of the axillae Breast/axilla palpation: normal palpation of the breasts and normal palpation of the axillae Resp Effort & Inspection: normal respiratory effort GI Inspection: Yes normal to inspection, No Abdominal wall edema and No distended Palpation (GI): Soft to palpation and nontender Other: Vagina pink and moist cervix nulliparous pink smooth uterus smooth anteverted nontender mobile adnexa nontender very good tone with Kegel. General: Yes bladder normal to palpation External Female Exam: normal external appearance and normal appearance of the urethra Speculum Exam - Vagina: normal appearance of the vagina, normal palpation and normal vaginal discharge Speculum Exam - Cervix: normal appearance of the cervix, normal palpation and nontender Bimanual exam- vagina & uterus: normal bimanual exam, normal palpation, uterine size normal, bladder normal to palpation, consistency normal, normal palpation, uterine mobility normal, uterine shape normal, No Cervical tenderness present, non-tender and no cervical motion tenderness Bimanual Exam- Adnexa, other: normal adnexae, no masses, normal and No adnexal tenderness Neuro General: patient oriented x3 Assessment & Plan Assessment & Plan (1) Seizures: Comment: Patient see neurologist in [place] recommend the patient have discussion about long-term hormonal methods versus not and have notes sent to her primary Code(s): R56.9 - Unspecified convulsions (2) Well woman exam with routine gynecological exam: Code(s): Z01.419 - Encounter for gynecological examination (general) (routine) without abnormal findings (3) Cervical cancer screening: Code(s): Z12.4 - Encounter for screening for malignant neoplasm of cervix (4) Encounter for screening examination for sexually transmitted disease: Code(s): Z11.3 - Encounter for screening for infections with a predominantly sexual mode of transmission (5) control counseling: Comment: Discussed all available methods and in particular in relation to her seizure disorder and medications discussion to continue for now she is going to get back on the Depo she is seeing her neurologist in [place] on Saturday and I recommend she have records sent to her primary so we have access to them Code(s): Z30.09 - Encounter for other general counseling and advice on contraception (6) Depot contraception: Code(s): Z30.42 - Encounter for surveillance of injectable contraceptive Plan 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 It has been a while since she has had 1. She has had 2 children both delivered by at [facility]. She was on Depo-Provera for a long time after the of her 2nd child and also before that. She says she does have a medical problem in that she has been getting seizures. She was seeing a neurologist here but has been referred to neurology it [place] and has her next appointment there on Saturday she says her partner drives her to those appointments. She sees her primary care provider as well as the neurologist and her primary care provider was providing her the prescription for the Depo-Provera, but she said that she could not be doing that anymore so she has not had Depo-Provera or any kind of control in the last year. She says her doctors are wondering if her hormones are influencing her getting her seizures because it always seems like she gets worse seizures a week or 2 before her period, severe enough that she ends up in the hospital. She is now on medication and says they are still trying to control things. She was recommended to get back on a hormonal method of control like the Depo- Provera that she had been on in order to control her periods so she would have fewer seizures. Discussed that all of the hormonal methods interact with anti seizure medications and careful consideration needs to be made but in the situation she is describing it it would be understandable to try and avoid the triggers since she is going Saturday to her Neurology appointment I request that she signed to have the records and recommendations from that provider sent to he r primary care provider who is Dr. Alex Rodríguez and then they will be in our records so that we can refer to them for future discussions about the different hormonal methods of control discussed that Depo-Provera is probably not great to use for more than a couple of years at a time so it has not necessarily a good long-term use discussed also the Nexplanon but that they all interact with the anti seizure medications so things need to be considered carefully discussed that there is a nonhormonal method but it would not suppress her periods at all. For now she wants to get back on the Depo . Prescribing the Depo-Provera for her but it needs to be given with her next. And in the meantime she will be speaking with her neurologist it is possible she could go to a nonhormonal method once her seizures are well controlled. Also discussed the other side effects of both Depo-Provera and Nexplanon which include weight gain. She is concerned about her weight and would like to lose weight discussed that once she gets her seizures under good control she might be able to address that further. Discussed awareness of increased appetite w depo as 1 method to help -----Discussed in this visit the following: healthy balanced diet, regular and consistent exercise, getting recommended health screens, doing the best she can for her particular health concerns, kegel exercises, pap smear screening and followup recommendations, mammography screening and SBE, normal changes in cycles in her life stage--- . Medications: New medroxyprogesterone (Depo-Provera) 150 mg IM Q12W 1 mL 0RF Coding Level of Care Code Est Pt Prev Care 18-39y(50109) Diagnoses Seizures R56.9 Well woman exam with routine gynecological exam Z01.419 Cervical cancer screening Z12.4 Encounter for screening examination for sexually transmitted disease Z11.3 control counseling Z30.09 Depot contraception Z30.42
== END 2023-10-31 10:47 | disposition home or self-care (01) ==
LOC: HO.HWSM 09:54
PROVIDERS: PCP Internal Medicine; Visit Provider Advanced Practice Midwife
DX: Z01.419 Encounter for gynecological examination (general) (routine) without abnormal findings (principal); R56.9 Unspecified convulsions
CPT/HCPCS: 99395

== ENCOUNTER 2023-10-31 09:54 | Outpatient (REF) | payer OTHER, SELFPAY ==
[2023-11-01 12:02] LABS: CT PCR NOT DETECTED (Not Detect.); NG PCR NOT DETECTED (Not Detect.)
[2023-11-01 13:57] LABS: BV Int Neg Control Negative (Negative); BV Int Pos Control Positive (Positive)
== END 2023-10-31 09:55 | disposition home or self-care (01) ==
LOC: HO.LAB 09:54
PROVIDERS: PCP Internal Medicine; Visit Provider Advanced Practice Midwife
DX: Z01.419 Encounter for gynecological examination (general) (routine) without abnormal findings (principal); R56.9 Unspecified convulsions; Z30.42 Encounter for surveillance of injectable contraceptive; Z20.2 Contact with and (suspected) exposure to infections with a predominantly sexual mode of transmission; Z79.899 Other long term (current) drug therapy
CPT/HCPCS: 0353U; 87480; 87510; 87660; 88142; 99395

== ENCOUNTER 2024-01-23 11:05 | Outpatient (REF) | payer OTHER, SELFPAY ==
[2024-01-26 09:48] LABS: TS Negative Control Passed; TS Panel A 0; TS Panel B 0; TS Positive Control Passed; TSpotTB Negative (Negative)
== END 2024-01-23 11:06 | disposition home or self-care (01) ==
LOC: HO.HMGCLDS 11:05
PROVIDERS: PCP Internal Medicine; Visit Provider Internal Medicine
DX: Z00.00 Encounter for general adult medical examination without abnormal findings (principal)
CPT/HCPCS: 36415; 86481

== ENCOUNTER 2024-04-27 09:26 | Outpatient (AMB) | payer OTHER, SELFPAY ==
--- NOTE | 2024-04-27 10:54 | MHC.OFFWIV ---
Intake Vital Signs 04/27/24 10:55 Height 5 ft Weight 188 lb BMI 36.7 BP 102/70 Blood Pressure Location Lt brachial Position Sitting Pulse 69 Pulse Source Pulse Oximeter Temp 98.8 F Temp Source Oral Pulse Oximetry (%) 99 Oxygen Delivery Method Room Air Intake Visit Reasons: EP-covid symtoms Intake Note: pt c/o cough, diarrhea, vomiting, chills and hot flashes. Headaches. Started 3 days ago Patient Tobacco Use Status: Never used Tobacco Allergies phenytoin [From DILANTIN] Allergy (Mild, Verified 04/27/24 10:54) RASH strawberry Adverse Reaction (Verified 04/27/24 10:54) Hives Do you need a note to return to daycare/school/sports/work: Yes HPI HPI Comments History of Present Illness Details Patient presents to the walk in for today cough, headache, fatigue, bodyaches. 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 Social History Household Members: Family Housing: House Do you presently have visiting nurse or other home services: No Unable to assess alcohol history related to: Unknown Alcohol intake: never Patient Tobacco Use Status: Never used Tobacco e-Cigarette/Vaping Use: Never Used Substance Use Type: Marijuana Advance Directives Date on File: 12/26/22 service: No Current occupational status: employed Sexual orientation: Straight/Heterosexual Cognitive needs: No Hearing needs: No Vision needs: No Female Reproductive History Menstrual Age of Menarche: 18 Review of Systems Const All systems reviewed & are unremarkable except as noted in HPI and below Physical Exam Vital Signs: Last Vital Signs Temp 98.8 F 04/27/24 10:55 Pulse 69 04/27/24 10:55 BP 102/70 04/27/24 10:55 Pulse Ox 99 04/27/24 10:55 Oxygen Delivery Method Room Air 04/27/24 10:55 BMI result Body Mass Index 36.7 General: awake, alert, oriented. Answers questions appropriately. Fully engaged in examination. Skin: warm, dry, intact HEENT: TMs intact bilaterally, no redness. Posterior pharynx without erythema or exudate. Sclera without icterus or injection. Cardiac: External chest normal in appearance. Respiratory: LSCTAB. Abdomen: without gross distension. Neurological: Oriented to person, place, time and situation. Thought process intact. Psychiatric: Appropriate mood and affect. Good judgment and insight. Assessment & Plan Assessment & Plan (1) URI (upper respiratory infection): Code(s): J06.9 - Acute upper respiratory infection, unspecified Plan URI, no abx warranted. SARS-CoV2/FLU/RSV swab collected, results pending. Patient aware she will be called with results. Work note provided Rest, drink plenty of fluids, tylenol or motrin as needed. Follow up with pcp or in clinic for any new or worsening symptoms. Go to ER for shortness of breath, chest pain, palpitations, weakness, dizziness. Orders: Orders SARS-CoV2/FLU/RSV Today J06.9 - Acute upper respiratory infection, unspecified Coding Level of Care Code Est Pt Level 3 (07388) Diagnoses URI (upper respiratory infection) J06.9
[2024-04-27 10:55] VITALS: BP 102/70; PULSE 69; TEMP 37.1; O2SAT 99; BMI 36.7
== END 2024-04-27 11:35 | disposition home or self-care (01) ==
PROVIDERS: PCP Internal Medicine; Visit Provider Registered Nurse Emergency
DX: J06.9 Acute upper respiratory infection, unspecified (principal)
CPT/HCPCS: 99213

== ENCOUNTER 2024-04-27 11:05 | Outpatient (REF) | payer OTHER, SELFPAY ==
[2024-04-27 14:51] LABS: Influenza A PCR NEGATIVE (Negative); Influenza B PCR NEGATIVE (Negative); Resp Syncy Virus RNA Qual PCR NEGATIVE (Negative); SARS COV2 PCR INHOUSE NEGATIVE (Negative)
== END 2024-04-27 11:06 | disposition home or self-care (01) ==
LOC: HO.LAB 11:05
PROVIDERS: Visit Provider Physician Assistant
DX: J06.9 Acute upper respiratory infection, unspecified (principal)
CPT/HCPCS: 0241U

== ENCOUNTER 2024-05-01 07:13 | Emergency (ER) | payer OTHER, SELFPAY ==
--- NOTE | 2024-05-01 07:14 | ED_ITS ---
HPI - Seizure General Chief Complaint: Seizure Stated Complaint: multi-seizures 2 this am, hx of seizures Time Seen by Provider: 05/01/24 07:14 Source: patient and EMS Mode of arrival: EMS Limitations: no limitations History of Present Illness ED Provider: Lia Lundy PA-C HPI Narrative: 28 yo female with history of seizure disorder on Trileptal 900 mg BID who presnets to the ER for evaluation of 2 witnessed seizures at home. She has had several breakthrough seizures this week and was previously seen at [facility]. She has been compliant with her Trileptal this week, admits to missing a couple of doses 3 weeks ago. She has been feeling unwell this week but does not think she has had a fever. She was in bed with both of the seizures this morning. She bit her tongue. First seizure lasted approximately 7 minutes and the second one lasted 3 minutes. Patient's boyfriend gave her her morning dose of Trileptal. She was confused and lethargic after the seizures. She c/o headache and body aches on arrival, AAO x4. MD complaint: seizure Onset (ago): hour(s) (1 (onset of last seizure)) Description of Episode: loss of consciousness, tonic-clonic movement and post- event confusion Duration of episode: 3 -: minutes(s) Witnessed: Yes - by Bystander Trauma: No Seizure History: Yes Place: Home Possible Precipitating Event: none Associated symptoms: malaise and weakness Treatments prior to arrival: none Related Data Home Medications ?Medication ?Instructions ?Recorded ?Confirmed oxcarbazepine 600 mg tablet 900 mg PO BID 10/09/23 10/31/23 (Trileptal) Previous Rx's ?Medication ?Instructions ?Recorded hydroxyzine HCl 25 mg tablet 25 mg PO TID PRN anxiety #90 tabs 03/11/23 medroxyprogesterone 150 mg/mL 150 mg IM Q12W #1 mL 10/31/23 intramuscular suspension (Depo-Provera) oxcarbazepine 600 mg tablet 1,200 mg (2 x 600 mg) PO BID #60 05/01/24 (Trileptal) tabs Allergies Allergy/AdvReac Type Severity Reaction Status Date / Time phenytoin [From DILANTIN] Allergy Mild RASH Verified 05/01/24 07:21 strawberry AdvReac Hives Verified 05/01/24 07:21 Review of Systems 2 Review of Systems: Yes all other systems are reviewed and are negative [facility] Past Medical History Medical History Seizure disorder Seizures Hypoxia Depression Anxiety Snoring Headache Contraception management Hyperglycemia Rash Anemia Viral syndrome Depression with anxiety care and examination BCP ( control pills) initiation Annual physical exam Depression Frequent UTI Surgical History Hx of section No pertinent past surgical history Family History Family History Father Seizure Mother No problems noted. Social History Social History Household Members: Family Housing: House Do you presently have visiting nurse or other home services: No Unable to assess alcohol history related to: Unknown Alcohol intake: never Patient Tobacco Use Status: Never used Tobacco Smoked in Last 30 Days: No e-Cigarette/Vaping Use: Never Used Use of substances other than those prescribed or required for medical reasons: No Substance Use Type: Marijuana Advance Directives: Yes Advance Directives on File: Yes Advance Directives Date on File: 12/26/22 Do you have a plan to hurt others: No Plan service: No Current occupational status: employed Sexual orientation: Straight/Heterosexual Cognitive needs: No Hearing needs: No Vision needs: No Physical Exam 2 Vital Signs: Vital Signs: Last Vital Signs Temp 98.3 F 05/01/24 12:15 Pulse 58 05/01/24 12:15 Resp 17 05/01/24 12:15 BP 118/63 05/01/24 12:15 Pulse Ox 99 05/01/24 12:15 O2 Del Method Room Air 05/01/24 12:15 BMI result Body Mass Index 34.2 Appearance: Alert. Oriented X3. No acute distress. Head: normocephalic, atraumatic. Eyes: Pupils equal, round and reactive to light. ENT: Pharynx normal. No tonsillar swelling or exudate. Right lateral tongue with bite wendy Neck: Normal inspection. Neck supple. CVS: Normal heart rate and rhythm. Pulses normal. Respiratory: No respiratory distress. Breath sounds normal. Abdomen: Soft and nontender. +BS x4 Skin: Skin warm and dry. Normal skin color. Normal skin turgor. No rashes. Extremities: No lower extremity edema. No joint swelling. Neuro/psych: Oriented X 3. No motor deficit. No sensory deficit. CN II-XII intact. Normal speech and cognition. Course Reevaluation(s) Reevaluation #1: Patient was about to be discharged and she started feeling unwell, when evaluated she was licking her lips and smacking her lips. She was taking deep breaths, answering simple questions to her boyfriend but endorsing feeling not right. He reported that she has this behavior sometimes before seizure activity. 2 mg of IV Ativan were given, seizure precautions in place. Will continue monitor closely Time: 09:14 Reevaluation #2: No witnessed seizure activity, sleeping comfortably after the Ativan Time: 10:09 Medications Administered Discontinued Medications Generic Name Dose Route Start Last Admin Trade Name Freq PRN Reason Stop Dose Admin Sodium Chloride 1,000 mls @ 999 mls/hr 05/01/24 07:30 05/01/24 08:57 Ns IVCONT 05/01/24 08:30 Infused .Q1H1M NAHEED Infusion Ketorolac Tromethamine 15 mg 05/01/24 07:23 05/01/24 07:42 Ketorolac Tromethamine 15 Mg/Ml Vial IVPUSH 05/01/24 07:24 15 mg ONCE ONE Administration Lorazepam 2 mg 05/01/24 09:14 05/01/24 09:18 Lorazepam 2 Mg/Ml Vial IVPUSH 05/01/24 09:15 2 mg ONCE ONE Administration Oxcarbazepine 900 mg 05/01/24 08:53 05/01/24 09:01 Oxcarbazepine 300 Mg Tablet PO 05/01/24 08:54 900 mg ONCE ONE Administration Medical Decision Making Medical Decision Making MDM Narrative: 28 yo female with seizure disorder since childhood, follows with Neurology on [place] who presents to the ER for evaluation of 2 witnessed seizures today at home. Has had several breakthough seizures this week despite medication compliance. No witnessed seizures here. Lab work is unremarkable, no leukocytosis, no anion gap, normal CPK. She was monitored in the ER, given Ativan some lip smacking and feeling off which can occur prior to her seizure activity. After several hours of monitoring in the ER patient woke up feeling much better. She is neurologically intact. She would like to be discharged home. Will plan to increase her Trileptal to max dose of 1200 mg b.i.d. up from 900 mg b.i.d.. She has an appointment with her neurologist in [place] in May. Comfortable discharge home with outpatient follow-up. She has p.r.n. Ativan home as well Differential Diagnosis Differential Diagnoses: The differential diagnosis associated with the presentation includes Breakthrough seizure, psychogenic nonepileptic seizure, epilepsy Admission/Observation Consideration of admission/observation: Escalation of care including admission/observation considered Lab Data MDM Lab Attestation statement: I reviewed the patient's lab results. no leukocytosis, normal CPK, no anion gap 05/01/24 07:26 05/01/24 07:26 Labs: Lab Results 05/01/24 05/01/24 05/01/24 Range/Units 07:26 08:00 08:31 WBC 9.6 (4.8-10.8) X10*3/uL RBC 4.88 (4.20-5.50) X10*6/uL Hgb 12.4 (12.0-16.0) g/dl Hct 37.9 (37.0-47.0) % MCV 77.7 L (80.0-98.0) fL MCH 25.4 L (27.0-33.0) pg MCHC 32.7 (31.0-35.0) g/dl RDW 14.9 (11.0-16.0) % Plt Count 260 (160-400) X10*3/uL MPV 10.5 (9.4-12.3) fL Immature Gran % (Auto) 0.2 (0.0-0.4) % Neut % (Auto) 83.6 H (45-73) % Lymph % (Auto) 11.2 L (20-40) % [place] % (Auto) 4.3 (2-11) % Eos % (Auto) 0.4 (0-4) % Baso % (Auto) 0.3 (0-2) % Lymph # (Auto) 1.1 L (1.2-4.9) X10*3/uL [place] # (Auto) 0.4 (0.1-1.2) X10*3/uL Eos # (Auto) 0.0 (0.0-0.4) X10*3/uL Baso # (Auto) 0.0 (0.0-0.2) X10*3/uL Abs Immat Gran (auto) 0.02 (0.00-0.03) X10*3/uL Absolute Neuts (auto) 8.0 (2.0-8.3) x10*3/uL Absolute Nucleated RBC 0.000 (0.0-0.012) X10*3/uL Nucleated RBC % (auto) 0.0 (0.0-0.2) /100WBC Sodium 141 (135-145) mmol/L Potassium 3.6 (3.3-5.1) mmol/L Chloride 108 (96-108) mmol/L Carbon Dioxide 25 (22-29) mmol/L Anion Gap 12 (12-20) BUN 13 (9-16) mg/dL Creatinine 0.73 (0.5-1.4) mg/dL Estim Creat Clear Calc 121.5 Estimated GFR > 60 Random Glucose 103 (60-115) mg/dL Calcium 8.6 (8.4-10.2) mg/dL Magnesium 2.1 (1.6-2.6) mg/dL Total Bilirubin 0.3 (0.0-1.0) mg/dL Direct Bilirubin 0.1 (0.0-0.5) mg/dL AST 11 (5-31) U/L ALT 12 (0-31) U/L Alkaline Phosphatase 70 (39-117) U/L Total Creatine Kinase 55 (26-140) U/L Total Protein 7.2 (6.5-8.0) g/dL Albumin 3.9 (3.5-5.0) g/dL Urine Color Yellow Urine Appearance Clear Urine pH 8.0 (5.0-9.0) Ur Specific [place] 1.015 (1.005-1.025) Urine Protein Negative (Neg-Trace) mg/dL Urine Glucose (UA) Negative (Negative) mg/dL Urine Ketones Negative (Negative) mg/dL Urine Blood Negative (Negative) Urine Nitrite Negative (Negative) Ur Leukocyte Esterase Negative (Negative) Urine Test NEGATIVE (NEGATIVE) Urine Opiates Screen Not Detected (Not Detect) Ur Buprenorphine Scrn Not Detected (Not Detect) ng/mL Ur Oxycodone Screen Not Detected (Not Detect) ng/mL Urine Methadone Screen Not Detected (Not Detect) ng/mL Urine Fentanyl Screen Not Detected (Not Detect) Ur Barbiturates Screen Not Detected (Not Detect) Ur Phencyclidine Scrn Not Detected (Not Detect) Ur Amphetamines Screen Not Detected (Not Detect) U Benzodiazepines Scrn Not Detected (Not Detect) Urine Cocaine Screen Not Detected (Not Detect) U Marijuana (THC) Screen POSITIVE H (Not Detect) COVID-19 (LAKSHMI) Negative (Negative) COVID-19 Clin Com See Note Independent Interpretation I performed an independent interpretation of an: EKG Interpretation: normal sinus rhythm, HR 73 bpm, no ST segment elevations or depressions, q wave in lead III Independent Historian Clinical information obtained from an independent historian. History obtained from or confirmed by: Spouse and EMS Tests considered The following testing was considered but not selected: CT head considered, no trauma, not altered Prescription Management I considered prescription management with: Other (antiepileptic drug) Chronic Conditions Patient?s care impacted by: Other (seizures ) Critical Care Time Critical Care Time Critical Care Time: Yes Total Critical Care Time: 32 Attestation: I have personally provided critical care time exclusive of time spent on separately billable procedures. Time includes review of lab data, radiology results, bedside re-evaluation of mental status after administration of IV benzodiazepines, and monitoring for potential decompensation. Intervention performed as documented. Discharge Plan Discharge Clinical Impression: Breakthrough seizure Patient Disposition: Home, Self-Care Instructions: Recurrent Seizures in Adults (ED) Additional Instructions: Recommend increasing your Trileptal to 1200 mg 2 times a day. This is the maximum dose for this medication. Follow-up with your neurologist as soon as possible Rest and drink plenty of fluids. Take Tylenol or Motrin as needed for headaches. Make sure you are getting plenty of sleep. If you develop new or worsening symptoms call 911 or come back to the ER for further evaluation. Prescriptions: New oxcarbazepine [Trileptal] 600 mg tablet 1,200 mg PO BID Qty: 60 0RF No Action oxcarbazepine [Trileptal] 600 mg tablet 900 mg PO BID hydroxyzine HCl 25 mg tablet 25 mg PO TID PRN (Reason: anxiety) Qty: 90 2RF medroxyprogesterone [Depo-Provera] 150 mg/mL suspension 150 mg IM Q12W Qty: 1 0RF Referrals: Meredith Cervantes MD [Primary Care Provider] - Stand Alone Forms: Work/School Release Print Language: Polish
[2024-05-01 07:17] VITALS: BP 100/70; BP 115/66; PULSE 70; PULSE 90; RESP 18; TEMP 37; O2SAT 98; BMI 34.2
--- NOTE | 2024-05-01 07:31 | ECG_ITS ---
Test Reason : SEIZURE Blood Pressure : / mmHG Vent. Rate : 073 BPM Atrial Rate : 073 BPM P-R Int : 142 ms QRS Dur : 088 ms QT Int : 384 ms P-R-T Axes : 048 063 023 degrees QTc Int : 423 ms Normal sinus rhythm with sinus arrhythmia Normal ECG When compared with ECG of 21-AUG-2023 15:22, No significant change was found Referred By: Radha Lundy Electronically Signed By:DAVID ELLIS
[2024-05-01 07:32] VITALS: BP 115/66; PULSE 70; RESP 18; TEMP 37; O2SAT 98
[2024-05-01] MEDS: 0.9 % Sodium Chloride 1,000 ML 999 ML IVCONT (07:41)
[2024-05-01] MEDS: Ketorolac Tromethamine 15 MG/ML VIAL IVPUSH (07:42)
[2024-05-01 07:45] LABS: MANUAL DIFF FLAG NO
[2024-05-01 07:47] LABS: Basophils Percent Auto 0.3 % (0-2); Eosinophils Percent Auto 0.4 % (0-4); Hematocrit 37.9 % (37.0-47.0); Hemoglobin 12.4 g/dl (12.0-16.0); Imm Gran Abs Auto 0.02 X10*3/uL (0.00-0.03); Imm Gran Pct Auto 0.2 % (0.0-0.4); Lymphocytes Absolute Auto 1.1 X10*3/uL (1.2-4.9); Lymphocytes Percent Auto 11.2 % (20-40); Mean Corpuscular HGB Conc 32.7 g/dl (31.0-35.0); Mean Corpuscular Hemoglobin 25.4 pg (27.0-33.0); Mean Corpuscular Volume 77.7 fL (80.0-98.0); Mean Platelet Volume 10.5 fL (9.4-12.3); Monocytes Absolute Auto 0.4 X10*3/uL (0.1-1.2); Monocytes Percent Auto 4.3 % (2-11); Neutrophils Percent Auto 83.6 % (45-73); Platelet Count 260 X10*3/uL (160-400); Red Blood Count 4.88 X10*6/uL (4.20-5.50); Red Cell Distribution Width 14.9 % (11.0-16.0); White Blood Count 9.6 X10*3/uL (4.8-10.8)
[2024-05-01 08:01] LABS: Alanine Aminotransferase 12 U/L (0-31); Albumin Level 3.9 g/dL (3.5-5.0); Alkaline Phosphatase 70 U/L (39-117); Anion Gap 12 (12-20); Aspartate Amino Transferase 11 U/L (5-31); Bilirubin Direct 0.1 mg/dL (0.0-0.5); Bilirubin Total 0.3 mg/dL (0.0-1.0); Blood Urea Nitrogen 13 mg/dL (9-16); Calcium 8.6 mg/dL (8.4-10.2); Carbon Dioxide 25 mmol/L (22-29); Chloride 108 mmol/L (96-108); Creatinine Clr Calc Pharmacy 121.5; Estimated Glomerular Filt Rate > 60; Glucose Random 103 mg/dL (60-115); Magnesium 2.1 mg/dL (1.6-2.6); Potassium 3.6 mmol/L (3.3-5.1); Sodium 141 mmol/L (135-145); Total Protein 7.2 g/dL (6.5-8.0)
[2024-05-01 08:38] LABS: COVID-19 Test Negative (Negative); IDNOW Serial# 08D9AD1C
[2024-05-01 08:42] LABS: Appearance Urine Clear; Color Urine Yellow; Glucose Urine UA Negative (Negative); Leukocyte Esterase Urine Negative (Negative); Nitrite Urine Negative (Negative); Specific Gravity - Urine 1.015 (1.005-1.025); Urine Blood Negative (Negative); Urine Ketones Negative (Negative); Urine Protein Negative (Neg-Trace)
[2024-05-01 08:45] LABS: UPreg QC Valid YES; Urine Pregnancy NEGATIVE (NEGATIVE)
[2024-05-01 08:49] LABS: Amphetamine Screen Urine Not Detected (Not Detect); Barbiturates, Urine Not Detected (Not Detect); Benzodiazepines Screen Urine Not Detected (Not Detect); Buprenorphine Scr Not Detected (Not Detect); Cannabinoid Screen Urine POSITIVE (Not Detect); Cocaine Screen Urine Not Detected (Not Detect); Fentanyl, urine Not Detected (Not Detect); Methadone Screen, Urine Not Detected (Not Detect); Opiate Screen Urine Not Detected (Not Detect); Oxycodone Screen Urine Not Detected (Not Detect); Phencyclidine Screen Urine Not Detected (Not Detect)
[2024-05-01] MEDS: OXcarbazepine 300 MG TABLET 900 MG PO (09:01)
[2024-05-01] MEDS: LORazepam 2 MG/ML VIAL IVPUSH (09:18)
[2024-05-01 10:20] VITALS: BP 118/63; PULSE 58; RESP 17; TEMP 36.7; O2SAT 98
[2024-05-01 12:15] VITALS: BP 118/63; PULSE 58; RESP 17; TEMP 36.8; O2SAT 99
[2024-05-01 13:34] VITALS: BP 118/63; PULSE 58; RESP 17; TEMP 36.8; O2SAT 99
== END 2024-05-01 13:35 | disposition home or self-care (01) ==
PROVIDERS: Physician Assistant; Emergency Provider Emergency Medicine; PCP Internal Medicine
DX: G40.919 Epilepsy, unspecified, intractable, without status epilepticus (principal); Z11.52 Encounter for screening for COVID-19; F12.90 Cannabis use, unspecified, uncomplicated; F41.8 Other specified anxiety disorders; Z79.899 Other long term (current) drug therapy
CPT/HCPCS: 80048; 80076; 80307; 81003; 81025; 82550; 83735; 85025; 87635; 93005; 96361; 96374; 96375; 99285; J1885; J2060

== ENCOUNTER 2024-06-02 11:06 | Outpatient (AMB) | payer OTHER, SELFPAY ==
--- NOTE | 2024-06-02 11:18 | AM.OFFWIN_ITS ---
Intake Vital Signs 06/02/24 11:19 Weight 191 lb BP 130/80 Blood Pressure Location Lt brachial Position Sitting Pulse 72 Pulse Source Pulse Oximeter Pulse Oximetry (%) 99 Oxygen Delivery Method Room Air Intake Visit Reasons: EP vomiting, diarrhea Intake Note: Patient here for vomiting and diarrhea which has been going on for about Patient Tobacco Use Status: Never used Tobacco Allergies phenytoin [From DILANTIN] Allergy (Mild, Verified 06/02/24 11:20) RASH strawberry Adverse Reaction (Verified 06/02/24 11:20) Hives Do you need a note to return to daycare/school/sports/work: Yes HPI HPI Comments History of Present Illness Details 28 y/o female patient who presents to [facility] with c/o Nausea and vomiting since yesterday. Pt asking for COVID testing today so she can return to work. Denies fevers, and chills. Pt has h/o Epilepsy and currently follows with Neurology in [place]. Recently changed medications from Trilepta to something new. Pt stopped taking Trilepta abruptly without tapering down. During the appointment today, she was able to contact her Neurologist regarding this issue. She was informed that N/V could be related to Medication withdrawal. [facility] Medical History Seizure disorder Seizures Hypoxia Depression Anxiety Snoring Headache Contraception management Hyperglycemia Rash Anemia Viral syndrome Depression with anxiety care and examination BCP ( control pills) initiation Annual physical exam Depression Frequent UTI Surgical History Hx of section No pertinent past surgical history Family History Father Seizure Mother No problems noted. Social History Household Members: Family Housing: House Do you presently have visiting nurse or other home services: No Unable to assess alcohol history related to: Unknown Alcohol intake: never Patient Tobacco Use Status: Never used Tobacco e-Cigarette/Vaping Use: Never Used Substance Use Type: Marijuana Advance Directives Date on File: 12/26/22 service: No Current occupational status: employed Sexual orientation: Straight/Heterosexual Cognitive needs: No Hearing needs: No Vision needs: No Female Reproductive History Menstrual Age of Menarche: 18 Review of Systems Const All systems reviewed & are unremarkable except as noted in HPI and below Physical Exam Vital Signs: Last Vital Signs Pulse 72 06/02/24 11:19 BP 130/80 06/02/24 11:19 Pulse Ox 99 06/02/24 11:19 Oxygen Delivery Method Room Air 06/02/24 11:19 Const General: cooperative and no acute distress Nutritional Appearance: obese Orientation/consciousness: patient oriented x3 Resp Effort & Inspection: normal respiratory effort and able to speak in complete sentences Auscultation: clear to auscultation bilaterally Cardio Heart sounds: S1 normal heart sound present and S2 normal heart sound present Skin General skin exam: no rashes or lesions noted Neuro General: patient oriented x3, gait normal and moves all extremities Psych Speech and movement: Normal speech and movement present Assessment & Plan Assessment & Plan (1) Nausea and vomiting in adult: Code(s): R11.2 - Nausea with vomiting, unspecified Plan: Ordered Zofran for N/V Ordered SARs F/U with Neurology regarding medication changes. (2) URI (upper respiratory infection): Code(s): J06.9 - Acute upper respiratory infection, unspecified Qualifiers: URI type: unspecified URI Qualified Code(s): J06.9 - Acute upper respiratory infection, unspecified Plan: Ordered SARs Orders: Orders SARS-CoV2/FLU/RSV Today J06.9 - Acute upper respiratory infection, unspecified Medications: New ondansetron HCl 8 mg PO Q8H 30 tabs 0RF R11.2 - Nausea with vomiting, unspe cified Coding Level of Care Code Est Pt Level 3 (74136) Diagnoses Nausea and vomiting in adult R11.2 Upper respiratory tract infection, unspecified type J06.9 URI type: unspecified URI Time Spent (min) 15
[2024-06-02 11:19] VITALS: BP 130/80; PULSE 72; O2SAT 99
== END 2024-06-02 11:37 | disposition home or self-care (01) ==
PROVIDERS: PCP Internal Medicine; Visit Provider Nurse Practitioner Family
DX: R11.2 Nausea with vomiting, unspecified (principal); J06.9 Acute upper respiratory infection, unspecified

== ENCOUNTER 2024-06-02 11:06 | Outpatient (REF) | payer OTHER, SELFPAY ==
[2024-06-02 14:06] LABS: Influenza A PCR NEGATIVE (Negative); Influenza B PCR NEGATIVE (Negative); Resp Syncy Virus RNA Qual PCR NEGATIVE (Negative); SARS COV2 PCR INHOUSE NEGATIVE (Negative)
== END 2024-06-02 11:07 | disposition home or self-care (01) ==
LOC: HO.LAB 11:06
PROVIDERS: Nurse Practitioner Family; PCP Internal Medicine
DX: R11.2 Nausea with vomiting, unspecified (principal); J06.9 Acute upper respiratory infection, unspecified
CPT/HCPCS: 0241U; 99212

== ENCOUNTER 2024-06-26 06:49 | Emergency (ER) | payer OTHER, SELFPAY ==
--- NOTE | ~2024-06-26 | XR_ITS ---
EXAMINATION: XR CHEST 2 VIEW CLINICAL INFORMATION: Seizure, question aspiration COMPARISON: 04/26/2023 TECHNIQUE: PA and lateral views of the chest obtained. FINDINGS: The lungs are clear. There are no pleural effusions. The cardiomediastinal silhouette is normal. XR/XR chest 2V IMPRESSION: No acute cardiopulmonary disease. Electronically signed by: Tyler Mesa MD 06/26/2024 08:18 AM [facility] [place]
[2024-06-26 07:01] VITALS: BP 102/68; BP 107/59; PULSE 77; PULSE 84; RESP 16; TEMP 37; O2SAT 98; BMI 39.2
--- NOTE | 2024-06-26 07:04 | ED_ITS ---
HPI - General Adult General Chief complaint: Seizure Stated complaint: SZ 2-3 min, now Postictal Time Seen by Provider: 06/26/24 06:52 Source: patient, EMS and RN notes reviewed Mode of arrival: EMS Limitations: no limitations History of Present Illness ED Provider: christian HPI narrative: Patient is a 28-year-old female with history of seizure disorder, patient unsure of neurologist but states that she sees a neurologist in [place] presenting to the ED after boyfriend called 911 for 2-3 minutes of tonic/clonic activity. Patient unsure if she was incontinent, states boyfriend dressed her after seizure. Boyfriend reported to EMS that patient did not fall out of bed. States that she often has breakthrough seizures, particularly immediately prior to onset of menstrual period. States she is due for her period now. [place] fine yesterday, denies recent illness. Also notes that her doctor has recently been adjust her medications but is unsure which. MD complaint: seizure Onset (ago): minute(s) Related Data Home Medications ?Medication ?Instructions ?Recorded ?Confirmed oxcarbazepine 600 mg tablet 900 mg PO BID 10/09/23 10/31/23 (Trileptal) zonisamide 100 mg capsule 200 mg PO BID 06/02/24 Previous Rx's ?Medication ?Instructions ?Recorded hydroxyzine HCl 25 mg tablet 25 mg PO TID PRN anxiety #90 tabs 03/11/23 medroxyprogesterone 150 mg/mL 150 mg IM Q12W #1 mL 10/31/23 intramuscular suspension (Depo-Provera) oxcarbazepine 600 mg tablet 1,200 mg (2 x 600 mg) PO BID #60 05/01/24 (Trileptal) tabs ondansetron HCl 8 mg tablet 8 mg PO Q8H #30 tabs 06/02/24 Allergies Allergy/AdvReac Type Severity Reaction Status Date / Time phenytoin [From DILANTIN] Allergy Mild RASH Verified 06/26/24 07:04 strawberry AdvReac Hives Verified 06/26/24 07:04 Review of Systems 2 Review of Systems: As per HPI. Yes all other systems are reviewed and are negative Constitutional: Constitutional: Reports as per HPI PMFSH Past Medical History Medical History Seizure disorder Seizures Hypoxia Depression Anxiety Snoring Headache Contraception management Hyperglycemia Rash Anemia Viral syndrome Depression with anxiety care and examination BCP ( control pills) initiation Annual physical exam Depression Frequent UTI Surgical History Hx of section No pertinent past surgical history Family History Family History Father Seizure Mother No problems noted. Social History Social History Household Members: Family Housing: House Do you presently have visiting nurse or other home services: No Unable to assess alcohol history related to: Unknown Alcohol intake: never Patient Tobacco Use Status: Never used Tobacco e-Cigarette/Vaping Use: Never Used Substance Use Type: Marijuana Advance Directives: Yes Advance Directives on File: Yes Advance Directives Date on File: 12/26/22 Do you have a plan to hurt others: No Plan service: No Current occupational status: employed Sexual orientation: Straight/Heterosexual Cognitive needs: No Hearing needs: No Vision needs: No Physical Exam ED Vital Signs: Vital Signs - 24 hr 06/26/24 07:01 06/26/24 08:24 Temperature 98.6 F Pulse Rate 77 51 Respiratory Rate 16 12 Blood Pressure 107/59 L 94/54 L Pulse Oximetry 98 99 Oxygen Delivery Method Room Air BMI result Body Mass Index 39.2 Vital signs have been reviewed and appear to be correct. Blood pressure normal. Heart rate normal. Respiratory rate normal. Temperature normal. Oxygen saturation normal. Const General: cooperative, healthy appearing and no acute distress Orientation/consciousness: oriented to person, oriented to place, oriented to time and patient oriented x3 Limitations: no limitations HENMT Head: Yes normocephalic and Yes atraumatic Ears: external ears normal General nose exam: Normal external nose present Face and sinus: Yes face symmetric Mouth: oropharynx normal, moist mucous membranes and tongue abnormal Mouth/tongue images: 2 1. superficial bite anton 2. superficial bite anton Throat: Yes uvula midline Eyes Pupils: Equal, round and reactive pupils present Neck Neck: Yes normal visual inspection and Yes supple Resp Effort & Inspection: normal respiratory effort and able to speak in complete sentences Auscultation: clear to auscultation bilaterally Cardio Rate: regular rate Rhythm: regular rhythm Heart sounds: S1 normal heart sound present and S2 normal heart sound present GI Palpation (GI): Soft to palpation and nontender Auscultation: normoactive bowel sounds General: Yes no CVA tenderness Back/Spine/Pelvis Back: no CVA tenderness Skin General skin exam: elasticity normal and turgor normal Neuro General: oriented to person, oriented to place, oriented to time, patient oriented x3, moves all extremities, no focal motor deficits and CN's II-XI intact bilaterally Cranial nerves: Yes Equal, round and reactive pupils present Cognition (Neuro): normal cognition Extrem General: Yes full ROM, Yes no pedal edema and Yes no calf tenderness Psych Mental Status: mental status grossly normal Affect: normal affect Thought process: Normal thought process present Medications Administered Discontinued Medications Generic Name Dose Route Start Last Admin Trade Name Freq PRN Reason Stop Dose Admin Acetaminophen 975 mg 06/26/24 07:39 06/26/24 07:45 Acetaminophen 325 Mg Tablet PO 06/26/24 07:40 975 mg ONCE ONE Administration Ondansetron HCl 4 mg 06/26/24 07:39 06/26/24 07:45 Ondansetron Hcl 4 Mg/2 Ml Vial IVPUSH 06/26/24 07:40 4 mg ONCE ONE Administration Medical Decision Making Medical Decision Making [facility] Narrative: Patient is a 28-year-old female with history of seizure disorder, patient unsure of neurologist but states that she sees a neurologist in [place] presenting to the ED after boyfriend called 911 for 2-3 minutes of tonic/clonic activity. On exam patient is awake, A+Ox3, VS WNL, afebrile, normal neurological exam without focal deficits, physical exam findings as above. Given reported symptoms and physical exam findings, initial differential includes breakthrough seizure, electrolyte abnormality, drug/alcohol intoxication, aspiration. Labs notable for no leukocytosis, no anemia, no electolyte abnormalities, negative HCG, negative ethanol. Viral serology negative. X-ray chest notable for no evidence of aspiration. My interpretation is in agreement with the radiologist's interpretation. No evidence of infection on urinalysis. Urine drug screen notable only for cannabis. Results discussed with patient all questions answered. Follow up with neurologist, return precautions discussed at bedside. Patient verbalized understanding of and agreement with plan. Differential Diagnosis Differential Diagnoses: The differential diagnosis associated with the presentation includes as per [facility] Admission/Observation Consideration of admission/observation: Escalation of care including admission/observation considered Patient would have been admitted to the hospital had their work up had any findings where hospital admission was appropriate and their clinical presentation warranted hospital admission. Lab Data [facility] Lab Attestation statement: I reviewed the patient's lab results. As per [facility] 06/26/24 08:37 06/26/24 08:37 Labs: Lab Results 06/26/24 06/26/24 06/26/24 Range/Units 08:37 08:55 10:21 WBC 10.2 (4.8-10.8) X10*3/uL RBC 5.00 (4.20-5.50) X10*6/uL Hgb 12.6 (12.0-16.0) g/dl Hct 38.9 (37.0-47.0) % MCV 77.8 L (80.0-98.0) fL MCH 25.2 L (27.0-33.0) pg MCHC 32.4 (31.0-35.0) g/dl RDW 15.3 (11.0-16.0) % Plt Count 281 (160-400) X10*3/uL MPV 10.0 (9.4-12.3) fL Immature Gran % (Auto) 0.4 (0.0-0.4) % Neut % (Auto) 77.8 H (45-73) % Lymph % (Auto) 15.1 L (20-40) % [place] % (Auto) 4.8 (2-11) % Eos % (Auto) 1.5 (0-4) % Baso % (Auto) 0.4 (0-2) % Lymph # (Auto) 1.5 (1.2-4.9) X10*3/uL [place] # (Auto) 0.5 (0.1-1.2) X10*3/uL Eos # (Auto) 0.2 (0.0-0.4) X10*3/uL Baso # (Auto) 0.0 (0.0-0.2) X10*3/uL Abs Immat Gran (auto) 0.04 H (0.00-0.03) X10*3/uL Absolute Neuts (auto) 7.9 (2.0-8.3) x10*3/uL Absolute Nucleated RBC 0.000 (0.0-0.012) X10*3/uL Nucleated RBC % (auto) 0.0 (0.0-0.2) /100WBC Sodium 138 (135-145) mmol/L Potassium 4.2 (3.3-5.1) mmol/L Chloride 108 (96-108) mmol/L Carbon Dioxide 23 (22-29) mmol/L Anion Gap 11 L (12-20) BUN 10 (9-16) mg/dL Creatinine 0.69 (0.5-1.4) mg/dL Estim Creat Clear Calc 123.1 Estimated GFR > 60 Random Glucose 103 (60-115) mg/dL Lactic Acid 1.7 (0.5-2.0) mmol/L Calcium 8.6 (8.4-10.2) mg/dL Magnesium 2.1 (1.6-2.6) mg/dL Total Bilirubin 0.2 (0.0-1.0) mg/dL AST 18 (5-31) U/L ALT 16 (0-31) U/L Alkaline Phosphatase 88 (39-117) U/L Total Protein 7.1 (6.5-8.0) g/dL Albumin 3.8 (3.5-5.0) g/dL Beta HCG, Quant < 2 mIU/mL Urine Color Yellow Urine Appearance Clear Urine pH 7.0 (5.0-9.0) Ur Specific [place] 1.015 (1.005-1.025) Urine Protein Negative (Neg-Trace) mg/dL Urine Glucose (UA) Negative (Negative) mg/dL Urine Ketones Negative (Negative) mg/dL Urine Blood Negative (Negative) Urine Nitrite Negative (Negative) Ur Leukocyte Esterase Negative (Negative) Urine Opiates Screen Not Detected (Not Detect) Ur Buprenorphine Scrn Not Detected (Not Detect) ng/mL Ur Oxycodone Screen Not Detected (Not Detect) ng/mL Urine Methadone Screen Not Detected (Not Detect) ng/mL Urine Fentanyl Screen Not Detected (Not Detect) Ur Barbiturates Screen Not Detected (Not Detect) Ur Phencyclidine Scrn Not Detected (Not Detect) Ur Amphetamines Screen Not Detected (Not Detect) U Benzodiazepines Scrn Not Detected (Not Detect) Urine Cocaine Screen Not Detected (Not Detect) U Marijuana (THC) Screen POSITIVE H (Not Detect) Ethyl Alcohol < 10 mg/dL Influenza Type A (PCR) NEGATIVE (Negative) Influenza Type B (PCR) NEGATIVE (Negative) RSV RNA Qual (PCR) NEGATIVE (Negative) SARS-CoV-2 RNA (RT-PCR) NEGATIVE (Negative) Independent Interpretation I performed an independent interpretation of an: Plain X-Ray Interpretation: no evidence of aspiration on cxr Radiology Impression Discussion of test interpretation with radiology: I have reviewed the radiologist's reading. Radiologist Impression: XR/XR chest 2V IMPRESSION: No acute cardiopulmonary disease. External Record Review External record reviewed: Inpatient record, Office record and Outpatient record Discharge Plan Discharge Clinical Impression: Seizure Patient Disposition: Home, Self-Care Additional Instructions: You were evaluated in the emergency department today after witnessed seizure- like activity. You did not have any additional seizures while here in the emergency department. Your evaluation did not show evidence of any conditions requiring emergent medical treatment at this time. We recommend that you follow-up with your neurologist within the next 2 days. Return to the emergency department with additional episodes of seizures, dizziness or lightheadedness, confusion, difficulty walking or any other concerning symptoms. Prescriptions: No Action oxcarbazepine [Trileptal] 600 mg tablet 1,200 mg PO BID Qty: 60 0RF oxcarbazepine [Trileptal] 600 mg tablet 900 mg PO BID hydroxyzine HCl 25 mg tablet 25 mg PO TID PRN (Reason: anxiety) Qty: 90 2RF medroxyprogesterone [Depo-Provera] 150 mg/mL suspension 150 mg IM Q12W Qty: 1 0RF zonisamide 100 mg capsule 200 mg PO BID ondansetron HCl 8 mg tablet 8 mg PO Q8H Qty: 30 0RF Print Language: Egyptian
--- NOTE | 2024-06-26 07:11 | ECG_ITS ---
Test Reason : seizure Blood Pressure : / mmHG Vent. Rate : 060 BPM Atrial Rate : 060 BPM P-R Int : 150 ms QRS Dur : 088 ms QT Int : 416 ms P-R-T Axes : -28 -12 -21 degrees QTc Int : 416 ms Sinus rhythm with marked sinus arrhythmia Otherwise normal ECG When compared with ECG of 01-MAY-2024 07:31, Questionable change in QRS axis Referred By: Mariana Sloan Electronically Signed By:ALLY QUIROZ MD
[2024-06-26] MEDS: ondansetron HCL 4 MG/2 ML VIAL IVPUSH (07:45)
[2024-06-26] MEDS: Acetaminophen 325 MG TABLET 975 MG PO (07:45)
[2024-06-26 08:24] VITALS: BP 94/54; PULSE 51; RESP 12; O2SAT 99
[2024-06-26 08:45] LABS: Basophils Percent Auto 0.4 % (0-2); Eosinophils Absolute Auto 0.2 X10*3/uL (0.0-0.4); Eosinophils Percent Auto 1.5 % (0-4); Hematocrit 38.9 % (37.0-47.0); Hemoglobin 12.6 g/dl (12.0-16.0); Imm Gran Abs Auto 0.04 X10*3/uL (0.00-0.03); Imm Gran Pct Auto 0.4 % (0.0-0.4); Lymphocytes Absolute Auto 1.5 X10*3/uL (1.2-4.9); Lymphocytes Percent Auto 15.1 % (20-40); MANUAL DIFF FLAG NO; Mean Corpuscular HGB Conc 32.4 g/dl (31.0-35.0); Mean Corpuscular Hemoglobin 25.2 pg (27.0-33.0); Mean Corpuscular Volume 77.8 fL (80.0-98.0); Monocytes Absolute Auto 0.5 X10*3/uL (0.1-1.2); Monocytes Percent Auto 4.8 % (2-11); Neutrophils Absolute Auto 7.9 x10*3/uL (2.0-8.3); Neutrophils Percent Auto 77.8 % (45-73); Platelet Count 281 X10*3/uL (160-400); Red Cell Distribution Width 15.3 % (11.0-16.0); White Blood Count 10.2 X10*3/uL (4.8-10.8)
[2024-06-26 09:00] LABS: Lactic Acid 1.7 mmol/L (0.5-2.0)
[2024-06-26 09:01] LABS: Alanine Aminotransferase 16 U/L (0-31); Albumin Level 3.8 g/dL (3.5-5.0); Alkaline Phosphatase 88 U/L (39-117); Anion Gap 11 (12-20); Aspartate Amino Transferase 18 U/L (5-31); Bilirubin Total 0.2 mg/dL (0.0-1.0); Blood Urea Nitrogen 10 mg/dL (9-16); Calcium 8.6 mg/dL (8.4-10.2); Carbon Dioxide 23 mmol/L (22-29); Chloride 108 mmol/L (96-108); Creatinine Clr Calc Pharmacy 123.1; Estimated Glomerular Filt Rate > 60; Glucose Random 103 mg/dL (60-115); Magnesium 2.1 mg/dL (1.6-2.6); Potassium 4.2 mmol/L (3.3-5.1); Sodium 138 mmol/L (135-145); Total Protein 7.1 g/dL (6.5-8.0)
[2024-06-26 09:04] LABS: Ethanol < 10 mg/dL
[2024-06-26 09:09] LABS: HCG Quantitative < 2 mIU/mL
[2024-06-26 09:40] LABS: Influenza A PCR NEGATIVE (Negative); Influenza B PCR NEGATIVE (Negative); Resp Syncy Virus RNA Qual PCR NEGATIVE (Negative); SARS COV2 PCR INHOUSE NEGATIVE (Negative)
[2024-06-26 10:30] LABS: Appearance Urine Clear; Color Urine Yellow; Glucose Urine UA Negative (Negative); Leukocyte Esterase Urine Negative (Negative); Nitrite Urine Negative (Negative); Specific Gravity - Urine 1.015 (1.005-1.025); Urine Blood Negative (Negative); Urine Ketones Negative (Negative); Urine Protein Negative (Neg-Trace)
[2024-06-26 10:52] LABS: Amphetamine Screen Urine Not Detected (Not Detect); Barbiturates, Urine Not Detected (Not Detect); Benzodiazepines Screen Urine Not Detected (Not Detect); Buprenorphine Scr Not Detected (Not Detect); Cannabinoid Screen Urine POSITIVE (Not Detect); Cocaine Screen Urine Not Detected (Not Detect); Fentanyl, urine Not Detected (Not Detect); Methadone Screen, Urine Not Detected (Not Detect); Opiate Screen Urine Not Detected (Not Detect); Oxycodone Screen Urine Not Detected (Not Detect); Phencyclidine Screen Urine Not Detected (Not Detect)
[2024-06-26 11:12] VITALS: BP 101/56; PULSE 51; RESP 12; TEMP 37; O2SAT 99
== END 2024-06-26 11:13 | disposition home or self-care (01) ==
PROVIDERS: Registered Nurse Emergency; Emergency Provider Emergency Medicine
DX: R56.9 Unspecified convulsions (principal); Z03.818 Encounter for observation for suspected exposure to other biological agents ruled out; Z79.899 Other long term (current) drug therapy
CPT/HCPCS: 0241U; 36415; 71046; 80053; 80307; 81003; 83605; 83735; 84702; 85025; 93005; 96374; 99284; J2405

== ENCOUNTER → 2024-06-26 07:11 | Outpatient (BNV) | payer OTHER, SELFPAY | PROVIDERS: Emergency Provider Emergency Medicine; Visit Provider Internal Medicine Cardiovascular Disease | DX: I49.9 Cardiac arrhythmia, unspecified (principal) | CPT/HCPCS: 93010 ==

== ENCOUNTER 2024-06-29 14:21 | Emergency (ER) | payer OTHER, SELFPAY ==
[2024-06-29 14:33] VITALS: BP 106/74; PULSE 84; O2SAT 98
--- NOTE | 2024-06-29 14:55 | PC.NURSE ---
Pt expressing desire to leave AMA but pt is on stretcher. over to talk to the patient
--- NOTE | 2024-06-29 15:01 | ED_ITS ---
HPI - General Adult General Chief complaint: Seizure Stated complaint: FAM STS 5-6 SZ,POSTICTAL @ THIS TIME PER EMS Time Seen by Provider: 06/29/24 15:00 History of Present Illness ED Provider: Tye ROSARIO narrative: The patient is a 28-year-old female with a history of a seizure disorder who has been on oxcarbazepine. She has had breakthrough seizures and was recently given zonisamide in addition to the oxcarbazepine. Today she had several brief seizures at home and an ambulance was called and she was brought to the hospital. The patient feels that she does not like the zonisamide. She took her 1st dose of zonisamide 3 days ago on Saturday. She says that it makes her feel drugged and as if she is not herself and she does not want to continue the zonisamide. She says that she may not have been taking the oxcarbazepine very regularly and perhaps this is why she was having breakthrough seizures. The patient feels that she bit the right side of her tongue. There was no urinary incontinence. Paramedics say that when they 1st arrived at the house the patient seemed postictal. By the time the patient was at the emergency room her mental status had fully returned to normal. Related Data Home Medications ?Medication ?Instructions ?Recorded ?Confirmed oxcarbazepine 600 mg tablet 900 mg PO BID 10/09/23 10/31/23 (Trileptal) zonisamide 100 mg capsule 200 mg PO BID 06/02/24 Previous Rx's ?Medication ?Instructions ?Recorded hydroxyzine HCl 25 mg tablet 25 mg PO TID PRN anxiety #90 tabs 03/11/23 medroxyprogesterone 150 mg/mL 150 mg IM Q12W #1 mL 10/31/23 intramuscular suspension (Depo-Provera) oxcarbazepine 600 mg tablet 1,200 mg (2 x 600 mg) PO BID #60 05/01/24 (Trileptal) tabs ondansetron HCl 8 mg tablet 8 mg PO Q8H #30 tabs 06/02/24 Allergies Allergy/AdvReac Type Severity Reaction Status Date / Time phenytoin [From DILANTIN] Allergy Mild RASH Verified 06/29/24 15:20 strawberry AdvReac Hives Verified 06/29/24 15:20 Review of Systems Review of Systems: Yes all other systems are reviewed and are negative [facility] Past Medical History Medical History Seizure disorder Seizures Hypoxia Depression Anxiety Snoring Headache Contraception management Hyperglycemia Rash Anemia Viral syndrome Depression with anxiety care and examination BCP ( control pills) initiation Annual physical exam Depression Frequent UTI Surgical History Hx of section No pertinent past surgical history Family History Family History Father Seizure Mother No problems noted. Social History Social History Household Members: Family Housing: House Do you presently have visiting nurse or other home services: No Unable to assess alcohol history related to: Unknown Alcohol intake: never Patient Tobacco Use Status: Never used Tobacco e-Cigarette/Vaping Use: Never Used Substance Use Type: Marijuana Advance Directives: Yes Advance Directives on File: Yes Advance Directives Date on File: 12/26/22 service: No Current occupational status: employed Sexual orientation: Straight/Heterosexual Cognitive needs: No Hearing needs: No Vision needs: No Physical Exam ED Vital Signs: Vital Signs - 24 hr 06/29/24 15:14 06/29/24 16:00 Temperature 97.1 F 97.1 F Pulse Rate 83 83 Respiratory Rate 16 16 Blood Pressure 116/80 116/80 Pulse Oximetry 96 96 Oxygen Delivery Method Room Air Room Air BMI result Body Mass Index 38.1 Const Other: The patient is awake, alert, pleasant, cooperative. She does not seem in any distress. Mental status is normal. HENMT Other: Face is symmetrical. Mucous membranes moist. There is some slight sign of injury to the right side of the patient's tongue. No bleeding. No swelling, Eyes Other: pupils are round, equal, and reactive to light, extraocular movements intact, conjunctivae clear Neck Neck: Yes full ROM and Yes supple Resp Effort & Inspection: normal respiratory effort Auscultation: clear to auscultation bilaterally Cardio Rate: regular rate Rhythm: regular rhythm Heart sounds: S1 normal heart sound present and S2 normal heart sound present GI Other: abdomen is soft and nontender Skin Other: skin is dry and unremarkable. Neuro Other: The patient is awake and alert with a normal level of consciousness and normal mental status. Face is symmetrical. Eye movements are normal. Speech is clear. She moves her extremities normally. Gait is normal. She is neurologically intact. Extrem Other: No peripheral edema. No sign of injury to the extremities. Medical Decision Making Medical Decision Making MDM Narrative: The patient is a 28-year-old female with a long history of a seizure disorder on oxcarbazepine. She says that 3 days ago she was started on a new antiepileptic, zonisamide, which was initiated 3 days ago to help manage breakthrough seizures. Patient says that since starting the new medication 3 d ays ago she feels like she is not herself. She blames the new medication. She does not wish to continue the new medication. I was able to speak with the nurse from the patient's [place] neurology office who explained that the patient was to be loaded with zonisamide. The patient was very frustrated because she felt that the neurology office did not understand she did not wish to take this new medication. Patient was also frustrated with her mother. The patient was speaking to her mother on the phone. Ultimately the patient told me that she believes that she has not been as compliant with the oxcarbazepine as she should be. She does not wish to start a new medication. She wants to commit to being fully compliant with the oxcarbazepine before continuing with any new medications. Patient wanted to be discharged. She seemed medically stable. She seemed competent to make decisions. She will therefore be discharged with a plan to continue oxcarbazepine, stop the new medication, and attempt to be more compliant with oxcarbazepine. She should follow up with her regular doctors. Discharge Plan Discharge Clinical Impression: Breakthrough seizure, Seizure disorder Patient Disposition: Home, Self-Care Additional Instructions: Please continue your oxcarbazepine (Trileptal). Please make sure that you take this very regularly. Please plan on following up with your regular doctor to discuss any additional changes to your seizure management. Return to the emergency room if significantly worse. Prescriptions: No Action oxcarbazepine [Trileptal] 600 mg tablet 1,200 mg PO BID Qty: 60 0RF oxcarbazepine [Trileptal] 600 mg tablet 900 mg PO BID hydroxyzine HCl 25 mg tablet 25 mg PO TID PRN (Reason: anxiety) Qty: 90 2RF medroxyprogesterone [Depo-Provera] 150 mg/mL suspension 150 mg IM Q12W Qty: 1 0RF zonisamide 100 mg capsule 200 mg PO BID ondansetron HCl 8 mg tablet 8 mg PO Q8H Qty: 30 0RF Interventions: ED Discharge Assessment Last Done: 06/29/24 16:00 Discharge Date/Time: 06/29/24 16:01 Print Language: Danish
[2024-06-29 15:14] VITALS: BP 116/80; PULSE 83; RESP 16; TEMP 36.2; O2SAT 96; BMI 38.1
[2024-06-29 16:00] VITALS: BP 116/80; PULSE 83; RESP 16; TEMP 36.2; O2SAT 96
== END 2024-06-29 16:01 | disposition home or self-care (01) ==
PROVIDERS: Emergency Provider Emergency Medicine
DX: R56.9 Unspecified convulsions (principal); Z79.899 Other long term (current) drug therapy
CPT/HCPCS: 99282

== ENCOUNTER 2024-09-14 08:24 | Emergency (ER) | payer OTHER, SELFPAY ==
--- NOTE | ~2024-09-14 | XR_ITS ---
EXAMINATION: XR CHEST CLINICAL INFORMATION: cough COMPARISON: X-ray dated June 26, 2024 TECHNIQUE: 2 views of the chest were obtained. FINDINGS: No consolidation pleural effusion or pneumothorax. No hyperinflation. Cardiomediastinal silhouette is normal size. Osseous structures are intact. XR/XR chest 2V IMPRESSION: No acute airspace disease. Stable chest. Electronically signed by: Jonathan Rader MD 09/14/2024 09:52 AM [facility]
--- NOTE | 2024-09-14 08:41 | ED_ITS ---
HPI - General Adult General Chief complaint: Nausea/Vomiting/Diarrhea Stated complaint: WEAK,DIZZY A FEW DAYS PER EMS Time Seen by Provider: 09/14/24 08:40 Source: patient, EMS, RN notes reviewed and old records reviewed Mode of arrival: EMS Limitations: no limitations History of Present Illness ED Provider: Nathalia HPI narrative: Patient is a 28-year-old female with history of seizure disorder, anxiety/depression, anemia presenting with weakness, nausea, vomiting and diarrhea. EMS initially called for seizure-like activity, but state that patient was awake, alert, oriented on their arrival, did not appear postictal. Patient had 3 seizures on Saturday per her boyfriend. Multiple family members at home have recently been sick with similar symptoms of nausea, vomiting, diarrhea. She reports that she has had difficulty tolerating her seizure medications due to nausea and vomiting. Patient also complains of cough since her boyfriend medicated her with intranasal medication to stop her seizures last week. Denies hematemesis, hematochezia, melena. Denies fevers. Denies current nausea. MD complaint: weakness, nausea, vomiting, diarrhea, cough Onset (ago): day(s) Treatments prior to arrival: none Related Data Home Medications ?Medication ?Instructions ?Recorded ?Confirmed oxcarbazepine 600 mg tablet 900 mg PO BID 10/09/23 10/31/23 (Trileptal) zonisamide 100 mg capsule 200 mg PO BID 06/02/24 Previous Rx's ?Medication ?Instructions ?Recorded hydroxyzine HCl 25 mg tablet 25 mg PO TID PRN anxiety #90 tabs 03/11/23 medroxyprogesterone 150 mg/mL 150 mg IM Q12W #1 mL 10/31/23 intramuscular suspension (Depo-Provera) oxcarbazepine 600 mg tablet 1,200 mg (2 x 600 mg) PO BID #60 05/01/24 (Trileptal) tabs ondansetron HCl 8 mg tablet 8 mg PO Q8H #30 tabs 06/02/24 ondansetron 4 mg disintegrating 4 mg PO Q8H PRN nausea and 09/14/24 tablet vomiting #10 tabs Allergies Allergy/AdvReac Type Severity Reaction Status Date / Time phenytoin [From DILANTIN] Allergy Mild RASH Verified 09/14/24 09:03 strawberry AdvReac Hives Verified 09/14/24 09:03 Review of Systems 2 Review of Systems: As per HPI. Yes all other systems are reviewed and are negative Constitutional: Constitutional: Reports as per HPI [facility] Past Medical History Medical History Seizure disorder Seizures Hypoxia Depression Anxiety Snoring Headache Contraception management Hyperglycemia Rash Anemia Viral syndrome Depression with anxiety care and examination BCP ( control pills) initiation Annual physical exam Depression Frequent UTI Surgical History Hx of section No pertinent past surgical history Family History Family History Father Seizure Mother No problems noted. Social History Social History Household Members: Family Housing: House Do you presently have visiting nurse or other home services: No Unable to assess alcohol history related to: Unknown Alcohol intake: never Patient Tobacco Use Status: Never used Tobacco Smoked in Last 30 Days: No e-Cigarette/Vaping Use: Never Used Use of substances other than those prescribed or required for medical reasons: Yes Substance Use Type: Marijuana Advance Directives: Yes Advance Directives on File: Yes Advance Directives Date on File: 12/26/22 Do you have a plan to hurt others: No Plan Patient : No service: No Current occupational status: employed Sexual orientation: Straight/Heterosexual Cognitive needs: No Hearing needs: No Vision needs: No Physical Exam ED Vital Signs: Vital Signs - 24 hr 09/14/24 08:59 Temperature 98.5 F Pulse Rate 79 Respiratory Rate 18 Blood Pressure 116/82 Pulse Oximetry 96 Oxygen Delivery Method Room Air BMI result Body Mass Index 30.3 Vital signs have been reviewed and appear to be correct. Blood pressure normal. Heart rate normal. Respiratory rate normal. Temperature normal. Oxygen saturation normal. Const General: cooperative, healthy appearing and no acute distress Orientation/consciousness: oriented to person, oriented to place, oriented to time and patient oriented x3 Limitations: no limitations HENMT Head: Yes normocephalic and Yes atraumatic Ears: external ears normal General nose exam: Normal external nose present Face and sinus: Yes face symmetric Mouth: oropharynx normal and moist mucous membranes Throat: Yes uvula midline Eyes Pupils: Equal, round and reactive pupils present Neck Neck: Yes normal visual inspection and Yes supple Resp Effort & Inspection: normal respiratory effort and able to speak in complete sentences Auscultation: clear to auscultation bilaterally Cardio Rate: regular rate Rhythm: regular rhythm Heart sounds: S1 normal heart sound present and S2 normal heart sound present GI Palpation (GI): Soft to palpation and nontender Auscultation: normoactive bowel sounds General: Yes no CVA tenderness Back/Spine/Pelvis Back: no CVA tenderness Skin General skin exam: elasticity normal and turgor normal Neuro General: oriented to person, oriented to place, oriented to time, patient oriented x3, moves all extremities, no focal motor deficits and CN's II-XI intact bilaterally Cranial nerves: Yes Equal, round and reactive pupils present Cognition (Neuro): normal cognition Extrem General: Yes full ROM, Yes no pedal edema and Yes no calf tenderness Psych Mental Status: mental status grossly normal Affect: normal affect Thought process: Normal thought process present Medications Administered Discontinued Medications Generic Name Dose Route Start Last Admin Trade Name Freq PRN Reason Stop Dose Admin Sodium Chloride 1,000 mls @ 999 mls/hr 09/14/24 09:00 09/14/24 09:15 Ns IV 09/14/24 10:00 999 mls/hr .Q1H1M NAHEED Administration Medical Decision Making Medical Decision Making [facility] Narrative: Patient is a 28-year-old female with history of seizure disorder, anxiety/depression, anemia presenting with weakness, nausea, vomiting and diarrhea. EMS initially called for seizure-like activity, but state that patient was awake, alert, oriented on their arrival, did not appear postictal. On exam patient is awake, A+Ox3, VS WNL, afebrile, normal neurological exam without focal deficits, physical exam findings as above. Given reported symptoms and physical exam findings, initial differential includes but is not limited to seizure, viral illness, COVID, flu, gastroenteritis, electrolyte abnormality, dehydration. Viral serology positive for influenza A. Labs grossly within normal limits. X-ray chest notable for no evidence of pneumonia. My interpretation is in agreement with the radiologist's interpretation. Results discussed with patient and all questions answered. Patient reports improvement in symptoms after IV fluids given in the ED. She is comfortable with discharge home. Will send prescription for Zofran for nausea so patient is able to take her seizure medications. Advised adequate rest, adequate fluid intake, [id number] cough medicine as needed, Tylenol and ibuprofen. Follow-up with PCP as needed. Return precautions discussed. Patient verbalized understanding of and agreement with plan. Differential Diagnosis Differential Diagnoses: The differential diagnosis associated with the presentation includes As per [facility] Admission/Observation Consideration of admission/observation: Escalation of care including admission/observation considered Patient would have been admitted to the hospital had their work up had any findings where hospital admission was appropriate and their clinical presentation warranted hospital admission. Lab Data [facility] Lab Attestation statement: I reviewed the patient's lab results. As per [facility] 09/14/24 09:40 09/14/24 09:40 Labs: Lab Results 09/14/24 Range/Units 09:40 WBC 3.6 L (4.8-10.8) X10*3/uL RBC 4.92 (4.20-5.50) X10*6/uL Hgb 12.6 (12.0-16.0) g/dl Hct 38.6 (37.0-47.0) % MCV 78.5 L (80.0-98.0) fL MCH 25.6 L (27.0-33.0) pg MCHC 32.6 (31.0-35.0) g/dl RDW 15.4 (11.0-16.0) % Plt Count 206 D (160-400) X10*3/uL MPV 9.5 (9.4-12.3) fL Immature Gran % (Auto) 0.3 (0.0-0.4) % Neut % (Auto) 60.8 (45-73) % Lymph % (Auto) 30.3 (20-40) % Morris % (Auto) 7.7 (2-11) % Eos % (Auto) 0.6 (0-4) % Baso % (Auto) 0.3 (0-2) % Lymph # (Auto) 1.1 L (1.2-4.9) X10*3/uL Morris # (Auto) 0.3 (0.1-1.2) X10*3/uL Eos # (Auto) 0.0 (0.0-0.4) X10*3/uL Baso # (Auto) 0.0 (0.0-0.2) X10*3/uL Abs Immat Gran (auto) 0.01 (0.00-0.03) X10*3/uL Absolute Neuts (auto) 2.2 (2.0-8.3) x10*3/uL Absolute Nucleated RBC 0.000 (0.0-0.012) X10*3/uL Nucleated RBC % (auto) 0.0 (0.0-0.2) /100WBC Sodium 140 (135-145) mmol/L Potassium 3.5 (3.3-5.1) mmol/L Chloride 111 H (96-108) mmol/L Carbon Dioxide 23 (22-29) mmol/L Anion Gap 10 L (12-20) BUN 12 (9-16) mg/dL Creatinine 0.68 (0.5-1.4) mg/dL Estim Creat Clear Calc 104.2 Estimated GFR > 60 Random Glucose 72 (60-115) mg/dL Calcium 7.9 L D (8.4-10.2) mg/dL Magnesium 2.0 (1.6-2.6) mg/dL Total Bilirubin 0.2 (0.0-1.0) mg/dL AST 27 (5-31) U/L ALT 20 (0-31) U/L Alkaline Phosphatase 59 (39-117) U/L Total Protein 6.9 (6.5-8.0) g/dL Albumin 3.6 (3.5-5.0) g/dL Beta HCG, Quant < 2 mIU/mL Influenza Type A (PCR) POSITIVE A (Negative) Influenza Type B (PCR) NEGATIVE (Negative) RSV RNA Qual (PCR) NEGATIVE (Negative) SARS-CoV-2 RNA (RT-PCR) NEGATIVE (Negative) Independent Interpretation I performed an independent interpretation of an: Plain X-Ray Interpretation: No evidence of pneumonia on chest x-ray Radiology Impression Discussion of test interpretation with radiology: I have reviewed the radiologist's reading. Radiologist Impression: FINDINGS: No consolidation pleural effusion or pneumothorax. No hyperinflation. Cardiomediastinal silhouette is normal size. Osseous structures are intact. XR/XR chest 2V IMPRESSION: No acute airspace disease. Stable chest. External Record Review External record reviewed: Inpatient record, Office record and Outpatient record Prescription Management I considered prescription management with: Other Discharge Plan Discharge Clinical Impression: Influenza A Patient Disposition: Home, Self-Care Instructions: Influenza (DC), Flu Shot (Vaccine) for Adults (ED), Droplet Precautions (ED) Additional Instructions: You were evaluated in the emergency department today for cough, vomiting, and diarrhea. Your flu test was positive. You should isolate at home for another 2 days and continue to wear a mask while symptomatic after that. Your symptoms should resolve over time with rest and fluids. You can take 650 mg Tylenol or 600 mg ibuprofen every 6 hours as needed for fever or pain. You can use an over the counter cough medication such as Delsym. Please follow-up with your primary care provider for any ongoing symptoms. Return to the emergency department if you develop worsening pain, fever not controlled with Tylenol and ibuprofen, chest pain, dizziness or lightheadedness, or any other concerning symptoms. Prescriptions: New ondansetron 4 mg tablet,disintegrating 4 mg PO Q8H PRN (Reason: nausea and vomiting) Qty: 10 0RF No Action oxcarbazepine [Trileptal] 600 mg tablet 1,200 mg PO BID Qty: 60 0RF oxcarbazepine [Trileptal] 600 mg tablet 900 mg PO BID hydroxyzine HCl 25 mg tablet 25 mg PO TID PRN (Reason: anxiety) Qty: 90 2RF medroxyprogesterone [Depo-Provera] 150 mg/mL suspension 150 mg IM Q12W Qty: 1 0RF zonisamide 100 mg capsule 200 mg PO BID ondansetron HCl 8 mg tablet 8 mg PO Q8H Qty: 30 0RF Print Language: Latvian
--- NOTE | 2024-09-14 08:45 | ECG_ITS ---
Test Reason : weakness Blood Pressure : */* mmHG Vent. Rate : 80 BPM Atrial Rate : 80 BPM P-R Int : 144 ms QRS Dur : 86 ms QT Int : 406 ms P-R-T Axes : 45 35 14 degrees QTcB Int : 468 ms Normal sinus rhythm Normal ECG When compared with ECG of 26-Jun-2024 08:22, QT has lengthened Referred By: Mariana Sloan Electronically Signed By: HUMBERTO GORDON
[2024-09-14 08:59] VITALS: BP 116/82; PULSE 79; RESP 18; TEMP 36.9; O2SAT 96; BMI 30.3
[2024-09-14] MEDS: 0.9 % Sodium Chloride 1,000 ML 999 ML IV (09:15)
[2024-09-14 09:45] LABS: Basophils Percent Auto 0.3 % (0-2); Eosinophils Percent Auto 0.6 % (0-4); Hematocrit 38.6 % (37.0-47.0); Hemoglobin 12.6 g/dl (12.0-16.0); Imm Gran Abs Auto 0.01 X10*3/uL (0.00-0.03); Imm Gran Pct Auto 0.3 % (0.0-0.4); Lymphocytes Absolute Auto 1.1 X10*3/uL (1.2-4.9); Lymphocytes Percent Auto 30.3 % (20-40); MANUAL DIFF FLAG NO; Mean Corpuscular HGB Conc 32.6 g/dl (31.0-35.0); Mean Corpuscular Hemoglobin 25.6 pg (27.0-33.0); Mean Corpuscular Volume 78.5 fL (80.0-98.0); Mean Platelet Volume 9.5 fL (9.4-12.3); Monocytes Absolute Auto 0.3 X10*3/uL (0.1-1.2); Monocytes Percent Auto 7.7 % (2-11); Neutrophils Absolute Auto 2.2 x10*3/uL (2.0-8.3); Neutrophils Percent Auto 60.8 % (45-73); Platelet Count 206 X10*3/uL (160-400); Red Blood Count 4.92 X10*6/uL (4.20-5.50); Red Cell Distribution Width 15.4 % (11.0-16.0); White Blood Count 3.6 X10*3/uL (4.8-10.8)
[2024-09-14 10:17] LABS: Alanine Aminotransferase 20 U/L (0-31); Albumin Level 3.6 g/dL (3.5-5.0); Alkaline Phosphatase 59 U/L (39-117); Anion Gap 10 (12-20); Aspartate Amino Transferase 27 U/L (5-31); Bilirubin Total 0.2 mg/dL (0.0-1.0); Blood Urea Nitrogen 12 mg/dL (9-16); Calcium 7.9 mg/dL (8.4-10.2); Carbon Dioxide 23 mmol/L (22-29); Chloride 111 mmol/L (96-108); Creatinine Clr Calc Pharmacy 104.2; Estimated Glomerular Filt Rate > 60; Glucose Random 72 mg/dL (60-115); HCG Quantitative < 2 mIU/mL; Potassium 3.5 mmol/L (3.3-5.1); Sodium 140 mmol/L (135-145); Total Protein 6.9 g/dL (6.5-8.0)
[2024-09-14 10:36] LABS: Influenza A PCR POSITIVE (Negative); Influenza B PCR NEGATIVE (Negative); Resp Syncy Virus RNA Qual PCR NEGATIVE (Negative); SARS COV2 PCR INHOUSE NEGATIVE (Negative)
== END 2024-09-14 15:28 | disposition home or self-care (01) ==
PROVIDERS: Registered Nurse Emergency; Emergency Provider Emergency Medicine; PCP Internal Medicine
DX: J10.1 Influenza due to other identified influenza virus with other respiratory manifestations (principal); R11.2 Nausea with vomiting, unspecified; R05.9 Cough, unspecified; Z03.818 Encounter for observation for suspected exposure to other biological agents ruled out
CPT/HCPCS: 0241U; 71046; 80053; 83735; 84702; 85025; 93005; 99284

== ENCOUNTER → 2024-09-14 08:45 | Outpatient (BNV) | payer OTHER, SELFPAY | PROVIDERS: Emergency Provider Emergency Medicine; PCP Internal Medicine; Visit Provider Internal Medicine | DX: R53.1 Weakness (principal) | CPT/HCPCS: 93010 ==

== ENCOUNTER → 2024-09-14 09:09 | Outpatient (BNV) | payer OTHER, SELFPAY | PROVIDERS: Emergency Provider Emergency Medicine; PCP Internal Medicine; Visit Provider Radiology Diagnostic Radiology | DX: R05.9 Cough, unspecified (principal) | CPT/HCPCS: 71046 ==

== ENCOUNTER 2024-12-22 08:43 | Outpatient (AMB) | payer OTHER, SELFPAY ==
[2024-12-22 08:47] VITALS: BP 102/66; PULSE 77; RESP 18; TEMP 36.7; O2SAT 98; BMI 41.4
--- NOTE | 2024-12-22 08:47 | MHC.PC.OV ---
Vital Signs 12/22/24 08:47 Height 4 ft 11 in Weight 205 lb BMI 41.4 BP 102/66 Blood Pressure Location Rt brachial Position Sitting Respiration 18 Pulse 77 Pulse Source Pulse Oximeter Temp 98.1 F Temp Source Oral Pulse Oximetry (%) 98 Oxygen Delivery Method Room Air Intake Visit Reasons: PE Intake Note: Pt is here today for PE. Allergies phenytoin [From DILANTIN] Allergy (Mild, Verified 12/22/24 08:50) RASH strawberry Adverse Reaction (Verified 12/22/24 08:50) Hives Medication List - Last Reconciled 12/22/24 by Meredith Cervantes MD folic acid 1 mg PO DAILY hydroxyzine HCl 25 mg PO TID PRN levetiracetam 1,500 mg PO BEDTIME levetiracetam mg PO DAILY midazolam (Nayzilam) intranasal ondansetron 4 mg PO Q8H PRN Tobacco use date assessed: 12/22/24 Dental Screening Dental Screen Date: 12/22/24 Did you have a dental visit in the last 12 months?: Yes Did you have a dental problem in the last 6 months where you did not have access to dental care?: No Was dental information given to patient?: Patient has dentist HPI PE HPI Details Pt presents for PE. Pt is established with neurology at [facility] for seizure treatment. She has been taking Keppra but reports breakthrough seizures. She has been requiring help at home and has not been able to work [facility] Medical History (Updated 12/22/24 @ 10:26 by Meredith Cervantes MD) Seizures Hypoxia Depression Anxiety Snoring Headache Contraception management Hyperglycemia Rash Anemia Viral syndrome Depression with anxiety care and examination BCP ( control pills) initiation Annual physical exam Depression Frequent UTI Surgical History Hx of section No pertinent past surgical history Family History Father Seizure Mother No problems noted. Social History Household Members: Family Housing: House Do you presently have visiting nurse or other home services: No Unable to assess alcohol history related to: Unknown Alcohol intake: never Patient Tobacco Use Status: Current everyday Tobacco user Tobacco use type: Cigarette Cigarettes Per Day: 2 e-Cigarette/Vaping Use: Never Used Substance Use Type: Marijuana Advance Directives Date on File: 12/26/22 service: No Current occupational status: employed Sexual orientation: Straight/Heterosexual Cognitive needs: No Hearing needs: No Vision needs: No Female Reproductive History Menstrual Age of Menarche: 18 Questionnaire PHQ-9 Over the last 2 weeks, how often have you been bothered by any of the following problems? 1. Little interest or pleasure in doing things: not at all 2. Feeling down, depressed, or hopeless: more than half the days 3. Trouble falling or staying asleep, or sleeping too much: more than half the days 4. Feeling tired or having little energy: more than half the days 5. Poor appetite or overeating: more than half the days 6. Feeling bad about yourself - or that you are a failure or have let yourself or your family down: not at all 7. Trouble concentrating on things, such as reading the newspaper or watching television: more than half the days 8. Moving or speaking so slowly that other people could have noticed. Or the opposite - being so fidgety or restless that you have been moving around a lot more than usual: more than half the days 9. Thoughts that you would be better off or of hurting yourself in some way: not at all Total score: 12 Depression Screening Interpretation: Negative Depression Screening Done: Yes 30794 - PHQ-9 Billing: Yes Source: Developed by Drs. Celestine Ward, Diane Fiore, Danial Barden and colleagues, with an educational blue from [employer]. Thrive Questionnaire Date Thrive assessed: 12/22/24 I am a: Patient What is your living situation today?: I have a steady place to live Within the past 12 months, did the food you bought not last and you didn't have the money to get more?: Never true Within the past 12 months, did you worry whether your food would run out before you got money to buy more?: Never true Do you have trouble paying for medicines?: No Do you have trouble getting transportation to medical appointments?: Yes Do you have trouble paying your heating and electricity bill?: No Do you have trouble taking care of your child, family member or friend?: No Do you have trouble with day-to-day activities such as bathing, preparing meals, shopping, managing finances, etc.?: Yes Are you currently unemployed and looking for a job?: I choose not to answer this question Are you interested in more education?: No Please select the resources that you would like help with: None Currently or been in a relationship where the following occur: No concerns reported THRIVE Score: 1 AUDIT C Alcohol Use Questionnaire (AUDIT-C) 1. How often do you have a drink containing alcohol?: Never 3. How often do you have six or more drinks on one occasion?: Never Total Score: 0 KARLO-7 AMB Questionnaire KARLO-7 Date KARLO - 7 assessed: 12/22/24 Feeling nervous, anxious, or on edge: 2 = More than half the days Not being able to stop or control worryin = More than half the days Worrying too much about different things: 0 = Not at all Trouble relaxin = Not at all Being so restless that it is hard to sit still: 0 = Not at all Becoming easily annoyed or irritable: 0 = Not at all Feeling afraid as if something awful might happen: 0 = Not at all Total KARLO-7 score (0-4 normal; 5-9 mild; 10-14 moderate; 15-21 severe): 4 Source: Developed by Drs. Celestine Ward, Diane Fiore, Danial Braden and colleagues, with an educational blue from [employer]. KARLO-7 Assessment Billing KARLO-7 Assessment Tool: KARLO-7 Assessment 15222 Review of Systems Const All systems reviewed & are unremarkable except as noted in HPI and below Reports no additional complaints Eyes Reports no additional complaints ENT Reports no additional complaints Card Reports no additional complaints Resp Reports no additional complaints GI Reports no additional complaints Reports no additional complaints Musc Reports no additional complaints Physical exam (Primary Care) Vital Signs: Last Vital Signs Temp 98.1 F 12/22/24 08:47 Pulse 77 12/22/24 08:47 Resp 18 12/22/24 08:47 BP 102/66 12/22/24 08:47 Pulse Ox 98 12/22/24 08:47 Oxygen Delivery Method Room Air 12/22/24 08:47 BMI result Body Mass Index 41.4 Tobacco/Smoking Status: Tobacco use Status Tobacco use date assessed 12/22/24 12/22/24 08:58 Patient Tobacco Use Status Current everyday Tobacco 12/22/24 08:58 Tobacco use type Cigarette 12/22/24 08:58 e-Cigarette/Vaping Use Never Used 12/22/24 08:47 PHQ-9: PHQ-9 Score PHQ-9: Total score 12 12/22/24 08:58 Depression Screening Interpretation: Negative Thrive Assessment: Date of Thrive Assessment Date Thrive assessed 12/22/24 12/22/24 08:58 Currently or been in a relationship where the following occur: No concerns reported Const General: no acute distress HENMT Head: Yes normal to inspection Ears: hearing grossly normal bilaterally Face and sinus: Yes normal facial exam Mouth: Normal oral and palatal mucosa present Throat: Yes posterior oropharynx normal Eyes General: appearance normal, both eyes and all related structures Neck Neck: Yes no lymphadenopathy and Yes supple Resp Effort & Inspection: normal respiratory effort Auscultation: clear to auscultation bilaterally Cardio Rhythm: regular rhythm Heart sounds: S1 normal heart sound present and S2 normal heart sound present GI Inspection: Yes normal to inspection Palpation (GI): Soft to palpation Percussion: Yes normal to percussion Auscultation: normal bowel sounds Coding Level of Care Code Est Pt Prev Care 18-39y(65419) Diagnoses Annual physical exam Z00. Seizures R56.9 Additional Codes KARLO-7 Assessment Billing - KARLO-7 Assessment Tool: KARLO-7 Assessment 21281 ([id number]) PHQ-9 - 05329 - PHQ-9 Billing: Yes ([id number]) Assessment & Plan Assessment & Plan (1) Annual physical exam: Code(s): Z00.00 - Encounter for general adult medical examination without abnormal findings Category: Medical Plan: Well-balanced diet regular physical activity discussed with the patient she will return for fasting blood work. 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 Panel Fast Today Z00.00 - Encounter for general adult medical examination without abnormal findings Complete Blood Count Auto Diff Today Z00.00 - Encounter for general adult medical examination without abnormal findings TSH reflex Free T4 Today Z00.00 - Encounter for general adult medical examination without abnormal findings
--- OUTSIDE RECORDS SUMMARY | 2024-12-22 09:10 | XMS_ITS | Encounter Summary ---
Author Organization [facility] Address [address] [place] [id number] Phone Care Team Providers Care Machinery Mover Name Role Phone Unavailable Primary Care Provider Unavailabl e Encounter Details Date Type Department Care Team (Late st Contact Info) Description 10/29/2016 Documentation [facility] [place] [facility] [place] [address] Family Medicine, Physician [facility] [place] [address] Social History Tobacco Use Types Packs/Day Years Used Date Smoking Tobacco: Never Comments:Never smoker Comments Unknown Sex and Gender Information Value Date Recorded Sex Assigned at Not on file Legal Sex Female 5:21 PM EDT Gender Identity Not on file Sexual Orientation Not on file documented as of this encounter Plan of Treatment Not on file documented as of this encounter Visit Diagnoses Not on filedocumented in this encounter
--- OUTSIDE RECORDS SUMMARY | 2024-12-22 09:10 | XMS_ITS | Encounter Summary ---
Author Organization [facility] Address [address] [place] [id number] Phone Care Team Providers Care Ross Furnace Operator Name Role Phone Unavailable Primary Care Provider Unavailabl e Encounter Details Date Type Department Care Team (Late st Contact Info) Description 07/22/2013 Documentation [facility] [place] Medicine [facility] [place] [address] Family Medicine, Physician [facility] [place] [address] Social History Tobacco Use Types Packs/Day Years Used Date Smoking Tobacco: Never Assessed Comments Unknown Sex and Gender Information Value Date Recorded Sex Assigned at Not on file Legal Sex Female 5:21 PM EDT Gender Identity Not on file Sexual Orientation Not on file documented as of this encounter Plan of Treatment Not on file documented as of this encounter Visit Diagnoses Not on filedocumented in this encounter
--- OUTSIDE RECORDS SUMMARY | 2024-12-22 09:10 | XMS_ITS | Clinical Summary ---
Author Organization [facility] it Address [address] [place] [address] Care Team Providers Care Hedis Coordinator Name Role Phone Silvino Vaca MD Primary Care Provider [phone] Surgical History Surgery Date Site/Laterality Comments SECTION 09/29/2018 N/A PROCEDURE: CA DELIVERY ONLY Medical History Medical History Date Comments Seizures (CMS/HCC V24, CMS/HCC V28) DX:Seizures ([facility]); COMMENT: pt states seizure free x 6 years. no meds Family History Medical History Relation Name Comments Ovarian cancer Aunt mom side No Known Problems Brother 1 No Known Problems Brother 2 Diabetes Father Seizures Father Breast cancer Father's side aunt Stroke Maternal Grandfather Diabetes Maternal Grandmother Other: Stroke mini Maternal Grandmother No Known Problems Mother No Known Problems Sister Cervical cancer Neg Hx Uterine cancer Neg Hx Relation Name Status Comments Aunt mom side Alive Brother 1 Alive Brother 2 Alive Father Alive Father's side aunt Maternal Grandfather Maternal Grandmother Alive Mother Alive Paternal Grandfather Paternal Grandmother Sister Alive Social History Tobacco Use Types Packs/Day Years Used Date Smoking Tobacco: Never Smokeless Tobacco: Never Alcohol Use Standard Drinks/Week Comments No 0 (1 standard drink = 0.6 oz pur e alcohol) Comments Unknown Sex and Gender Information Value Date Recorded Sex Assigned at Not on file Legal Sex Female 9:06 AM EST Gender Identity Not on file Sexual Orientation Not on file Obstetrics History Last Filed Vital Signs Vital Sign Reading Time Taken Comments Blood Pressure 106/74 03/20/2023 9:54 AM EDT Pulse 66 03/20/2023 9:54 AM EDT Temperature - - Respiratory Rate - - Oxygen Saturation - - Inhaled Oxygen Concentration - - Weight 79.4 kg (175 lb) 03/20/2023 9:54 AM EDT Height 152.4 cm (5') 03/20/2023 9:54 AM EDT Body Mass Index 34.18 03/20/2023 9:54 AM EDT Plan of Treatment Health Maintenance Due Date Last Done Comments Hepatitis B Vaccines (1 of 3 - 19+ 3-dose series) 11/21/2015 Cervical Cancer Screening: P ap Smear 03/04/2021 03/04/2018 Depression Screening 07/22/2022 HIV Screening 07/22/2022 Hepatitis C Screening 07/22/2022 Social Influencers of Health Screening 07/22/2022 COVID-19 Vaccine (2023-2 5 season) 2024 Influenza Vaccine (Season Ended) 2025 06/09/2018 DTaP,Tdap,and Td Vaccines (3 - Td or Tdap) 04/27/2030 04/27/2020, 08/08/2018 HIB Vaccines Aged Out No longer eligi ble based on patient's age to complete this topic HPV Vaccines Aged Out No longer eligi ble based on patient's age to complete this topic Hepatitis A Vaccines Aged Out No long er eligible based on patient's age to complete this topic IPV Vaccines Aged Out No longer eligi ble based on patient's age to complete this topic MMR Vaccines Aged Out No longer eligi ble based on patient's age to complete this topic Meningococcal ACWY Vaccine Aged Out N o longer eligible based on patient's age to complete this topic Meningococcal B Vaccine Aged Out No l onger eligible based on patient's age to complete this topic Pneumococcal Vaccine: Pediatrics (0 to 5 Years) and At-Risk Patients (6 to 64 Years) Aged Out No longer eligible b ased on patient's age to complete this topic RSV Immunization Patients Under 20 months Aged Out No longer eligible b ased on patient's age to complete this topic Varicella Vaccines Aged Out No longer eligible based on patient's age to complete this topic Procedures Procedure Name Priority Date/Time Associated Diagnosis Comments PAP SMEAR Routine 03/04/2018 from Last 3 Months or Most Recently Relevant to Health Maintenance Results * Pap smear (03/04/2018) 03/04/2018 Narrative HISTORICAL TESTING LAB RESULTING AGENCY - 03/06/2018 9:19 AM EDT [id number] RESULTS OF GEN-PROBE APTIMA COMBO 2 ASSAY CHLAMYDIA: ?NEGATIVE N. GONORRHOEAE: ? NEGATIVE DAVID HUMPHRIES M.D., PATHOLOGIST (CASE ELECTRONICALLY SIGNED 03 06 2018) CLINICAL INFORMATION: , Z12.4 SOURCE: THINPREP PAP FOR CT/GC GROSS DESCRIPTION: THINPREP VIAL RECEIVED. PHYSICIANS WENDI CRISOSTOMO/#/ us Wendi Crisostomo CNM LAB CYTOLOGY ORDERABLES Final Result HISTORICAL TESTING LAB RESULTING AGENCY from Last 3 Months or Most Recently Relevant to Health Maintenance Care Teams Hedis Coordinator Relationship Specialty Start Date End Date Silvino Vaca MD [address] [place] [address] Dr [address] [facility] [place] [address] PCP - General Internal Medicine 12/07/19
--- OUTSIDE RECORDS SUMMARY | 2024-12-22 09:10 | XMS_ITS | Encounter Summary ---
Author Organization [facility] Address [address] [place] [phone] Phone Care Team Providers Care Patient Ombudsperson Name Role Phone Unavailable Primary Care Provider Unavailabl e Encounter Details Date Type Department Care Team (Late st Contact Info) Description 10/10/2016 Documentation [facility] [place] Family Medicine [place] [address] Family Medicine, Physician [place] [address] Social History Tobacco Use Types [...]
--- OUTSIDE RECORDS SUMMARY | 2024-12-22 09:10 | XMS_ITS | Encounter Summary ---
Author Organization [facility] Address [address] [place] [address] Phone Care Team Providers Care Police Dispatcher Name Role Phone Unavailable Primary Care Provider Unavailabl e Encounter Details Date Type Department Care Team (Late st Contact Info) Description 12/24/2016 [place]ation [facility] [place] [facility] [place] [address] Family Medicine, Physician [facility] [place] [address] Social History Tobacco Use Types [...]
--- OUTSIDE RECORDS SUMMARY | 2024-12-22 09:10 | XMS_ITS | Encounter Summary ---
Author Organization [facility] Address [address] [place] [address] Phone Care Team Providers Care Lead Ios Developer Name Role Phone Unavailable Primary Care Provider Unavailabl e Encounter Details Date Type Department Care Team (Late st Contact Info) Description 04/09/2013 Documentation [facility] [place] [facility] [place] [address] Family Medicine, Physician [facility] [place] [address] Social History Tobacco Use Types [...]
--- OUTSIDE RECORDS SUMMARY | 2024-12-22 09:10 | XMS_ITS | Encounter Summary ---
Author Organization [facility] Address [address] [place] [address] Phone Care Team Providers Care Corporate Driver Name Role Phone Unavailable Primary Care Provider Unavailabl e Encounter Details Date Type Department Care Team (Late st Contact Info) Description 04/04/2017 Conversion Encounter [facility] - [address] [address] Social History Tobacco Use Types Packs/Day Years [...]
--- OUTSIDE RECORDS SUMMARY | 2024-12-22 09:10 | XMS_ITS | Encounter Summary ---
Author Organization [facility] Address [address] [place] [address] Phone Care Team Providers Care Substation Technician Name Role Phone Unavailable Primary Care Provider Unavailabl e Encounter Details Date Type Department Care Team (Late st Contact Info) Description 11/06/2016 Documentation [facility] [place] Family Medicine [facility] [place] [address] Family Medicine, Physician [facility] [place] [address] Social History Tobacco Use Types [...]
--- OUTSIDE RECORDS SUMMARY | 2024-12-22 09:11 | XMS_ITS | Clinical Summary ---
Author Organization [facility] Address [address] [place] [address] Phone Care Team Providers Care Card Doffer Name Role Phone Unavailable Primary Care Provider Unavailabl e Immunizations Immunization Administration Dates Next Due DTP 06/28/1998, 7,04/27/1997, 997 DTaP 5 08/21/2001 H1N1 06/23/2009 HPV, Quadrivalent 12/31/2008,03/03/2008,01/01/20 08 Hep A, ped/adol 06/17/2014,01/18/2011 Hep B, ped/adol 07/01/1997,02/05/1997,1996 Hib (PRP-T) 03/28/1998, 7,04/27/1997, 997 IPV 08/21/2001 Influenza Split 05/21/2013, 2,04/26/2011, 010 Influenza, injectable, quadrivalent 09/13/2016 Influenza, injectable, trivalent 009,07/02/2008,06/11/2007, 006,07/18/2005,09/12/2004 Influenza, intranasal, quadrivalent 05/23/2015,1 MMR 08/21/2001,11/22/1997 Meningococcal Conj (Menactra) MCV4P 06/16/2015,0 12/31/2008 OPV 07/01/1997,04/27/1997,02/05/1997 Tdap 01/01/2008 Varicella 01/01/2008,01/20/1999 Family History Relation Name Status Comments Brother Alive Brother: Alive and well Father Alive Father: Hyperli pidemia Maternal Grandfather MGP: Se izure disorder Mother Alive Mother: Alive a nd well Other Family history of CVA (Stroke), No family history of Migraines, Family history of Heart disease, Family history of Seizure disorder, Family history of Hyperlipidemia, Family history of Diabetes mellitus, No family history of Asthma, No family history of Thrombophilia, No family history of Sudden /UT under age 55, No family history of Cancer, No family history of Developmental dislocation of hip, No family history of ADD/ADHD, No family history of Strabismus, No family history of Deafness, No family history of Obesity Paternal Grandfather PGP: Di abetes mellitus Sister Alive Sister: Alive a nd well Social History Tobacco Use Types Packs/Day Years Used Date Smoking Tobacco: Never Comments:Never smoker Comments Unknown Sex and Gender Information Value Date Recorded Sex Assigned at Not on file Legal Sex Female 5:21 PM EDT Gender Identity Not on file Sexual Orientation Not on file Last Filed Vital Signs Vital Sign Reading Time Taken Comments Blood Pressure 101/71 09/24/2016 12:00 AM EST Pulse 80 09/24/2016 12:00 AM EST Temperature 36.4 ??C (97.6 ??F) 09/24/2016 12:[address] Respiratory Rate - - Oxygen Saturation - - Inhaled Oxygen Concentration - - Weight 65.4 kg (144 lb 3.2 oz) 09/24/2016 12:00 AM EST Height 151.8 cm (4' 11.75 ) 09/24/2016 12:00 AM EST Body Mass Index 28.4 09/24/2016 12:00 AM EST Plan of Treatment Health Maintenance Due Date Last Done Comments DTaP,Tdap,and Td Vaccines (7 - Td or Tdap) 12/31/2017 01/01/2008, 08/21/2001, 06/28/1998, Additional history exists Influenza Vaccines (#1) 2024 09/13/19 17, 05/23/2015, 06/17/2014, Additional history exists COVID-19 Vaccine ( season) 2024 Hepatitis B Vaccines Completed 07/01/1997, 02/05/1997, 1996 HIB Vaccines Completed 03/28/1998, 06/19, 04/27/1997, Additional history exists IPV Vaccines Completed 08/21/2001, 06/19, 04/27/1997, Additional history exists MMR Vaccines Completed 08/21/2001, 11/22/1997 Varicella Vaccines Completed 01/01/2008, 01/20/1999 HPV Vaccines Completed 12/31/2008, 02/16, 01/01/2008 Hepatitis A Vaccines Completed 06/17/2014, 01/19/20 11 Meningococcal Vaccine Completed 06/16/2015, 009 Men B Vaccine Aged Out No longer elig ible based on patient's age to complete this topic Pneumococcal Vaccine Aged Out No long er eligible based on patient's age to complete this topic Procedures * Due to [place] [employer] law, this organization might not be sharing sensitive test results. Procedure Name Priority Date/Time Associated Diagnosis Comments CHLAMYDIA AND GONORRHEA, AMPLIFIED Routine 09/14/2016 12:56 PM EST from Last 3 Months or Most Recently Relevant to Health Maintenance Results * Due to [place] [employer] law, this organization might not be sharing sensitive test results. * Chlamydia and Gonorrhoea, Amplified (09/14/2016 12:56 PM EST) [facility] URINE GC AMP PROBE NEGATIVE [facility] Comment: No Neisseria Gonorrhoeae RNA detected in this patient's sample (REFERENCE RANGE/NORMAL VALUE: NOT DETECTED) NOTE: This test uses center line cutter operator-mediated amplification method to detect rRNA from C.Trachomatis and N.Gonorrhoeae. A negative result does not preclude infection. In the case of a negative urine result, testing of an endocervical(female) or urethral(male) specimen is recommended if there is high clinical suspicion of infection. The performance characteristics of this test have not been evaluated in children. The Aptima Combo2 assay is not intended for the evaluation of suspected sexual abuse or for other medico-legal indications. The ordering provider should assess if the patient had consensual sex without risk of sexual abuse. Consult the [facility] if needed. Contact phone number . Therapeutic failure or success cannot be determined with the Aptima Combo2 assay since nucleic acid may persist following appropriate antimicrobial therapy. The Centers for Disease Control and Prevention (CDC) recommends confirmatory retesting using culture or a different nucleic acid amplification test when positive results occur, if indicated. Testing performed or reported by [facility], a Service of [facility], [address] [place] [address] CLIA ??[id number] Bridger Anderson MD, PhD, Site Leasing Agent URINE CHLAMYDIA AMP PROBE NEGATIVE [facility] Comment: No Chlamydia Trachomatis RNA detected in this patient's sample (REFERENCE RANGE/NORMAL VALUE: NOT DETECTED) 09/14/2016 12:5 6 PM EST Narrative [facility] - 09/14/2016 12:56 PM EST URINE CHLAMYDIA GC AMP PROBE us Aimee Ledezma MD LAB MICROBIOLOGY - GENERAL ORDER ELPIDIO Final Result [facility] [address] [place] [id number], [place] from Last 3 Months or Most Recently Relevant to Health Maintenance
== END 2024-12-22 10:29 | disposition home or self-care (01) ==
LOC: HO.HMCC 08:43
PROVIDERS: PCP Internal Medicine; Visit Provider Internal Medicine
DX: Z00.00 Encounter for general adult medical examination without abnormal findings (principal); R56.9 Unspecified convulsions

== ENCOUNTER → 2024-12-22 08:43 | Outpatient (BNVA) | payer OTHER, SELFPAY | PROVIDERS: PCP Internal Medicine; Visit Provider Internal Medicine | DX: Z00.00 Encounter for general adult medical examination without abnormal findings (principal); R56.9 Unspecified convulsions | CPT/HCPCS: 96127; 99395 ==

== ENCOUNTER 2025-07-29 11:32 | Outpatient (REF) | payer OTHER, SELFPAY ==
--- OUTSIDE RECORDS SUMMARY | 2025-07-29 22:02 | XMS_ITS | Encounter Summary ---
Author Organization [facility] Address [address] [place] [address] Phone Care Team Providers Care It Admin Name Role Phone Unavailable Primary Care Provider Unavailabl e Encounter Details Date Type Department Care Team (Late st Contact Info) Description 10/29/2016 Documentation [facility] [place] Family Medicine [facility] [place] [address] Family Medicine, Physician [facility] [place] [address] Social History Tobacco Use Types [...]
--- OUTSIDE RECORDS SUMMARY | 2025-07-29 22:02 | XMS_ITS | Encounter Summary ---
Author Organization [facility] Address [address] [place] [phone] Phone Care Team Providers Care Braille Operator Name Role Phone Unavailable Primary Care Provider Unavailabl e Encounter Details Date Type Department Care Team (Late st Contact Info) Description 04/09/2013 Documentation [facility] [place] Family Medicine [facility] [place] [address] Family Medicine, Physician [facility] [place] [address] Social History Tobacco Use Types [...]
--- OUTSIDE RECORDS SUMMARY | 2025-07-29 22:02 | XMS_ITS | Encounter Summary ---
Author Organization [facility] Address [address] [place] [phone] Phone Care Team Providers Care Conservation Engineer Name Role Phone Unavailable Primary Care Provider Unavailabl e Encounter Details Date Type Department Care Team (Late st Contact Info) Description 04/04/2017 Conversion Encounter [facility] - [address] [phone] Social History Tobacco Use Types Packs/Day Years [...]
--- OUTSIDE RECORDS SUMMARY | 2025-07-29 22:02 | XMS_ITS | Encounter Summary ---
Author Organization [facility] Address [address] [place] [phone] Phone Care Team Providers Care Electrician Ship Name Role Phone Unavailable Primary Care Provider Unavailabl e Encounter Details Date Type Department Care Team (Late st Contact Info) Description 07/22/[address] [facility] [place] Family Medicine [address] [place] [address] Family Medicine, [place] [address] Social History Tobacco Use Types [...]
--- OUTSIDE RECORDS SUMMARY | 2025-07-29 22:02 | XMS_ITS | Encounter Summary ---
Author Organization [facility] Address [address] [place] [address] Phone Care Team Providers Care Manager Department Name Role Phone Unavailable Primary Care Provider Unavailabl e Encounter Details Date Type Department Care Team (Late st Contact Info) Description 10/10/2016 Documentation [facility] [place] Family Medicine [facility] [place] [place] [address] Family Medicine, Physician [facility] [place] [address] Social History Tobacco Use Types [...]
--- OUTSIDE RECORDS SUMMARY | 2025-07-29 22:02 | XMS_ITS | Encounter Summary ---
Author Organization [facility] Address [address] [place] [phone] Phone Care Team Providers Care Neon Sign Installer Name Role Phone Unavailable Primary Care Provider Unavailabl e Encounter Details Date Type Department Care Team (Late st Contact Info) Description 12/24/2016 Documentation [facility] [place] Family Medicine [facility] [place] [address] Family Medicine, Physician [facility] [place] [address] Social History Tobacco Use Types [...]
--- OUTSIDE RECORDS SUMMARY | 2025-07-29 22:02 | XMS_ITS | Clinical Summary ---
Author Organization [facility] Address [address] [place] [phone] Phone Care Team Providers Care Application Development Specialist Name Role Phone Pcp, Unknown Primary Care Provider Unavailabl e Social History Tobacco Use Types Packs/Day Years Used Date Smoking Tobacco: Never Assessed Education Answer Date Recorded Are you interested in more education? Not on kathie e 12/15/2022 Are you concerned about learning? Not on file 12/15/2022 No 12/15/2022 No 12/15/2022 Digital Access Answer Date Recorded No 01/13/2023 No 01/13/2023 No 01/13/2023 Reliable internet access at home? Not on file 01/13/2023 Device with a working camera? Not on file Comments Unknown Sex and Gender Information Value Date Recorded Sex Assigned at Not on file Legal Sex Female 10:25 AM EDT Gender Identity Not on file Sexual Orientation Not on file Plan of Treatment Health Maintenance Due Date Last Done Comments Adult Td,Tdap Booster 1996 DEPRESSION SCREENING 2008 SMOKING Hx and SMOKELESS TOB ACCO SCREENING 2009 HEPATITIS C SCREENING 2014 HIV ONE-TIME SCREENING (18-6 5 YEARS) 2014 PAP SMEAR 2017 INFLUENZA VACCINE (#1) 2025 COVID-19 VACCINE ( - 2024-2 6 season) 2025 HEPATITIS A VACCINES Aged Out No long er eligible based on patient's age to complete this topic HIB VACCINES Aged Out No longer eligi ble based on patient's age to complete this topic MENINGOCOCCAL VACCINES (ACWY) Aged Out No longer eligible based on patient's age to complete this topic MENINGOCOCCAL VACCINES (B) Aged Out N o longer eligible based on patient's age to complete this topic PNEUMOCOCCAL VACCINES (0-49 years) Aged Out No longer eligible based on patient's age to complete this topic Medical Devices Not on file Insurance [facility] Care Teams Application Development Specialist Relationship Specialty Start Date End Date Pcp, Unknown PCP - General 11/16/21 Additional Source Comments The information contained in this document represents components of the legal health record. It is not the complete legal health record.[facility]
--- OUTSIDE RECORDS SUMMARY | 2025-07-29 22:02 | XMS_ITS | Encounter Summary ---
Author Organization [facility] Address [address] [place] [phone] Phone Care Team Providers Care Well Service Floor Worker Name Role Phone Unavailable Primary Care Provider Unavailabl e Encounter Details Date Type Department Care Team (Late st Contact Info) Description 11/06/2016 Documentation [facility] [place] Family Medicine [facility] [place] [address] Family Medicine, Physician [facility] [place] [address] Social History Tobacco Use Types [...]
--- OUTSIDE RECORDS SUMMARY | 2025-07-29 22:02 | XMS_ITS | Clinical Summary ---
Author Organization [facility] it Address [address] [place] [address] Care Team Providers Care Ruby Software Developer Name Role Phone Silvino Vaca MD Primary Care Provider [phone] Surgical History Surgery Date Site/Laterality Comments SECTION 09/29/2018 N/A PROCEDURE: [place] DELIV[place] ONLY Medical History Medical History Date Comments Seizures (CMS/HCC V24, CMS/HCC V28) DX:Seizures ([facility] COMMENT: pt states seizure free x 6 [...] Cancer Screening: P ap Smear 03/04/2021 03/04/2018 HIV Screening 07/22/2022 Hepatitis C Screening 07/22/2022 Social Influencers of Health Screening 07/22/2022 HPV Vaccines (1 - 3-dose SCD M series) 11/21/2023 Depression Screening 08/19/2024 COVID-19 Vaccine (1 - 2024-2 6 season) 2025 Influenza Vaccine (#1) 2025 06/09/2018 DTaP,Tdap,and Td Vaccines (3 - Td or Tdap) 04/27/2030 04/27/2020, 08/08/2018 RSV Immunization Adult Patients (1 - 1-dose 75+ series) 11/21/2071 HIB Vaccines Aged Out No longer eligi [...] 5 Years) and At-Risk Patients (6 to 49 Years) Aged Out No longer eligible b [...] RESULTING AGENCY - 03/06/2018 9:19 AM EDT [id number] RESULTS OF GEN-PROBE APTIMA COMBO 2 ASSAY CHLAMYDIA: NEGATIVE N. GONORRHOEAE: NEGATIVE DAVID HUMPHRIES M.D., PATHOLOGIST (CASE ELECTRONICALLY SIGNED 03 06 2018) CLINICAL INFORMATION: , Z12.4 SOURCE: THINPREP PAP FOR CT/GC GROSS DESCRIPTION: THINPREP VIAL RECEIVED. PHYSICIANS WENDI CRISOSTOMO/#/ Wendi Crisostomo CN LAB CYTOLOGY ORDERABLES Final Result HISTORICAL TESTING LAB RESULTING AGENCY from Last 3 Months or Most Recently Relevant to Health Maintenance Care Teams Ruby Software Developer Relationship Specialty Start Date End Date Silvino Vaca MD [address] [place] [address] [address] [facility] [place] [address] PCP - General Internal Medicine 12/07/19
--- OUTSIDE RECORDS SUMMARY | 2025-07-29 22:03 | XMS_ITS | Clinical Summary ---
Author Organization [facility] Address [address] [place] [address] Phone Care Team Providers Care Install And Repair Technician Name Role Phone Unavailable Primary Care [...] of Thrombophilia, No family history of Sudden /[place] under age 55, No family history of [...] 81 09/24/2016 12:00 AM EST Temperature 36.4 C (97.6 F) 09/24/2016 12:00 AM EST Respiratory Rate - - Oxygen Saturation - [...] 06/28/1998, Additional history exists Influenza Vaccines (#1) 2025 09/13/19 17, 05/23/2015, 06/17/2014, Additional history exists COVID-19 Vaccine ( season) 2025 Hepatitis B Vaccines Completed 07/01/1997, 02/05/1997, 1996 [...] complete this topic Procedures * Due to [place] [employer] Text[employer] law, this organization might not be sharing sensitive test results. Procedure Name Priority Date/Time Associated Diagnosis Comments CHLAMYDIA AND GONORRHEA, AMPLIFIED Routine 09/14/2016 12:56 PM EST from Last 3 Months or Most Recently Relevant to Health Maintenance Results * Due to [place] [employer] law, this organization might not be sharing sensitive test results. * Chlamydia and Gonorrhoea, Amplified (09/14/2016 12:56 PM EST) [facility] URINE GC AMP PROBE NEGATIVE [facility] Comment: No Neisseria Gonorrhoeae RNA detected in this patient's sample (REFERENCE RANGE/NORMAL VALUE: NOT DETECTED) NOTE: This test uses fish hatchery laborer-mediated amplification method to detect rRNA from C.Trachomatis [...] without risk of sexual abuse. Consult the [facility] if needed. Contact phone number . Therapeutic failure or success cannot be determined with the Aptima Combo2 assay since nucleic acid may persist following appropriate antimicrobial therapy. The Centers for Disease Control and Prevention (CDC) recommends confirmatory retesting using culture or a different nucleic acid amplification test when positive results occur, if indicated. Testing performed or reported by [facility], a Service of [facility], Elisabet Jones [place] [address] CLIA [id number] Bridger Anderson MD, PhD, Aquatic Life Laborer URINE CHLAMYDIA AMP PROBE NEGATIVE [facility] Comment: No Chlamydia Trachomatis RNA detected in this patient's sample (REFERENCE RANGE/NORMAL VALUE: NOT DETECTED) 09/14/2016 12:5 6 PM EST Narrative [facility] - 09/14/2016 12:56 PM EST URINE CHLAMYDIA GC AMP PROBE us Aimee Ledezma MD LAB MICROBIOLOGY - GENERAL ORDER ELPIDIO Final Result [facility] [address] [place] [phone], [place] from Last 3 Months or Most Recently Relevant to Health Maintenance
[2025-07-30 09:35] LABS: Bacterial Vaginosis PCR NEGATIVE (Negative); Candida Group PCR DETECTED (Not Detect); Candida glab krusei PCR DETECTED (Not Detect); Trichomonas vaginalis PCR NOT DETECTED (Not Detect)
[2025-07-30 10:07] LABS: CT PCR NOT DETECTED (Not Detect.); NG PCR NOT DETECTED (Not Detect.)
== END 2025-07-29 11:33 | disposition home or self-care (01) ==
LOC: HO.LNP 11:32
PROVIDERS: PCP Internal Medicine; Visit Provider Advanced Practice Midwife
DX: Z01.419 Encounter for gynecological examination (general) (routine) without abnormal findings (principal); Z30.09 Encounter for other general counseling and advice on contraception; N92.6 Irregular menstruation, unspecified; R56.9 Unspecified convulsions; Z20.2 Contact with and (suspected) exposure to infections with a predominantly sexual mode of transmission
CPT/HCPCS: 81515; 87491; 87591

== ENCOUNTER 2025-07-29 11:32 | Outpatient (AMB) | payer OTHER, SELFPAY ==
--- NOTE | 2025-07-29 11:32 | MHC.OFFVIS ---
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 Tier And Detonator: Tier And Detonator Present (Rhianna) Accompanied by: Self / Same As Patient Allergies phenytoin (From DILANTIN) Allergy (Mild, Verified 07/29/25 11:35) RASH strawberry Adverse Reaction (Verified 07/29/25 11:35) Hives Medication List - Last Reconciled 07/29/25 by Stephanie Kennedy CNM folic acid 1 mg PO DAILY hydroxyzine HCl 25 mg PO TID PRN levetiracetam 1,500 mg PO BEDTIME levetiracetam mg PO DAILY midazolam (Nayzilam) intranasal ondansetron 4 mg PO Q8H PRN HPI HPI 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 She was last here in 2023 she has a complicated medical history of seizures all her life she says they have not been well-controlled she sees neurologist in [place] her caregiver who is the father of her children drives her in for visits and he accompanies her because she can not drive and can not work she wants very much to get her seizures well-controlled but she says she does not have much of a memory anymore because of the seizures and also she gets seizures before her. It is usually the week before she cited this as a problem 2 years ago as well there was a full discussion at that visit requesting her to have some feedback from the neurologist as to what hormonal method of control they would recommend as there are interactions with all of the hormonal methods. She is absolutely not interested and does not want any kind of IUD be it with hormones are without. She says she is currently using condoms she was on Depo-Provera in the past and would like to get back on that but she is also struggling with her weight and trying to lose weight her caregiver who is her partner does a lot of the cooking because she can not be near the stove. He also helps with the children. Patient was tearful throughout much of this visit discussing the challenges of trying to deal with her seizures and everything. She did not remember the name of her primary care provider but records are in our system. She keeps records of her periods at home but did not bring the records in but thinks she had a period at the beginning of June and also at the end and came up with July 12 as the date. [facility] Medical History (Updated 07/29/25 @ 12:56 by Stephanie Kennedy CNM) Seizures Hypoxia Depression Anxiety Snoring Headache Contraception management Hyperglycemia Rash Anemia Viral syndrome Depression with anxiety care and examination BCP ( control pills) initiation Annual physical exam Depression Frequent UTI Surgical History Hx of section No pertinent past surgical history Family History Father Seizure Mother No problems noted. Social History Household Members: Family Housing: House Do you presently have visiting nurse or other home services: No Alcohol intake: never Patient Tobacco Use Status: Current everyday Tobacco user Tobacco use type: Cigarette Cigarettes Per Day: 2 e-Cigarette/Vaping Use: Never Used Substance Use Type: Marijuana Advance Directives Date on File: 12/26/22 service: No Current occupational status: employed Sexual orientation: Straight/Heterosexual Cognitive needs: No Hearing needs: No Vision needs: No Female Reproductive History Menstrual Age of Menarche: 18 Date of last menstrual period: 07/12/25 control method: none Total pregnancies: 2 Full term: 2 Date of last pap smear: 10/31/23 (negative pap smear) Physical Exam Exam Exam: Patient has dark circles under her eyes she does have a bruise under her axilla from when she recently had a seizure and fell downstairs. Vital Signs: Last Vital Signs BP 114/72 07/29/25 11:41 BMI result Body Mass Index 42.2 Const General: healthy appearing, comfortable, no acute distress, well developed and alert Nutritional Appearance: average body habitus Orientation/consciousness: patient oriented x3 Limitations: no limitations HEENT Head: Yes normocephalic Neck Neck: Yes normal visual inspection Chest Chest palpation & inspection: normal inspection of the chest Breast/axilla inspection: normal inspection of the breasts and normal inspection of the axillae Breast/axilla palpation: normal palpation of the breasts and normal palpation of the axillae Resp Effort & Inspection: normal respiratory effort GI Inspection: Yes normal to inspection, No Abdominal wall edema and No distended Palpation (GI): Soft to palpation and nontender Other: External exam within normal limits vagina is pink and moist there is some brown discharge consistent with the either end of menses or start of menses. Cervix multiparous pink small mobile nontender uterus midposition mobile nontender adnexa nontender good tone with Kegel. General: Yes bladder normal to palpation External Female Exam: normal external appearance and normal appearance of the urethra Speculum Exam - Vagina: normal appearance of the vagina, normal palpation and normal vaginal discharge Speculum Exam - Cervix: normal appearance of the cervix, normal palpation and nontender Bimanual exam- vagina & uterus: normal bimanual exam, normal palpation, uterine size normal, bladder normal to palpation, consistency normal, normal palpation, uterine mobility normal, uterine shape normal, No Cervical tenderness present, non-tender and no cervical motion tenderness Bimanual Exam- Adnexa, other: normal adnexae, no masses, normal and No adnexal tenderness Neuro General: patient oriented x3 Assessment & Plan Assessment & Plan (1) Irregular menses: Code(s): N92.6 - Irregular menstruation, unspecified Category: Medical (2) Well woman exam with routine gynecological exam: Code(s): Z01.419 - Encounter for gynecological examination (general) (routine) without abnormal findings Category: Medical (3) Cervical cancer screening: Comment: 10/31/2023 Pap was negative. Code(s): Z12.4 - Encounter for screening for malignant neoplasm of cervix Category: Medical (4) control counseling: Comment: Discussed all available methods and in particular in relation to her seizure disorder and medications discussion to continue for now she is going to get back on the Depo she is seeing her neurologist in [place] on Saturday and I recommend she have records sent to her primary so we have access to them; 07/29/2025 seeing patient a year and 9 months after the above repeat of the discussion occurred with plan this time is for patient to sign for records to be shared and patient would like to try the Nexplanon to be inserted at the 1st menses after the Nexplanon becomes available. Code(s): Z30.09 - Encounter for other general counseling and advice on contraception Category: Medical (5) Seizures: Comment: Patient see neurologist in [place]; 07/29/2025 patient's dates she has had them all her life lately they come the week before her. And she says her neurologist recommended she get on some hormonal control to have the periods happen less and therefore have the seizures happen less often .... Code(s): R56.9 - Unspecified convulsions Category: Medical Plan Much of this visit was focused on helping her decide on a method of control and reviewing the options I highly recommend that she give strong consideration to a Mirena IU S that has a better chance of helping her periods go away and that might have a lesser overall systemic hormonal effect however she is very much not interested in anything that would be put inside of her vagina or uterus so that leaves the Depo-Provera that she is comfortable with or the Nexplanon that has similar side effects and both have the concern for weight gain I reviewed this in quite some detail with her and offered to have her start on the Depo-Provera but no that it should not be used long-term however she would rather start with the Nexplanon she is very certain that she can use condoms from here on out and says that she has been and she will continue to do so until we are able to get the Nexplanon she is going to sign the form today with the front office developer staff and when the Nexplanon arrives and I did write this on a piece of paper for her after that she needs to call when she gets he period. And that is when we will insert the Nexplanon with her period. She says her period lasts a full 7 days but I recommend the Nexplanon be inserted in the 1st 3 or 4 days of it. Meanwhile she is going to continue her efforts to try and eat better and be active and she has been trying to go on walks for better exercise and she is continuing with her life with her caregiver who is her partner and father of her children and continue with her primary care and her neurology follow-up she does have appointment scheduled with each. Testing done for STIs she is not due for Pap smear. Discussed in particular that hormonal methods of control and her antiseizure medicines may interact with each other. Coding Level of Care Code Est Pt Prev Care [id number]([id number]) Diagnoses Irregular menses N92.6 Well woman exam with routine gynecological exam Z01.419 Cervical cancer screening Z12.4 control counseling Z30.09 Seizures R56.9 Time Spent (min) 60 Comment 100% spent discussing health concerns and coming up with plan with the patient....
[2025-07-29 11:41] VITALS: BP 114/72; BMI 42.2
== END 2025-07-29 14:31 | disposition home or self-care (01) ==
LOC: HO.HWSM 11:32
PROVIDERS: PCP Internal Medicine; Visit Provider Advanced Practice Midwife
DX: Z01.419 Encounter for gynecological examination (general) (routine) without abnormal findings (principal); N92.6 Irregular menstruation, unspecified; Z12.4 Encounter for screening for malignant neoplasm of cervix; Z30.09 Encounter for other general counseling and advice on contraception
CPT/HCPCS: 99395; 99459